=== PATIENT | female | born 1940 | race Caucasian/White ===

== ENCOUNTER → 2016-09-19 | Outpatient (CLI) | payer OTHER ==
[~2016-09-19] MED LIST: IOPAMIDOL (ISOVUE-300) 100 ML BTL IV ONE
[2016-09-19 19:02] LABS: CREATININE 0.9 mg/dL (0.6-1.0); GLOMERULAR FILTRATION RATE > 60
== END ==
LOC: FIMAGING 18:23
PROVIDERS: ATTEND Family Medicine
DX: K59.00 Constipation, unspecified (principal); K57.90 Diverticulosis of intestine, part unspecified, without perforation or abscess without bleeding; R63.0 Anorexia
CPT/HCPCS: 74177; Q9967

== ENCOUNTER 2016-09-26 05:56 | Emergency (ER) | payer OTHER ==
[2016-09-26 06:10] VITALS: TEMP 98.1
--- NOTE | 2016-09-26 06:38 | EDPHY ---
H & P Stated Complaint: abd pain Source: Patient Exam Limitations: No limitations - Personal History Current Tetanus/Diphtheria Vaccine: Yes Current Tetanus Diphtheria and Acellular Pertussis (TDAP): Yes - Medical/Surgical History Hx Asthma: No Hx Chronic Respiratory Disease: Yes Hx Diabetes: No Hx Cardiac Disease: No Hx Renal Disease: No Hx Cirrhosis: No Hx Alcoholism: No Hx HIV/AIDS: No Hx Splenectomy or Spleen Trauma: No Other PMH: Appendectomy, bilateral mastectomy, hysterectomy, 2 C-sections, HYPOTHYROIDISM, ARTHRITIS anaphylactic shock, GERD, DVT and PE, hypertension, obstructive sleep apnea, bowel obstruction - Social History Smoking Status: Former smoker Time Seen by Provider: 09/26/16 06:32 HPI/ROS: HPI The patient presents with about 1 week of abdominal pain which is intermittent, achy, throughout her abdomen, and feels like indigestion. She has been eating very little and then yesterday had a full meal. She has had constipation and describes very hard stools, the last of which was yesterday morning. She denies any dark or bloody stools. She was evaluated by her primary care doctor last week and 7 days [address] a CT scan performed which demonstrated constipation. After that she started on lactulose which did not improve her symptoms much. She awoke this morning with continued pain and has come to the emergency room for further evaluation.. REVIEW OF SYSTEMS Constitutional: No fever, no chills. Eyes: No discharge. ENT: No sore throat. Cardiovascular: No chest pain, no palpitations. Respiratory: No cough, no shortness of breath. Gastrointestinal: No abdominal pain, no vomiting. Genitourinary: No hematuria. Musculoskeletal: No back pain. Skin: No rashes. Neurological: No headache. PMHx: Status post hysterectomy, appendectomy, history of GERD Soc Hx: Lives at home with her PHYSICAL General Appearance: Alert, somewhat tearful Eyes: Pupils equal and round no pallor or injection ENT, Mouth: Mucous membranes moist Respiratory: There are no retractions, lungs are clear to auscultation Cardiovascular: Regular rate and rhythm Gastrointestinal: Abdomen is soft, bowel sounds are present, mildly tender diffusely Neurological: A&O, moves all extremities Skin: Warm and dry, no rashes Musculoskeletal: Neck is supple non tender Extremities: symmetrical, full range of motion Psychiatric: Patient is oriented X 3, there is no agitation (Riguzzi,Samantha) Constitutional: Initial Vital Signs Temperature (C) 36.7 C 09/26/16 06:07 Heart Rate 64 09/26/16 06:07 Respiratory Rate 18 09/26/16 06:07 Blood Pressure 135/75 H 09/26/16 06:07 O2 Sat (%) 93 09/26/16 06:07 O2 Delivery Mode Room Air Allergies/Adverse Reactions: fentanyl Allergy (Severe, Verified 09/26/16 06:03) JOCELYN midazolam HCl [From Versed] Allergy (Severe, Verified 09/26/16 06:03) JOCELYN erythromycin base [Erythromycin Base] Allergy (Intermediate, Verified 09/26/16 06:03) polyethylene glycol 3350 [From Miralax] Allergy (Intermediate, Verified 06:03) Sulfa (Sulfonamide Antibiotics) Allergy (Intermediate, Verified 09/26/16 06:03) amoxicillin Allergy (Verified 09/26/16 06:03) amoxicillin trihydrate [From Augmentin] Allergy (Verified 09/26/16 06:03) ciprofloxacin Allergy (Verified 09/26/16 06:03) guaifenesin [From Robitussin] Allergy (Verified 09/26/16 06:03) potassium clavulanate [From Augmentin] Allergy (Verified 09/26/16 06:03) Home Medications: Medication Instructions Recorded Levothyroxine [Synthroid 137 mcg 137 mcg PO DAILY06 09/27/11 (*)] Cholecalciferol Vit D3 [Vitamin D3 2,000 units PO DAILY 10/12/12 (*)] Fluticasone Nasal [Flonase Nasal 2 sprays EACHNARE HS 10/12/12 [place]] Herbals/Supplements -Info Only 1 each PO AD 10/12/12 Omeprazole [Prilosec 20 mg] 20 mg PO BID 10/12/12 Simvastatin [Zocor 40 mg] 40 mg PO HS 10/12/12 Cetirizine [ZyrTEC 10 mg (*)] 10 mg PO DAILY 11/10/13 diphenhydrAMINE [Benadryl 25 MG 25 mg PO HS 11/10/13 (*)] EPINEPHrine [Epipen 0.3 MG] 0.3 mg IM ONCE PRN #1 syr 06/04/14 Albuterol [Proventil Inhaler HFA 2 puffs IH Q4 PRN 02/19/15 (*)] Azelastine [Astelin] 2 sprays EACHNARE DAILY 02/19/15 Calcium/Magnesium/Vit D3 [Calcium 1 each PO TID 02/19/15 500 mg Tablet] Montelukast Sodium [Singulair 10 10 mg PO HS 02/19/15 mg (*)] Sumatriptan Succinate [Imitrex] 100 mg PO PRN PRN 02/19/15 predniSONE 15 mg PO DAILY 02/19/15 Estrace Vaginal (*) 09/26/16 Lactulose 09/26/16 Myrbetriq 09/26/16 Medical Decision Making Differential Diagnosis: This is a 76-year-old female with recent diagnosis of constipation based on CT scan, prescribe lactulose, now with continued symptoms of constipation and abdominal pain. On exam, she has normal vital signs, her abdominal exam is benign. Differential diagnosis includes constipation, bowel obstruction, GERD. Plan for basic labs, soapsuds enema and re-evaluation. If her pain continues after enema, would consider repeat CT scan. (Samantha Samayoa) Other Provider: Care assumed 700; CT 09/19/16 report reviewed, read as constipation. Plan per Danita is enema, DC if improved, re-CT if not. 755am: reexamined, abdomen soft and nontender. She had a large bowel movement and feels better except for some cramping. Likely constipation, at this point think SBO or surgical abdomen unlikely. (Ruddy Hernandez) - Data Points Laboratory Results: Laboratory Results 09/26/16 06:25 09/26/16 06:25 09/26/16 09/26/16 06:25 06:25 WBC 8.36 10^3/uL 10^3/uL (3.80-9.50) RBC 4.82 10^6/uL 10^6/uL (4.18-5.33) Hgb 13.7 g/dL g/dL (12.6-16.3) Hct 41.2 % % (38.0-47.0) MCV 85.5 fL fL (81.5-99.8) MCH 28.4 pg pg (27.9-34.1) MCHC 33.3 g/dL g/dL (32.4-36.7) RDW 16.3 % H % (11.5-15.2) Plt Count 211 10^3/uL 10^3/uL (150-400) MPV 9.8 fL fL (8.7-11.7) Neut % (Auto) 53.3 % % (39.3-74.2) Lymph % (Auto) 32.1 % % (15.0-45.0) [place] % (Auto) 10.6 % % (4.5-13.0) Eos % (Auto) 2.9 % % (0.6-7.6) Baso % (Auto) 0.7 % % (0.3-1.7) Nucleat RBC Rel Count 0.0 % % (0.0-0.2) Absolute Neuts (auto) 4.46 10^3/uL 10^3/uL (1.70-6.50) Absolute Lymphs (auto) 2.68 10^3/uL 10^3/uL (1.00-3.00) Absolute Monos (auto) 0.89 10^3/uL H 10^3/uL (0.30-0.80) Absolute Eos (auto) 0.24 10^3/uL 10^3/uL (0.03-0.40) Absolute Basos (auto) 0.06 10^3/uL 10^3/uL (0.02-0.10) Absolute Nucleated RBC 0.00 10^3/uL 10^3/uL (0-0.01) Immature Gran % 0.4 % % (0.0-1.1) Immature Gran # 0.03 10^3/uL 10^3/uL (0.00-0.10) Sodium 138 mEq/L mEq/L (134-144) Potassium 3.8 mEq/L mEq/L (3.5-5.2) Chloride 104 mEq/L mEq/L (97-110) Carbon Dioxide 25 mEq/l mEq/l (22-31) Anion Gap 9 mEq/L mEq/L (8-16) BUN 19 mg/dL mg/dL (7-23) Creatinine 1.0 mg/dL mg/dL (0.6-1.0) Estimated GFR 54 Glucose 87 mg/dL mg/dL (70-100) Calcium 9.2 mg/dL mg/dL (8.5-10.4) Total Bilirubin 0.8 mg/dL mg/dL (0.1-1.4) AST 24 IU/L IU/L (14-46) ALT 40 IU/L IU/L (9-52) Alkaline Phosphatase 71 IU/L IU/L (38-126) Total Protein 6.6 g/dL g/dL (6.3-8.2) Albumin 4.0 g/dL g/dL (3.5-5.0) Lipase 114.0 IU/L IU/L (23-300) Departure - Departure Disposition: Home, Routine, Self-Care Clinical Impression: Constipation Qualifiers: Constipation type: unspecified constipation type Qualified Code(s): K59.00 - Constipation, unspecified Condition: Good Instructions: Constipation (ED) Referrals: Nuha Bradford MD [Primary Care Provider] - As per Instructions
[2016-09-26 06:39] LABS: % IMMATURE GRANULYOCYTES 0.4 % (0.0-1.1); ABSOLUTE IMMATURE GRANULOCYTES 0.03 10^3/uL (0.00-0.10); ADD DIFF? NO; ADD MORPH? NO; ADD SCAN? NO; ATYPICAL LYMPHOCYTE FLAG 0 (0-99); FRAGMENT RBC FLAG 0 (0-99); HEMATOCRIT 41.2 % (38.0-47.0); HEMOGLOBIN 13.7 g/dL (12.6-16.3); LEFT SHIFT FLG 0 (0-99); LIPEMIA HEMOLYSIS FLAG 80 (0-99); MEAN CELL HEMOGLOBIN 28.4 pg (27.9-34.1); MEAN CELL HEMOGLOBIN CONCENTR. 33.3 g/dL (32.4-36.7); MEAN CELL VOLUME 85.5 fL (81.5-99.8); MEAN PLATELET VOLUME 9.8 fL (8.7-11.7); PLATELET CLUMPS FLAG 0 (0-99); PLATELET COUNT 211 10^3/uL (150-400); RED BLOOD CELL COUNT 4.82 10^6/uL (4.18-5.33); RED CELL DISTRIBUTION WIDTH 16.3 % (11.5-15.2)
[2016-09-26 06:52] LABS: ALANINE AMINOTRANSFERASE 40 IU/L (9-52); ALKALINE PHOSPHATASE 71 IU/L (38-126); ANION GAP 9 mEq/L (8-16); ASPARTATE AMINOTRANSFERASE 24 IU/L (14-46); BILIRUBIN,TOTAL 0.8 mg/dL (0.1-1.4); CALCIUM 9.2 mg/dL (8.5-10.4); CARBON DIOXIDE 25 mEq/l (22-31); CHLORIDE 104 mEq/L (97-110); GLOMERULAR FILTRATION RATE 54; GLUCOSE 87 mg/dL (70-100); POTASSIUM 3.8 mEq/L (3.5-5.2); SODIUM 138 mEq/L (134-144); TOTAL PROTEIN 6.6 g/dL (6.3-8.2)
[2016-09-26 08:12] VITALS: BP 98/67; PULSE 69; RESP 16; O2SAT 94
== END 2016-09-26 08:12 | disposition home or self-care (01) ==
DX: K59.00 Constipation, unspecified (principal); I10 Essential (primary) hypertension; Z87.891 Personal history of nicotine dependence

== ENCOUNTER → 2016-10-02 | Outpatient (CLI) | payer OTHER | LOC: BMCIMAGING 14:27 | PROVIDERS: ATTEND Internal Medicine Rheumatology | DX: M79.605 Pain in left leg (principal); M79.89 Other specified soft tissue disorders ==

== ENCOUNTER → 2016-11-07 | Outpatient (CLI) | payer OTHER | LOC: FIMAGING 11:47 | PROVIDERS: ATTEND Internal Medicine Rheumatology | DX: M51.36 Other intervertebral disc degeneration, lumbar region (principal); M54.9 Dorsalgia, unspecified ==

== ENCOUNTER → 2016-11-19 | Outpatient (CLI) | payer OTHER | LOC: FIMAGING 07:49 | PROVIDERS: ATTEND Physician Assistant | DX: R10.84 Generalized abdominal pain (principal); K59.00 Constipation, unspecified ==

== ENCOUNTER 2016-12-02 18:34 | Inpatient (IN) | payer OTHER ==
[2016-12-02 19:20] LABS: % IMMATURE GRANULYOCYTES 0.8 % (0.0-1.1); ABSOLUTE IMMATURE GRANULOCYTES 0.06 10^3/uL (0.00-0.10); ADD DIFF? NO; ADD MORPH? NO; ADD SCAN? NO; ATYPICAL LYMPHOCYTE FLAG 0 (0-99); FRAGMENT RBC FLAG 0 (0-99); HEMATOCRIT 42.6 % (38.0-47.0); HEMOGLOBIN 14.2 g/dL (12.6-16.3); LEFT SHIFT FLG 10 (0-99); LIPEMIA HEMOLYSIS FLAG 80 (0-99); MEAN CELL HEMOGLOBIN CONCENTR. 33.3 g/dL (32.4-36.7); MEAN CELL VOLUME 83.9 fL (81.5-99.8); PLATELET CLUMPS FLAG 10 (0-99); PLATELET COUNT 208 10^3/uL (150-400); RED BLOOD CELL COUNT 5.08 10^6/uL (4.18-5.33)
--- NOTE | 2016-12-02 19:26 | EDPHY ---
HPI/HX/ROS/PE/MDM Narrative: CHIEF COMPLAINT: Fever, Body aches HPI: The patient is a 76-year-old female who complains of fever and body aches. Patient states she has not felt well for the past week. Over the past three days her symptoms have been worsening. She has a productive cough with clear sputum. Her fever today reached 101.8. She has a diffuse headache. Patient has not been able to eat due to lesions in her mouth. She denies chest pain or shortness of breath. No abdominal pain or urinary complaints. REVIEW OF SYSTEMS: Aside from elements discussed in the HPI, a comprehensive 10-point review of systems was reviewed and is negative. PMH: Spinal stenosis, RA on chronic Prednisone, Migraines SOCIAL HISTORY: PHYSICAL EXAM: General: Patient is alert, in no acute distress. ENT: Eyes are normal to inspection. Mouth: Lesion to lower lip. Multiple aphthous. Neck: Normal inspection. Full range of motion. Respiratory: No respiratory distress. Breath sounds normal bilaterally. Cardiovascular: Regular rate and rhythm. Strong peripheral pulses. Abdomen: The abdomen is nontender to palpation. There are no peritoneal signs. There are normal bowel sounds. Back: Normal to inspection. No tenderness to palpation. Skin: Normal color. No rash. Warm and dry. Extremities: Normal appearance. Full range of motion. Neuro: Oriented x3. Normal motor function. Normal sensory function. ED Course: Patient presents with multiple complaints of cough, headache, fever, and body aches. Patient is afebrile in the ED. Plan to check lab work. Chest x-ray is negative for pneumonia. WBC is normal. Patient has elevated Lactic acid of 2.2. MDM: This patient presents with fever, cough and malaise, and is found to be hypoxic to 83% on RA. She normally wears oxygen only during sleep. As such, she requires admission to the hospital for further workup and treatment. Patient meets criteria for severe sepsis based on initial lactate >2. Thankfully this has normalized. There is no evidence of septic shock. Antibiotics are limited as patient is allergic to penicillins, macrolides and flouroquinolones, and this may represent a viral process. I will defer antibiotic selection to inpatient team. - Data Points Imaging Results: Imaging Impressions Chest X-Ray 12/02/16 19:12 Impression: 1. Probable severe acute bronchitis with a differential diagnosis of early bilateral diffuse interstitial pneumonitis or interstitial pulmonary edema. 2. No pleural effusion or pneumothorax. 3. Atherosclerotic aorta. Imaging: Discussed imaging studies w/ manager call Radiologist, I viewed and interpreted images myself Laboratory Results: Laboratory Results 12/02/16 19:05 12/02/16 19:05 12/02/16 12/02/16 12/02/16 20:15 19:30 19:30 WBC RBC Hgb Hct MCV MCH MCHC RDW Plt Count MPV Neut % (Auto) Lymph % (Auto) [place] % (Auto) Eos % (Auto) Baso % (Auto) Nucleat RBC Rel Count Absolute Neuts (auto) Absolute Lymphs (auto) Absolute Monos (auto) Absolute Eos (auto) Absolute Basos (auto) Absolute Nucleated RBC Immature Gran % Immature Gran # VBG Lactic Acid 1.2 mmol/L mmol/L (0.7-2.1) Sodium Potassium Chloride Carbon Dioxide Anion Gap BUN Creatinine Estimated GFR Glucose Calcium Troponin I < 0.012 ng/mL ng/mL (0-0.034) NT-Pro-B Natriuret Pep 391 pg/mL pg/mL (0-450) Urine Color YELLOW Urine Appearance CLEAR Urine pH 7.0 (5.0-7.5) Ur Specific [place] 1.010 (1.002-1.030) Urine Protein NEGATIVE (NEGATIVE) Urine Ketones NEGATIVE (NEGATIVE) Urine Blood NEGATIVE (NEGATIVE) Urine Nitrate NEGATIVE (NEGATIVE) Urine Bilirubin NEGATIVE (NEGATIVE) Urine Urobilinogen NEGATIVE EU EU (0.2-1.0) Ur Leukocyte Esterase NEGATIVE (NEGATIVE) Urine Glucose NEGATIVE (NEGATIVE) 12/02/16 12/02/16 12/02/16 19:05 19:05 19:05 WBC 7.70 10^3/uL 10^3/uL (3.80-9.50) RBC 5.08 10^6/uL 10^6/uL (4.18-5.33) Hgb 14.2 g/dL g/dL (12.6-16.3) Hct 42.6 % % (38.0-47.0) MCV 83.9 fL fL (81.5-99.8) MCH 28.0 pg pg (27.9-34.1) MCHC 33.3 g/dL g/dL (32.4-36.7) RDW 17.0 % H % (11.5-15.2) Plt Count 208 10^3/uL 10^3/uL (150-400) MPV 10.0 fL fL (8.7-11.7) Neut % (Auto) 64.3 % % (39.3-74.2) Lymph % (Auto) 25.2 % % (15.0-45.0) [place] % (Auto) 8.7 % % (4.5-13.0) Eos % (Auto) 0.4 % L % (0.6-7.6) Baso % (Auto) 0.6 % % (0.3-1.7) Nucleat RBC Rel Count 0.0 % % (0.0-0.2) Absolute Neuts (auto) 4.95 10^3/uL 10^3/uL (1.70-6.50) Absolute Lymphs (auto) 1.94 10^3/uL 10^3/uL (1.00-3.00) Absolute Monos (auto) 0.67 10^3/uL 10^3/uL (0.30-0.80) Absolute Eos (auto) 0.03 10^3/uL 10^3/uL (0.03-0.40) Absolute Basos (auto) 0.05 10^3/uL 10^3/uL (0.02-0.10) Absolute Nucleated RBC 0.00 10^3/uL 10^3/uL (0-0.01) Immature Gran % 0.8 % % (0.0-1.1) Immature Gran # 0.06 10^3/uL 10^3/uL (0.00-0.10) VBG Lactic Acid 2.2 mmol/L H mmol/L (0.7-2.1) Sodium 134 mEq/L mEq/L (134-144) Potassium 3.3 mEq/L L mEq/L (3.5-5.2) Chloride 100 mEq/L mEq/L (97-110) Carbon Dioxide 21 mEq/l L mEq/l (22-31) Anion Gap 13 mEq/L mEq/L (8-16) BUN 15 mg/dL mg/dL (7-23) Creatinine 0.7 mg/dL mg/dL (0.6-1.0) Estimated GFR > 60 Glucose 105 mg/dL H mg/dL (70-100) Calcium 9.3 mg/dL mg/dL (8.5-10.4) Troponin I NT-Pro-B Natriuret Pep Urine Color Urine Appearance Urine pH Ur Specific [place] Urine Protein Urine Ketones Urine Blood Urine Nitrate Urine Bilirubin Urine Urobilinogen Ur Leukocyte Esterase Urine Glucose Medications Given: Discontinued Medications Acetaminophen (Tylenol) 650 mg PO EDNOW ONE Stop: 12/02/16 19:48 Last Admin: 12/02/16 19:54 Dose: 650 mg Sodium Chloride (Ns) 1,000 mls @ 0 mls/hr IV ONCE ONE; Wide Open PRN Reason: Protocol Stop: 12/02/16 19:33 Last Admin: 12/02/16 19:33 Dose: 1,000 mls General Time Seen by Provider: 12/02/16 19:12 Initial Vital Signs: Initial Vital Signs Temperature (C) 37.8 C 12/02/16 18:38 Heart Rate 98 12/02/16 18:38 Respiratory Rate 18 12/02/16 18:38 Blood Pressure 124/74 H 12/02/16 18:38 O2 Sat (%) 90 L 12/02/16 18:38 O2 Delivery Mode Room Air O2 (L/minute) 3 Allergies/Adverse Reactions: fentanyl Allergy (Severe, Verified 12/02/16 18:37) JOCELYN midazolam HCl [From Versed] Allergy (Severe, Verified 12/02/16 18:37) JOCELYN erythromycin base [Erythromycin Base] Allergy (Intermediate, Verified 12/02/16 18:37) polyethylene glycol 3350 [From Miralax] Allergy (Intermediate, Verified 18:37) Sulfa (Sulfonamide Antibiotics) Allergy (Intermediate, Verified 12/02/16 18:37) amoxicillin Allergy (Verified 12/02/16 18:37) amoxicillin trihydrate [From Augmentin] Allergy (Verified 12/02/16 18:37) ciprofloxacin Allergy (Verified 12/02/16 18:37) guaifenesin [From Robitussin] Allergy (Verified 12/02/16 18:37) potassium clavulanate [From Augmentin] Allergy (Verified 12/02/16 18:37) Home Medications: Medication Instructions Recorded Albuterol Sulfate [Proair Hfa] 2 gm IH DAILY PRN 12/02/16 Azelastine [Astelin Nasal [place] 2 sprays EACHNARE DAILY PRN 12/02/16 (RX)] Cetirizine [ZyrTEC 10 mg (*)] 10 mg PO DAILY 12/02/16 EPINEPHrine [Epipen 0.3 MG] 0.3 mg IM AD PRN 12/02/16 Estradiol [Estrace Vaginal (*)] 1 gm VG SUTH 12/02/16 Fluticasone Nasal [Flonase Nasal 2 sprays EACHNARE DAILY PRN 12/02/16 [place] (RX)] Gabapentin 600 mg PO TID 12/02/16 Herbals/Supplements -Info Only 1 ea PO DAILY 12/02/16 Levothyroxine [Synthroid 137 mcg 137 mcg PO DAILY@12/02/16 (*)] Methotrexate Sodium [Rheumatrex] 10 mg PO QUINONES 12/02/16 Mirabegron [Myrbetriq] 25 mg PO DAILY@12/02/16 Montelukast Sodium [Singulair] 10 mg PO DAILY@12/02/16 Omeprazole 20 mg PO BID 12/02/16 Simvastatin 40 mg PO DAILY@12/02/16 Sumatriptan Succinate [Imitrex] 100 mg PO DAILY PRN 12/02/16 Sumatriptan Succinate [Zembrace 3 mg SQ AD PRN 12/02/16 [place]] Triamterene/Hydrochlorothiazid 1 each PO DAILY 12/02/16 [Triamterene-Hctz 37.5-25 mg Cp] diphenhydrAMINE [Benadryl 25 MG 25 mg PO HS 12/02/16 (*)] inFLIXimab [Remicade Inj 100 mg 300 mg IV Q49D 12/02/16 (*)] predniSONE 2.5 mg PO DAILY 12/02/16 Departure - Departure Disposition: [facility] Inpatient Acute Report Scribed for: Omar Newton Report Scribed by: Destiny Buckner Date of Report: 12/02/16 Time of Report: 19:25 Physician Review and Approval Statement: Portions of this note were transcribed by a medical technologist microbiology. I personally performed the history, physical exam, and medical decision-making; and confirmed the accuracy of the information in the transcribed note.
[2016-12-02 19:30] LABS: ANION GAP 13 mEq/L (8-16); CALCIUM 9.3 mg/dL (8.5-10.4); CARBON DIOXIDE 21 mEq/l (22-31); CHLORIDE 100 mEq/L (97-110); CREATININE 0.7 mg/dL (0.6-1.0); GLOMERULAR FILTRATION RATE > 60; GLUCOSE 105 mg/dL (70-100); POTASSIUM 3.3 mEq/L (3.5-5.2); SODIUM 134 mEq/L (134-144)
[2016-12-02] MEDS ORDERED: NS 1,000 ML IV ONE (19:32)
[2016-12-02] MEDS ORDERED: ACETAMINOPHEN 325 MG TAB PO ONE (19:47)
[2016-12-02] MEDS ORDERED: ACETAMINOPHEN 325 MG TAB ONE (19:54)
[2016-12-02 20:15] LABS: LACGHOST ORDER
[2016-12-02 20:31] LABS: COLOR YELLOW; LEUKOCYTE ESTERASE,URINE NEGATIVE (NEGATIVE); NITRITE,URINE NEGATIVE (NEGATIVE)
[2016-12-02 20:56] LABS: TROPONIN I < 0.012 ng/mL (0-0.034)
[2016-12-02] MEDS ORDERED: AZELASTINE NASAL MDI EACHNARE PRN (23:10)
[2016-12-02] MEDS ORDERED: ALBUTEROL 200 PUFFS/18 GM MDI IH PRN (23:10)
[2016-12-02] MEDS ORDERED: FLUTICASONE NASAL 120 SPRAYS/16 GM MDI EACHNARE PRN (23:10)
[2016-12-02] MEDS ORDERED: POTASSIUM CL 20 MEQ TAB PO ONE (23:12)
[2016-12-02 23:29] LABS: BACTERIA 3+ /hpf (NONE SEEN); MUCUS TRACE /lpf (NONE-1+); WBC,URINE 15-25 /hpf (0-3)
--- NOTE | 2016-12-02 23:54 | GHP ---
[f rep st] HISTORY AND PHYSICAL DATE OF ADMISSION: 12/02/2016 CHIEF COMPLAINT: Fever. HISTORY OF PRESENT ILLNESS: This is a 76-year-old female with a history of rheumatoid arthritis. S he is on multiple antidepressants as well as chronic prednisone at 2.5 mg for the last several month s. She has been having some back pain recently and had an epidural injection about 2 weeks ago. Th is has helped some of her pain. About a week and half ago she developed chills, some rigors, mouth ulcers and a cough with some mild sputum production. She is not having any chest pain. She is feel ing short of breath. No sore throat or upper respiratory tract infection symptoms. No dysuria. Sh e does have a headache which she describes as migrainous. She has not been able to eat due to the u lcers. REVIEW OF SYSTEMS: 10-point review of systems was obtained and other than stated was negative. PAST MEDICAL HISTORY: 1. Rheumatoid arthritis. 2. Spinal stenosis. 3. Migraine headaches. 4. Hypertension. 5. Hypothyroidism. 6. Multiple medication allergies including anaphylaxis to GoLYTELY. 7. History of PE and DVT, the last time several years ago. 8. Obstructive sleep apnea on CPAP. SOCIAL HISTORY: No smoking or alcohol. FAMILY HISTORY: Reviewed, noncontributory. PHYSICAL EXAM: VITAL SIGNS: Afebrile. Blood pressure is 107/68, heart rate 74, oxygen saturation 84% on room air, 95% on 4 L. GENERAL: Patient is well developed, in no apparent distress. HEENT: Nonicteric sclerae. Extraocular movements intact. Dry mucous membranes. Multiple aphthous ulcers . NECK: Supple. No thyromegaly. LUNGS: Good effort. Clear to auscultation bilaterally. CARDIO VASCULAR: Regular rate and rhythm. No murmurs, gallops. ABDOMEN: Positive bowel sounds. Soft, n ontender, nondistended. No hepatosplenomegaly. EXTREMITIES: No clubbing, cyanosis, or edema. SKI N: Without rash. Warm, dry, intact. NEUROLOGIC: Alert and oriented x3. Moving all 4 extremities equally. PSYCHIATRIC: Normal affect. LABORATORY DATA: CBC is normal. Lactate was slightly elevated at 2.2. Repeat is 1.2 with a little bit of fluid. Creatinine is normal. Troponin is negative. UA is negative. Chest x-ray personally reviewed and interpreted, shows early diffuse pneumonitis. ASSESSMENT: 76-year-old female who is immunosuppressed due to therapy for rheumatoid arthritis, pre senting with fever, chills, cough and abnormal chest x-ray. 1. Fever with abnormal chest x-ray. This does not seem to be typical bronchitis or early pneumonia . She may need a bronchoscopy with BAL. We will get a CT scan tonight to further evaluate. Talk t o Infectious Disease tomorrow and probably Pulmonology. I am going to keep her n.p.o. after midnigh t. Will hold off on any empiric antibiotic therapy since she is allergic to so many medications. 2. Rheumatoid arthritis. Will continue her on her chronic prednisone treatment. 3. Possible early sepsis. She did have fever and a mildly elevated lactic acid. Continue IV fluid s. 4. Hypothyroidism. 5. Admission. Patient will be admitted under full admission status. Case discussed with ER mendez ritchie. Old records reviewed and summarized in HPI. /[id number]/MODL
[2016-12-03] MEDS: NS 1,000 ML IV SCH ×3 (00:09→22:12)
[2016-12-03] MEDS: PANTOPRAZOLE SODIUM 40 MG TAB PO SCH ×2 (00:12→08:03)
[2016-12-03] MEDS: SUMAtriptan 6 MG/0.5 ML VIAL SC PRN ×3 (00:48→23:21)
[2016-12-03] MEDS: CETIRIZINE 10 MG TAB PO SCH (08:03)
[2016-12-03] MEDS: LEVOTHYROXINE 137 MCG TAB PO SCH (08:46)
[2016-12-03] MEDS: GABAPENTIN 300 MG CAP PO SCH ×3 (09:01→23:22)
[2016-12-03] MEDS: predniSONE 5 MG TAB PO SCH (09:10)
[2016-12-03] MEDS: Mirabegron [Myrbetriq] 25 MG PO SCH (12:15)
--- NOTE | 2016-12-03 12:25 | HOSPPROG ---
Hospitalist Progress Note Assessment/Plan: 76-year-old with a history of rheumatoid arthritis who is immunocompromised due to medications including chronic prednisone and Remicade. She comes in with increasing shortness of breath, cough and fevers over the last few days. She has a number of chronic complaints including chronic back pain chronic abdominal pain and headaches which appear unchanged at this time. Evaluation included a CT scan which was abnormal showing bilateral pulmonary pneumonitis that needs further evaluation. Patient discussed with Dr. James and Dr. Weaver. Patient new to [place] and chart review # bilatera pulmonary pneumonitis with fever, unclear etiology. Respiratory panel is negative. * Hold antibiotics for now * Patient to get bronchoscopy later today * Further recommendations will depend upon bronchoscopy and pulmonary evaluation. # rheumatoid arthritis followed by Dr. Escobar. On chronic prednisone therapy as well as Remicade. This appears to be fairly quiescent at this time although I cannot rule out rheumatoid lung, will defer to pulmonology for further evaluation after bronchoscopies done * Continue low-dose prednisone, does not seem to need stress doses at this time however will need to watch vital signs closely * Doubt sepsis her lactate is now 1 # chronic headache pain followed by Dr. Fierro as an outpatient # chronic abdominal pain, no significant change. Has been evaluated thoroughly as an outpatient with CT scans. # history of asthma, followed by Dr. Elias as an outpatient. Currently on a number of respiratory medications and will continue that while she is here. # obstructive sleep apnea, uses CPAP at home # dyslipidemia on Zocor # anaphylaxis and multiple drug intolerance. DVT prophylaxis: Medium high risk will start her on low-molecular weight heparin tomorrow Subjective: Patient new to [place] chart reviewed. No specific complaints except admits to some fevers and increasing shortness of breath and cough for the last few days. Her headache pain and abdominal pain are chronic Objective: Vital Signs Temp Pulse Resp BP Pulse Ox 36.8 C 82 16 104/59 L 91 L 12/03/16 12:01 12/03/16 12:12/03/16 12:12/03/16 12:12/03/16 12:12/02/16 12/03/16 12/04/16 05:59 05:59 05:59 Intake Total 2655 Output Total 1850 550 Balance 805 -550 - Physical Exam Constitutional: appears nourished, not in pain, obese Eyes: PERRL, anicteric sclera, EOMI Ears, Nose, Mouth, Throat: moist mucous membranes Cardiovascular: regular rate and rhythym, no murmur, rub, or gallop Respiratory: no respiratory distress, reduced air movement, No inspiratory crackles Gastrointestinal: normoactive bowel sounds, soft, non-tender abdomen, no palpable masses Genitourinary: no bladder fullness, No casey in urethra Skin: warm, normal color Musculoskeletal: No asymmetric calves, No muscular tenderness Neurologic: AAOx3 Psychiatric: interacting appropriately, not anxious, not encephalopathic ICD10 Worksheet Patient Problems: Problems Problem Status Onset Pulmonary embolism Acute
[2016-12-03] MEDS ORDERED: LIDOCAINE 2% JELLY 5 ML TUBE ONE (13:12)
[2016-12-03] MEDS ORDERED: LIDOCAINE 1% 300 MG/30 ML SDV ONE ×2 (13:12→13:18)
[2016-12-03] MEDS ORDERED: ALBUTEROL 3 ML DEYVIAL ONE (13:17)
--- NOTE | 2016-12-03 13:22 | GCON ---
[f rep st] CONSULTATION CHEST CONSULTATION REASON FOR CONSULTATION: Pneumonitis. HISTORY OF PRESENT ILLNESS: The patient is a very pleasant 76-year-old, white female with extensive past medical history including obstructive sleep apnea, history of DVT and PE, hypothyroidism, hype rtension, migraine, spinal stenosis, and rheumatoid arthritis. She has been on chronic prednisone. She presented with increasing breathlessness. It was associated with chills and rigors. She admit s to a cough productive of mild sputum but no hemoptysis. There is no chest pain. Pleuritic-type ch est pain, or angina equivalent. A CT scan of the chest was performed. PAST MEDICAL HISTORY: Significant for rheumatoid arthritis, spinal stenosis, migraines, hypertensio n, hypothyroidism, DVT, PE, and obstructive sleep apnea. SOCIAL HISTORY: No history of tobacco use. No history of alcohol use. MEDICATIONS: Include Tylenol, Ventolin, Lipitor, Astelin, Zyrtec, Benadryl, Estrace, Flonase, Neuro ntin, Synthroid, Singulair, Zofran, Protonix, prednisone, and mirabegron. PHYSICAL EXAM: VITAL SIGNS: Blood pressure is 134/67, pulse 68, respirations 16, temperature 36.7, oxygen saturation 92% on 3 L. GENERAL: She is a moderately overweight elderly white female who is resting comfortably on nasal cannula oxygen. HEENT: Eyes: JESSICA, EOMI. Throat shows no erythema or tonsillar hypertrophy. NECK: Supple. There is no cervical adenopathy. HEART: Regular rate an d rhythm without murmurs, rubs, gallops. LUNGS: Diminished breath sounds. Bibasilar crackles but no wheeze. ABDOMEN: Soft, nontender. Bowel sounds are present in all 4 quadrants. EXTREMITIES: There is no clubbing, cyanosis, or edema. LABORATORIES: White count 7.7, hemoglobin 14, hematocrit 42, platelet count 208. Sodium 134, potas sium 3.3, chloride 100, CO2 is 21, BUN 15, creatinine 0.7, glucose is 105. Urinalysis: pH 7, speci fic gravity 1.010, 15-[address] scan of the chest shows bilateral ground-glass opacifications in both lungs. IMPRESSION: 1. Rheumatoid arthritis. 2. Pneumonitis, etiology of which is unclear though, given her history of prednisone as well as eva abegron, must take into consideration something atypical, possibly Pneumocystis. 3. Spinal stenosis. 4. Hypertension. 5. Hypothyroidism. 6. Multiple drug allergies. RECOMMENDATIONS: 1. Will schedule fiberoptic bronchoscopy at soonest. 2. Given her multiple drug allergies and the fact that she had problems during an endoscopy, we gordon medina consult Anesthesia. /[id number]/MODL
[2016-12-03] MEDS ORDERED: PROPOFOL/EMULSION 500 MG/50 ML BOTTLE IV ONE ×2 (13:46→14:09)
--- NOTE | 2016-12-03 13:46 | GCON ---
[f rep st] CONSULTATION INFECTIOUS DISEASE CONSULTATION DATE OF CONSULTATION: 12/03/2016 REFERRING PHYSICIAN: Easton Mantilla MD REASON FOR CONSULTATION: Bilateral pulmonary infiltrates, for further evaluation and opinion. CHIEF COMPLAINT: Fevers, just generally not feeling well. HISTORY OF PRESENTING ILLNESS: This is a 76-year-old female, with a past medical history significant for rheumatoid arthritis, on low-dose chronic prednisone at 2.5 mg for last 3 months richard ng with Remicade injections every 7 weeks that she has had for the last 1 year. She follows with Dr Sara Escobar for that. She states that she has chronic abdominal pain issues related to constip ation, chronic joint pains related to her rheumatoid arthritis. At the end of September until about November 02 she stated she traveled to [place] to visit her mother in [place]. After her flight there and sleeping overnight she stated she started to have increasing back pain, mostly in the low er back and buttocks region. By the end of her stay there, she was having a hard time even walking. She had some increasing numbness and tingling down the legs. She returned back here, had a lumbar MRI which showed severe spinal stenosis. She states about 2 to 2-1/2 weeks ago she received an epi dural injection from [facility], where she was evaluated for this back pain. She states after that her back pain started to feel better and there was improvement in the numbness and tingling down her lower extremity. She denies loss of bowel or bladder control or inability to walk. About 4 days a fter that, she states that she started to feel poorly. She was having a hard time sort of summarizi ng her symptoms in general, but she stated that she had some intermittent fevers and shaking chills over the past 10 days. She states that her fevers have gone as high as 101. She states that she pascual s had some headaches, which are mostly on the top of her head and then slightly go to the back. She denies any neck stiffness as such, although she does occasionally feel like the muscles around her neck are sore. She does not feel any obstruction to neck movement. Over the past 3 or 4 days, she has had increasing cough with some clear sputum production and some increasing shortness of breath. She denies any recent sick contacts, contact with little children. She does not do a lot of outdoo r activities such as gardening. She is generally not outside much because she does not feel well, a nd so she stays inside. She denies any recent mosquito bites. Upon evaluation in the ER, her O2 sa ts initially were 90, did drop down to 84%. Currently it is 91% on 3 L O2 via nasal cannula. She h ad some low-grade temperatures upon admission of 37.8, which have improved. She feels a little bit better than yesterday, but overall just feels ill and wiped out. Blood cultures were drawn in the E R, which are pending, and she did have a respiratory panel PCR which did not detect any organisms. She had a CT of the chest done, which showed bilateral ground-glass opacities which were nonspecific , but raised the question of possible PCP. She was not given any empiric antibiotics in the ER or a fter admission due to multiple antibiotic allergies. Infectious Disease is now [facility] and opinion regarding the above. REVIEW OF SYSTEMS: GENERAL: Fevers and shaking chills as above. HEAD: Intermittent headaches, wi thout neck stiffness. EYES: No changes in vision. ENT: She did have some mouth sores earlier in the week, which have improved. She stated she went to a dentist yesterday, who did not find any abn ormalities in her mouth as such. Denies any ear pain or ear drainage. CARDIOVASCULAR: Denies any chest pain or rapid heartbeat. RESPIRATORY: As above. : Has usually problems with constipation . Does have chronic abdominal pain. No nausea, no vomiting, no diarrhea. : Denies any dysuria or hematuria. Denies any flank pain as such. MUSCULOSKELETAL: She has chronic joint pains all ove r. SKIN: Denies any rashes recently. ENDOCRINE: Denies any weight loss. Rest of 10-point review of systems essentially negative except for above. PAST MEDICAL HISTORY: Significant for asthma, colon polyps, diverticulosis, migraines, dyslipidemia , hypertension, hypothyroidism, nocturnal hypoxemia, obesity, DEEPAK, osteoarthritis, rheumatoid arthri tis, pulmonary embolism for which she states she was on warfarin for 18 months and is now is not on warfarin. 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 PAST SURGICAL HISTORY: Significant for appendectomy, bladder surgery, , cataract surgery, colonoscopies, hysterectomy, bilateral salpingo-oophorectomy, mammoplasty, bilateral mastectomy, Moh s surgery, reconstructive breast surgery, history of removal of breast implants in 2011, rotator cuf f surgery, tonsillectomy and adenoidectomy, uvulopalatopharyngoplasty. ALLERGIES: Amoxicillin/Augmentin with anaphylaxis or, as she says, she has throat swelling and rash ; Cipro, anaphylaxis, throat swelling, and rash; erythromycin, rash with possible throat swelling; s ulfa with a rash, she could not tell me if she had throat swelling with that one. She is also aller gic to Celebrex, fentanyl which causes her to have anaphylaxis, polyethylene glycol, Robitussin, Damien sed. FAMILY HISTORY: Significant for brain cancer, cervical cancer, colon cancer, larynx cancer, and agustina cardial infarction. SOCIAL HISTORY: She is a nonsmoker. Drinks alcohol occasionally. Lives with her . No pets . No extensive outdoor activities such as gardening or landscaping. No recent mosquito bites. Rec ent travel to [place] end of September to early October to visit her mother in [place]. PHYSICAL EXAMINATION: VITAL SIGNS: Temperature current 36.8, T-max 37.8, pulse is 82, blood pressu re 104/59, respiratory rate is 18, saturation 91% on room air on 3 L O2 via nasal cannula. GENERAL: The patient is resting in bed, in no acute respiratory distress, awake, alert, and oriented x3. H EENT: Head is normocephalic, atraumatic. Eyes: Pupils are equal, round, reactive to light. No co njunctival injection. No petechiae noted. Oropharynx: No oropharyngeal ulcers noted. Tongue is c oated, but no obvious thrush. She has a scab on her lower lip, which she said was from a cracked li p. CARDIOVASCULAR: S1, S2. Regular rate and rhythm. No obvious murmurs appreciated. RESPIRATORY : Coarse breath sounds bilaterally. ABDOMEN: Obese. Positive bowel sounds in all quadrants. Sof t, nondistended. She has some tenderness, mild, in the left lower quadrant. No rebound or guarding . LOWER EXTREMITIES: No obvious joint effusions or pain on palpation of the joints. SKIN: No obv ious rashes. LABORATORY DATA: White blood cell count is 7.7, hemoglobin 14.2, platelets are 288, neutrophil coun t is 64%. Venous lactic acid was 2.2 in the ER, which improved to 1.2. Chemistry: Sodium 134, pot assium 3.3, chloride 100, bicarb 21, BUN 15, creatinine 0.7. LFTs done a month ago are within the n ormal range. Troponin was 0.012. BNP was 391. Urinalysis: Negative nitrites, negative leuk devora ase, her urine RBCs are 5-10, urine WBCs 15-25, 2+ bacteria, trace epithelial cells. Blood cultures x2 sets are pending. Respiratory panel is no organisms tested. Imaging results have all been revi ewed by me and are stated above. ASSESSMENT: 1. Bilateral ground-glass opacities of unclear etiology, infectious versus noninfectious. 2. Fever. PLAN: New bilateral pulmonary infiltrates of uncertain etiology. Whether this is infectious or non -infectious is unclear at this time. Differential diagnosis for infectious etiologies, especially i n a patient who is immunocompromised on chronic low-dose steroids and Remicade, could be bacterial, viral, fungal, PCP, Nocardia, or atypical pathogens. Given multiple antibiotic allergies, would not start antibiotics empirically for now. Agree with bronchoscopy as this will help us get a deep res piratory specimen for further evaluation. Would send it for Pneumocystis, Nocardia stain, Legionell a PCR, fungal cultures, regular cultures and sensitivity, and AFB. Will send for mycoplasma serolog ies as well as urine histoplasma antigen. Care coordinated with Dr. Mantilla. Thank you very much for providing this opportunity to care for your patient in consultation. /[id number]/MODL
--- NOTE | 2016-12-03 15:04 | PDANEPAE ---
ANE Past Medical History - Cardiovascular History Hx Hypertension: Yes - Pulmonary History Hx Recent Upper Respiratory Infection: Yes Hx Oxygen in Use at Home: Yes O2 in Use at Home (L/minute): 3 Hx Sleep Apnea: Yes Sleep Apnea Screening Result - Last Documented: Positive - Endocrine History Hx Diabetes: No Obesity: yes - Other Health History Other Health History: rheumatoid athritis, migraines, DVTs, PE, spinal stenosis - Chronic Pain History Chronic Pain: No ANE Review of Systems - Exercise capacity Exercise capacity: limited by disability METS (RN): 2 METS - Systems Constitutional: Reports: fever EENMT: Reports: other (small chin, very limited mouth opening) Cardiac: Reports: no symptoms Respiratory: Reports: cough, shortness of breath Gastrointestinal: Reports: no symptoms ANE Patient History - Allergies Allergies/Adverse Reactions: fentanyl Allergy (Severe, Verified 12/02/16 18:37) JOCELYN midazolam HCl [From Versed] Allergy (Severe, Verified 12/02/16 18:37) JOCELYN erythromycin base [Erythromycin Base] Allergy (Intermediate, Verified 12/02/16 18:37) polyethylene glycol 3350 [From Miralax] Allergy (Intermediate, Verified 18:37) Sulfa (Sulfonamide Antibiotics) Allergy (Intermediate, Verified 12/02/16 18:37) amoxicillin Allergy (Verified 12/02/16 18:37) amoxicillin trihydrate [From Augmentin] Allergy (Verified 12/02/16 18:37) ciprofloxacin Allergy (Verified 12/02/16 18:37) guaifenesin [From Robitussin] Allergy (Verified 12/02/16 18:37) potassium clavulanate [From Augmentin] Allergy (Verified 12/02/16 18:37) - Home Medications Home Medications: Albuterol Sulfate [Proair Hfa] 2 gm IH DAILY PRN 12/02/16 [Last Taken Unknown] Azelastine [Astelin Nasal Atkinson (RX)] 2 sprays EACHNARE DAILY PRN 12/02/16 [ Last Taken Unknown] Cetirizine [ZyrTEC 10 mg (*)] 10 mg PO DAILY 12/02/16 [Last Taken 12/02/16] EPINEPHrine [Epipen 0.3 MG] 0.3 mg IM AD PRN 12/02/16 [Last Taken Unknown] Estradiol [Estrace Vaginal (*)] 1 gm VG SUTH 12/02/16 [Last Taken 12/01/16] Fluticasone Nasal [Flonase Nasal Atkinson (RX)] 2 sprays EACHNARE DAILY PRN [Last Taken Unknown] Gabapentin 600 mg PO TID 12/02/16 [Last Taken 12/02/16 1 TAB] Herbals/Supplements -Info Only 1 ea PO DAILY 12/02/16 [Last Taken Unknown] Levothyroxine [Synthroid 137 mcg (*)] 137 mcg PO DAILY@12/02/16 [Last Taken 12/02/16] Methotrexate Sodium [Rheumatrex] 10 mg PO QUINONES 12/02/16 [Last Taken 12/01/16] Mirabegron [Myrbetriq] 25 mg PO DAILY@12/02/16 [Last Taken 12/01/16] Montelukast Sodium [Singulair] 10 mg PO DAILY@12/02/16 [Last Taken 12/01/16] Omeprazole 20 mg PO BID 12/02/16 [Last Taken 12/02/16 1 cap] Simvastatin 40 mg PO DAILY@12/02/16 [Last Taken 12/01/16] Sumatriptan Succinate [Imitrex] 100 mg PO DAILY PRN 12/02/16 [Last Taken Unknown ] Sumatriptan Succinate [Zembrace Symtouch] 3 mg SQ AD PRN 12/02/16 [Last Taken Unknown] Triamterene/Hydrochlorothiazid [Triamterene-Hctz 37.5-25 mg Cp] 1 each PO DAILY 12/02/16 [Last Taken 12/02/16] diphenhydrAMINE [Benadryl 25 MG (*)] 25 mg PO HS 12/02/16 [Last Taken 12/01/16] inFLIXimab [Remicade Inj 100 mg (*)] 300 mg IV Q49D 12/02/16 [Last Taken Unknown ] predniSONE 2.5 mg PO DAILY 12/02/16 [Last Taken 12/02/16] - NPO status NPO Since - Liquids (Date): 12/03/16 NPO Since - Liquids (Time): 00:00 NPO Since - Solids (Date): 12/03/16 NPO Since - Solids (Time): 00:00 - Anes Hx Hx Anesthesia Complications (with details): h/o difficult intubation in the past , associated with dental trauma - Smoking Hx Smoking Status: Former smoker ANE Labs/Vital Signs - Labs Result Diagrams: 12/02/16 19:05 12/02/16 19:05 - Vital Signs Blood Pressure: 135/76 Heart Rate: 75 Respiratory Rate: 18 O2 Sat (%): 94 Height: 160.02 cm Weight: 89.811 kg
[2016-12-03] MEDS ORDERED: LR 500 ML IV PRN (15:07)
[2016-12-03] MEDS ORDERED: NALOXONE HCL 0.4 MG/ML INJ IVP PRN (15:07)
--- NOTE | 2016-12-03 15:07 | POSTANESTH ---
Post Anesthetic Evaluation Cardiovascular Status: Normal, Stable Respiratory Status: Similar to Pre-op Cond. Level of Consciousness/Mental Status: Can Participate in Eval Pain Control: Adequate, Prn Tx Ordered Nausea/Vomiting Control: Adequate, Prn Tx Ordered Complications Possibly Related to Anesthesia: None Noted
[2016-12-03] MEDS: ACETAMINOPHEN 325 MG TAB PO PRN (18:09)
[2016-12-03] MEDS: diphenhydrAMINE 25 MG CAP PO SCH (20:34)
[2016-12-03] MEDS: HYDROCODONE/APAP 5/325 TAB PO PRN (23:22)
[2016-12-03] MEDS: MONTELUKAST SODIUM 10 MG TAB PO SCH (23:22)
[2016-12-03] MEDS: ATORVASTATIN CALCIUM 20 MG TAB PO SCH (23:22)
[2016-12-03] MEDS: ONDANSETRON DISINTEGRATING 4 MG TAB PO PRN (23:26)
--- NOTE | 2016-12-04 00:17 | GPN ---
[f rep st] PROCEDURE NOTE PROCEDURE PERFORMED: Fiberoptic bronchoscopy. INDICATION: Pneumonitis in an immunocompromised patient. ANESTHESIA: Provided by the Anesthesia Department. PROCEDURE: Attempts were made to perform bronchoscopy orally through a bite block and then subseque nt through an LMA but was unable to proceed. Patient was then intubated with a #7 endotracheal tube . Bronchoscope was entered through a #7 endotracheal tube. Distal trachea and berenice were visualiz ed and showed no endobronchial lesion, normal-appearing mucosa. Bronchoscope in the left lung, left upper lobe, lingula, left lower lobe, including sub-segments, were subsequently visualized and show ed no endobronchial lesion, normal-appearing mucosa. Bronchoscope in the right lung. Right upper l obe, right middle lobe, right lower lobe, including sub-segments, were subsequently visualized, show ed no endobronchial lesions, normal-appearing mucosa. Bronchoalveolar lavage taken of the right low er lobe. This was sent for C and S, AFB, fungal culture, cytology, and special stains. The broncho scope was then removed. Patient tolerated the procedure well. There were no apparent complications . Portable chest x-ray has been called for. /[id number]/MODL
[2016-12-04] MEDS: SUMAtriptan 6 MG/0.5 ML VIAL SC PRN ×2 (00:43→23:34)
[2016-12-04 04:41] LABS: % IMMATURE GRANULYOCYTES 0.5 % (0.0-1.1); ABSOLUTE IMMATURE GRANULOCYTES 0.05 10^3/uL (0.00-0.10); ADD DIFF? NO; ADD MORPH? NO; ADD SCAN? NO; ATYPICAL LYMPHOCYTE FLAG 0 (0-99); FRAGMENT RBC FLAG 0 (0-99); HEMATOCRIT 34.9 % (38.0-47.0); HEMOGLOBIN 11.2 g/dL (12.6-16.3); LEFT SHIFT FLG 30 (0-99); LIPEMIA HEMOLYSIS FLAG 80 (0-99); MEAN CELL HEMOGLOBIN 27.8 pg (27.9-34.1); MEAN CELL HEMOGLOBIN CONCENTR. 32.1 g/dL (32.4-36.7); MEAN CELL VOLUME 86.6 fL (81.5-99.8); MEAN PLATELET VOLUME 9.6 fL (8.7-11.7); PLATELET CLUMPS FLAG 10 (0-99); PLATELET COUNT 156 10^3/uL (150-400); RED BLOOD CELL COUNT 4.03 10^6/uL (4.18-5.33); RED CELL DISTRIBUTION WIDTH 17.2 % (11.5-15.2)
[2016-12-04 05:10] LABS: ANION GAP 9 mEq/L (8-16); CALCIUM 8.1 mg/dL (8.5-10.4); CARBON DIOXIDE 24 mEq/l (22-31); CHLORIDE 106 mEq/L (97-110); CREATININE 0.7 mg/dL (0.6-1.0); GLOMERULAR FILTRATION RATE > 60; GLUCOSE 96 mg/dL (70-100); POTASSIUM 3.4 mEq/L (3.5-5.2); SODIUM 139 mEq/L (134-144)
[2016-12-04] MEDS: SUMAtriptan 50 MG TAB PO PRN (08:14)
[2016-12-04] MEDS: LEVOTHYROXINE 137 MCG TAB PO SCH (08:15)
[2016-12-04] MEDS: GABAPENTIN 300 MG CAP PO SCH ×3 (10:14→20:44)
[2016-12-04] MEDS: predniSONE 5 MG TAB PO SCH (10:14)
[2016-12-04] MEDS: CETIRIZINE 10 MG TAB PO SCH (10:14)
[2016-12-04] MEDS: PANTOPRAZOLE SODIUM 40 MG TAB PO SCH (10:14)
[2016-12-04] MEDS ORDERED: PROTOCOL MAGNESIUM 1 DOSE IV PRN (10:30)
[2016-12-04] MEDS ORDERED: PROTOCOL POTASSIUM 1 DOSE MISC PRN (10:30)
--- NOTE | 2016-12-04 10:36 | HOSPPROG ---
Hospitalist Progress Note Assessment/Plan: 76 yo female with hx of RA and immunosupression admitted for fever, pneumonitis , and dehydration. ID and Pulm following. #Pneumonitis, bilateral -unremarkable bronchoscopy -Neg resp panel -holding abx -consider trial of steroids -Schedule nebs -await Pulm reccs -await ID reccs #?Fever, none documented here #Immunocompromised state/RA #Dehydration, resolving -decrease IVF today #Acute on Chronic JAIMES/Migraine -cont with home meds #Chronic abd pain #DEEPAK #Hypokalemia -start electrolyte replacement protocol -Recheck electrolytes tomorrow #Multiple Drug Allergy #DVT Proph: -Lovenox First encounter with this patient Subjective: Feels better but still SOB. Has a JAIMES. Afebrile Objective: Vital Signs Temp Pulse Resp BP Pulse Ox 36.6 C 76 18 110/64 96 12/04/16 07:24 12/04/16 07:24 12/04/16 07:24 12/04/16 07:24 12/04/16 07:24 Microbiology 12/03/16 14:40 Gram Stain - Final Lung - Bronchial Washings Laboratory Results 12/04/16 04:13 12/04/16 04:13 12/03/16 12/04/16 12/05/16 05:59 05:59 05:59 Intake Total 2655 1957 Output Total 1850 1350 Balance 805 607 - Physical Exam Constitutional: no apparent distress, appears nourished, not in pain, chronically ill appearing Eyes: PERRL, EOMI Ears, Nose, Mouth, Throat: moist mucous membranes, hearing normal Cardiovascular: regular rate and rhythym, No edema Respiratory: no respiratory distress, reduced air movement Gastrointestinal: normoactive bowel sounds, soft, non-tender abdomen Skin: warm Neurologic: AAOx3 Psychiatric: interacting appropriately, not anxious ICD10 Worksheet Patient Problems: Problems Problem Status Onset Pulmonary embolism Acute
[2016-12-04] MEDS: ENOXAPARIN 40 MG/0.4 ML SYR SC SCH (11:15)
--- NOTE | 2016-12-04 12:07 | SOAPPROG ---
SOAP Progress Note Assessment/Plan: Assessment: * Rheumatoid arthritis-on mirabegron * Pneumonitis-etiology is unclear. Bronchoscopy results are currently pending * Acute respiratory failure secondary to pneumonitis * Obesity * Hypothyroidism * Obstructive sleep apnea Plan: [facility] Await bronchoscopy results Subjective: Feels better. Still with cough. Breathlessness continues but better on oxygen. Objective: Vital Signs Temp Pulse Resp BP Pulse Ox 36.6 C 76 18 110/64 96 12/04/16 07:24 12/04/16 07:24 12/04/16 07:24 12/04/16 07:24 12/04/16 07:24 Microbiology 12/03/16 14:40 Gram Stain - Final Lung - Bronchial Washings Laboratory Results 12/04/16 04:13 12/04/16 04:13 12/03/16 12/04/16 12/05/16 05:59 05:59 05:59 Intake Total 2655 1957 Output Total 1850 1350 Balance 805 607 Physical Exam - Physical Exam General Appearance: alert, no apparent distress EENT: PERRL/EOMI, normal ENT inspection, pharynx normal, TMs normal Neck: non-tender, full range of motion, supple, normal inspection Respiratory: crackles (Few), No respiratory distress, No wheezing Cardiac/Chest: normal peripheral pulses, regular rate, rhythm Peripheral Pulses: 2+: carotid (R), carotid (L), femoral (R), femoral (L), dorsalis-pedis (R), dorsalis-pedis (L) Abdomen: normal bowel sounds, non-tender, soft Pelvic Exam: deferred Rectal: deferred Neuro/Psych: no motor/sensory deficits, alert, normal mood/affect, oriented x 3 ICD10 Worksheet Patient Problems: Problems Problem Status Onset Pulmonary embolism Acute
[2016-12-04] MEDS ORDERED: POTASSIUM CL 10 MEQ TAB PO ONE ×2 (12:34→22:44)
[2016-12-04] MEDS ORDERED: MAGNESIUM SULF 1 GM/DEXTROSE 100 ML IV ONE (12:35)
[2016-12-04] MEDS: Mirabegron [Myrbetriq] 25 MG PO SCH (12:55)
[2016-12-04] MEDS: NS 1,000 ML IV SCH (12:59)
[2016-12-04] MEDS: ALBUTEROL 3 ML DEYVIAL IH SCH ×3 (14:23→21:10)
--- NOTE | 2016-12-04 15:26 | PCMIDPN ---
Assessment/Plan: # Rheumatoid arthritis-on Remicade # Fever and Hypoxia with ground glass subacute presentation of dry cough/GONZALES: broad ddx but high on list PJP, atypical pna (mycoplasma/chlamydia), pertussis; could consider fungal, nocardial etiology but pattern seem atypical; could also consider non-infectious etiologies such as COOP # Multiple allergies: seems to tolerate azithromycin. Childhood reaction to Bactrim, willing to try again under observation if needed Rec 1) awaiting additional data before starting therapy, O2 requirements stable 5-6L 2) Added resp PCR to BAL because of symptoms concerning for pertussis and concern for false neg due to sampling error from nasal swab 3) Put back on droplet precautions for now Subjective: no change in cough - paroxysmal with near vomiting, endorses GONZALES ongoing low grade fever no clear contacts Objective: Vital Signs Temp Pulse Resp BP Pulse Ox 36.6 C 76 18 110/64 96 12/04/16 07:24 12/04/16 07:24 12/04/16 07:24 12/04/16 07:24 12/04/16 07:24 Microbiology 12/03/16 14:40 Gram Stain - Final Lung - Bronchial Washings Laboratory Results 12/04/16 04:13 12/04/16 04:13 12/03/16 12/04/16 12/05/16 05:59 05:59 05:59 Intake Total 2655 1957 Output Total 1850 1350 1100 Balance 805 607 -1100 Laboratory Tests 12/02/16 12/03/16 12/03/16 16:35 10:37 14:40 Urine Histoplasma Ag Urine Legionella Ag Pending Mycoplasma pneumon IgG Pending Mycoplasma pneumon IgM Pending Nocardia Smear Pending Pneumocyst carinii Smear 12/03/16 12/03/16 14:40 16:55 Urine Histoplasma Ag Pending Urine Legionella Ag Mycoplasma pneumon IgG Mycoplasma pneumon IgM Nocardia Smear Pneumocyst carinii Smear Pending - Physical Exam General Appearance: alert, apparent distress (mild SOB with talk) EENT: dry mucous membranes, poor dentition, No thrush Respiratory: wheezing (faint), No accessory muscle use, No crackles Neck: supple Cardiac/Chest: regular rate, rhythm Extremities: No pedal edema Abdomen: non-tender, soft Skin: pallor, No rash Neuro/Psych: alert, normal mood/affect, oriented x 3 - Time Spent With Patient Time Spent with Patient: greater than 35 minutes Time Spent with Patient: Greater than 35 minutes spent on this patients care, greater than 50% of time spent counseling, educating, and coordinating care regarding the above mentioned plan. ICD10 Worksheet Patient Problems: Problems Problem Status Onset Pulmonary embolism Acute
[2016-12-04 17:26] LABS: ALBUMIN 2.9 g/dL (3.5-5.0); BILIRUBIN,TOTAL 0.8 mg/dL (0.1-1.4); BILIRUBIN-CONJUGATED 0.3 mg/dL (0.0-0.5); BILIRUBIN-UNCONJUGATED 0.5 mg/dL (0.0-1.1); TOTAL PROTEIN 5.1 g/dL (6.3-8.2)
[2016-12-04 19:58] LABS: POTASSIUM 3.2 mEq/L (3.5-5.2)
[2016-12-04] MEDS: diphenhydrAMINE 25 MG CAP PO SCH (20:44)
[2016-12-04] MEDS: MONTELUKAST SODIUM 10 MG TAB PO SCH (20:44)
[2016-12-04] MEDS: ATORVASTATIN CALCIUM 20 MG TAB PO SCH (20:45)
[2016-12-04 21:24] LABS: NOCARDIA STAIN RESULT See Comments
[2016-12-05 02:55] LABS: MISCELLANEOUS TEST See Comments
[2016-12-05] MEDS: NS 1,000 ML IV SCH (03:22)
[2016-12-05] MEDS: SUMAtriptan 6 MG/0.5 ML VIAL SC PRN (03:27)
[2016-12-05 04:44] LABS: % IMMATURE GRANULYOCYTES 0.4 % (0.0-1.1); ABSOLUTE IMMATURE GRANULOCYTES 0.02 10^3/uL (0.00-0.10); ADD DIFF? NO; ADD MORPH? NO; ADD SCAN? NO; ATYPICAL LYMPHOCYTE FLAG 0 (0-99); FRAGMENT RBC FLAG 0 (0-99); HEMATOCRIT 34.2 % (38.0-47.0); HEMOGLOBIN 11.1 g/dL (12.6-16.3); LEFT SHIFT FLG 20 (0-99); LIPEMIA HEMOLYSIS FLAG 80 (0-99); MEAN CELL HEMOGLOBIN 28.2 pg (27.9-34.1); MEAN CELL HEMOGLOBIN CONCENTR. 32.5 g/dL (32.4-36.7); MEAN PLATELET VOLUME 9.7 fL (8.7-11.7); PLATELET CLUMPS FLAG 0 (0-99); PLATELET COUNT 152 10^3/uL (150-400); RED BLOOD CELL COUNT 3.93 10^6/uL (4.18-5.33); RED CELL DISTRIBUTION WIDTH 17.3 % (11.5-15.2)
[2016-12-05 05:04] LABS: ANION GAP 8 mEq/L (8-16); CALCIUM 8.2 mg/dL (8.5-10.4); CARBON DIOXIDE 23 mEq/l (22-31); CHLORIDE 109 mEq/L (97-110); CREATININE 0.7 mg/dL (0.6-1.0); GLOMERULAR FILTRATION RATE > 60; GLUCOSE 78 mg/dL (70-100); MAGNESIUM 1.9 mg/dL (1.6-2.3); POTASSIUM 3.7 mEq/L (3.5-5.2); SODIUM 140 mEq/L (134-144)
[2016-12-05] MEDS: HYDROCODONE/APAP 5/325 TAB PO PRN ×2 (05:04→16:26)
[2016-12-05] MEDS: LEVOTHYROXINE 137 MCG TAB PO SCH (05:31)
[2016-12-05] MEDS: ALBUTEROL 3 ML DEYVIAL IH SCH ×4 (06:09→20:01)
[2016-12-05] MEDS: GABAPENTIN 300 MG CAP PO SCH ×3 (08:58→21:03)
[2016-12-05] MEDS: PANTOPRAZOLE SODIUM 40 MG TAB PO SCH (08:58)
[2016-12-05] MEDS: CETIRIZINE 10 MG TAB PO SCH (08:58)
[2016-12-05] MEDS: predniSONE 5 MG TAB PO SCH (08:58)
[2016-12-05] MEDS: ENOXAPARIN 40 MG/0.4 ML SYR SC SCH (08:59)
[2016-12-05] MEDS: ESTRADIOL 42.5 GM CRTUBE VG SCH (09:02)
[2016-12-05] MEDS: diphenhydrAMINE 25 MG CAP PO PRN (10:51)
--- NOTE | 2016-12-05 11:07 | HOSPPROG ---
Hospitalist Progress Note Assessment/Plan: 76 yo female with hx of RA and immunosupression admitted for fever, pneumonitis , and dehydration. ID and Pulm following. #Pneumonitis, bilateral -unremarkable bronchoscopy -Neg resp panel -holding abx -awaiting bronchoscopy results -Schedule nebs -await Pulm reccs -await ID reccs #?Fever, none documented here #Immunocompromised state/RA #Dehydration, resolved. Will stop IVF today. #Acute on Chronic JAIMES/Migraine -cont with home meds #Chronic abd pain #DEEPAK #Hypokalemia -start electrolyte replacement protocol -Recheck electrolytes tomorrow #Multiple Drug Allergy #DVT Proph: -Lovenox Subjective: + JAIMES. +SOB, improving. Nebs are helping. No CP. No fever. Objective: Vital Signs Temp Pulse Resp BP Pulse Ox 37.1 C 75 20 133/70 H 94 12/05/16 08:00 12/05/16 08:00 12/05/16 08:00 12/05/16 08:00 12/05/16 08:00 Microbiology 12/03/16 14:40 Gram Stain - Final Lung - Bronchial Washings Laboratory Results 12/05/16 04:11 12/05/16 04:11 12/04/16 12/05/16 12/06/16 05:59 05:59 05:59 Intake Total 1957 3600 2004 Output Total 1350 1100 Balance 607 2500 2004 - Physical Exam Constitutional: no apparent distress, appears nourished, not in pain Eyes: PERRL, anicteric sclera, EOMI Ears, Nose, Mouth, Throat: moist mucous membranes Cardiovascular: regular rate and rhythym Respiratory: no respiratory distress, reduced air movement Gastrointestinal: soft, non-tender abdomen Skin: warm Neurologic: AAOx3 Psychiatric: interacting appropriately, not anxious, not encephalopathic ICD10 Worksheet Patient Problems: Problems Problem Status Onset Pulmonary embolism Acute
[2016-12-05] MEDS ORDERED: POTASSIUM CL 10 MEQ TAB PO ONE ×2 (12:47→20:30)
[2016-12-05] MEDS: Mirabegron [Myrbetriq] 25 MG PO SCH (12:54)
--- NOTE | 2016-12-05 14:29 | SOAPPROG ---
SOAP Progress Note Assessment/Plan: Assessment: * Rheumatoid arthritis-on mirabegron * Pneumonitis-etiology is unclear. Bronchoscopy results-CONTRACT GRAPHIC DESIGNER is negative * Acute respiratory failure secondary to pneumonitis * Obesity * Hypothyroidism * Obstructive sleep apnea Plan: [facility] Await bronchoscopy results Subjective: Complains of cough. She becomes but only breathless when she coughs. Objective: Vital Signs Temp Pulse Resp BP Pulse Ox 36.9 C 81 18 128/66 H 94 12/05/16 11:43 12/05/16 11:43 12/05/16 11:43 12/05/16 11:43 12/05/16 11:43 Microbiology 12/03/16 14:40 Gram Stain - Final Lung - Bronchial Washings Bronchial Washings Culture - Final Laboratory Results 12/05/16 04:11 12/05/16 04:11 12/04/16 12/05/16 12/06/16 05:59 05:59 05:59 Intake Total 1957 3600 2004 Output Total 1350 1100 Balance 607 2500 2004 Laboratory Results 12/05/16 04:11 12/05/16 04:11 12/03/16 14:40 Gram Stain - Final Lung - Bronchial Washings Bronchial Washings Culture - Final Physical Exam - Physical Exam General Appearance: alert, mild distress EENT: PERRL/EOMI, normal ENT inspection Neck: non-tender, full range of motion, supple, normal inspection Respiratory: crackles (Few), No respiratory distress, No wheezing Cardiac/Chest: normal peripheral pulses, regular rate, rhythm Peripheral Pulses: 2+: carotid (R), carotid (L), femoral (R), femoral (L), dorsalis-pedis (R), dorsalis-pedis (L) Abdomen: normal bowel sounds, non-tender, soft Pelvic Exam: deferred Rectal: deferred Skin: normal color, warm/dry Extremities: normal range of motion, non-tender, normal inspection, normal capillary refill ICD10 Worksheet Patient Problems: Problems Problem Status Onset Pulmonary embolism Acute
[2016-12-05] MEDS: ACETAMINOPHEN 325 MG TAB PO PRN (17:06)
[2016-12-05 18:13] LABS: RESPPCR RESULT SEE COMMENTS
--- NOTE | 2016-12-05 18:43 | PCMIDPN ---
Assessment/Plan: Assessment: Hypoxia with bilateral ground-glass infiltrates in multiple lobes. Her pneumocystis stain was not positive however the controls slide was in error there for the test needs to be repeated. Patient has not had a recurrence of her fever from yesterday. Would tend to side with the likelihood of this being [place] CD[place] A DRIVER or BOOP presentation. Respiratory viral panel from the deep BAL wash was sent to [facility]. Expect results tomorrow. Meanwhile continue observing off antibiotics. Plan: 1. Continue to observe of antibiotics. 2. Follow clinical course. 3. Follow up on culture data as well as respiratory viral panel PCR. 12/05/16 19:18 12/05/16 19:19 Subjective: Patient is resting in her hospital bed she still requires 5 L of supplemental oxygen. She is pleasant and nontoxic. No fevers since yesterday. No significant cough although is coughing a little bit up from the bronch wash. She did not have a productive cough as part of her presenting history. Objective: No antibiotics Vital Signs Temp Pulse Resp BP Pulse Ox 36.8 C 95 20 137/55 H 92 12/05/16 18:36 12/05/16 16:21 12/05/16 16:21 12/05/16 16:21 12/05/16 16:21 Microbiology 12/03/16 14:40 Gram Stain - Final Lung - Bronchial Washings Bronchial Washings Culture - Final Laboratory Results 12/05/16 04:11 12/04/16 12/05/16 12/06/16 05:59 05:59 05:59 Intake Total 1957 3600 2004 Output Total 1350 1100 Balance 607 2500 2004 - Physical Exam General Appearance: WD/WN, alert, no apparent distress, non-toxic Respiratory: lungs clear, normal breath sounds, No respiratory distress, No crackles Cardiac/Chest: regular rate, rhythm, No tachycardia Extremities: non-tender, normal inspection Skin: normal color, warm/dry, No rash Neuro/Psych: alert, normal mood/affect, oriented x 3 ICD10 Worksheet Patient Problems: Problems Problem Status Onset Pulmonary embolism Acute
[2016-12-05 18:44] LABS: POTASSIUM 3.7 mEq/L (3.5-5.2)
[2016-12-05 19:59] LABS: MYCOPLASMA PNUEMONIAE IGM 0.68 index (<=0.90)
[2016-12-05] MEDS: MONTELUKAST SODIUM 10 MG TAB PO SCH (21:04)
[2016-12-05] MEDS: diphenhydrAMINE 25 MG CAP PO SCH (21:04)
[2016-12-06] MEDS: HYDROCODONE/APAP 5/325 TAB PO PRN ×4 (04:06→18:21)
[2016-12-06] MEDS: ALBUTEROL 3 ML DEYVIAL IH SCH ×4 (05:11→20:52)
[2016-12-06 05:23] LABS: MAGNESIUM 1.9 mg/dL (1.6-2.3); POTASSIUM 3.6 mEq/L (3.5-5.2)
[2016-12-06] MEDS: LEVOTHYROXINE 137 MCG TAB PO SCH (06:27)
[2016-12-06] MEDS: ENOXAPARIN 40 MG/0.4 ML SYR SC SCH (08:18)
[2016-12-06] MEDS: PANTOPRAZOLE SODIUM 40 MG TAB PO SCH (08:18)
[2016-12-06] MEDS: predniSONE 5 MG TAB PO SCH (08:18)
[2016-12-06] MEDS: CETIRIZINE 10 MG TAB PO SCH (08:18)
[2016-12-06] MEDS: GABAPENTIN 300 MG CAP PO SCH ×3 (08:18→21:43)
[2016-12-06] MEDS ORDERED: POTASSIUM CL 10 MEQ TAB PO ONE (08:33)
[2016-12-06] MEDS: ONDANSETRON 4 MG/2 ML VIAL IVP PRN (09:26)
--- NOTE | 2016-12-06 10:06 | HOSPPROG ---
Hospitalist Progress Note Assessment/Plan: 76 yo female with hx of RA and immunosupression admitted for fever, pneumonitis , and dehydration. ID and Pulm following. Has been stable from a resp standpoint on needing between 3-5 liters O2. She has a cough intermittently which she developed shortly after the bronchoscopy. Her most significant complaint is a JAIMES which she will be treated with her home medications today. She reports a fever overnight but I dont see one documented. ID and Pulm to see today. #Pneumonitis, bilateral -unremarkable bronchoscopy findings thus far, awaiting bronchoscopy studies -Neg resp panel -holding abx -Schedule nebs, seem to help -Pulm reccs -ID reccs #?Fever, none documented here #Immunocompromised state/RA #Dehydration, resolved. s/p IVF #Acute on Chronic JAIMES/Migraine -cont with home meds -She will be treated with Imitrex #Chronic abd pain, stable. no acute issues #DEEPAK #Hypokalemia, replace per electrolyte protocol #Multiple Drug Allergy #DVT Proph: -Lovenox Subjective: +JAIMES, nurse notified by the patient. No current resp sx's. On 5L Objective: Vital Signs Temp Pulse Resp BP Pulse Ox 36.7 C 75 18 132/77 H 95 12/06/16 07:40 12/06/16 07:40 12/06/16 07:40 12/06/16 07:40 12/06/16 07:40 Microbiology 12/03/16 14:40 Gram Stain - Final Lung - Bronchial Washings Bronchial Washings Culture - Final Laboratory Results 12/05/16 04:11 12/06/16 04:33 12/05/16 12/06/16 12/07/16 05:59 05:59 05:59 Intake Total 3600 2805 Output Total 1100 Balance 2500 2805 - Physical Exam Constitutional: no apparent distress, appears nourished Eyes: PERRL, EOMI Ears, Nose, Mouth, Throat: moist mucous membranes, hearing normal Cardiovascular: regular rate and rhythym, no murmur, rub, or gallop, No edema Respiratory: reduced air movement Gastrointestinal: normoactive bowel sounds, soft, non-tender abdomen, no palpable masses Skin: warm Neurologic: AAOx3 Psychiatric: interacting appropriately, not anxious, not encephalopathic ICD10 Worksheet Patient Problems: Problems Problem Status Onset Pulmonary embolism Acute
--- NOTE | 2016-12-06 10:10 | PCMIDPN ---
Assessment/Plan: 1.Diffuse ground-glass opacifications, fever and hypoxia in immunocompromised host: Etiology has thus far eluded us. Repeat pneumocystis stain is negative, And multiple other tests are negative including histoplasmosis, mycoplasma, Legionella, etc. Respiratory viral panel performed on BAL fluid at [facility] also negative. Patient was placed back in droplet precautions yesterday out of concern for pertussis; testing at our facility was negative. Will repeat at [facility] on BAL fluid. Also of note, patient reports a history of diffuse oral ulcers upon admission on the vermilion border of her lip and hard palate, highly suggestive of a viral etiology. Most of these have resolved, but she still has an ulceration on her hard palate. I swabbed this for HSV and VZV PCR. HSV or VZV pneumonitis is a possibility, but would expect her to be much sicker and this is rare. Asked lab to add on HSV PCR to BAL as well as AFB stain and culture, as I did not see this as having been done. Consider lung biopsy moving forward given lack of improvement and no diagnosis thus far. Over 35 minutes spent with this patient today, obtaining history and coordinating care and ordering tests With laboratory. Subjective: feels that she is no better. Feels that her allergies are "Acting up." No diarrhea, nausea or vomiting. Objective: No antibiotics Afebrile 95% on 5 L Vital Signs Temp Pulse Resp BP Pulse Ox 36.7 C 75 18 132/77 H 95 12/06/16 07:40 12/06/16 07:40 12/06/16 07:40 12/06/16 07:40 12/06/16 07:40 Microbiology 12/03/16 14:40 Gram Stain - Final Lung - Bronchial Washings Bronchial Washings Culture - Final Laboratory Results 12/05/16 04:11 12/06/16 04:33 12/05/16 12/06/16 12/07/16 05:59 05:59 05:59 Intake Total 3600 2805 Output Total 1100 Balance 2500 2805 repeat pneumocystis stain x2 negative Histoplasmosis urine antigen negative Legionella studies negative, mycoplasma serology is negative Nasal viral respiratory panel here negative Viral respiratory panel on BAL fluid at [facility] negative BAL culture negative so far Fungal culture on BAL negative so far No AFB sent - Physical Exam General Appearance: obese, other ( talkative, sounds congested.) EENT: other ( Small superficial ulceration noted on hard palate. I could not see any other ulcers. No thrush.), No thrush Respiratory: crackles ( Coarse breath sounds especially at lung bases no wheezing.) Cardiac/Chest: regular rate, rhythm, No systolic murmur Extremities: No pedal edema Abdomen: non-tender, soft Skin: No rash ICD10 Worksheet Patient Problems: Problems Problem Status Onset Pulmonary embolism Acute
[2016-12-06] MEDS: SUMAtriptan 6 MG/0.5 ML VIAL SC PRN (10:15)
--- NOTE | 2016-12-06 10:58 | SOAPPROG ---
SOAP Progress Note Assessment/Plan: Assessment/Plan: * Rheumatoid arthritis-on mirabegron * Pneumonitis-etiology is unclear. Bronchoscopy cultures are negative. PCP is negative -will consult surgery for VATS biopsy * Acute respiratory failure secondary to pneumonitis * Obesity * Hypothyroidism * Obstructive sleep apnea Subjective: Complains of headache. Cough is unchanged. Objective: Vital Signs Temp Pulse Resp BP Pulse Ox 36.7 C 75 18 132/77 H 95 12/06/16 07:40 12/06/16 07:40 12/06/16 07:40 12/06/16 07:40 12/06/16 07:40 Microbiology 12/03/16 14:40 Gram Stain - Final Lung - Bronchial Washings Bronchial Washings Culture - Final Laboratory Results 12/05/16 04:11 12/06/16 04:33 12/05/16 12/06/16 12/07/16 05:59 05:59 05:59 Intake Total 3600 2805 Output Total 1100 Balance 2500 2805 Laboratory Results 12/05/16 04:11 12/06/16 04:33 12/03/16 14:40 Mycobacterial Smear ([place]) - Pending Lung - Bronchial Washings Mycobacterial Culture - Pending 12/03/16 14:40 Gram Stain - Final Lung - Bronchial Washings Bronchial Washings Culture - Final Physical Exam - Physical Exam General Appearance: alert, mild distress EENT: PERRL/EOMI, normal ENT inspection Neck: non-tender, full range of motion, supple, normal inspection Respiratory: crackles (Few bases), No respiratory distress, No stridor, No wheezing Cardiac/Chest: normal peripheral pulses, regular rate, rhythm Peripheral Pulses: 2+: carotid (R), carotid (L), femoral (R), femoral (L), dorsalis-pedis (R), dorsalis-pedis (L) Abdomen: normal bowel sounds, non-tender, soft Pelvic Exam: deferred Rectal: deferred Skin: normal color, warm/dry ICD10 Worksheet Patient Problems: Problems Problem Status Onset Pulmonary embolism Acute
[2016-12-06] MEDS: Mirabegron [Myrbetriq] 25 MG PO SCH (12:18)
[2016-12-06] MEDS: ACETAMINOPHEN 325 MG TAB PO PRN (17:11)
[2016-12-06] MEDS: diphenhydrAMINE 25 MG CAP PO SCH (21:43)
[2016-12-07] MEDS: HYDROCODONE/APAP 5/325 TAB PO PRN (00:17)
[2016-12-07] MEDS: ACETAMINOPHEN 325 MG TAB PO PRN ×3 (00:18→12:06)
[2016-12-07] MEDS: diphenhydrAMINE 25 MG CAP PO PRN (00:24)
[2016-12-07] MEDS: MONTELUKAST SODIUM 10 MG TAB PO SCH ×2 (00:24→20:49)
[2016-12-07] MEDS: SUMAtriptan 6 MG/0.5 ML VIAL SC PRN ×2 (04:37→08:44)
[2016-12-07 05:02] LABS: ANION GAP 8 mEq/L (8-16); CALCIUM 8.4 mg/dL (8.5-10.4); CARBON DIOXIDE 27 mEq/l (22-31); CHLORIDE 104 mEq/L (97-110); CREATININE 0.7 mg/dL (0.6-1.0); GLOMERULAR FILTRATION RATE > 60; GLUCOSE 82 mg/dL (70-100); MAGNESIUM 1.7 mg/dL (1.6-2.3); SODIUM 139 mEq/L (134-144)
[2016-12-07 05:28] LABS: % IMMATURE GRANULYOCYTES 1.2 % (0.0-1.1); ABSOLUTE IMMATURE GRANULOCYTES 0.06 10^3/uL (0.00-0.10); ADD DIFF? NO; ADD MORPH? NO; ADD SCAN? NO; ATYPICAL LYMPHOCYTE FLAG 50 (0-99); FRAGMENT RBC FLAG 0 (0-99); HEMATOCRIT 30.3 % (38.0-47.0); HEMOGLOBIN 9.7 g/dL (12.6-16.3); LEFT SHIFT FLG 20 (0-99); LIPEMIA HEMOLYSIS FLAG 80 (0-99); MEAN CELL HEMOGLOBIN 28.2 pg (27.9-34.1); MEAN CELL VOLUME 88.1 fL (81.5-99.8); PLATELET CLUMPS FLAG 0 (0-99); PLATELET COUNT 186 10^3/uL (150-400); RED BLOOD CELL COUNT 3.44 10^6/uL (4.18-5.33); RED CELL DISTRIBUTION WIDTH 17.3 % (11.5-15.2)
[2016-12-07] MEDS: ALBUTEROL 3 ML DEYVIAL IH SCH ×4 (06:13→21:31)
[2016-12-07] MEDS: LEVOTHYROXINE 137 MCG TAB PO SCH (07:43)
[2016-12-07] MEDS: predniSONE 5 MG TAB PO SCH (08:21)
[2016-12-07] MEDS: CETIRIZINE 10 MG TAB PO SCH (08:21)
[2016-12-07] MEDS: PANTOPRAZOLE SODIUM 40 MG TAB PO SCH (08:21)
[2016-12-07] MEDS: GABAPENTIN 300 MG CAP PO SCH ×3 (08:21→20:48)
[2016-12-07] MEDS: ENOXAPARIN 40 MG/0.4 ML SYR SC SCH (08:22)
[2016-12-07] MEDS ORDERED: MAGNESIUM SULF 1 GM/DEXTROSE 100 ML IV ONE (09:21)
--- NOTE | 2016-12-07 09:56 | HOSPPROG ---
Hospitalist Progress Note Assessment/Plan: DIAGNOSES: -ACUTE HYPOXEMIC RESPIRATORY FAILURE WITH FEVER -ACUTE GROUND-GLASS PULMONARY INFILTRATES ASSOCIATED WITH FEVER, QUESTION INFECTIOUS VERSUS IS RHEUMATOID OR OTHER CAUSE -ACUTE FEBRILE ILLNESS -IMMUNE SUPPRESSION WITH RHEUMATOID ARTHRITIS AND RELATED TREATMENT -HYPOKALEMIA -ACUTE MIGRAINE HEADACHE WITH HISTORY OF CHRONIC MIGRAINES -CHRONIC OBSTRUCTIVE SLEEP APNEA, USING CPAP -DEHYDRATION At this point the patient is making very slow progress but remains quite symptomatic. We still do not have a definitive diagnosis as to the etiology of her respiratory illness. It would appear this is most likely infectious but we may need tissue sampling to determine that there is not another cause. Will review with pulmonology today as well as Infectious Disease. There is discussion yesterday of surgical consult for obtaining tissue sample for diagnosis. For now will continue empiric therapy. In addition there is some pyuria present at the time of admission, of uncertain significance. I will recheck her urine at this time. PLANS: -continue current empiric therapy for her lung illness -continue CPAP -continue respiratory isolation -await surgical consultation. SUBJECTIVE: Still with significant dyspnea, and productive cough with dark yellow phlegm Mild discomfort in the chest with coughing Chills and shivering are less than before arrival here but still present OBJECTIVE Vitals reviewed: No fever past 36 hours, otherwise stable Exam: alert oriented skin warm dry color ok resps not labored lungs very diminished but clear BSs heart regular abd soft nondistended nontender, bowel sounds present limbs warm, no edema iv site ok Laboratory data: White count remains stable Hemoglobin has drifted down to 9 from admission of 14 Culture data: All cultures remain negative at this point Objective: Vital Signs Temp Pulse Resp BP Pulse Ox 36.6 C 76 18 118/64 4 L 12/07/16 08:17 12/07/16 08:17 12/07/16 08:17 12/07/16 08:17 12/07/16 08:17 Microbiology 12/03/16 14:40 Mycobacterial Smear ([place]) - Final Lung - Bronchial Washings 12/03/16 14:40 Gram Stain - Final Lung - Bronchial Washings Bronchial Washings Culture - Final Laboratory Results 12/07/16 04:04 12/07/16 04:04 12/06/16 12/07/16 12/08/16 06:59 06:59 06:59 Intake Total 2805 4000 Output Total 6 Balance 2806 3936 - Time Spent With Patient Time Spent with Patient: greater than 35 minutes Time Spent with Patient: Greater than 35 minutes spent on this patients care, greater than 50% of time spent counseling, educating, and coordinating care regarding the above mentioned plan. ICD10 Worksheet Patient Problems: Problems Problem Status Onset Pulmonary embolism Acute
--- NOTE | 2016-12-07 11:03 | PDINTPN ---
Application Packager Progress Note Assessment/Plan: Assessment/Plan: * Rheumatoid arthritis-on mirabegron * Pneumonitis-etiology is unclear. Bronchoscopy cultures are negative. PCP is negative -surgery to see today for VATS biopsy * Acute respiratory failure secondary to pneumonitis-still coughing and hypoxemic * Obesity * Hypothyroidism * Obstructive sleep apnea Subjective: No change overall. Difficulty sleeping last night. Oxygen requirements are unchanged Objective: Vital Signs Temp Pulse Resp BP Pulse Ox 36.6 C 85 18 118/64 93 12/07/16 08:17 12/07/16 10:04 12/07/16 08:17 12/07/16 08:17 12/07/16 10:04 Microbiology 12/03/16 14:40 Mycobacterial Smear ([place]) - Final Lung - Bronchial Washings 12/03/16 14:40 Gram Stain - Final Lung - Bronchial Washings Bronchial Washings Culture - Final Laboratory Results 12/07/16 04:04 12/07/16 04:04 12/06/16 12/07/16 12/08/16 05:59 05:59 05:59 Intake Total 2805 4000 Output Total 6 Balance 2805 3994 Physical Exam - Physical Exam General Appearance: WD/WN, alert, no apparent distress EENT: PERRL/EOMI, normal ENT inspection, pharynx normal, TMs normal Neck: non-tender, full range of motion, supple, normal inspection Respiratory: crackles, No wheezing Cardiac/Chest: normal peripheral pulses, regular rate, rhythm, systolic murmur Abdomen: normal bowel sounds, non-tender, soft Pelvic Exam: deferred Rectal: deferred Skin: normal color, warm/dry Extremities: normal range of motion, non-tender, normal inspection, normal capillary refill ICD10 Worksheet Patient Problems: Problems Problem Status Onset Pulmonary embolism Acute
[2016-12-07] MEDS: Mirabegron [Myrbetriq] 25 MG PO SCH (11:51)
--- NOTE | 2016-12-07 15:20 | PCMIDPN ---
Assessment/Plan: Assessment/Plan: * Bilateral pneumonitis: No defined etiology with infectious and noninfectious considerations in the setting of ongoing immunosuppression due to Remicade as well as background rheumatoid arthritis. Cryptococcal antigen and pertussis PCR on BAL specimen pending. Recurrent fever today without change in persistent respiratory symptoms. Agree with plan for VATS given no diagnosis with bronchoscopy and serologic evaluation. Will repeat CT scan of chest tomorrow to see if any interval change in pulmonary infiltrates. Continue observation off antibiotics. * Oral ulcerations: Infectious versus immunologic. HSV/VZV PCR pending. These are resolving. 12/07/16 15:17 12/07/16 15:19 Subjective: Patient with fever earlier today. No rigors. No change in persistent cough and shortness of breath. Objective: Vital Signs Temp Pulse Resp BP Pulse Ox 37.6 C 83 24 H 125/79 H 90 L 12/07/16 13:14 12/07/16 13:14 12/07/16 13:14 12/07/16 13:14 12/07/16 13:14 Microbiology 12/03/16 14:40 Mycobacterial Smear ([place]) - Final Lung - Bronchial Washings 12/03/16 14:40 Gram Stain - Final Lung - Bronchial Washings Bronchial Washings Culture - Final Laboratory Results 12/07/16 04:04 12/07/16 04:04 12/06/16 12/07/16 12/08/16 05:59 05:59 05:59 Intake Total 2805 4000 Output Total 6 Balance 2805 3994 No antibiotic therapy. Pertussis PCR on BAL specimen pending Serum cryptococcal antigen pending HSV/VZV PCR of oral ulcerations pending - Physical Exam General Appearance: alert, no apparent distress EENT: other (Resolving ulceration on palate) Respiratory: lungs clear, other (Cough with inspiration; desaturates to 84% when oxygen removed), No respiratory distress Cardiac/Chest: regular rate, rhythm Abdomen: non-tender, No distended Skin: No embolic lesions ICD10 Worksheet Patient Problems: Problems Problem Status Onset Pulmonary embolism Acute
[2016-12-07 19:18] LABS: POTASSIUM 3.7 mEq/L (3.5-5.2)
[2016-12-07] MEDS: SUMAtriptan 50 MG TAB PO PRN (20:48)
[2016-12-07] MEDS: diphenhydrAMINE 25 MG CAP PO SCH (20:49)
[2016-12-07] MEDS ORDERED: POTASSIUM CL 10 MEQ TAB PO ONE (21:00)
[2016-12-08] MEDS: ALBUTEROL 3 ML DEYVIAL IH SCH ×4 (06:12→20:10)
[2016-12-08 06:17] LABS: MAGNESIUM 1.9 mg/dL (1.6-2.3)
[2016-12-08] MEDS: LEVOTHYROXINE 137 MCG TAB PO SCH (07:23)
[2016-12-08] MEDS: SUMAtriptan 50 MG TAB PO PRN ×2 (07:23→17:28)
[2016-12-08] MEDS: PANTOPRAZOLE SODIUM 40 MG TAB PO SCH (08:07)
[2016-12-08] MEDS: GABAPENTIN 300 MG CAP PO SCH ×3 (08:08→21:14)
[2016-12-08] MEDS: CETIRIZINE 10 MG TAB PO SCH (08:09)
[2016-12-08] MEDS: ENOXAPARIN 40 MG/0.4 ML SYR SC SCH (08:09)
[2016-12-08] MEDS: predniSONE 5 MG TAB PO SCH (08:10)
[2016-12-08] MEDS: ESTRADIOL 42.5 GM CRTUBE VG SCH (08:10)
--- NOTE | 2016-12-08 09:32 | HOSPPROG ---
Hospitalist Progress Note Assessment/Plan: # acute pneumonitis/fevers - viral/fungal w/u neg to date; unclear if infectious or inflammatory - PCP, bordatella, pertussis pending - agree with VATs for bx - no empiric abx # acute resp failure d/t above # oral ulcers - improved; HSV pending # RA on remicade and prednisone # chronic immunosuppression # anemia, normocytic - downtrending # migraine JAIMES # DEEPAK on CPAP # obesity BMI 35 Subjective: still feels SOB, has migraines (better now); coughing Objective: Vital Signs Temp Pulse Resp BP Pulse Ox 37 C 86 24 H 132/81 H 89 L 12/08/16 08:00 12/08/16 08:00 12/08/16 08:00 12/08/16 08:00 12/08/16 08:00 Laboratory Results 12/07/16 04:04 12/08/16 04:25 12/07/16 12/08/16 12/09/16 05:59 05:59 05:59 Intake Total 4000 1000 Output Total 6 Balance [address] personally reviewed - Physical Exam Constitutional: no apparent distress, appears nourished Cardiovascular: regular rate and rhythym, no murmur, rub, or gallop Respiratory: inspiratory crackles (diffuse, bilat), respiratory distress (mild) , No reduced air movement, No expiratory wheeze Gastrointestinal: normoactive bowel sounds, soft, non-tender abdomen, no palpable masses ICD10 Worksheet Patient Problems: Problems Problem Status Onset Pulmonary embolism Acute
--- NOTE | 2016-12-08 13:18 | SOAPPROG ---
SOAP Progress Note Assessment/Plan: Assessment/Plan: * Rheumatoid arthritis-on mirabegron * Pneumonitis-etiology is unclear. Bronchoscopy cultures are negative. PCP is negative -VATS biopsy tomorrow * Acute respiratory failure secondary to pneumonitis-still coughing and hypoxemic * Obesity * Hypothyroidism * Obstructive sleep apnea Subjective: Breathing easily. Cough is unchanged. Objective: Vital Signs Temp Pulse Resp BP Pulse Ox 37 C 86 24 H 132/81 H 89 L 12/08/16 08:00 12/08/16 08:00 12/08/16 08:00 12/08/16 08:00 12/08/16 08:00 Laboratory Results 12/07/16 04:04 12/08/16 04:25 12/07/16 12/08/16 12/09/16 05:59 05:59 05:59 Intake Total 4000 1000 Output Total 6 Balance 3994 1000 Physical Exam - Physical Exam General Appearance: WD/WN, alert, no apparent distress EENT: PERRL/EOMI, normal ENT inspection, pharynx normal, TMs normal Neck: non-tender, full range of motion, supple, normal inspection Respiratory: crackles (Few), No respiratory distress, No stridor, No wheezing Cardiac/Chest: normal peripheral pulses, regular rate, rhythm, systolic murmur Abdomen: normal bowel sounds, non-tender, soft Pelvic Exam: deferred Rectal: deferred Skin: normal color, warm/dry Extremities: normal range of motion, non-tender, normal inspection, normal capillary refill Neuro/Psych: no motor/sensory deficits, alert, normal mood/affect, oriented x 3 ICD10 Worksheet Patient Problems: Problems Problem Status Onset Pulmonary embolism Acute
[2016-12-08] MEDS: Mirabegron [Myrbetriq] 25 MG PO SCH (13:39)
--- NOTE | 2016-12-08 14:34 | PCMIDPN ---
Assessment/Plan: Assessment/Plan: * Bilateral pneumonitis: No defined etiology with infectious and noninfectious considerations (for example BOOP/DEALER COMPLIANCE REPRESENTATIVE) in the setting of ongoing immunosuppression due to Remicade as well as background rheumatoid arthritis. Cryptococcal antigen negative. Pertussis PCR on BAL specimen pending. Chest CT shows progression of infiltrates since initial CT scan at time of admission. Agree with plan for VATS given no diagnosis with bronchoscopy and serologic evaluation. Continue observation off antibiotics. Will use cefazolin as perioperative prophylaxis given that she has tolerated cephalexin in the past including 3 separate courses in 2016. * Oral ulcerations: Infectious versus immunologic. HSV/VZV PCR pending. Continue to resolve without intervention. 12/08/16 14:31 Subjective: Patient nervous about surgery tomorrow. Reviewed allergy history with her and she previously has tolerated cephalexin; took 3 separate courses last year without difficulty. Objective: Vital Signs Temp Pulse Resp BP Pulse Ox 37 C 86 24 H 132/81 H 89 L 12/08/16 08:00 12/08/16 08:00 12/08/16 08:00 12/08/16 08:00 12/08/16 08:00 Laboratory Results 12/07/16 04:04 12/08/16 04:25 12/07/16 12/08/16 12/09/16 05:59 05:59 05:59 Intake Total 4000 1000 Output Total 6 Balance 3994 1000 Cryptococcal antigen negative Pertussis BAL PCR pending CT chest shows progressive bilateral infiltrates and small effusion - Physical Exam General Appearance: alert, no apparent distress EENT: other (No noted oral ulcerations) Respiratory: wheezing (Bilateral expiratory) Cardiac/Chest: regular rate, rhythm ICD10 Worksheet Patient Problems: Problems Problem Status Onset Pulmonary embolism Acute
--- NOTE | 2016-12-08 14:41 | SOAPPROG ---
CHUCK Progress Note Assessment/Plan: Assessment: 76-YEAR-OLD FEMALE WITH BILATERAL PNEUMONITIS IN NEED OF DIAGNOSTIC LUNG BIOPSY/ RISKS AND OPTIONS BEEN FULLY DISCUSSED SHE IS AT SOME INCREASED RISK BECAUSE OF HISTORY OF DIFFICULT INTUBATIONS WHICH WILL PROBABLY MAKE IT HARD FOR US TO GET A DOUBLE-LUMEN ENDOTRACHEAL TUBE IN PLACE. THAT MAY THEN ASSESS ITS 8 AN OPEN LUNG BIOPSY RATHER THAN A VATS BIOPSY WITH RESULTANT INCREASE IN PAIN POSTOP Plan: VATS IN THE A.M./PROBABLY ON THE LEFT SIDE SINCE SHE IS RIGHT-HANDED/ WILL REVIEW CT SCAN FOR THE MOST INVOLVED SEGMENT 12/08/16 14:39 Objective: Vital Signs Temp Pulse Resp BP Pulse Ox 37 C 86 24 H 132/81 H 89 L 12/08/16 08:00 12/08/16 08:00 12/08/16 08:00 12/08/16 08:00 12/08/16 08:00 Laboratory Results 12/07/16 04:04 12/08/16 04:25 12/07/16 12/08/16 12/09/16 05:59 05:59 05:59 Intake Total 4000 1000 Output Total 6 Balance 3994 1000 ICD10 Worksheet Patient Problems: Problems Problem Status Onset Pulmonary embolism Acute
--- NOTE | 2016-12-08 14:55 | GCON ---
[f rep st] CONSULTATION GENERAL SURGERY CONSULTATION HISTORY OF PRESENT ILLNESS: The patient is a 76-year-old female with multiple comorbidities including sleep apnea, history of DVT and PE, and rheumatoid arthritis, also with an extensive past surgical history, who has been on chronic prednisone and presents with increasing breathlessness. She has a persistent productive cough with chills and rigors. Since admission to the hospital, she has had a CT scan that shows bilateral ground-glass opacities throughout both lungs, which appear nonspecific. She has also had a bronchoscopy without definitive findings. We have been asked to consult for surgical biopsy for diagnostic and treatment purposes. 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 PAST SURGICAL HISTORY: Includes total abdominal hysterectomy with bilateral salpingo-oophorectomy, appendectomy, section, bilateral mastectomies, breast implant reconstruction, bladder suspension, hernia repair, rotator cuff repair, cataracts. The patient reports no history of coronary or pulmonary surgery. She does report a difficult airway for intubation. MEDICATIONS: At home include Benadryl, EpiPen, Zyrtec, Astelin nasal spray, Flonase nasal spray, ProAir HFA, Singulair, vaginal Estrace, sumatriptan, mirabegron, gabapentin, prednisone, Remicade, methotrexate, omeprazole, triamterene hydrochlorothiazide, simvastatin, levothyroxine. ALLERGIES: The patient reports anaphylactic reactions to fentanyl, Versed, and MiraLAX. She also reports allergies to erythromycin, sulfa, amoxicillin, ciprofloxacin, guaifenesin. SOCIAL HISTORY: Patient is . She has lived in [place] for over 40 years. She has multiple children, grandchildren, and great-grandchildren. She does not smoke. FAMILY HISTORY: Noncontributory. REVIEW OF SYSTEMS: 10-point review of systems negative aside from that in the HPI, please see. PHYSICAL EXAMINATION: VITAL SIGNS: Temperature 37.2, oxygenation 97% on 13 L with CPAP, respiratory rate 16, blood pressure 132/80. GENERAL: Reveals a well -developed, well-nourished, pleasant, alert and oriented 76-year-old female, in no acute distress. HEENT: Normocephalic, atraumatic. Pupils equal and round. Mucous membranes moist. CHEST: Clear, aside from a few crackles. No wheezes or rhonchi. No use of accessary respiratory muscles. CARDIAC: Regular rate and rhythm. ABDOMEN: Soft, nontender, obese. EXTREMITIES: Warm and dry. IMPRESSION: This is a 76-year-old female with pulmonary disease of unknown origin. PLAN: Proceed with a video-assisted thoracoscopic surgery with wedge biopsy for diagnosis and treatment plan. She will be getting a CT scan today, at which time we should be able to decide on laterality. Risks and options including, but not limited to, bleeding, infection, injury to a nerve, damage to surrounding structures, need for thoracotomy, failure to obtain diagnosis, and other problems, were discussed. We also discussed her history of difficult intubation and multiple drug allergies, which we will be sure to share with her anesthesiologist. As of now, we will try to do the surgery tomorrow; however, it may be late in the day and potentially could get moved until Friday. I have made her n.p.o. in the morning after a clear liquid breakfast, held her Lovenox, and a consent is in the chart. I will discuss the patient with Dr. Christina, who will likely see her this afternoon. /[id number]/MODL MTDD
[2016-12-08] MEDS: ONDANSETRON DISINTEGRATING 4 MG TAB PO PRN (18:00)
[2016-12-08 18:52] LABS: POTASSIUM 3.7 mEq/L (3.5-5.2)
[2016-12-08] MEDS ORDERED: POTASSIUM CL 10 MEQ TAB PO ONE (19:25)
[2016-12-08 21:00] LABS: SPECIMEN SOURCE HARD PALATE ULCER; VARICELLA ZOSTER NEGATIVE (Negative)
[2016-12-08] MEDS: MONTELUKAST SODIUM 10 MG TAB PO SCH (21:14)
[2016-12-08] MEDS: diphenhydrAMINE 25 MG CAP PO SCH (21:14)
[2016-12-08] MEDS ORDERED: ALBUTEROL 3 ML DEYVIAL IH PRN (21:39)
[2016-12-08] MEDS: HYDROCODONE/APAP 5/325 TAB PO PRN (22:01)
[2016-12-09] MEDS: SUMAtriptan 50 MG TAB PO PRN (04:13)
[2016-12-09 04:54] LABS: % IMMATURE GRANULYOCYTES 1.5 % (0.0-1.1); ABSOLUTE IMMATURE GRANULOCYTES 0.07 10^3/uL (0.00-0.10); ADD DIFF? NO; ADD MORPH? NO; ADD SCAN? NO; ATYPICAL LYMPHOCYTE FLAG 0 (0-99); FRAGMENT RBC FLAG 0 (0-99); HEMATOCRIT 34.4 % (38.0-47.0); HEMOGLOBIN 11.2 g/dL (12.6-16.3); LEFT SHIFT FLG 20 (0-99); LIPEMIA HEMOLYSIS FLAG 80 (0-99); MEAN CELL HEMOGLOBIN 28.2 pg (27.9-34.1); MEAN CELL HEMOGLOBIN CONCENTR. 32.6 g/dL (32.4-36.7); MEAN CELL VOLUME 86.6 fL (81.5-99.8); MEAN PLATELET VOLUME 9.3 fL (8.7-11.7); PLATELET CLUMPS FLAG 10 (0-99); PLATELET COUNT 242 10^3/uL (150-400); RED BLOOD CELL COUNT 3.97 10^6/uL (4.18-5.33); RED CELL DISTRIBUTION WIDTH 17.3 % (11.5-15.2)
[2016-12-09 05:23] LABS: ANION GAP 10 mEq/L (8-16); CALCIUM 8.8 mg/dL (8.5-10.4); CARBON DIOXIDE 26 mEq/l (22-31); CHLORIDE 104 mEq/L (97-110); CREATININE 0.7 mg/dL (0.6-1.0); GLOMERULAR FILTRATION RATE > 60; GLUCOSE 77 mg/dL (70-100); MAGNESIUM 1.7 mg/dL (1.6-2.3); POTASSIUM 3.9 mEq/L (3.5-5.2); SODIUM 140 mEq/L (134-144)
[2016-12-09] MEDS ORDERED: ceFAZolin 2 GM/DEXTROSE 100 ML IV ONE (07:00)
[2016-12-09] MEDS ORDERED: ERTAPENEM 1 GM in NS 100 ML IV ONE (07:00)
[2016-12-09] MEDS ORDERED: POTASSIUM CL 10 MEQ TAB PO ONE (07:19)
[2016-12-09] MEDS ORDERED: BUPIVACAINE 0.5% 30 ML SDV ONE (07:57)
--- NOTE | 2016-12-09 08:14 | PDANEPAE ---
ANE History of Present Illness lung CA ANE Past Medical History - Cardiovascular History Hx Hypertension: Yes - Pulmonary History Hx Recent Upper Respiratory Infection: Yes Hx Oxygen in Use at Home: Yes O2 in Use at Home (L/minute): 3 Hx Sleep Apnea: No Sleep Apnea Screening Result - Last Documented: Positive - Endocrine History Hx Diabetes: No Hypothyroid: Yes Obesity: yes - Other Health History Other Health History: rheumatoid athritis, migraines, DVTs, PE, spinal stenosis - Chronic Pain History Chronic Pain: No ANE Review of Systems - Exercise capacity METS (RN): 2 METS ANE Patient History - Allergies Allergies/Adverse Reactions: fentanyl Allergy (Severe, Verified 12/02/16 18:37) JOCELYN midazolam HCl [From Versed] Allergy (Severe, Verified 12/02/16 18:37) JOCELYN erythromycin base [Erythromycin Base] Allergy (Intermediate, Verified 12/02/16 18:37) polyethylene glycol 3350 [From Miralax] Allergy (Intermediate, Verified 18:37) Sulfa (Sulfonamide Antibiotics) Allergy (Intermediate, Verified 12/02/16 18:37) amoxicillin Allergy (Verified 12/02/16 18:37) amoxicillin trihydrate [From Augmentin] Allergy (Verified 12/08/16 10:47) Anaphylaxis ciprofloxacin Allergy (Verified 12/02/16 18:37) guaifenesin [From Robitussin] Allergy (Verified 12/02/16 18:37) potassium clavulanate [From Augmentin] Allergy (Verified 12/02/16 18:37) - Home Medications Home Medications: Albuterol Sulfate [Proair Hfa] 2 gm IH DAILY PRN 12/02/16 [Last Taken Unknown] Azelastine [Astelin Nasal [place] (RX)] 2 sprays EACHNARE DAILY PRN 12/02/16 [ Last Taken Unknown] Cetirizine [ZyrTEC 10 mg (*)] 10 mg PO DAILY 12/02/16 [Last Taken 12/02/16] EPINEPHrine [Epipen 0.3 MG] 0.3 mg IM AD PRN 12/02/16 [Last Taken Unknown] Estradiol [Estrace Vaginal (*)] 1 gm VG SUTH 12/02/16 [Last Taken 12/01/16] Fluticasone Nasal [Flonase Nasal [place] (RX)] 2 sprays EACHNARE DAILY PRN [Last Taken Unknown] Gabapentin 600 mg PO TID 12/02/16 [Last Taken 12/02/16 1 TAB] Herbals/Supplements -Info Only 1 ea PO DAILY 12/02/16 [Last Taken Unknown] Levothyroxine [Synthroid 137 mcg (*)] 137 mcg PO DAILY@12/02/16 [Last Taken 12/02/16] Methotrexate Sodium [Rheumatrex] 10 mg PO QUINONES 12/02/16 [Last Taken 12/01/16] Mirabegron [Myrbetriq] 25 mg PO DAILY@12/02/16 [Last Taken 12/01/16] Montelukast Sodium [Singulair] 10 mg PO DAILY@12/02/16 [Last Taken 12/01/16] Omeprazole 20 mg PO BID 12/02/16 [Last Taken 12/02/16 1 cap] Simvastatin 40 mg PO DAILY@12/02/16 [Last Taken 12/01/16] Sumatriptan Succinate [Imitrex] 100 mg PO DAILY PRN 12/02/16 [Last Taken Unknown ] Sumatriptan Succinate [Zembrace Symtouch] 3 mg SQ AD PRN 12/02/16 [Last Taken Unknown] Triamterene/Hydrochlorothiazid [Triamterene-Hctz 37.5-25 mg Cp] 1 each PO DAILY 12/02/16 [Last Taken 12/02/16] diphenhydrAMINE [Benadryl 25 MG (*)] 25 mg PO HS 12/02/16 [Last Taken 12/01/16] inFLIXimab [Remicade Inj 100 mg (*)] 300 mg IV Q49D 12/02/16 [Last Taken Unknown ] predniSONE 2.5 mg PO DAILY 12/02/16 [Last Taken 12/02/16] - NPO status NPO Since - Liquids (Date): 12/09/16 NPO Since - Liquids (Time): 12:00 NPO Since - Solids (Date): 12/08/16 NPO Since - Solids (Time): 22:00 - Smoking Hx Smoking Status: Former smoker ANE Labs/Vital Signs - Labs Result Diagrams: 12/09/16 04:16 12/09/16 04:16 - Vital Signs Blood Pressure: 148/72 Heart Rate: 82 Respiratory Rate: 18 O2 Sat (%): 92 Height: 160.02 cm Weight: 89.811 kg ANE Anesthesia Plan Anesthesia Plan: general endotracheal anesthesia Specialized Airway: double lumen tube, video laryngoscope
[2016-12-09] MEDS ORDERED: PROPOFOL/EMULSION 500 MG/50 ML BOTTLE IV ONE (08:27)
[2016-12-09] MEDS ORDERED: DEXAMETHASONE 4 MG/ML VIAL ONE (08:28)
[2016-12-09] MEDS ORDERED: SUCCINYLCHOLINE CHLORIDE*ANESTHESIA ONLY*200 MG/10 ML SYR IVP ONE (08:28)
[2016-12-09] MEDS ORDERED: ROCURONIUM 50 MG/5 ML VIAL ONE (08:28)
[2016-12-09] MEDS ORDERED: PHENYLEPHRINE HCL 100 MCG/ML SYR ONE (08:29)
[2016-12-09] MEDS ORDERED: LIDOCAINE 2% 5 ML SDV ONE (08:29)
--- NOTE | 2016-12-09 08:33 | HOSPPROG ---
Hospitalist Progress Note Assessment/Plan: Patient is a 76-year-old female with history of rheumatoid arthritis. She is on chronic prednisone as well as Remicade. Approximately a week prior to admission she developed chills, rigors and mouth ulcers. Today is my 1st encounter with the patient. Chart reviewed. # acute bilateral pneumonitis/fevers -no definite etiology, possible infectious and noninfectious - viral/fungal w/u neg to date -chest CT shows progression of infiltrates -VATS today with biopsy/appreciate Dr Christina -patient has ongoing immunosuppression # acute resp failure d/t above -on 6 L # oral ulcers -+ HSV # RA on remicade and prednisone # chronic immunosuppression # anemia, normocytic - downtrending # migraine JAIMES # DEEPAK on CPAP # obesity BMI 35 #dvt prophylaxis: LMWH on hold today fo procedure. Subjective: Spring is feeling fine after biopsy. Objective: Vital Signs Temp Pulse Resp BP Pulse Ox 100.8 C H 82 18 148/72 H 92 12/09/16 08:00 12/09/16 08:14 12/09/16 08:14 12/09/16 08:14 12/09/16 08:14 Laboratory Results 12/09/16 04:16 12/09/16 04:16 12/08/16 12/09/16 12/10/16 05:59 05:59 05:59 Intake Total 1000 610 Balance 1000 610 - Physical Exam Constitutional: chronically ill appearing, obese Eyes: PERRL Ears, Nose, Mouth, Throat: hearing normal Cardiovascular: regular rate and rhythym, no murmur, rub, or gallop Respiratory: no respiratory distress, reduced air movement Gastrointestinal: normoactive bowel sounds Skin: warm Musculoskeletal: no muscle tenderness Neurologic: AAOx3 Psychiatric: interacting appropriately ICD10 Worksheet Patient Problems: Problems Problem Status Onset Pulmonary embolism Acute
[2016-12-09] MEDS ORDERED: HYDROmorphONE/DILAUDID 2 MG/ML INJ ONE (08:34)
[2016-12-09] MEDS ORDERED: KETOROLAC 30 MG/1 ML SDV ONE (09:44)
[2016-12-09] MEDS ORDERED: LABETALOL HCL 50 MG/10 ML SYR IVP PRN (09:51)
[2016-12-09] MEDS ORDERED: LR 500 ML IV PRN (09:51)
[2016-12-09] MEDS ORDERED: ACETAMINOPHEN 500 MG TAB PO PRN (09:51)
[2016-12-09] MEDS ORDERED: OXYCODONE/APAP 5/325 TAB PO PRN (09:51)
[2016-12-09] MEDS ORDERED: NALOXONE HCL 0.4 MG/ML INJ IVP PRN (09:51)
[2016-12-09] MEDS ORDERED: HYDROmorphONE/DILAUDID 1 MG/ML SYR IVP PRN ×2 (09:51)
[2016-12-09] MEDS ORDERED: SUGAMMADEX SODIUM 200 MG/2 ML VIAL IVP ONE (10:08)
--- NOTE | 2016-12-09 10:24 | POSTOPPROG ---
Post Op Note Date of Operation: 12/09/16 Surgeon: Romain Christina Customer Counter Associate: Julia Rodriguez Anesthesiologist: Omar Jordan Anesthesia: GET(General Endotracheal) Pre-op Diagnosis: pneumonitis Post-op Diagnosis: same Procedure: L VATS with MATILDE and LLL wedge biopsies Findings: grossly normal appearing lung Inf/Abcess present in the surg proc area at time of surgery?: No EBL: Minimal Complications: none Drains: Other (chest tube) Specimen(s): MATILDE and LLL wedge biopsies fresh to pathology for routine culture and histology and special tests per Dr. Kraig Umanzor's orders. This discussed with pathology.
[2016-12-09] MEDS ORDERED: HYDROmorphONE/DILAUDID 1 MG/ML SYR ONE (10:44)
[2016-12-09] MEDS: HYDROmorphONE/DILAUDID 1 MG/ML SYR IVP PRN ×3 (10:48→13:06)
[2016-12-09] MEDS: CETIRIZINE 10 MG TAB PO SCH (11:45)
[2016-12-09] MEDS: predniSONE 5 MG TAB PO SCH (11:45)
[2016-12-09] MEDS: PANTOPRAZOLE SODIUM 40 MG TAB PO SCH (11:45)
[2016-12-09] MEDS: LEVOTHYROXINE 137 MCG TAB PO SCH (11:45)
[2016-12-09] MEDS: GABAPENTIN 300 MG CAP PO SCH ×3 (11:45→21:10)
[2016-12-09] MEDS: Mirabegron [Myrbetriq] 25 MG PO SCH (11:52)
[2016-12-09] MEDS: HYDROCODONE/APAP 5/325 TAB PO PRN ×3 (13:05→21:10)
--- NOTE | 2016-12-09 15:50 | PDINTPN ---
Billing And Insurance Coordinator Progress Note Assessment/Plan: Assessment: * Rheumatoid arthritis-on MTX, Remicade, and low-dose prednisone. * Pneumonitis-etiology is unclear. Infectious causes possible, but evaluation negative to date. Rheumatoind lung and MTX-induced lung disease are alos possible. S/P VATS 12/09. * Acute respiratory failure secondary to pneumonitis-still coughing and hypoxemic * Obesity * Hypothyroidism * Obstructive sleep apnea: On home CPAP Plan: Await path results. If CXR worsens or O2 needs increase further, increase prednisone or try diuretic. 12/09/16 15:51 Subjective: Feels OK, pain controlled post-op. No dyspnea on FM O2. Objective: Vital Signs Temp Pulse Resp BP Pulse Ox 36.8 C 91 18 144/85 H 90 L 12/09/16 13:59 12/09/16 13:59 12/09/16 13:59 12/09/16 13:59 12/09/16 13:59 Microbiology 12/09/16 10:27 Gram Stain - Final Lung - Tissue Laboratory Results 12/09/16 04:16 12/09/16 04:16 12/08/16 12/09/16 12/10/16 05:59 05:59 05:59 Intake Total 5561 940 3967 Output Total 35 Balance 7474 327 1829 CXR: Increased diffuse interstitial markings. Images reviewed. Physical Exam - Physical Exam General Appearance: alert, no apparent distress EENT: normal ENT inspection Neck: normal inspection Respiratory: lungs clear Cardiac/Chest: regular rate, rhythm, No edema Abdomen: normal bowel sounds, non-tender Skin: normal color, warm/dry Extremities: normal inspection Neuro/Psych: alert, normal mood/affect, oriented x 3 ICD10 Worksheet Patient Problems: Problems Problem Status Onset Pulmonary embolism Acute
--- NOTE | 2016-12-09 16:26 | PCMIDPN ---
Assessment/Plan: Assessment: Hypoxia with bilateral ground-glass infiltrates in multiple lobes. Negative cultures and negative PCR from deep specimen. Patient is status post lung tissue biopsy this morning. She is clinically stable. Continuing to require significant amounts of oxygen however. Hope to confirm cause of infiltrates with pathology studies. These should be back in a couple days. Meanwhile continue observing off antibiotics. Plan: 1. Continue to observe of antibiotics. 2. Follow clinical course. 3. Follow up on culture data. Subjective: Patient is resting in her hospital bed. Family is in the room. She relates continued low-grade fevers which cycle. Continues to have need of significant supplemental oxygen. Objective: No antibiotics Vital Signs Temp Pulse Resp BP Pulse Ox 36.7 C 80 16 133/80 H 94 12/09/16 14:59 12/09/16 14:59 12/09/16 14:59 12/09/16 14:59 12/09/16 14:59 Microbiology 12/09/16 10:27 Gram Stain - Final Lung - Tissue Laboratory Results 12/09/16 04:16 12/09/16 04:16 12/08/16 12/09/16 12/10/16 05:59 05:59 05:59 Intake Total 9250 421 6613 Output Total 335 Balance 3050 368 8355 - Physical Exam General Appearance: WD/WN, alert, no apparent distress, toxic (Mildly toxic) Respiratory: normal breath sounds, respiratory distress (Mild), crackles, No lungs clear, No wheezing Cardiac/Chest: regular rate, rhythm, No tachycardia Extremities: non-tender, normal inspection Skin: normal color, warm/dry, No rash Neuro/Psych: alert, normal mood/affect, oriented x 3 ICD10 Worksheet Patient Problems: Problems Problem Status Onset Pulmonary embolism Acute
[2016-12-09 17:03] LABS: B.PARAPERTUSSIS PCR Negative; B.PERTUSSIS PCR Negative
[2016-12-09 18:06] LABS: POTASSIUM 5.2 mEq/L (3.5-5.2)
[2016-12-09] MEDS: ONDANSETRON 4 MG/2 ML VIAL IVP PRN (21:10)
[2016-12-09] MEDS: MONTELUKAST SODIUM 10 MG TAB PO SCH (21:10)
[2016-12-09] MEDS: diphenhydrAMINE 25 MG CAP PO SCH (21:10)
[2016-12-09] MEDS: DOCUSATE SODIUM 100 MG CAP PO SCH (21:10)
--- NOTE | 2016-12-09 22:02 | SOAPPROG ---
CHUCK Progress Note Assessment/Plan: Assessment: 76-YEAR-OLD FEMALE WITH BILATERAL PNEUMONITIS IN NEED OF DIAGNOSTIC LUNG BIOPSY/ RISKS AND OPTIONS BEEN FULLY DISCUSSED SHE IS AT SOME INCREASED RISK BECAUSE OF HISTORY OF DIFFICULT INTUBATIONS WHICH WILL PROBABLY MAKE IT HARD FOR US TO GET A DOUBLE-LUMEN ENDOTRACHEAL TUBE IN PLACE. THAT MAY THEN ASSESS ITS 8 AN OPEN LUNG BIOPSY RATHER THAN A VATS BIOPSY WITH RESULTANT INCREASE IN PAIN POSTOP Plan: VATS IN THE A.M./PROBABLY ON THE LEFT SIDE SINCE SHE IS RIGHT-HANDED/ WILL REVIEW CT SCAN FOR THE MOST INVOLVED SEGMENT 12/08/16 14:39 12/09/16 22:01 Postop doing well alert and oriented/minimal chest tube drainage with no significant air leak/chest x-ray reveals full expansion of the lung Objective: Vital Signs Temp Pulse Resp BP Pulse Ox 36.9 C 87 18 110/58 L 91 L 12/09/16 19:23 12/09/16 19:23 12/09/16 19:23 12/09/16 19:23 12/09/16 19:23 Microbiology 12/09/16 10:30 Mycobacterial Smear ([place]) - Final Lung Left Lobe - Tissue 12/09/16 10:27 Gram Stain - Final Lung - Tissue Laboratory Results 12/09/16 04:16 12/09/16 17:31 12/08/16 12/09/16 12/10/16 05:59 05:59 05:59 Intake Total 5976 738 5075 Output Total 445 Balance 9692 615 2276 ICD10 Worksheet Patient Problems: Problems Problem Status Onset Pulmonary embolism Acute
[2016-12-09] MEDS ORDERED: PROMETHAZINE HCL 25 MG/ML INJ IVP ONE (22:45)
--- NOTE | 2016-12-09 23:15 | GOP ---
[f rep st] OPERATIVE REPORT DATE OF OPERATION: SURGEON: Romain Christina MD PLASTICS SCIENTIST: CARISSA Kulkarni ANESTHESIOLOGIST: Dr. Jordan. PREOPERATIVE DIAGNOSIS: Bilateral pneumonitis of uncertain etiology. POSTOPERATIVE DIAGNOSIS: Bilateral pneumonitis of uncertain etiology, pathology pending. PROCEDURE PERFORMED: Video-assisted thoracic surgery, left lung biopsy. FINDINGS: The patient was found to have reasonably normal-appearing lungs. There was no purulence or marked inflammation in the chest. There was a small amount of free fluid. DESCRIPTION OF PROCEDURE: The patient was taken to the operating room, where she received a satisfa ctory general endotracheal anesthesia by Dr. Jordan. She did receive a double-lumen endotrache al tube. She was placed in the right lateral decubitus position. The area of the left lung was dec ompressed but did not appear to shrink away. A trocar was placed in the 6th intercostal space in th e midaxillary line, and a thoracoscope was introduced. Minimal visibility was present. The lung wa s pressed down with some CO2 insufflation which gave us a small amount of space to visualize but not enough space to work in. Two other trocars were placed under direct vision, and the lung was palpa mychal but not adequate room for a simple VATS procedure. A short incision was made along the trocar sites and carried through the serratus muscle which was s plit in the direction of fibers, and the intercostal space was then opened. The lung could easily b e grasped with a lung clamp and a wedge biopsy was taken from the upper lobe and the lower lobes; th dian were both sent sterilely to Pathology. A #28 chest tube was brought in through one of the troca r sites, placed in the apex of the lung and secured at the exit site with 0 silk suture. The muscul ature was approximated with a running 0 Vicryl suture, subcu with a running 2-0 Vicryl suture, the s kin with a 4-0 Monocryl subcuticular stitch. All layers infiltrated with 0.5% Marcaine. The interc ostal nerve block was done with 0.5% Marcaine. The chest tube was connected to Pleur-Evac suction. The other trocar site was closed with 4-0 Monocryl as well. She tolerated the procedure quite well. She was taken to the recovery room in good condition. Ther e were no complications. Chest x-ray postop revealed full expansion of the lung. /[id number]/MODL
[2016-12-10 04:39] LABS: HEMATOCRIT 35.8 % (38.0-47.0); HEMOGLOBIN 11.6 g/dL (12.6-16.3)
[2016-12-10 05:12] LABS: ANION GAP 5 mEq/L (8-16); CALCIUM 8.9 mg/dL (8.5-10.4); CARBON DIOXIDE 27 mEq/l (22-31); CHLORIDE 98 mEq/L (97-110); CREATININE 0.7 mg/dL (0.6-1.0); GLOMERULAR FILTRATION RATE > 60; GLUCOSE 93 mg/dL (70-100); MAGNESIUM 1.8 mg/dL (1.6-2.3); SODIUM 130 mEq/L (134-144)
[2016-12-10] MEDS: HYDROCODONE/APAP 5/325 TAB PO PRN ×3 (06:39→21:33)
[2016-12-10] MEDS: LEVOTHYROXINE 137 MCG TAB PO SCH (08:16)
--- NOTE | 2016-12-10 08:42 | HOSPPROG ---
Hospitalist Progress Note Assessment/Plan: Patient is a 76-year-old female with history of rheumatoid arthritis. She is on chronic prednisone as well as Remicade. Approximately a week prior to admission she developed chills, rigors and mouth ulcers. # acute bilateral pneumonitis/fevers -no definite etiology, possible infectious and noninfectious - viral/fungal w/u neg to date -chest CT shows progression of infiltrates -s/p VATS today with biopsy -chest x-ray today stable/ CT without air leak # acute resp failure d/t above -on 5 L -Spring feels congested and is breathing through her mouth -nasal spray started to see if this helps # oral ulcers -+ HSV # RA on remicade and prednisone # chronic immunosuppression # anemia, normocytic - downtrending # migraine JAIMES no complaints # DEEPAK on CPAP # obesity BMI 35 #dvt prophylaxis: LMWH on hold due to surgery/ will need to be resumed when ok w surgical team Subjective: Spring is overall feeling ok. No c/o pain. Objective: Vital Signs Temp Pulse Resp BP Pulse Ox 36.8 C 74 20 113/68 92 12/10/16 08:22 12/10/16 08:22 12/10/16 08:22 12/10/16 08:22 12/10/16 08:22 Microbiology 12/09/16 10:30 Mycobacterial Smear ([place]) - Final Lung Left Lobe - Tissue 12/09/16 10:27 Gram Stain - Final Lung - Tissue Laboratory Results 12/10/16 04:13 12/10/16 04:13 12/09/16 12/10/16 12/11/16 05:59 05:59 05:59 Intake Total 610 2200 Output Total 1087 Balance 610 1113 - Physical Exam Constitutional: not in pain, obese Eyes: PERRL Ears, Nose, Mouth, Throat: hearing normal Cardiovascular: regular rate and rhythym Respiratory: reduced air movement, other (CT on left side without airleak) Gastrointestinal: normoactive bowel sounds Skin: warm Musculoskeletal: full muscle strength Neurologic: AAOx3 Psychiatric: interacting appropriately, not anxious ICD10 Worksheet Patient Problems: Problems Problem Status Onset Pulmonary embolism Acute
[2016-12-10] MEDS: predniSONE 5 MG TAB PO SCH (09:20)
[2016-12-10] MEDS: GABAPENTIN 300 MG CAP PO SCH ×3 (09:20→21:34)
[2016-12-10] MEDS: CETIRIZINE 10 MG TAB PO SCH (09:21)
[2016-12-10] MEDS: PANTOPRAZOLE SODIUM 40 MG TAB PO SCH (09:21)
[2016-12-10] MEDS: DOCUSATE SODIUM 100 MG CAP PO SCH ×2 (09:21→21:33)
[2016-12-10] MEDS: Mirabegron [Myrbetriq] 25 MG PO SCH (09:23)
--- NOTE | 2016-12-10 12:01 | PCMIDPN ---
Assessment/Plan: Assessment/Plan: 1. Bilateral pulmonary infiltrates: - s/p bronch and VATS -Following studies negative: Pertussis, legionella, histoplasma, nocardia, PCP, cryptococcal, RVP, mycoplasma -BAL: mixed barrera -Tissue: no org, cultures pending. -Path pending -Continue to observe off antibiotics for now. Subjective: afebrile. o2 via nc. breathing better. still with mostly dry cough. abd pain stable near baseline. hasn't moved bowels since friday. Objective: Vital Signs Temp Pulse Resp BP Pulse Ox 36.7 C 73 18 108/60 88 L 12/10/16 11:02 12/10/16 11:02 12/10/16 11:02 12/10/16 11:02 12/10/16 11:02 Microbiology 12/09/16 10:27 Gram Stain - Final Lung - Tissue 12/09/16 10:30 Mycobacterial Smear ([place]) - Final Lung Left Lobe - Tissue Laboratory Results 12/10/16 04:13 12/10/16 04:13 12/09/16 12/10/16 12/11/16 05:59 05:59 05:59 Intake Total 610 2200 Output Total 1087 Balance 610 1113 - Physical Exam General Appearance: alert, no apparent distress Respiratory: coarse breath sounds (bilaterally) Cardiac/Chest: regular rate, rhythm Extremities: No swelling Abdomen: normal bowel sounds, non-tender, soft, No distended Skin: No erythema ICD10 Worksheet Patient Problems: Problems Problem Status Onset Pulmonary embolism Acute
[2016-12-10] MEDS: SUMAtriptan 50 MG TAB PO PRN (14:02)
[2016-12-10] MEDS: FLUTICASONE NASAL 120 SPRAYS/16 GM MDI EACHNARE SCH (14:03)
[2016-12-10] MEDS: ACETAMINOPHEN 325 MG TAB PO PRN (14:50)
[2016-12-10] MEDS ORDERED: FUROSEMIDE 20 MG/2 ML VIAL IVP ONE (14:57)
[2016-12-10] MEDS ORDERED: methylPREDNISolone SOD SUCC 125 MG/2 ML VIAL IVP ONE ×2 (16:54→19:30)
[2016-12-10 19:38] LABS: POTASSIUM 3.9 mEq/L (3.5-5.2)
[2016-12-10] MEDS ORDERED: POTASSIUM CL 10 MEQ TAB PO ONE (20:44)
[2016-12-10] MEDS: MONTELUKAST SODIUM 10 MG TAB PO SCH (21:34)
[2016-12-10] MEDS: diphenhydrAMINE 25 MG CAP PO SCH (21:34)
[2016-12-11 05:29] LABS: MAGNESIUM 1.9 mg/dL (1.6-2.3); POTASSIUM 4.8 mEq/L (3.5-5.2)
[2016-12-11] MEDS: LEVOTHYROXINE 137 MCG TAB PO SCH (08:38)
[2016-12-11] MEDS: ENOXAPARIN 40 MG/0.4 ML SYR SC SCH (08:39)
[2016-12-11] MEDS: CETIRIZINE 10 MG TAB PO SCH (08:42)
[2016-12-11] MEDS: DOCUSATE SODIUM 100 MG CAP PO SCH ×2 (08:42→21:12)
[2016-12-11] MEDS: PANTOPRAZOLE SODIUM 40 MG TAB PO SCH (08:42)
[2016-12-11] MEDS: GABAPENTIN 300 MG CAP PO SCH ×3 (08:42→21:12)
[2016-12-11] MEDS: methylPREDNISolone SOD SUCC 125 MG/2 ML VIAL IVP SCH ×3 (08:43→21:15)
[2016-12-11] MEDS: FLUTICASONE NASAL 120 SPRAYS/16 GM MDI EACHNARE SCH (10:44)
[2016-12-11] MEDS: HYDROCODONE/APAP 5/325 TAB PO PRN ×3 (10:45→21:12)
--- NOTE | 2016-12-11 10:47 | SOAPPROG ---
SOAP Progress Note Assessment/Plan: Assessment/Plan: 76 Y F s/p L VATS with wedge biopsies. POD#2. No air leak, viewed during coughing fit. Drainage 20cc overnight. Plan to d/c CT later today then repeat CXR. S: up with OT, coughing at sink, +pain with coughing O: no air leak. 12/11/16 10:44 Objective: Vital Signs Temp Pulse Resp BP Pulse Ox 36.4 C 86 17 130/86 H 91 L 12/11/16 07:53 12/11/16 07:53 12/11/16 07:53 12/11/16 07:53 12/11/16 07:53 Microbiology 12/09/16 10:30 Mycobacterial Smear ([place]) - Final Lung Left Lobe - Tissue 12/03/16 14:40 Mycobacterial Smear ([place]) - Final Lung - Bronchial Washings 12/09/16 10:27 Gram Stain - Final Lung - Tissue Laboratory Results 12/10/16 04:13 12/11/16 04:21 12/10/16 12/11/16 12/12/16 05:59 05:59 05:59 Intake Total 2200 1800 Output Total 1087 1423 Balance 1113 377 ICD10 Worksheet Patient Problems: Problems Problem Status Onset Pulmonary embolism Acute
--- NOTE | 2016-12-11 12:14 | HOSPPROG ---
Hospitalist Progress Note Assessment/Plan: Patient is a 76-year-old female with history of rheumatoid arthritis. She is on chronic prednisone as well as Remicade. Approximately a week prior to admission she developed chills, rigors and mouth ulcers. # acute bilateral pneumonitis/fevers -no definite etiology, possible infectious and noninfectious - viral/fungal w/u neg to date -chest CT shows progression of infiltrates -s/p VATS with biopsy/CT to be removed today # acute resp failure d/t above -on 6 L -started on iv steroids -had initial improvement yesterday after lasix dose but then required more O2 # oral ulcers -+ HSV #coughing bouts solumedrol should help # RA on Remicade and prednisone # chronic immunosuppression # anemia, normocytic - due to acute illness # migraine JAIMES had one yesterday # DEEPAK on CPAP # obesity BMI 35 #dvt prophylaxis: LMWH Subjective: Spring is 'worn out' from coughing. Having no significant pain. Objective: Vital Signs Temp Pulse Resp BP Pulse Ox 36.9 C 93 14 133/75 H 90 L 12/11/16 11:30 12/11/16 11:30 12/11/16 11:30 12/11/16 11:30 12/11/16 11:30 Microbiology 12/09/16 10:27 Gram Stain - Final Lung - Tissue 12/09/16 10:30 Mycobacterial Smear ([place]) - Final Lung Left Lobe - Tissue 12/03/16 14:40 Mycobacterial Smear ([place]) - Final Lung - Bronchial Washings Laboratory Results 12/10/16 04:13 12/11/16 04:21 12/10/16 12/11/16 12/12/16 05:59 05:59 05:59 Intake Total 2200 1800 Output Total 1087 1423 Balance 1113 377 - Physical Exam Constitutional: obese, uncomfortable Eyes: PERRL Ears, Nose, Mouth, Throat: hearing normal Cardiovascular: regular rate and rhythym Respiratory: no respiratory distress, reduced air movement Gastrointestinal: normoactive bowel sounds Skin: warm Musculoskeletal: no muscle tenderness, generalized weakness Neurologic: AAOx3 Psychiatric: interacting appropriately, anxious ICD10 Worksheet Patient Problems: Problems Problem Status Onset Pulmonary embolism Acute
[2016-12-11] MEDS: Mirabegron [Myrbetriq] 25 MG PO SCH (12:15)
--- NOTE | 2016-12-11 16:48 | PCMIDPN ---
Assessment/Plan: Assessment/Plan: * Bilateral pneumonitis: No defined etiology with infectious and noninfectious considerations (for example BOOP/FRONT OFFICE SPECIALIST) in the setting of ongoing immunosuppression due to Remicade as well as background rheumatoid arthritis. Pertussis PCR on BAL sample negative. Tissue biopsy results are pending. Culture and AFB negative to date. MTB PCR is pending at [facility] on lung specimen. Continue to observe off antibiotics. Patient feels clinically improved since initiation of steroids. Will discontinue droplet precautions given negative pertussis studies. * Oral ulcerations: HSV 1 PCR positive. Symptoms markedly improved without intervention. Continue to observe and await lung biopsy to ensure no evidence of HSV pneumonitis. 12/11/16 16:45 12/11/16 16:46 Subjective: Patient feels better since starting steroids. Still with episodic cough. Chest tube removed. Objective: Vital Signs Temp Pulse Resp BP Pulse Ox 36.3 C 90 14 124/73 H 91 L 12/11/16 15:13 12/11/16 15:13 12/11/16 15:13 12/11/16 15:13 12/11/16 15:13 Microbiology 12/09/16 10:27 Gram Stain - Final Lung - Tissue 12/09/16 10:30 Mycobacterial Smear ([place]) - Final Lung Left Lobe - Tissue 12/03/16 14:40 Mycobacterial Smear ([place]) - Final Lung - Bronchial Washings Laboratory Results 12/10/16 04:13 12/11/16 04:21 12/10/16 12/11/16 12/12/16 05:59 05:59 05:59 Intake Total 2200 1800 Output Total 1087 1423 Balance 1113 377 Solu-Medrol No antibiotics BAL pertussis PCR negative Lung pathology pending MTB PCR on lung biopsy pending - Physical Exam General Appearance: alert, no apparent distress Respiratory: wheezing (scattered inspiratory), other ( episodic cough) Cardiac/Chest: regular rate, rhythm ICD10 Worksheet Patient Problems: Problems Problem Status Onset Pulmonary embolism Acute
--- NOTE | 2016-12-11 17:08 | PDINTPN ---
Pupil Personnel Services Director Progress Note Assessment/Plan: Assessment: * Rheumatoid arthritis-on MTX, Remicade, and low-dose prednisone chronically. * Pneumonitis-etiology is unclear. Infectious causes possible, but evaluation negative to date. Rheumatoid lung and MTX-induced lung disease are also possible. S/P VATS 12/09. * Acute respiratory failure secondary to pneumonitis-still coughing. Hypoxemia worse yesterday, better today. * Obesity * Hypothyroidism * Obstructive sleep apnea: On home CPAP Plan: Await path results. Continue Solumedrol. 12/09/16 15:51 12/11/16 17:07 Subjective: Feeels better, with markedly reduced pain with CTs out, and is also a bit less dyspneic. Has a mild JAIMES. Feels more energetic with steroids. Objective: Vital Signs Temp Pulse Resp BP Pulse Ox 36.3 C 90 14 124/73 H 91 L 12/11/16 15:13 12/11/16 15:13 12/11/16 15:13 12/11/16 15:13 12/11/16 15:13 Microbiology 12/09/16 10:27 Gram Stain - Final Lung - Tissue 12/09/16 10:30 Mycobacterial Smear ([place]) - Final Lung Left Lobe - Tissue 12/03/16 14:40 Mycobacterial Smear ([place]) - Final Lung - Bronchial Washings Laboratory Results 12/10/16 04:13 12/11/16 04:21 12/10/16 12/11/16 12/12/16 05:59 05:59 05:59 Intake Total 2200 1800 Output Total 1087 1423 Balance 1113 377 Physical Exam - Physical Exam General Appearance: alert, no apparent distress EENT: normal ENT inspection Neck: normal inspection Respiratory: crackles (bases) Cardiac/Chest: regular rate, rhythm, No edema Abdomen: normal bowel sounds, non-tender Skin: normal color, warm/dry Extremities: non-tender Neuro/Psych: alert, normal mood/affect, oriented x 3 ICD10 Worksheet Patient Problems: Problems Problem Status Onset Pulmonary embolism Acute
[2016-12-11 20:50] LABS: POTASSIUM 4.6 mEq/L (3.5-5.2)
[2016-12-11] MEDS: diphenhydrAMINE 25 MG CAP PO SCH (21:12)
[2016-12-11] MEDS: MONTELUKAST SODIUM 10 MG TAB PO SCH (21:12)
[2016-12-12 05:23] LABS: % IMMATURE GRANULYOCYTES 1.9 % (0.0-1.1); ADD DIFF? NO; ADD MORPH? NO; ADD SCAN? NO; ATYPICAL LYMPHOCYTE FLAG 50 (0-99); FRAGMENT RBC FLAG 0 (0-99); HEMATOCRIT 34.5 % (38.0-47.0); HEMOGLOBIN 11.1 g/dL (12.6-16.3); LEFT SHIFT FLG 20 (0-99); LIPEMIA HEMOLYSIS FLAG 80 (0-99); MEAN CELL HEMOGLOBIN 27.9 pg (27.9-34.1); MEAN CELL HEMOGLOBIN CONCENTR. 32.2 g/dL (32.4-36.7); MEAN CELL VOLUME 86.7 fL (81.5-99.8); MEAN PLATELET VOLUME 9.8 fL (8.7-11.7); PLATELET CLUMPS FLAG 10 (0-99); PLATELET COUNT 401 10^3/uL (150-400); RED BLOOD CELL COUNT 3.98 10^6/uL (4.18-5.33); RED CELL DISTRIBUTION WIDTH 17.2 % (11.5-15.2)
[2016-12-12 05:45] LABS: ALANINE AMINOTRANSFERASE 45 IU/L (9-52); ALKALINE PHOSPHATASE 63 IU/L (38-126); ANION GAP 11 mEq/L (8-16); ASPARTATE AMINOTRANSFERASE 29 IU/L (14-46); BILIRUBIN,TOTAL 0.5 mg/dL (0.1-1.4); CARBON DIOXIDE 25 mEq/l (22-31); CHLORIDE 102 mEq/L (97-110); CREATININE 0.7 mg/dL (0.6-1.0); GLOMERULAR FILTRATION RATE > 60; GLUCOSE 140 mg/dL (70-100); MAGNESIUM 1.8 mg/dL (1.6-2.3); POTASSIUM 4.7 mEq/L (3.5-5.2); SODIUM 138 mEq/L (134-144); TOTAL PROTEIN 5.9 g/dL (6.3-8.2)
[2016-12-12] MEDS: HYDROCODONE/APAP 5/325 TAB PO PRN ×3 (06:20→21:48)
[2016-12-12] MEDS: LEVOTHYROXINE 137 MCG TAB PO SCH (06:20)
[2016-12-12] MEDS: ENOXAPARIN 40 MG/0.4 ML SYR SC SCH (09:20)
[2016-12-12] MEDS: methylPREDNISolone SOD SUCC 125 MG/2 ML VIAL IVP SCH ×2 (09:21→21:50)
[2016-12-12] MEDS: DOCUSATE SODIUM 100 MG CAP PO SCH ×2 (09:24→21:48)
[2016-12-12] MEDS: GABAPENTIN 300 MG CAP PO SCH ×3 (09:24→21:48)
[2016-12-12] MEDS: CETIRIZINE 10 MG TAB PO SCH (09:24)
[2016-12-12] MEDS: PANTOPRAZOLE SODIUM 40 MG TAB PO SCH (09:24)
[2016-12-12] MEDS: ESTRADIOL 42.5 GM CRTUBE VG SCH (09:25)
--- NOTE | 2016-12-12 09:46 | HOSPPROG ---
Hospitalist Progress Note Assessment/Plan: Patient is a 76-year-old female with history of rheumatoid arthritis. She is on chronic prednisone as well as Remicade. Approximately a week prior to admission she developed chills, rigors and mouth ulcers. # acute bilateral pneumonitis/fevers -no definite etiology, possible infectious and noninfectious - viral/fungal w/u neg to date -chest CT shows progression of infiltrates -s/p VATS with biopsy/CT dc on 12/11 # acute resp failure d/t above -on 5 L -iv steroids -improving # oral ulcers -+ HSV #coughing bouts solumedrol should help # RA on Remicade and prednisone # chronic immunosuppression # anemia, normocytic - due to acute illness # migraine JAIMES had one yesterday # DEEPAK on CPAP # obesity BMI 35 #dvt prophylaxis: LMWH #. Plan: spoke w CM about arranging home care/ she will likely be here for several more days Subjective: Spring is in good spirits/ oob in the chair/ appetite is improving. Objective: Vital Signs Temp Pulse Resp BP Pulse Ox 36.5 C 86 18 149/88 H 94 12/12/16 08:00 12/12/16 08:00 12/12/16 08:00 12/12/16 08:00 12/12/16 08:00 Microbiology 12/09/16 10:30 Mycobacterial Smear ([place]) - Final Lung Left Lobe - Tissue 12/09/16 10:27 Gram Stain - Final Lung - Tissue Laboratory Results 12/12/16 04:30 12/12/16 04:30 12/11/16 12/12/16 12/13/16 05:59 05:59 05:59 Intake Total 1800 50 Output Total 1423 Balance 377 50 - Physical Exam Constitutional: not in pain, obese Eyes: PERRL Ears, Nose, Mouth, Throat: hearing normal Cardiovascular: regular rate and rhythym Respiratory: reduced air movement (left base), other (increase rr and wob with talking, but improved) Gastrointestinal: normoactive bowel sounds Skin: warm Musculoskeletal: generalized weakness Neurologic: AAOx3 Psychiatric: interacting appropriately, not anxious ICD10 Worksheet Patient Problems: Problems Problem Status Onset Pulmonary embolism Acute
[2016-12-12] MEDS: FLUTICASONE NASAL 120 SPRAYS/16 GM MDI EACHNARE SCH ×3 (09:56→23:25)
[2016-12-12] MEDS ORDERED: MAGNESIUM SULF 1 GM/DEXTROSE 100 ML IV ONE (11:00)
[2016-12-12] MEDS: Mirabegron [Myrbetriq] 25 MG PO SCH (11:22)
--- NOTE | 2016-12-12 12:14 | SOAPPROG ---
SOAP Progress Note Assessment/Plan: Assessment: 76-year-old female status post left VATS, pathology demonstrated pneumonitis, cultures negative.. History of rheumatoid arthritis. Still on significant amount of oxygen the patient feels overall she is much improved compared to last week. Physical Patient in chair, appears very comfortable no use of accessory muscles for respiration Chest left-sided bandage with no active drainage, small amount of old discharge , bandage covered with Tegaderm. Mild Wheezes/crackles diffusely Heart regular rhythm rate Plan: Patient is much improved apparently after starting steroids. Explained to patient to keep left chest wall bandage on for another 48 hours, okay to shower over Tegaderm. After that time Tegaderm and gauze can be removed and cover if needed. Follow up in our office next week, information placed in discharge plan. 12/12/16 12:12 Objective: Vital Signs Temp Pulse Resp BP Pulse Ox 36.5 C 86 18 149/88 H 94 12/12/16 08:00 12/12/16 08:00 12/12/16 08:00 12/12/16 08:00 12/12/16 08:00 Microbiology 12/09/16 10:27 Gram Stain - Final Lung - Tissue 12/09/16 10:30 Mycobacterial Smear ([place]) - Final Lung Left Lobe - Tissue Laboratory Results 12/12/16 04:30 12/12/16 04:30 12/11/16 12/12/16 12/13/16 05:59 05:59 05:59 Intake Total 1800 50 Output Total 1423 Balance 377 50 ICD10 Worksheet Patient Problems: Problems Problem Status Onset Pulmonary embolism Acute
--- NOTE | 2016-12-12 16:08 | PDINTPN ---
Loading Machine Operator Helper Progress Note Assessment/Plan: Assessment: * Rheumatoid arthritis-on MTX, Remicade, and low-dose prednisone chronically. * Pneumonitis-Likely due to organizing pneumonia, although the foci on the biopsy was small. Etiology is unclear. Infectious causes could have triggered this, but evaluation for ongoing infection is negative. Rheumatoid lung and MTX- induced lung disease are also possible. S/P VATS 12/09. * Acute respiratory failure secondary to pneumonitis-still coughing. Hypoxemia stable. * Obesity * Hypothyroidism * Obstructive sleep apnea: On home CPAP Plan: Continue Solumedrol. Increase activity as tolerated. Add scheduled albuterol 12/12/16 16:08 Subjective: Feels a bit better, with decreased pain and a slight decrease in dyspnea. Objective: Vital Signs Temp Pulse Resp BP Pulse Ox 36.7 C 69 18 136/68 H 93 12/12/16 12:00 12/12/16 12:00 12/12/16 12:00 12/12/16 12:00 12/12/16 12:00 Microbiology 12/09/16 10:27 Gram Stain - Final Lung - Tissue 12/09/16 10:30 Mycobacterial Smear ([place]) - Final Lung Left Lobe - Tissue Laboratory Results 12/12/16 04:30 12/12/16 04:30 12/11/16 12/12/16 12/13/16 05:59 05:59 05:59 Intake Total 1800 50 Output Total 1423 Balance 377 50 Path: Foci of respiratory bronchiolitis and organizing pneumonia. Physical Exam - Physical Exam General Appearance: alert, no apparent distress EENT: pharynx normal Neck: normal inspection Respiratory: crackles (left), wheezing (left) Cardiac/Chest: regular rate, rhythm, No edema Abdomen: normal bowel sounds, non-tender, soft Skin: normal color, warm/dry Extremities: normal inspection Neuro/Psych: alert, normal mood/affect, oriented x 3 ICD10 Worksheet Patient Problems: Problems Problem Status Onset Pulmonary embolism Acute
[2016-12-12] MEDS ORDERED: ALBUTEROL 3 ML DEYVIAL ONE (16:37)
[2016-12-12] MEDS: ALBUTEROL 3 ML DEYVIAL IH SCH ×2 (16:41→22:22)
--- NOTE | 2016-12-12 17:15 | PCMIDPN ---
Assessment/Plan: Assessment: Hypoxia with bilateral ground-glass infiltrates in multiple lobes. Negative cultures and negative PCR from deep specimen. Continuing to clinically improve. Still requiring a moderate amount of oxygen support. Improvement due to initiation of high-dose steroids. Does not appear to be an infectious cause for this issue. Pathology reveals pneumonitis in organizing fashion consistent with medication versus autoimmune disease. Recommend to keep her off antibiotics and manage with immunosuppression as is happening currently. Will sign off at this point. Please call with further questions. Plan: 1. Observe off antibiotics. 2. Will sign off. Please call with any further questions. 12/12/16 17:38 Subjective: Patient is resting in her hospital bed. She feels much better than she did even a couple of days ago. Needing 6 L of oxygen to keep good saturations. No fevers or chills. Continues to have some productive cough. Objective: No antibiotics. Vital Signs Temp Pulse Resp BP Pulse Ox 36.6 C 75 18 153/89 H 95 12/12/16 16:00 12/12/16 16:43 12/12/16 16:43 12/12/16 16:00 12/12/16 16:43 Microbiology 12/09/16 10:27 Gram Stain - Final Lung - Tissue 12/09/16 10:30 Mycobacterial Smear ([place]) - Final Lung Left Lobe - Tissue Laboratory Results 12/12/16 04:30 12/11/16 12/12/16 12/13/16 05:59 05:59 05:59 Intake Total 1800 50 Output Total 1423 Balance 377 50 - Physical Exam General Appearance: WD/WN, alert, no apparent distress, non-toxic Respiratory: crackles, No normal breath sounds, No respiratory distress Cardiac/Chest: regular rate, rhythm, No tachycardia Skin: normal color, warm/dry, No rash Neuro/Psych: alert, normal mood/affect, oriented x 3 ICD10 Worksheet Patient Problems: Problems Problem Status Onset Pulmonary embolism Acute
[2016-12-12 17:41] LABS: POTASSIUM 4.8 mEq/L (3.5-5.2)
--- NOTE | 2016-12-12 18:05 | SOAPPROG ---
CHUCK Progress Note Assessment/Plan: Assessment: 76-YEAR-OLD FEMALE WITH BILATERAL PNEUMONITIS IN NEED OF DIAGNOSTIC LUNG BIOPSY/ RISKS AND OPTIONS BEEN FULLY DISCUSSED SHE IS AT SOME INCREASED RISK BECAUSE OF HISTORY OF DIFFICULT INTUBATIONS WHICH WILL PROBABLY MAKE IT HARD FOR US TO GET A DOUBLE-LUMEN ENDOTRACHEAL TUBE IN PLACE. THAT MAY THEN ASSESS ITS 8 AN OPEN LUNG BIOPSY RATHER THAN A VATS BIOPSY WITH RESULTANT INCREASE IN PAIN POSTOP Plan: VATS IN THE A.M./PROBABLY ON THE LEFT SIDE SINCE SHE IS RIGHT-HANDED/ WILL REVIEW CT SCAN FOR THE MOST INVOLVED SEGMENT 12/08/16 14:39 12/09/16 22:01 Postop doing well alert and oriented/minimal chest tube drainage with no significant air leak/chest x-ray reveals full expansion of the lung 12/12/16 18:04 WOUNDS GOOD/BREATH SOUNDS EQUAL AND WELL EXPANDED/CHEST X-RAY STABLE/PATH SHOWS PNEUMONITIS/PLAN PER IM Objective: Vital Signs Temp Pulse Resp BP Pulse Ox 36.6 C 75 18 153/89 H 95 12/12/16 16:00 12/12/16 16:43 12/12/16 16:43 12/12/16 16:00 12/12/16 16:43 Microbiology 12/09/16 10:27 Gram Stain - Final Lung - Tissue 12/09/16 10:30 Mycobacterial Smear ([place]) - Final Lung Left Lobe - Tissue Laboratory Results 12/12/16 04:30 12/12/16 16:55 12/11/16 12/12/16 12/13/16 05:59 05:59 05:59 Intake Total 1800 50 100 Output Total 1423 Balance 377 50 100 ICD10 Worksheet Patient Problems: Problems Problem Status Onset Pulmonary embolism Acute
[2016-12-12] MEDS: MONTELUKAST SODIUM 10 MG TAB PO SCH (21:48)
[2016-12-12] MEDS: diphenhydrAMINE 25 MG CAP PO SCH (21:48)
[2016-12-13] MEDS: HYDROCODONE/APAP 5/325 TAB PO PRN (04:12)
[2016-12-13 05:08] LABS: POTASSIUM 4.7 mEq/L (3.5-5.2)
[2016-12-13] MEDS: ALBUTEROL 3 ML DEYVIAL IH SCH ×5 (06:13→22:59)
[2016-12-13] MEDS: LEVOTHYROXINE 137 MCG TAB PO SCH (06:38)
[2016-12-13] MEDS: PANTOPRAZOLE SODIUM 40 MG TAB PO SCH (09:25)
[2016-12-13] MEDS: CETIRIZINE 10 MG TAB PO SCH (09:25)
[2016-12-13] MEDS: ENOXAPARIN 40 MG/0.4 ML SYR SC SCH (09:25)
[2016-12-13] MEDS: GABAPENTIN 300 MG CAP PO SCH ×3 (09:25→21:53)
[2016-12-13] MEDS: methylPREDNISolone SOD SUCC 125 MG/2 ML VIAL IVP SCH (09:26)
[2016-12-13] MEDS: FLUTICASONE NASAL 120 SPRAYS/16 GM MDI EACHNARE SCH (09:26)
[2016-12-13] MEDS: DOCUSATE SODIUM 100 MG CAP PO SCH ×2 (09:30→21:53)
[2016-12-13] MEDS: Mirabegron [Myrbetriq] 25 MG PO SCH (11:54)
--- NOTE | 2016-12-13 12:42 | HOSPPROG ---
Hospitalist Progress Note Assessment/Plan: Patient is a 76-year-old female with history of rheumatoid arthritis. She is on chronic prednisone as well as Remicade. Approximately a week prior to admission she developed chills, rigors and mouth ulcers. First encounter, chart reviewed. # acute bilateral pneumonitis/fevers -no definite etiology, possible infectious and noninfectious - viral/fungal w/u neg to date -chest CT shows progression of infiltrates -s/p VATS with biopsy/CT dc on 12/11 # acute resp failure d/t above -on 5 L -iv steroids -improving # oral ulcers -+ HSV #coughing bouts solumedrol should help # RA on Remicade and prednisone # chronic immunosuppression # anemia, normocytic - due to acute illness # migraine JAIMES had one yesterday # DEEPAK on CPAP # obesity BMI 35 #dvt prophylaxis: LMWH #. Plan: spoke w CM about arranging home care/ she will likely be here for several more days Subjective: Up in the chair. Feels well. Still weak and SOB. Objective: Vital Signs Temp Pulse Resp BP Pulse Ox 36.4 C 81 20 129/78 H 94 12/13/16 12:00 12/13/16 12:00 12/13/16 12:00 12/13/16 12:00 12/13/16 12:00 Microbiology 12/07/16 14:19 Blood Culture - Final Blood 12/07/16 14:19 Blood Culture - Final Blood 12/09/16 10:27 Gram Stain - Final Lung - Tissue 12/09/16 10:30 Mycobacterial Smear ([place]) - Final Lung Left Lobe - Tissue Laboratory Results 12/12/16 04:30 12/13/16 04:11 12/12/16 12/13/16 12/14/16 05:59 05:59 05:59 Intake Total 50 150 Balance 50 150 - Physical Exam Constitutional: appears nourished, chronically ill appearing, obese Eyes: PERRL, anicteric sclera, EOMI Ears, Nose, Mouth, Throat: moist mucous membranes, hearing normal, ears appear normal Cardiovascular: regular rate and rhythym, edema, No JVD Respiratory: no respiratory distress, no rales or rhonchi, reduced air movement Gastrointestinal: normoactive bowel sounds, No tenderness, No ascites Skin: warm, normal color, No erythema Musculoskeletal: normal joint ROM, no joint effusions, generalized weakness Neurologic: AAOx3 Psychiatric: interacting appropriately, not anxious, not encephalopathic ICD10 Worksheet Patient Problems: Problems Problem Status Onset Pulmonary embolism Acute
--- NOTE | 2016-12-13 15:34 | SOAPPROG ---
CHUCK Progress Note Assessment/Plan: Assessment: 76-YEAR-OLD FEMALE WITH BILATERAL PNEUMONITIS IN NEED OF DIAGNOSTIC LUNG BIOPSY/ RISKS AND OPTIONS BEEN FULLY DISCUSSED SHE IS AT SOME INCREASED RISK BECAUSE OF HISTORY OF DIFFICULT INTUBATIONS WHICH WILL PROBABLY MAKE IT HARD FOR US TO GET A DOUBLE-LUMEN ENDOTRACHEAL TUBE IN PLACE. THAT MAY THEN ASSESS ITS 8 AN OPEN LUNG BIOPSY RATHER THAN A VATS BIOPSY WITH RESULTANT INCREASE IN PAIN POSTOP Plan: VATS IN THE A.M./PROBABLY ON THE LEFT SIDE SINCE SHE IS RIGHT-HANDED/ WILL REVIEW CT SCAN FOR THE MOST INVOLVED SEGMENT 12/08/16 14:39 12/09/16 22:01 Postop doing well alert and oriented/minimal chest tube drainage with no significant air leak/chest x-ray reveals full expansion of the lung 12/12/16 18:04 WOUNDS GOOD/BREATH SOUNDS EQUAL AND WELL EXPANDED/CHEST X-RAY STABLE/PATH SHOWS PNEUMONITIS/PLAN PER IM 12/13/16 15:33 AFEBRILE AND FEELING BETTER/WOUND OKAY/BREATH SOUNDS EQUAL/PLANS PER INTERNAL MEDICINE Objective: Vital Signs Temp Pulse Resp BP Pulse Ox 36.4 C 81 20 129/78 H 94 12/13/16 12:00 12/13/16 12:00 12/13/16 12:00 12/13/16 12:00 12/13/16 12:00 Microbiology 12/09/16 10:27 Gram Stain - Final Lung - Tissue 12/07/16 14:19 Blood Culture - Final Blood 12/07/16 14:19 Blood Culture - Final Blood Laboratory Results 12/12/16 04:30 12/13/16 04:11 12/12/16 12/13/16 12/14/16 05:59 05:59 05:59 Intake Total 50 150 200 Balance 50 150 200 ICD10 Worksheet Patient Problems: Problems Problem Status Onset Pulmonary embolism Acute
--- NOTE | 2016-12-13 16:26 | PDINTPN ---
Dog Groomer Progress Note Assessment/Plan: Assessment: * Rheumatoid arthritis-on MTX, Remicade, and low-dose prednisone chronically. * Pneumonitis-Likely due to organizing pneumonia, although the foci on the biopsy was small. Etiology is unclear. Infectious causes could have triggered this, but evaluation for ongoing infection is negative. Rheumatoid lung and MTX- induced lung are less likely. S/P VATS 12/09. * Acute respiratory failure secondary to pneumonitis-still coughing, but a bit better. Hypoxemia stable. * Obesity * Hypothyroidism * Obstructive sleep apnea: On home CPAP Plan: Change Solumedrol to Prednisone. Increase activity as tolerated. CXR tomorrow 12/13/16 16:25 Subjective: Feels that chest congestion is a bit better. She attributes this in part to albuterol, which helps her expectorate. Still has GONZALES. Objective: Vital Signs Temp Pulse Resp BP Pulse Ox 36.4 C 81 20 129/78 H 94 12/13/16 12:00 12/13/16 12:00 12/13/16 12:00 12/13/16 12:00 12/13/16 12:00 Microbiology 12/09/16 10:27 Gram Stain - Final Lung - Tissue 12/07/16 14:19 Blood Culture - Final Blood 12/07/16 14:19 Blood Culture - Final Blood Laboratory Results 12/12/16 04:30 12/13/16 04:11 12/12/16 12/13/16 12/14/16 05:59 05:59 05:59 Intake Total 50 150 750 Balance 50 150 750 Physical Exam - Physical Exam General Appearance: alert, no apparent distress EENT: normal ENT inspection Neck: normal inspection Respiratory: rales (bases) Cardiac/Chest: regular rate, rhythm, No edema Abdomen: normal bowel sounds, non-tender, soft Extremities: normal inspection Neuro/Psych: alert, normal mood/affect, oriented x 3 ICD10 Worksheet Patient Problems: Problems Problem Status Onset Pulmonary embolism Acute
[2016-12-13] MEDS: predniSONE 20 MG TAB PO SCH (17:25)
[2016-12-13 18:11] LABS: POTASSIUM 4.7 mEq/L (3.5-5.2)
[2016-12-13] MEDS: MONTELUKAST SODIUM 10 MG TAB PO SCH (21:53)
[2016-12-13] MEDS: diphenhydrAMINE 25 MG CAP PO SCH (21:54)
[2016-12-14] MEDS: HYDROCODONE/APAP 5/325 TAB PO PRN ×3 (02:22→22:56)
[2016-12-14] MEDS: FLUTICASONE NASAL 120 SPRAYS/16 GM MDI EACHNARE SCH ×3 (04:11→22:56)
[2016-12-14] MEDS: ALBUTEROL 3 ML DEYVIAL IH SCH ×4 (06:15→21:34)
[2016-12-14] MEDS: LEVOTHYROXINE 137 MCG TAB PO SCH (06:21)
[2016-12-14] MEDS: ENOXAPARIN 40 MG/0.4 ML SYR SC SCH (09:13)
[2016-12-14] MEDS: predniSONE 20 MG TAB PO SCH ×2 (09:13→18:16)
[2016-12-14] MEDS: GABAPENTIN 300 MG CAP PO SCH ×3 (09:14→22:56)
[2016-12-14] MEDS: DOCUSATE SODIUM 100 MG CAP PO SCH ×2 (09:14→22:56)
[2016-12-14] MEDS: PANTOPRAZOLE SODIUM 40 MG TAB PO SCH (09:14)
[2016-12-14] MEDS: CETIRIZINE 10 MG TAB PO SCH (09:14)
--- NOTE | 2016-12-14 09:53 | HOSPPROG ---
Hospitalist Progress Note Assessment/Plan: Patient is a 76-year-old female with history of rheumatoid arthritis. She is on chronic prednisone as well as Remicade. Approximately a week prior to admission she developed chills, rigors and mouth ulcers. # acute bilateral pneumonitis/fevers -no definite etiology, possible infectious and noninfectious - viral/fungal w/u neg to date -chest CT shows progression of infiltrates -s/p VATS with biopsy/CT dc on 12/11 # acute resp failure d/t above -on 5 L -iv steroids changed to po prednisone -improving, had coughing fit last night # oral ulcers -+ HSV #coughing bouts sever last night concerned # RA on Remicade and prednisone # chronic immunosuppression # anemia, normocytic - due to acute illness # migraine JAIMES had one yesterday # DEEPAK on CPAP # obesity BMI 35 #dvt prophylaxis: LMWH #. Plan: spoke w CM about arranging home care/ she will likely be here for several more days Subjective: Up in chair. Didn't sleep well last night. Coughing fit. Objective: Vital Signs Temp Pulse Resp BP Pulse Ox 36.6 C 78 18 155/87 H 93 12/14/16 08:00 12/14/16 08:00 12/14/16 08:00 12/14/16 08:00 12/14/16 08:00 Microbiology 12/09/16 10:27 Gram Stain - Final Lung - Tissue Laboratory Results 12/12/16 04:30 12/13/16 17:43 12/13/16 12/14/16 12/15/16 05:59 05:59 05:59 Intake Total 150 750 Balance 150 750 - Physical Exam Constitutional: appears nourished, not in pain, obese Eyes: PERRL, anicteric sclera, EOMI Ears, Nose, Mouth, Throat: moist mucous membranes, hearing normal, ears appear normal Cardiovascular: regular rate and rhythym, No JVD Respiratory: no respiratory distress, reduced air movement Gastrointestinal: No tenderness, No ascites Skin: warm, normal color Musculoskeletal: no joint effusions, generalized weakness Neurologic: AAOx3 Psychiatric: interacting appropriately, not anxious, not encephalopathic ICD10 Worksheet Patient Problems: Problems Problem Status Onset Pulmonary embolism Acute
[2016-12-14] MEDS: Mirabegron [Myrbetriq] 25 MG PO SCH (13:27)
--- NOTE | 2016-12-14 13:59 | PDINTPN ---
Breakfast Cook Progress Note Assessment/Plan: Assessment: * Rheumatoid arthritis-on MTX, Remicade, and low-dose prednisone chronically. * Pneumonitis-Likely due to organizing pneumonia, although the foci on the biopsy was small. Etiology is unclear. Infectious causes could have triggered this, but evaluation for ongoing infection is negative. Rheumatoid lung and MTX- induced lung are less likely. S/P VATS 12/09. * Acute respiratory failure secondary to pneumonitis-still coughing, but a bit better. Hypoxemia stable. * Obesity * Hypothyroidism * Obstructive sleep apnea: On home CPAP Plan: Continue Prednisone. Increase activity as tolerated. Nasal rinses. Add H2O bubbler to O2. Hopefully can go home soon, wut will likely be on fairly high O2 for a while longer. 12/13/16 16:25 12/14/16 13:57 Subjective: Slept poorly due to nasal congestion last night. Chest feels a bit tighter today. Minimal cough. Has a headache, which she sometimes gets. Objective: Vital Signs Temp Pulse Resp BP Pulse Ox 36.6 C 72 18 132/73 H 93 12/14/16 08:00 12/14/16 12:00 12/14/16 12:00 12/14/16 12:00 12/14/16 12:00 Microbiology 12/09/16 10:27 Gram Stain - Final Lung - Tissue Laboratory Results 12/12/16 04:30 12/13/16 17:43 12/13/16 12/14/16 12/15/16 05:59 05:59 05:59 Intake Total 150 750 Balance 150 750 CXR: Improved basilar atelectasis. Images reviewed. Physical Exam - Physical Exam General Appearance: alert, no apparent distress EENT: normal ENT inspection Neck: normal inspection Respiratory: lungs clear, normal breath sounds Cardiac/Chest: regular rate, rhythm, No edema Abdomen: normal bowel sounds, non-tender Skin: warm/dry Extremities: normal range of motion, non-tender Neuro/Psych: alert, normal mood/affect, oriented x 3 ICD10 Worksheet Patient Problems: Problems Problem Status Onset Pulmonary embolism Acute
[2016-12-14] MEDS: MONTELUKAST SODIUM 10 MG TAB PO SCH (22:58)
[2016-12-14] MEDS: diphenhydrAMINE 25 MG CAP PO SCH (22:58)
[2016-12-15] MEDS: HYDROCODONE/APAP 5/325 TAB PO PRN ×3 (03:03→23:57)
[2016-12-15] MEDS: ALBUTEROL 3 ML DEYVIAL IH SCH ×4 (06:17→21:20)
[2016-12-15] MEDS: LEVOTHYROXINE 137 MCG TAB PO SCH (08:08)
[2016-12-15] MEDS: ACETAMINOPHEN 325 MG TAB PO PRN (08:17)
--- NOTE | 2016-12-15 09:32 | HOSPPROG ---
Hospitalist Progress Note Assessment/Plan: Patient is a 76-year-old female with history of rheumatoid arthritis. She is on chronic prednisone as well as Remicade. Approximately a week prior to admission she developed chills, rigors and mouth ulcers. # acute bilateral pneumonitis/fevers -no definite etiology, possible infectious and noninfectious - viral/fungal w/u neg to date -chest CT shows progression of infiltrates -s/p VATS with biopsy/CT dc on 12/11 # acute resp failure d/t above -on 5 L -iv steroids changed to po prednisone -improving, had coughing fit last night # oral ulcers -+ HSV #coughing bouts better # RA on Remicade and prednisone # chronic immunosuppression # anemia, normocytic - due to acute illness # migraine JAIMES stable # DEEPAK on CPAP # obesity BMI 35 #dvt prophylaxis: LMWH #. Plan: spoke w CM about arranging home care/ she will likely be here for several more days Subjective: Feeling better today. No pain. No severe coughing. Objective: Vital Signs Temp Pulse Resp BP Pulse Ox 36.7 C 76 16 129/77 H 96 12/15/16 08:00 12/15/16 08:00 12/15/16 08:00 12/15/16 08:00 12/15/16 08:00 Microbiology 12/09/16 10:27 Gram Stain - Final Lung - Tissue Laboratory Results 12/12/16 04:30 12/13/16 17:43 12/14/16 12/15/16 12/16/16 05:59 05:59 05:59 Intake Total 750 Balance 750 - Physical Exam Constitutional: appears nourished, chronically ill appearing Eyes: PERRL, anicteric sclera Ears, Nose, Mouth, Throat: moist mucous membranes, hearing normal Cardiovascular: regular rate and rhythym, No JVD Respiratory: no respiratory distress, reduced air movement Gastrointestinal: normoactive bowel sounds, No tenderness Skin: warm, normal color Musculoskeletal: no joint effusions, generalized weakness Neurologic: AAOx3 Psychiatric: interacting appropriately, not anxious, not encephalopathic ICD10 Worksheet Patient Problems: Problems Problem Status Onset Pulmonary embolism Acute
[2016-12-15] MEDS: GABAPENTIN 300 MG CAP PO SCH ×3 (11:14→22:37)
[2016-12-15] MEDS: predniSONE 20 MG TAB PO SCH ×2 (11:15→18:43)
[2016-12-15] MEDS: DOCUSATE SODIUM 100 MG CAP PO SCH ×2 (11:15→22:38)
[2016-12-15] MEDS: CETIRIZINE 10 MG TAB PO SCH (11:15)
[2016-12-15] MEDS: PANTOPRAZOLE SODIUM 40 MG TAB PO SCH (11:16)
[2016-12-15] MEDS: ENOXAPARIN 40 MG/0.4 ML SYR SC SCH (11:19)
[2016-12-15] MEDS: Mirabegron [Myrbetriq] 25 MG PO SCH (12:44)
[2016-12-15] MEDS: ESTRADIOL 42.5 GM CRTUBE VG SCH (12:44)
[2016-12-15] MEDS: FLUTICASONE NASAL 120 SPRAYS/16 GM MDI EACHNARE SCH ×2 (12:45→22:39)
--- NOTE | 2016-12-15 13:07 | PDINTPN ---
[facility]ze [facility] Progress Note Assessment/Plan: Assessment: * Rheumatoid arthritis-on MTX, Remicade, and low-dose prednisone chronically. * Pneumonitis-Likely due to organizing pneumonia, although the foci on the biopsy was small. Etiology is unclear. Infectious causes could have triggered this, but evaluation for ongoing infection is negative. Rheumatoid lung and MTX- induced lung are less likely. S/P VATS 12/09. O2 needs down a bit. * Acute respiratory failure secondary to pneumonitis-still coughing, but a bit better. Hypoxemia stable. * Obesity * Hypothyroidism * Obstructive sleep apnea: On home CPAP * Nasal congestion: Improved. Plan: Continue Prednisone, currently day #6. Probably start to taper Friday/ Friday per Dr. Elias. Increase activity as tolerated. Continue PRN rinses. 12/15/16 13:05 Subjective: feels better, slept better last night with decreased nasal congestion after Sinus Rinse. Having some pain in her sternum and left scapular area. Still has some productive cough. Dyspnea is a bit better. Was able to walk around the unit today. Objective: Vital Signs Temp Pulse Resp BP Pulse Ox 36.7 C 76 16 129/77 H 96 12/15/16 08:00 12/15/16 10:43 12/15/16 10:43 12/15/16 08:00 12/15/16 10:43 Microbiology 12/09/16 10:27 Gram Stain - Final Lung - Tissue Laboratory Results 12/12/16 04:30 12/13/16 17:43 12/14/16 12/15/16 12/16/16 05:59 05:59 05:59 Intake Total 750 Balance 750 Physical Exam - Physical Exam General Appearance: alert, no apparent distress EENT: normal ENT inspection Neck: normal inspection Respiratory: lungs clear, normal breath sounds Cardiac/Chest: regular rate, rhythm, No edema Abdomen: normal bowel sounds, non-tender, soft Skin: normal color, warm/dry Extremities: normal inspection Neuro/Psych: alert, normal mood/affect, oriented x 3 ICD10 Worksheet Patient Problems: Problems Problem Status Onset Pulmonary embolism Acute
[2016-12-15] MEDS: HYDROmorphONE/DILAUDID 1 MG/ML SYR IVP PRN (22:37)
[2016-12-15] MEDS: MONTELUKAST SODIUM 10 MG TAB PO SCH (22:38)
[2016-12-15] MEDS: diphenhydrAMINE 25 MG CAP PO SCH (22:38)
[2016-12-16] MEDS: ONDANSETRON DISINTEGRATING 4 MG TAB PO PRN (00:08)
[2016-12-16] MEDS: HYDROCODONE/APAP 5/325 TAB PO PRN ×2 (05:53→19:25)
[2016-12-16] MEDS: LEVOTHYROXINE 137 MCG TAB PO SCH (05:53)
[2016-12-16] MEDS: ALBUTEROL 3 ML DEYVIAL IH SCH ×4 (06:23→21:13)
[2016-12-16] MEDS: DOCUSATE SODIUM 100 MG CAP PO SCH ×2 (09:31→22:44)
[2016-12-16] MEDS: CETIRIZINE 10 MG TAB PO SCH (09:31)
[2016-12-16] MEDS: PANTOPRAZOLE SODIUM 40 MG TAB PO SCH (09:32)
[2016-12-16] MEDS: GABAPENTIN 300 MG CAP PO SCH ×3 (09:34→22:44)
[2016-12-16] MEDS: predniSONE 20 MG TAB PO SCH ×2 (09:34→18:27)
[2016-12-16] MEDS: ENOXAPARIN 40 MG/0.4 ML SYR SC SCH (09:36)
[2016-12-16] MEDS: FLUTICASONE NASAL 120 SPRAYS/16 GM MDI EACHNARE SCH ×2 (10:12→22:44)
[2016-12-16] MEDS: Mirabegron [Myrbetriq] 25 MG PO SCH (12:56)
--- NOTE | 2016-12-16 15:00 | HOSPPROG ---
Hospitalist Progress Note Assessment/Plan: Patient is a 76-year-old female with history of rheumatoid arthritis. She is on chronic prednisone as well as Remicade. Approximately a week prior to admission she developed chills, rigors and mouth ulcers. # acute bilateral pneumonitis/fevers -no definite etiology -chest CT shows progression of infiltrates -s/p VATS with biopsy/CT dc on 12/11 # acute resp failure d/t above -on 3 L -oral steroids -improving # oral ulcers -+ HSV #coughing bouts last one on Friday night # RA on Remicade and prednisone # chronic immunosuppression # anemia, normocytic - due to acute illness # migraine JAIMES none further # DEEPAK on CPAP # obesity BMI 35 #dvt prophylaxis: LMWH #. Plan: dc tomorrow/ she would like Dr Bradford and Dr Escobar updated/ will be sure to send copies of my dc summary to them. Spoke w Dr Elias/ he will see her today. Subjective: Spring is feeling better daily. Objective: Vital Signs Temp Pulse Resp BP Pulse Ox 36.7 C 72 16 144/73 H 91 L 12/16/16 11:45 12/16/16 11:45 12/16/16 11:45 12/16/16 11:45 12/16/16 11:45 Microbiology 12/09/16 10:27 Gram Stain - Final Lung - Tissue Anaerobic Culture - Final Laboratory Results 12/12/16 04:30 12/13/16 17:43 - Physical Exam Constitutional: no apparent distress, appears nourished, not in pain Eyes: PERRL Ears, Nose, Mouth, Throat: hearing normal Cardiovascular: regular rate and rhythym Respiratory: no respiratory distress, reduced air movement (but better than when I assessed her last week) Gastrointestinal: normoactive bowel sounds Skin: warm Musculoskeletal: generalized weakness Neurologic: AAOx3 ICD10 Worksheet Patient Problems: Problems Problem Status Onset Pulmonary embolism Acute
--- NOTE | 2016-12-16 16:18 | SOAPPROG ---
CHUCK Progress Note Assessment/Plan: Assessment: 76-YEAR-OLD FEMALE WITH BILATERAL PNEUMONITIS IN NEED OF DIAGNOSTIC LUNG BIOPSY/ RISKS AND OPTIONS BEEN FULLY DISCUSSED SHE IS AT SOME INCREASED RISK BECAUSE OF HISTORY OF DIFFICULT INTUBATIONS WHICH WILL PROBABLY MAKE IT HARD FOR US TO GET A DOUBLE-LUMEN ENDOTRACHEAL TUBE IN PLACE. THAT MAY THEN ASSESS ITS 8 AN OPEN LUNG BIOPSY RATHER THAN A VATS BIOPSY WITH RESULTANT INCREASE IN PAIN POSTOP Plan: VATS IN THE A.M./PROBABLY ON THE LEFT SIDE SINCE SHE IS RIGHT-HANDED/ WILL REVIEW CT SCAN FOR THE MOST INVOLVED SEGMENT 12/08/16 14:39 12/09/16 22:01 Postop doing well alert and oriented/minimal chest tube drainage with no significant air leak/chest x-ray reveals full expansion of the lung 12/12/16 18:04 WOUNDS GOOD/BREATH SOUNDS EQUAL AND WELL EXPANDED/CHEST X-RAY STABLE/PATH SHOWS PNEUMONITIS/PLAN PER IM 12/13/16 15:33 AFEBRILE AND FEELING BETTER/WOUND OKAY/BREATH SOUNDS EQUAL/PLANS PER INTERNAL MEDICINE 12/16/16 16:17 Slowly improving on prednisone/breath sounds equal/wound okay/no new problems Objective: Vital Signs Temp Pulse Resp BP Pulse Ox 36.7 C 78 16 142/74 H 96 12/16/16 14:58 12/16/16 15:36 12/16/16 15:36 12/16/16 14:58 12/16/16 15:36 Microbiology 12/09/16 10:27 Gram Stain - Final Lung - Tissue Anaerobic Culture - Final Laboratory Results 12/12/16 04:30 12/13/16 17:43 ICD10 Worksheet Patient Problems: Problems Problem Status Onset Pulmonary embolism Acute
--- NOTE | 2016-12-16 16:46 | SOAPPROG ---
SOAP Progress Note Assessment/Plan: Assessment: * Rheumatoid arthritis-on MTX, Remicade, and low-dose prednisone chronically. * Pneumonitis-Likely due to organizing pneumonia, although the foci on the biopsy was small. Etiology is unclear. Infectious causes could have triggered this, but evaluation for ongoing infection is negative. Rheumatoid lung possible , MTX-induced lung reaction less likely. S/P VATS 12/09. O2 needs down. * Acute respiratory failure: Resolving * Obesity * Hypothyroidism * Obstructive sleep apnea: On home CPAP and oxygen * Nasal congestion: Improved. Plan: Continue Prednisone at 60 mg twice daily today. Will start to taper slowly. Possibly home tomorrow with outpatient follow-up. Increase activity as tolerated. Will discuss with Rheumatology regarding the possibility of rheumatoid lung and overall disease activity. Subjective: Doing well. In good spirits. Denies significant shortness of breath. Oxygen requirements down to 4 L. complains of some anterior chest pain on the left with coughing Objective: Vital Signs Temp Pulse Resp BP Pulse Ox 36.7 C 78 16 142/74 H 96 12/16/16 14:58 12/16/16 15:36 12/16/16 15:36 12/16/16 14:58 12/16/16 15:36 Microbiology 12/09/16 10:27 Gram Stain - Final Lung - Tissue Anaerobic Culture - Final Laboratory Results 12/12/16 04:30 12/13/16 17:43 Physical Exam - Physical Exam General Appearance: alert, no apparent distress, obese, other (Cushion on) EENT: other (Nasal cannula at 3 L) Neck: normal inspection (Large neck) Respiratory: lungs clear (Coarse at bases, not a lot a rales), decreased breath sounds (At bases), rales (Few), No rhonchi, No wheezing, No pleural rub Cardiac/Chest: regular rate, rhythm Abdomen: normal bowel sounds, non-tender, soft (Overweight) Skin: normal color, warm/dry Extremities: pedal edema (1+) Neuro/Psych: no motor/sensory deficits, No cognition abnormalities ICD10 Worksheet Patient Problems: Problems Problem Status Onset Pulmonary embolism Acute
[2016-12-16] MEDS: MONTELUKAST SODIUM 10 MG TAB PO SCH (22:44)
[2016-12-16] MEDS: diphenhydrAMINE 25 MG CAP PO SCH (22:44)
[2016-12-17] MEDS: HYDROCODONE/APAP 5/325 TAB PO PRN (00:18)
[2016-12-17] MEDS: LEVOTHYROXINE 137 MCG TAB PO SCH (05:50)
[2016-12-17] MEDS: SUMAtriptan 50 MG TAB PO PRN (05:50)
[2016-12-17] MEDS: ALBUTEROL 3 ML DEYVIAL IH SCH ×3 (06:23→17:19)
[2016-12-17] MEDS: predniSONE 20 MG TAB PO SCH ×2 (07:54→16:58)
[2016-12-17] MEDS: GABAPENTIN 300 MG CAP PO SCH ×2 (07:55→16:20)
[2016-12-17] MEDS: DOCUSATE SODIUM 100 MG CAP PO SCH (07:55)
[2016-12-17] MEDS: PANTOPRAZOLE SODIUM 40 MG TAB PO SCH (07:55)
[2016-12-17] MEDS: CETIRIZINE 10 MG TAB PO SCH (07:55)
[2016-12-17] MEDS: ENOXAPARIN 40 MG/0.4 ML SYR SC SCH (07:55)
[2016-12-17] MEDS: FLUTICASONE NASAL 120 SPRAYS/16 GM MDI EACHNARE SCH (07:56)
--- NOTE | 2016-12-17 08:48 | HOSPPROG ---
Hospitalist Progress Note Assessment/Plan: Patient is a 76-year-old female with history of rheumatoid arthritis. She is on chronic prednisone as well as Remicade. Approximately a week prior to admission she developed chills, rigors and mouth ulcers. # acute bilateral pneumonitis/fevers -no definite etiology -chest CT shows progression of infiltrates -s/p VATS with biopsy/CT dc on 12/11 # acute resp failure d/t above -on 3-4 L -oral steroids -improving # oral ulcers + HSV #coughing bouts none further # RA on Remicade and prednisone # chronic immunosuppression # anemia, normocytic - due to acute illness # migraine JAIMES none further # DEEPAK on CPAP # obesity BMI 35 #dvt prophylaxis: LMWH #. Plan: will discuss w Dr Elias about dc today/ consider a CTA - patient has hx of PE's and DVT's Subjective: Spring is feeling better today/ no complaints. Objective: Vital Signs Temp Pulse Resp BP Pulse Ox 36.5 C 60 20 168/96 H 90 L 12/17/16 07:41 12/17/16 07:41 12/17/16 07:41 12/17/16 07:41 12/17/16 07:41 Microbiology 12/09/16 10:27 Gram Stain - Final Lung - Tissue Anaerobic Culture - Final Laboratory Results 12/12/16 04:30 12/13/16 17:43 - Physical Exam Constitutional: no apparent distress, obese Eyes: PERRL Ears, Nose, Mouth, Throat: hearing normal Cardiovascular: regular rate and rhythym Respiratory: no respiratory distress, reduced air movement Gastrointestinal: normoactive bowel sounds Skin: warm Musculoskeletal: generalized weakness Neurologic: AAOx3 Psychiatric: interacting appropriately, not anxious ICD10 Worksheet Patient Problems: Problems Problem Status Onset Pulmonary embolism Acute
[2016-12-17 12:46] VITALS: RESP 20; TEMP 98.1
[2016-12-17 15:14] VITALS: BP 121/67; PULSE 74; O2SAT 95
--- NOTE | 2016-12-17 15:20 | PDIAF ---
- Diagnosis Diagnosis: pneumonitis Code Status: Full Code - Medication Management Discharge Medications: Medications to Continue on Transfer Albuterol Sulfate [Proair Hfa] 2 gm IH DAILY PRN 12/02/16 [Last Taken Unknown] Azelastine [Astelin] 2 sprays EACHNARE DAILY PRN 12/02/16 [Last Taken Unknown] Cetirizine [ZyrTEC 10 mg (*)] 10 mg PO DAILY 12/02/16 [Last Taken 12/02/16] EPINEPHrine [Epipen 0.3 MG] 0.3 mg IM AD PRN 12/02/16 [Last Taken Unknown] Estradiol [Estrace Vaginal (*)] 1 gm VG SUTH 12/02/16 [Last Taken 12/01/16] Fluticasone Nasal [Flonase Nasal [place]] 2 sprays EACHNARE DAILY PRN 12/02/16 [ Last Taken Unknown] Gabapentin 600 mg PO TID 12/02/16 [Last Taken 12/02/16 1 TAB] Herbals/Supplements -Info Only 1 ea PO DAILY 12/02/16 [Last Taken Unknown] Levothyroxine [Synthroid 137 mcg (*)] 137 mcg PO DAILY@12/02/16 [Last Taken 12/02/16] Methotrexate Sodium [Rheumatrex] 10 mg PO QUINONES 12/02/16 [Last Taken 12/01/16] Mirabegron [Myrbetriq] 25 mg PO DAILY@12/02/16 [Last Taken 12/01/16] Montelukast Sodium [Singulair] 10 mg PO DAILY@12/02/16 [Last Taken 12/01/16] Omeprazole 20 mg PO BID 12/02/16 [Last Taken 12/02/16 1 cap] Simvastatin 40 mg PO DAILY@12/02/16 [Last Taken 12/01/16] Sumatriptan Succinate [Imitrex] 100 mg PO DAILY PRN 12/02/16 [Last Taken Unknown ] Sumatriptan Succinate [Zembrace Symtouch] 3 mg SQ AD PRN 12/02/16 [Last Taken Unknown] Triamterene/Hydrochlorothiazid [Triamterene-Hctz 37.5-25 mg Cp] 1 each PO DAILY 12/02/16 [Last Taken 12/02/16] diphenhydrAMINE [Benadryl 25 MG (*)] 25 mg PO HS 12/02/16 [Last Taken 12/01/16] inFLIXimab [Remicade Inj 100 mg (*)] 300 mg IV Q49D 12/02/16 [Last Taken Unknown ] predniSONE 2.5 mg PO DAILY 12/02/16 [Last Taken 12/02/16] Acetaminophen [Tylenol 325mg (*)] 650 mg PO Q4HRS PRN #0 tab 12/17/16 [Last Taken Unknown] Docusate Sodium [Colace 100 MG (*)] 100 mg PO BID cap 12/17/16 [Last Taken Unknown] Hydrocodone/APAP 5/325 [[place] 5/325 (*)] 1 - 2 tab PO Q4HRS PRN #20 tab [Last Taken Unknown] predniSONE 40 mg PO DAILY #40 tablet 12/17/16 [Last Taken Unknown] predniSONE 60 mg PO DAILY #60 tablet 12/17/16 [Last Taken Unknown] Discharge Medications: Refer to the Discharge Home Medication list for PRN reason. PICC Care - Routine: N/A - Orders Services needed: Home Care, Registered Nurse, Physical Therapy, Occupational Therapy Home Care Face to Face: I certify that this patient was under my care and that I had the required [id number] encounter meeting the encounter requirements on the discharge day. My findings support the fact that the patient is homebound as defined in CMS Chapter 7 Medicare Benefits Manual 30.1.1, The condition of the patient is such that there exists a normal inability to leave home and consequently, leaving home would require a considerable and taxing effort. Oxygen: 3 liters OTC Diet Recommendation: no restrictions on diet Diet Texture: Regular Texture Diet Additional: Please call Dr. Christina office at [phone] to make an appointment for next week. When calling please explain that we will need a chest x-ray prior to the appointment and that she recently had left lung surgery. In the meantime okay to remove left chest wall bandage on Friday morning and shower normally, cover incision if there is significant leakage, cover with gauze and tape. In the meantime is okay to shower over the Tegaderm. It is normal to have small amount drainage of these incisions for the 1st few days after surgery. Take prednisone 60 mg every morning and 40 mg in the afternoon x 2 weeks, then 20 mg x 2 weeks/ discuss w Dr Elias about fci plans. See him in the next 2 weeks. Take with food. Do not restart Remicade and methotrexate till Dr Smith and Dr Yohan Elias have further discussed. Resume your diuretic - Follow Up Care Current Providers and Referrals: Nuha Bradford MD [Primary Care Provider] - As per Instructions Romain Christina MD [Medical Doctor] - (1-2 weeks. if you haven't had a chest xray or chest CT since your hospital discharge then please tell the front end ui developer when you make the appointment and they will give you instructions to get one. ) Yohan Elias MD [Medical Doctor] - Taco Escobar MD [[facility] Primary Care Provider] -
[2016-12-17] MEDS: Mirabegron [Myrbetriq] 25 MG PO SCH (17:18)
--- NOTE | 2016-12-17 17:39 | SOAPPROG ---
SOAP Progress Note Assessment/Plan: Assessment: * Rheumatoid arthritis-on MTX, Remicade, and low-dose prednisone chronically. * Pneumonitis-Likely due to organizing pneumonia, although the foci on the biopsy was small. Etiology is unclear. Infectious causes could have triggered this, but evaluation for ongoing infection is negative. Rheumatoid lung possible , MTX-induced lung reaction less likely. S/P VATS 12/09. O2 needs down. * Acute respiratory failure: Resolving * Obesity * Hypothyroidism * Obstructive sleep apnea: On home CPAP and oxygen * Nasal congestion: Improved. Plan: For discharge home today. I will follow her back up in the clinic as an outpatient next week: MANASA. I would recommend prednisone 60 mg in the morning and 40 mg in the evening for 5 days, then 60/20 for 5 days, then 60 Q a.m.. I will taper slowly from there. Subjective: Doing well. Anxious to go home. On 3 L of oxygen. Objective: Vital Signs Temp Pulse Resp BP Pulse Ox 36.7 C 74 20 121/67 H 95 12/17/16 15:11 12/17/16 15:11 12/17/16 15:11 12/17/16 15:11 12/17/16 15:11 Microbiology 12/09/16 10:30 Mycobacterial Smear ([place]) - Final Lung Left Lobe - Tissue 12/03/16 14:40 Mycobacterial Smear ([place]) - Final Lung - Bronchial Washings 12/09/16 10:27 Gram Stain - Final Lung - Tissue Anaerobic Culture - Final Laboratory Results 12/12/16 04:30 12/13/16 17:43 Physical Exam - Physical Exam General Appearance: alert, no apparent distress, obese EENT: PERRL/EOMI, other (Nasal cannula at 3 L) Neck: normal inspection (Large neck) Respiratory: decreased breath sounds, rales (At right base when she is lying on her right side. None heard on the left), No lungs clear, No rhonchi, No wheezing Cardiac/Chest: regular rate, rhythm Abdomen: normal bowel sounds, non-tender, soft (Overweight) Skin: normal color, warm/dry Extremities: pedal edema Neuro/Psych: no motor/sensory deficits, No cognition abnormalities ICD10 Worksheet Patient Problems: Problems Problem Status Onset Pulmonary embolism Acute
--- NOTE | 2016-12-17 20:54 | GDS ---
[f rep st] DISCHARGE SUMMARY DISCHARGE DIAGNOSES: 1. Acute bilateral pneumonitis. 2. Acute respiratory failure due to this. 3. Oral ulcers. 4. Coughing bouts. 5. Rheumatoid arthritis on Remicade and prednisone. 6. Chronic immunosuppression. 7. Normocytic anemia. 8. Migraine headaches. 9. Obstructive sleep apnea on CPAP. 10. Obesity with a body mass index of 35. CONSULTATIONS DURING STAY: 1. Lilian James MD. 2. Trey Weaver MD. Briefly, Spring Olivo is a 76-year-old female with a past medical history of rheumatoid arthritis always on chronic prednisone at 2.5 mg with Remicade injections every 7 weeks that she has had for the past year. She sees Dr. Escobar in the outpatient setting for this. At the end of September until about November 02, she traveled to [place] to visit her mother. After her flight, she started having increasing back pain, mostly in her lower back and buttocks region. By the end of her stay, she was having a hard time even walking. At that time, she received an epidural injection from [facility]. Four days after that, she started to feel poorly and was having some fever and chills. She noted that she had fevers as high as 101, she also had some headaches at the top of her head, as well as ongoing coughing. She had a CT of her chest which showed bilateral ground-glass opacities that were nonspecific but raised the question of possible PCP. At that time, it was unclear if this was infectious or non-infectious. Subsequently she was seen by Dr. Weaver because of the CT scan showing ground-glass opacifications and concern for pneumonitis. She subsequently had a bronchoscopy on 12/03/2016 which required intubation. She continued to have high oxygen requirements. No clear-cut infectious etiology was noted in regard to her pneumonitis. It was noted that she had negative cultures and negative PCR. Her pathology revealed pneumonitis in organizing fashion consistent with [id number] disease. Subsequently, she was seen and evaluated by Dr. Christina and had a VATS procedure with a biopsy. Postop, she had a chest tube placed that has been since removed. she is currently on high-dose oral steroids. Her oxygen levels have come down from 10 to 2-[address] Elias will follow up with her and review her care with Dr. Taco Escobar. HOSPITAL COURSE BY PROBLEM: 1. Acute bilateral pneumonitis without any recent fevers. No clear-cut etiology has been noted. 2. Acute respiratory failure due to this. She is on 3 L and on oral steroids. She continues to improve. 3. Oral ulcers, noted to be positive for HSV. 4. Coughing bouts. No further. 5. Rheumatoid arthritis. She is on Remicade and prednisone. Have kept her on her maintenance dose of prednisone. Recommending she follow up with Dr. Escobar about the Remicade and the methotrexate. 6. Chronic immunosuppression from treatment for her rheumatoid arthritis. 7. Normocytic anemia, stable. 8. Migraine headaches. None recently. 9. Obstructive sleep apnea, on CPAP. 10. Obesity; she has a BMI of 35. CONDITION AT DISCHARGE: Stable. Blood pressure is 121/67, heart rate is 74, respiratory rate is 20, O2 sat's on 3 L are 95%, temperature is 36.7 celsius. MEDICATIONS AT DISCHARGE: Please see the EMR. DISCHARGE INSTRUCTIONS: 1. To follow up with Dr. Christina. 2. To take prednisone as instructed. 3. Do not restart her Remicade and methotrexate until Dr. Escobar and Dr. Yohan Elias have further discussed. 4. If she develops fever, chills, chest pain, or worsening shortness of breath , return to the ER. TIME SPENT: Greater than 30 minutes discharging and coordinating her care. /[id number]/MODL MTDD
== END 2016-12-17 17:50 | disposition home health service (06) | DRG 166 ==
LOC: F1N 21:58 → F3E 12-07 13:03
PROVIDERS: ADMIT Internal Medicine; ATTEND Internal Medicine
DX: J84.114 Acute interstitial pneumonitis (principal); J96.01 Acute respiratory failure with hypoxia; B00.2 Herpesviral gingivostomatitis and pharyngotonsillitis; M06.9 Rheumatoid arthritis, unspecified; Z79.52 Long term (current) use of systemic steroids; I10 Essential (primary) hypertension; E03.9 Hypothyroidism, unspecified; G43.909 Migraine, unspecified, not intractable, without status migrainosus; G47.33 Obstructive sleep apnea (adult) (pediatric); M48.00 Spinal stenosis, site unspecified; E66.9 Obesity, unspecified; Z68.35 Body mass index [BMI] 35.0-35.9, adult; Z86.010 Personal history of colon polyps; Z86.711 Personal history of pulmonary embolism; Z86.718 Personal history of other venous thrombosis and embolism
CPT/HCPCS: 86738-90; 87385-90; 87449-90; 87529-90; 87798-90; 97116-GP; 97161-GP; 97165-GO; 97530-GO; 97530-GP; 97535-GO; G8978-GP-CI; G8979-GP-CI; G8980-GP-CI; G8987-GO-CJ; G8988-GO-CI; J0171; J0330; J0690; J1100; J1170; J1650; J1885; J1940; J2370; J2405; J2550; J2704; J3030; J3475

== ENCOUNTER → 2016-12-23 | Outpatient (CLI) | payer OTHER | LOC: FIMAGING 11:12 | PROVIDERS: ATTEND Physician Assistant | DX: R91.8 Other nonspecific abnormal finding of lung field (principal) ==

== ENCOUNTER 2017-01-23 14:33 | Inpatient (IN) | payer OTHER ==
--- NOTE | 2017-01-23 15:10 | CPEKG ---
Heart Rate: 98 RR Interval: 612 P-R Interval: 140 QRSD Interval: 90 QT Interval: 332 QTC Interval: 424 P [place]: 52 QRS [place]: -9 T Wave [place]: 30 EKG Severity - OTHERWISE NORMAL ECG - EKG Impression: SINUS RHYTHM EKG Impression: MINIMAL ST DEPRESSION, LATERAL LEADS EKG Impression: Unchanged from previous Electronically Signed By: Srini Mcclelland 23-Jan-2017 15:40:30
--- NOTE | 2017-01-23 15:36 | EDPHY ---
H & P Stated Complaint: fever, SOB, RA exacerbation, Lung surgery November Time Seen by Provider: 01/23/17 15:13 HPI/ROS: CHIEF COMPLAINT: Fever, shortness of breath HISTORY OF PRESENT ILLNESS: Patient is a 76-year-old female who comes to the emergency department her complaining of increased oxygen requirement, shortness of breath, fevers at home as well as left-sided lower lobe rhonchi her by home health staff. She has a history of rheumatoid arthritis on chronic immunosuppression is Remicade and prednisone. She was hospitalized here last month for 2 weeks ultimately diagnosed with bilateral pneumonitis. At that time she had a CT scan, bronchoscopy, VATS procedure with biopsies. She was discharged on high-dose steroids and had significant improvement however had increased back pain due to her arthritis that improved 1 week ago with a spinal injection. Over the last 3-4 days she has had a fever up to 100.5 degrees. She has begun wearing oxygen in the daytime which she usually does not to. Today she is complaining of body aches and chills and her home health nurse told her she had left lower lobe rhonchi. No rashes. No headache. No chest pain. She does have a history of PE but has not needed Coumadin for the last year. REVIEW OF SYSTEMS: Constitutional: See HPI EENTM: denies: blurred vision, double vision, nose congestion Respiratory: See HPI Cardiac: denies: chest pain, irregular heart rate, lightheadedness, palpitations Gastrointestinal/Abdominal: denies: abdominal pain, diarrhea, nausea, vomiting, blood streaked stools Genitourinary: denies: dysuria, frequency, hematuria, pain Musculoskeletal: denies: joint pain, muscle pain Skin: denies: lesions, rash, jaundice, bruising Neurological: denies: headache, numbness, paresthesia, tingling, dizziness, weakness Hematologic/Lymphatic: denies: blood clots, easy bleeding, easy bruising Immunologic/allergic: denies: HIV/AIDS, transplant EXAM: GENERAL: Well-appearing, well-nourished and in no acute distress. HEAD: Atraumatic, normocephalic. EYES: Pupils equal round and reactive to light, extraocular movements intact, sclera anicteric, conjunctiva are normal. ENT: TMs normal, nares patent, oropharynx clear without exudates. Moist mucous membranes. NECK: Normal range of motion, supple without lymphadenopathy or JVD. LUNGS: Left lower lobe rhonchi, no wheezing HEART: Regular rate and rhythm without murmurs, rubs or gallops. ABDOMEN: Soft, nontender, normoactive bowel sounds. No guarding, no rebound. No masses appreciated. BACK: No CVA tenderness, no spinal tenderness, step-offs or deformities EXTREMITIES: Normal range of motion, no pitting or edema. No clubbing or cyanosis. NEUROLOGICAL: Cranial nerves II through XII grossly intact. Normal speech, normal gait. 5/5 strength, normal movement in all extremities, normal sensation PSYCH: Normal mood, normal affect. SKIN: Warm, dry, normal turgor, no visible rashes or lesions. Source: Patient Exam Limitations: No limitations - Medical/Surgical History Hx Asthma: No Hx Chronic Respiratory Disease: Yes Hx Diabetes: No Hx Cardiac Disease: No Hx Renal Disease: No Hx Cirrhosis: No Hx Alcoholism: No Hx HIV/AIDS: No Hx Splenectomy or Spleen Trauma: No Other PMH: Appendectomy, bilateral mastectomy, hysterectomy, 2 C-sections, HYPOTHYROIDISM, ARTHRITIS anaphylactic shock, GERD, DVT and PE, hypertension, obstructive sleep apnea, bowel obstruction - Family History Significant Family History: No pertinent family hx - Social History Smoking Status: Former smoker Alcohol Use: Sober Drug Use: None Constitutional: Initial Vital Signs Temperature (C) 37.4 C 01/23/17 14:39 Heart Rate 106 H 01/23/17 14:39 Respiratory Rate 18 01/23/17 14:39 Blood Pressure 132/80 H 01/23/17 14:39 O2 Sat (%) 93 01/23/17 14:39 O2 Delivery Mode Nasal Cannula O2 (L/minute) 3 Allergies/Adverse Reactions: fentanyl Allergy (Severe, Verified 12/02/16 18:37) JOCELYN midazolam HCl [From Versed] Allergy (Severe, Verified 12/02/16 18:37) JOCELYN atorvastatin Allergy (Intermediate, Verified 01/23/17 17:34) Itching erythromycin base [Erythromycin Base] Allergy (Intermediate, Verified 12/02/16 18:37) polyethylene glycol 3350 [From Miralax] Allergy (Intermediate, Verified 18:37) Sulfa (Sulfonamide Antibiotics) Allergy (Intermediate, Verified 12/02/16 18:37) amoxicillin Allergy (Verified 12/02/16 18:37) amoxicillin trihydrate [From Augmentin] Allergy (Verified 12/08/16 10:47) Anaphylaxis ciprofloxacin Allergy (Verified 12/02/16 18:37) guaifenesin [From Robitussin] Allergy (Verified 12/02/16 18:37) potassium clavulanate [From Augmentin] Allergy (Verified 12/02/16 18:37) Home Medications: Medication Instructions Recorded Azelastine [Astelin] 2 sprays EACHNARE DAILY PRN 12/02/16 Cetirizine [ZyrTEC 10 mg (*)] 10 mg PO DAILY 12/02/16 Fluticasone Nasal [Flonase Nasal 2 sprays EACHNARE DAILY PRN 12/02/16 [place]] Gabapentin 1,200 mg PO TID@,12/02/16 Methotrexate Sodium [Rheumatrex] 10 mg PO QUINONES 12/02/16 Montelukast Sodium [Singulair] 10 mg PO HS 12/02/16 Omeprazole 40 mg PO BID 12/02/16 Simvastatin 40 mg PO HS 12/02/16 Sumatriptan Succinate [Imitrex] 100 mg PO DAILY PRN 12/02/16 Triamterene/Hydrochlorothiazid 1 cap PO DAILY 12/02/16 [Triamterene-Hctz 37.5-25 mg Cp] diphenhydrAMINE [Benadryl 25 MG 25 mg PO HS 12/02/16 (*)] inFLIXimab [Remicade Inj 100 mg 300 mg IV Q49D 12/02/16 (*)] Hydrocodone/APAP 5/325 [Joint Base Mdl 1 - 2 tab PO Q4HRS PRN #20 tab 12/17/16 5/325 (*)] Albuterol [Proventil Inhaler HFA 2 puffs IH Q4 PRN 01/23/17 (*)] Aspirin EC [Aspirin EC 81 mg (*)] 81 mg PO HS 01/23/17 Calcium Carbonate [Oyster Shell 500 mg PO DAILY@12 01/23/17 Calcium 500 mg (*)] Cholecalciferol Vit D3 [Vitamin D3 1,000 units PO DAILY@12 01/23/17 (*)] Docusate Sodium [Colace 100 MG (*)] 100 mg PO DAILY 01/23/17 Docusate Sodium [Colace 100 MG (*)] 200 mg PO HS 01/23/17 Levothyroxine [Synthroid 125 mcg 125 mcg PO DAILY06 01/23/17 (*)] Losartan Potassium [Cozaar 50 mg 50 mg PO HS 01/23/17 (*)] predniSONE 40 mg PO BID #80 tablet 01/25/17 Medical Decision Making - Diagnostics EKG Interpretation: An EKG obtained and was read and documented in trace view. Please see trace view for full reading and report. Sinus rhythm, no acute ischemic changes ED Course/Re-evaluation: 4:15 p.m. clinically I suspect pneumonia. This is consistent with the patient' s x-ray. I will start her on Rocephin because she has tolerated cephalosporins in the past. Also give her a high dose of steroids. It appears according to medical record like her last episode was thought to be rheumatoid pneumonia. She had been tapering off her steroids at home. 420 discussed the case with Dr VALERIA Canada who will admit to medical service. She agrees with the plan thus far. Differential Diagnosis: Partial list of the Differential diagnosis considered include but were not limited to; pneumonia, allergic reaction, pneumothorax, rheumatoid pneumonia, reactive airway disease and although unlikely based on the history and physical exam, I also considered acute coronary disease, dissection. - Data Points Laboratory Results: Laboratory Results 01/23/17 15:20 01/23/17 15:20 Microbiology Results: MICROBIOLOGY 01/23/17 15:20 Blood Blood Culture - Preliminary 01/23/17 16:15 Blood Blood Culture - Preliminary Medications Given: Discontinued Medications Acetaminophen (Tylenol) 650 mg PO Q4HRS PRN PRN Reason: Pain, Mild/Fever, Can Take PO Stop: 07/22/17 17:59 Last Admin: 01/24/17 07:22 Dose: 650 mg Hydrocodone Bitart/Acetaminophen (Joint [employer] Mdl 5/325) 1 - 2 tab PO Q4HRS PRN PRN Reason: Pain, Moderate Able to Take PO Stop: 02/02/17 18:06 Last Admin: 01/25/17 02:02 Dose: 1 tab Albuterol/Ipratropium (Duoneb) 3 ml IH QID [facility] Stop: 07/22/17 20:59 Last Admin: 01/25/17 12:16 Dose: 3 ml Aspirin Buffered (Aspirin Ec) 81 mg PO [facility] Stop: 07/22/17 20:59 Last Admin: 01/24/17 20:56 Dose: 81 mg Atorvastatin Calcium (Lipitor) 20 mg PO HS [facility] Stop: 07/23/17 20:59 Last Admin: 01/24/17 22:14 Dose: Not Given Calcium Carbonate (Oyster Shell Calcium) 500 mg PO DAILY@12 [facility] Stop: 07/23/17 11:59 Last Admin: 01/25/17 11:41 Dose: 500 mg Cetirizine HCl (Zyrtec) 10 mg PO DAILY ART Stop: 07/23/17 08:59 Last Admin: 01/25/17 09:52 Dose: 10 mg Cholecalciferol (Vitamin D) 1,000 units PO DAILY@12 ART Stop: 07/23/17 11:59 Last Admin: 01/25/17 11:41 Dose: 1,000 units Diphenhydramine HCl (Benadryl) 25 mg PO HS ART Stop: 07/22/17 20:59 Last Admin: 01/24/17 20:56 Dose: 25 mg Docusate Sodium (Colace) 100 mg PO DAILY [facility] Stop: 07/23/17 08:59 Last Admin: 01/25/17 09:52 Dose: 100 mg Docusate Sodium (Colace) 200 mg PO HS [facility] Stop: 07/22/17 20:59 Last Admin: 01/24/17 20:56 Dose: 200 mg Enoxaparin Sodium (Lovenox) 40 mg SC DAILY ART Stop: 07/23/17 08:59 Last Admin: 01/25/17 09:52 Dose: 40 mg Gabapentin (Neurontin) 1,200 mg PO TID@1200,2200 ART Stop: 07/22/17 21:59 Last Admin: 01/25/17 11:41 Dose: 1,200 mg Sodium Chloride (Ns) 2,600 mls @ 5,200 mls/hr 30 ml/kg infuse over 30 min ( 2600 ml) IV EDNOW ONE PRN Reason: Protocol Stop: 01/23/17 16:26 Last Admin: 01/23/17 16:22 Dose: 2,600 mls Ceftriaxone Sodium/Dextrose (Rocephin 1 Gm (Premix)) 50 mls @ 100 mls/hr IV EDNOW ONE PRN Reason: Protocol Stop: 01/23/17 16:34 Last Admin: 01/23/17 16:21 Dose: 50 mls Ceftriaxone Sodium/Dextrose (Rocephin 1 Gm (Premix)) 50 mls @ 100 mls/hr IV DAILY ART PRN Reason: Protocol Stop: 02/23/17 08:59 Last Admin: 01/25/17 11:40 Dose: Not Given Insulin Human Lispro (Humalog Lispro) 0 unit SC TIDMEAL ART PRN Reason: Protocol Stop: 07/23/17 07:59 Last Admin: 01/25/17 12:50 Dose: Not Given Levothyroxine Sodium (Synthroid) 125 mcg PO DAILY06 ART Stop: 07/23/17 05:59 Last Admin: 01/25/17 05:50 Dose: 125 mcg Losartan Potassium (Cozaar) 50 mg PO HS [facility] Stop: 07/22/17 20:59 Last Admin: 01/24/17 20:55 Dose: 50 mg Methylprednisolone Sodium Succinate (Solu-Medrol) 125 mg IVP EDNOW ONE Stop: 01/23/17 16:09 Last Admin: 01/23/17 16:22 Dose: 125 mg Methylprednisolone Sodium Succinate (Solu-Medrol) 125 mg IVP EDNOW ONE Stop: 01/23/17 16:20 Last Admin: 01/23/17 16:22 Dose: Not Given Miscellaneous Medication (Simvastatin [Simvastatin]) 40 mg PO HS [facility] Stop: 07/22/17 20:59 Last Admin: 01/23/17 22:31 Dose: Not Given Montelukast Sodium (Singulair) 10 mg PO HS [facility] Stop: 07/22/17 20:59 Last Admin: 01/24/17 20:56 Dose: 10 mg Nystatin (Mycostatin Oral Liquid) 500,000 unit PO QID [facility] PRN Reason: Protocol Stop: 02/23/17 11:59 Last Admin: 01/25/17 11:41 Dose: 500,000 unit Pantoprazole Sodium (Protonix) 40 mg PO BID [facility] Stop: 07/22/17 20:59 Last Admin: 01/25/17 09:52 Dose: 40 mg Prednisone (Prednisone) 60 mg PO DAILY ART Stop: 07/23/17 11:44 Last Admin: 01/24/17 12:03 Dose: 60 mg Prednisone (Prednisone) 40 mg PO BID ART Stop: 07/23/17 20:59 Last Admin: 01/25/17 09:52 Dose: 40 mg Sumatriptan Succinate (Imitrex) 100 mg PO DAILY PRN PRN Reason: Headache Stop: 07/24/17 05:28 Last Admin: 01/25/17 05:50 Dose: 100 mg Triamterene/HCTZ (Dyazide) 1 each PO DAILY ART Stop: 07/23/17 08:59 Last Admin: 01/25/17 09:52 Dose: 1 each Departure - Departure Disposition: [facility] Inpatient Acute Clinical Impression: Severe sepsis Pneumonia Qualifiers: Pneumonia type: due to unspecified organism Laterality: left Lung location: lower lobe of lung Qualified Code(s): J18.1 - Lobar pneumonia, unspecified organism Condition: Fair
[2017-01-23 15:47] LABS: ANION GAP 11 mEq/L (8-16); BILIRUBIN,TOTAL 0.6 mg/dL (0.1-1.4); CALCIUM 9.4 mg/dL (8.5-10.4); CARBON DIOXIDE 20 mEq/l (22-31); CHLORIDE 97 mEq/L (97-110); CREATININE 0.7 mg/dL (0.6-1.0); GLOMERULAR FILTRATION RATE > 60; GLUCOSE 126 mg/dL (70-100); POTASSIUM 3.9 mEq/L (3.5-5.2); SODIUM 128 mEq/L (134-144)
[2017-01-23 15:57] LABS: INR 0.93 (0.83-1.16); PROTIME(PATIENT) 12.4 SEC (12.0-15.0)
[2017-01-23] MEDS ORDERED: NS 2,600 ML IV ONE (15:57)
[2017-01-23 15:58] LABS: APTT 32.6 SEC (23.0-38.0)
[2017-01-23 16:08] LABS: % IMMATURE GRANULYOCYTES 2.1 % (0.0-1.1); ABSOLUTE IMMATURE GRANULOCYTES 0.24 10^3/uL (0.00-0.10); ADD DIFF? NO; ADD MORPH? NO; ADD SCAN? NO; ATYPICAL LYMPHOCYTE FLAG 0 (0-99); FRAGMENT RBC FLAG 0 (0-99); HEMATOCRIT 43.1 % (38.0-47.0); HEMOGLOBIN 14.4 g/dL (12.6-16.3); LEFT SHIFT FLG 20 (0-99); LIPEMIA HEMOLYSIS FLAG 80 (0-99); MEAN CELL HEMOGLOBIN 28.5 pg (27.9-34.1); MEAN CELL HEMOGLOBIN CONCENTR. 33.4 g/dL (32.4-36.7); MEAN CELL VOLUME 85.2 fL (81.5-99.8); PLATELET CLUMPS FLAG 10 (0-99); PLATELET COUNT 249 10^3/uL (150-400); RED BLOOD CELL COUNT 5.06 10^6/uL (4.18-5.33); RED CELL DISTRIBUTION WIDTH 18.8 % (11.5-15.2)
[2017-01-23] MEDS ORDERED: methylPREDNISolone SOD SUCC 125 MG/2 ML VIAL IVP ONE ×2 (16:08→16:19)
[2017-01-23 16:37] LABS: LACGHOST ORDER
[2017-01-23 16:59] LABS: COLOR PALE YELLOW; LEUKOCYTE ESTERASE,URINE TRACE (NEGATIVE); NITRITE,URINE NEGATIVE (NEGATIVE)
[2017-01-23 17:09] LABS: BACTERIA 1+ /hpf (NONE SEEN)
[2017-01-23] MEDS ORDERED: ACETAMINOPHEN 325 MG TAB PO PRN (18:00)
[2017-01-23] MEDS ORDERED: ONDANSETRON DISINTEGRATING 4 MG TAB PO PRN (18:00)
[2017-01-23] MEDS ORDERED: ONDANSETRON 4 MG/2 ML VIAL IVP PRN (18:00)
[2017-01-23] MEDS ORDERED: FLUTICASONE NASAL 120 SPRAYS/16 GM MDI EACHNARE PRN (18:07)
[2017-01-23] MEDS ORDERED: ALBUTEROL 60 PUFFS/8 GM MDI IH PRN (18:07)
[2017-01-23] MEDS ORDERED: AZELASTINE NASAL MDI EACHNARE PRN (18:07)
[2017-01-23] MEDS ORDERED: HYDROCODONE/APAP 5/325 TAB PO PRN (18:07)
[2017-01-23] MEDS ORDERED: ALBUTEROL 200 PUFFS/18 GM MDI IH PRN (19:00)
[2017-01-23] MEDS ORDERED: D50W 25 GM/50 ML SYR IVP PRN (19:05)
--- NOTE | 2017-01-23 19:37 | GHP ---
[f rep st] HISTORY AND PHYSICAL DATE OF ADMISSION: 01/23/2017 CHIEF COMPLAINT: Shortness of breath. HISTORY OF PRESENT ILLNESS: A 76-year-old female with a recent hospitalization from 12/03/2016 to 0 12/17/2016, where she was worked up for acute hypoxic respiratory failure after empiric treatment for pneumonia, then aggressive diagnostic testing, including bronchoscopy and VATS with biopsy. The di agnosis of autoimmune pneumonitis was made, and the patient was discharged on high dose steroids. T he patient has slowly been titrating herself from her high dose prednisone, and is currently at 40 m g daily. She reports 2 days ago developing new fevers measured above 100 by her home health provide r, new shortness of breath, and a wet cough that is not productive of sputum. Because of the fevers and the concurrent shortness of breath with new oxygen requirement, the patient presented to the Em ergency Department for evaluation. She reports in the 3 weeks that she was home with home health, s he was able to wean herself from daytime oxygen and resume activities of daily living in her home th at included small cleanup, dressing herself, and minimal food preparation. It was not until 2 days ago that she was requiring oxygen again during the day for minimal activity. The patient denies any chest pain. Denies palpitations. Denies abdominal discomfort. Reports normal stooling. Denies d ysuria, hematuria, or lower extremity edema. The patient has resumed her Remicade and methotrexate treatments per Dr. Escobar in the outpatient setting in the last 2 weeks. PAST MEDICAL HISTORY: 1. Rheumatoid arthritis, on high dose immunosuppression in the outpatient setting with Remicade and methotrexate. 2. Recent diagnosis autoimmune pneumonitis. 3. Hypothyroidism. 4. Migraine headaches. 5. Obstructive sleep apnea, uses CPAP at night. 6. Morbid obesity. 7. Chronic immunosuppression. SOCIAL HISTORY: The patient lives at home, currently requiring home health. Denies tobacco, alcoho l, or illicit drugs. FAMILY HISTORY: The patient has 1 niece with rheumatoid arthritis. Otherwise, was unaware of the d iagnosis in her family. ADVANCED DIRECTIVES: The patient is full cor, full tube. Her would be her medical decision maker. REVIEW OF SYSTEMS: A 10-point review of systems is negative with the exception of that reported in the HPI. PHYSICAL EXAMINATION: VITAL SIGNS: Blood pressure 155/87, heart rate 87, respiratory rate 18, 94% on 4L, 36.8. GENERAL: This is an obese appearing female, in no acute distress. HEENT: Notable fo r moist mucous membranes. Eye exam is negative for any icterus. CARDIAC: The patient is regular r ate and rhythm. PULMONARY: She does have bilateral crackles, left greater than right, with clearin g in her upper lobes. GASTROINTESTINAL: Positive bowel sounds. ABDOMEN: Soft and nontender. MUS CULOSKELETAL: The patient has trace symmetric bilateral lower extremity edema. SKIN: Negative for any rashes. NEUROLOGIC: She is alert and oriented x3. PSYCHIATRIC: She is pleasant and cooperat jm on interview and examination. DATA: White count 11.4, hematocrit is 43.1, platelets of 249. Sodium is 128, recent baseline seeme d to be closer to 130. Creatinine 0.7, glucose of 126. Urinalysis shows 10-15 red blood cells, 1-3 whites. Chest x-ray, which I personally reviewed and interpreted, shows an obese female, with incr eased pulmonary markings from her chest imaging prior to disposition. ASSESSMENT AND PLAN: This is a 76-year-old female presenting with shortness of breath. 1. Acute hypoxic respiratory failure. Differential would include recurring autoimmune pneumonitis due to her tapering of her outpatient steroid doses. I am additionally worried about her immunosupp ression with Remicade, methotrexate, and high-dose prednisone, and risks for having developed pneumo myranda since her disposition. We will check a noncontrast CT to compare to the imaging early in her [facility] hospitalization, and empirically treat for community-acquired pneumonia with ceftriaxone until bl ood culture, sputum culture, and imaging data is available. We will consult with the home security professional tomorrow to ask for their evaluation and recommendations related to possible bronchoscopy. PCP jaden miller would certainly be on the potential list of pathogens that could cause an infectious process i n this patient. We want to collect data through bronch if concerned. I have discussed the case wit h Infectious Disease, who feel most strongly that the patient is developing rebound symptoms of pneu monitis due to her prednisone taper. 2. Rheumatoid arthritis. This is a severe diagnosis for this patient. As mentioned, she has recei rosaline recently Remicade and methotrexate. We will not re-dose these medications during this hospital stay, but keep the diagnosis in consideration as we work up her acute respiratory failure. 3. Hyperglycemia. Suspect this is likely steroid related, can cover the patient with sliding scale insulin. 4. Hypothyroidism. We will continue her outpatient supplementation without change. 5. Obstructive sleep apnea. I can write the patient for inpatient CPAP if she wishes or have her h usband arrange for her CPAP to be brought in. We will continue nocturnal oxygen supplementation reg ardless. 6. Hypertension. Can continue the patient's home medications. Blood pressures will tolerate witho ut complication. 7. Prophylaxis with Lovenox. 8. Diet, regular. DISPOSITION: I expect greater than 2 midnights, as the patient will questionably require additional diagnostics to effectively rule in recurrent pneumonitis or rule out an infectious etiology for her acute hypoxic respiratory failure. I have discussed the case with the emergency room physician. Nixon mendez patient will be triaged to the medical-surgical floor for care. /[id number]/MODL
[2017-01-23] MEDS ORDERED: NON-FORMULARY NEW DRUG (Omeprazole [Omeprazole] 40 MG) PO SCH (21:00)
[2017-01-23] MEDS ORDERED: SIMVASTATIN 40 MG PO SCH (21:00)
[2017-01-23] MEDS: MONTELUKAST SODIUM 10 MG TAB PO SCH (21:03)
[2017-01-23] MEDS: diphenhydrAMINE 25 MG CAP PO SCH (21:03)
[2017-01-23] MEDS: DOCUSATE SODIUM 100 MG CAP PO SCH (21:03)
[2017-01-23] MEDS: LOSARTAN POTASSIUM 50 MG TAB PO SCH (21:03)
[2017-01-23] MEDS: ASPIRIN EC 81 MG TAB PO SCH (21:03)
[2017-01-23] MEDS: PANTOPRAZOLE SODIUM 40 MG TAB PO SCH (21:04)
[2017-01-23] MEDS: GABAPENTIN 400 MG CAP PO SCH (21:04)
[2017-01-23] MEDS: IPRATROPIUM/ALBUTEROL 3 ML DEYVIAL IH SCH (21:43)
[2017-01-23] MEDS ORDERED: NON-FORMULARY NEW DRUG (Gabapentin [Gabapentin] 1,200 MG) PO SCH (22:00)
[2017-01-24 05:20] LABS: ADD DIFF? YES; ADD MORPH? NO; ADD SCAN? NO; ATYPICAL LYMPHOCYTE FLAG 0 (0-99); FRAGMENT RBC FLAG 0 (0-99); HEMATOCRIT 37.5 % (38.0-47.0); HEMOGLOBIN 12.5 g/dL (12.6-16.3); LEFT SHIFT FLG 20 (0-99); LIPEMIA HEMOLYSIS FLAG 80 (0-99); MEAN CELL HEMOGLOBIN 28.5 pg (27.9-34.1); MEAN CELL HEMOGLOBIN CONCENTR. 33.3 g/dL (32.4-36.7); MEAN CELL VOLUME 85.4 fL (81.5-99.8); MEAN PLATELET VOLUME 8.9 fL (8.7-11.7); PLATELET CLUMPS FLAG 0 (0-99); PLATELET COUNT 204 10^3/uL (150-400); RED BLOOD CELL COUNT 4.39 10^6/uL (4.18-5.33)
[2017-01-24 05:32] LABS: ANION GAP 7 mEq/L (8-16); CALCIUM 8.5 mg/dL (8.5-10.4); CARBON DIOXIDE 26 mEq/l (22-31); CHLORIDE 100 mEq/L (97-110); CREATININE 0.6 mg/dL (0.6-1.0); GLOMERULAR FILTRATION RATE > 60; GLUCOSE 98 mg/dL (70-100); POTASSIUM 3.5 mEq/L (3.5-5.2); SODIUM 133 mEq/L (134-144)
[2017-01-24] MEDS: LEVOTHYROXINE 125 MCG TAB PO SCH (05:37)
[2017-01-24 06:02] LABS: PLATELET ESTIMATE ADEQUATE (ADEQ)
[2017-01-24] MEDS: IPRATROPIUM/ALBUTEROL 3 ML DEYVIAL IH SCH ×4 (06:11→21:25)
[2017-01-24] MEDS: PANTOPRAZOLE SODIUM 40 MG TAB PO SCH ×2 (07:23→20:56)
[2017-01-24] MEDS: CETIRIZINE 10 MG TAB PO SCH (07:23)
[2017-01-24] MEDS: TRIAMTERENE/HCTZ 37.5/25 1 EACH CAP PO SCH (07:24)
[2017-01-24] MEDS: ENOXAPARIN 40 MG/0.4 ML SYR SC SCH (07:26)
--- NOTE | 2017-01-24 08:26 | HOSPPROG ---
Hospitalist Progress Note Assessment/Plan: Patient is a 76-year-old female who has a history of autoimmune pneumonitis who presented the emergency room with worsening shortness of breath. She was here recently in November when this diagnosis was made. She was discharged on high dose steroids. Today is my 1st encounter with the patient. Chart reviewed. Discussed her care with Dr. Canada who admitted her last evening * acute hypoxemic respiratory failure Possibly related to recurring autoimmune pneumonitis. Steroids have been decreased. CT scan shows no convincing evidence for pneumonia with noted possible fluid overload On ceftriaxone. Patient is immunosuppressed due to being on steroids and is also on Remicade and methotrexate Will ask pulmonology to further evaluate her she is on 5 liters/ higher than her baseline/ had been on room air *autoimmune pneumonitis resumed prednisone at 60 mg/ had been on a weaning dose at 40 mg daily patient is concerned she had worsening shortness of breath with weaning her steroids * RA Recently treated with Remicade and methotrexate * hyperglycemia due to steroids * mild hyponatremia * obstructive sleep apnea On CPAP * hypertension bp 150/87 *back pain s/p steroid injection recently *Plan : Dr Weaver to see her today Subjective: Spring is feeling better after getting antibiotics/ feels she is breathing better. Objective: Vital Signs Temp Pulse Resp BP Pulse Ox 36.6 C 87 20 150/87 H 95 01/24/17 08:00 01/24/17 08:00 01/24/17 08:00 01/24/17 08:00 01/24/17 08:00 Laboratory Results 01/24/17 04:48 01/24/17 04:48 01/23/17 01/24/17 01/25/17 05:59 05:59 05:59 Intake Total 2600 Balance 2600 PT 12.4 SEC (12.0-15.0) 01/23/17 15:20 INR 0.93 (0.83-1.16) 01/23/17 15:20 - Physical Exam Constitutional: chronically ill appearing, obese Eyes: PERRL Ears, Nose, Mouth, Throat: hearing normal Cardiovascular: regular rate and rhythym Respiratory: reduced air movement, rhonchi (right base), other (increase wob with talking) Gastrointestinal: normoactive bowel sounds Skin: warm Musculoskeletal: generalized weakness Neurologic: AAOx3 Psychiatric: interacting appropriately, not anxious ICD10 Worksheet Patient Problems: Problems Problem Status Onset Pneumonia Acute Severe sepsis Acute Pulmonary embolism Acute
[2017-01-24] MEDS: CHOLECALCIFEROL VIT D3 1,000 UNITS TAB PO SCH (11:36)
[2017-01-24] MEDS: CALCIUM CARBONATE 500 MG TAB PO SCH (11:36)
[2017-01-24] MEDS: GABAPENTIN 400 MG CAP PO SCH ×2 (11:36→21:09)
[2017-01-24] MEDS ORDERED: predniSONE 20 MG TAB PO SCH (11:45)
[2017-01-24] MEDS: NYSTATIN SUSP 500000 UNIT/5 ML UDCUP PO SCH ×3 (12:03→20:54)
[2017-01-24] MEDS: INSULIN LISPRO 100 UNIT/ML SC SCH ×3 (12:47→18:49)
[2017-01-24] MEDS: DOCUSATE SODIUM 100 MG CAP PO SCH ×2 (12:47→20:56)
--- NOTE | 2017-01-24 14:10 | GCON ---
[f rep st] CONSULTATION PULMONARY CONSULTATION REASON FOR CONSULTATION: I was asked to see the patient by Mayelin Harris NP regarding her inters titial lung disease. HISTORY OF PRESENT ILLNESS: The patient is a very pleasant 76-year-old, white female with an extens jm past medical history, including morbid obesity, obstructive sleep apnea, hypothyroidism, and rhe umatoid arthritis, for which she is on Remicade and methotrexate. She was recently diagnosed with p neumonitis. She was hospitalized at [facility] from 12/03 through 12/17, where she un derwent a VATS biopsy. A diagnosis of autoimmune pneumonitis was made, and she was started on high- dose steroids, and subsequently discharged. She followed with Dr. Yohan Elias who has been taperin g her steroids. In discussion with the patient, she states that approximately a week prior, her pre dnisone was reduced from 60 mg to 40 mg. several days thereafter, she began having increased breath lessness. She denies any cough or production of sputum. There was no chest pain, pleuritic-type ch est pain, or anginal equivalent. Her dyspnea was worse with any form of exertion. She subsequently sought medical attention, was admitted to the hospital. Currently, she is resting comfortably on n jagdish cannula oxygen. PAST MEDICAL HISTORY: Significant for rheumatoid arthritis, hypothyroidism, obstructive sleep apnea , morbid obesity, hypothyroidism autoimmune pneumonitis. ALLERGIES: Fentanyl, midazolam, atorvastatin, erythromycin. SOCIAL HISTORY: No history of tobacco use. No history of alcohol use. She is , lives at [facility], and has excellent family support. PHYSICAL EXAM: VITAL SIGNS: Blood pressure is 142/74, pulse is 77, respirations 20, temperature is 36.5, oxygen saturation is 95% on 6 L. GENERAL: She is a morbidly obese, but extremely pleasant, 76-year-old, white female who is resting comfortably on nasal cannula oxygen. HEENT: Eyes are PERR LA, EOMI. Throat shows no erythema or tonsillar hypertrophy. NECK: Supple with no cervical adenop athy. HEART: Regular rate and rhythm with a 2/6 systolic murmur at left sternal border without rad iation. LUNGS: Diminished breath sounds. Bibasilar crackles, left greater than right. There is n o wheeze. ABDOMEN: Soft, nontender. Bowel sounds are present in all 4 quadrants. EXTREMITIES: N o clubbing, cyanosis, or edema. LABORATORIES: White count is 8.1, hemoglobin 12, hematocrit 37, platelet count is 204. Sodium 133, potassium 3.5, chloride 100, CO2 is 26, BUN is 18, creatinine 0.6, glucose is 156. CT scan of the chest shows small pleural effusions, mild interstitial prominence in the bases. Scat tered alveolar opacifications have diminished since November. IMPRESSION: 1. Autoimmune pneumonitis-this has worsened after dropping her prednisone. 2. Rheumatoid arthritis. 3. Chronic immunosuppression with methotrexate and Remicade. 4. Obstructive sleep apnea. 5. Morbid obesity. RECOMMENDATIONS: 1. Will increase her steroids: From 40 mg per day, we will go to 40 mg twice a day. 2. Wean FiO2 as tolerated. 3. DVT and PE prophylaxis. 4. Stress ulcer prophylaxis. 5. Anticipate discharge to home soon. 6. She will follow up with Dr. Yohan Elias in approximately 1 week. 7. Anticipate a slow taper of prednisone from there. Thank you very much for allowing me to participate in the care of this interesting patient. Will kylah ervin along with you. /[id number]/MODL
--- NOTE | 2017-01-24 18:15 | ASMTCASEMG ---
Living Arrangements What is your living Answers: With Spouse arrangement? Who do you live with? Type Of Residence What kind of residence do Answers: House you live in? Services Used Prior to Admission Home Services Used Prior Answers: Home Health Services to Admission Home/Community Service Agency Name(s) Notes: Current with [facility] (RN/PT) Discharge Plan Comments Coordination Status Comments Notes: Pt here for increased O2 needs, is current w/[facility]. PT still recommends hc, OT eval still pending, CM w/f. Date Signed: 01/24/2017 06:14 PM Electronically Signed By:Karlie Ragsdale
[2017-01-24] MEDS: predniSONE 20 MG TAB PO SCH (19:33)
[2017-01-24] MEDS: LOSARTAN POTASSIUM 50 MG TAB PO SCH (20:55)
[2017-01-24] MEDS: MONTELUKAST SODIUM 10 MG TAB PO SCH (20:56)
[2017-01-24] MEDS: ASPIRIN EC 81 MG TAB PO SCH (20:56)
[2017-01-24] MEDS: diphenhydrAMINE 25 MG CAP PO SCH (20:56)
[2017-01-24] MEDS ORDERED: ATORVASTATIN CALCIUM 20 MG TAB PO SCH (21:00)
[2017-01-25] MEDS ORDERED: SUMAtriptan 50 MG TAB PO PRN (05:29)
[2017-01-25] MEDS: LEVOTHYROXINE 125 MCG TAB PO SCH (05:50)
[2017-01-25] MEDS: NYSTATIN SUSP 500000 UNIT/5 ML UDCUP PO SCH ×2 (05:50→11:41)
[2017-01-25] MEDS: IPRATROPIUM/ALBUTEROL 3 ML DEYVIAL IH SCH ×2 (06:10→12:16)
[2017-01-25 06:15] LABS: ANION GAP 10 mEq/L (8-16); CARBON DIOXIDE 23 mEq/l (22-31); CHLORIDE 99 mEq/L (97-110); CREATININE 0.5 mg/dL (0.6-1.0); GLOMERULAR FILTRATION RATE > 60; GLUCOSE 106 mg/dL (70-100); POTASSIUM 3.7 mEq/L (3.5-5.2); SODIUM 132 mEq/L (134-144)
[2017-01-25] MEDS: INSULIN LISPRO 100 UNIT/ML SC SCH ×2 (08:36→12:50)
[2017-01-25] MEDS: PANTOPRAZOLE SODIUM 40 MG TAB PO SCH (09:52)
[2017-01-25] MEDS: DOCUSATE SODIUM 100 MG CAP PO SCH (09:52)
[2017-01-25] MEDS: predniSONE 20 MG TAB PO SCH (09:52)
[2017-01-25] MEDS: TRIAMTERENE/HCTZ 37.5/25 1 EACH CAP PO SCH (09:52)
[2017-01-25] MEDS: ENOXAPARIN 40 MG/0.4 ML SYR SC SCH (09:52)
[2017-01-25] MEDS: CETIRIZINE 10 MG TAB PO SCH (09:52)
[2017-01-25] MEDS: GABAPENTIN 400 MG CAP PO SCH (11:41)
[2017-01-25] MEDS: CALCIUM CARBONATE 500 MG TAB PO SCH (11:41)
[2017-01-25] MEDS: CHOLECALCIFEROL VIT D3 1,000 UNITS TAB PO SCH (11:41)
[2017-01-25 11:54] VITALS: BP 135/85; RESP 18; TEMP 98
--- NOTE | 2017-01-25 12:16 | HOSPPROG ---
Hospitalist Progress Note Assessment/Plan: Patient is a 76-year-old female who has a history of autoimmune pneumonitis who presented the emergency room with worsening shortness of breath. She was here recently in November when this diagnosis was made. She was discharged on high dose steroids. * acute hypoxemic respiratory failure Possibly related to recurring autoimmune pneumonitis. Steroids had been decreased. CT scan shows no convincing evidence for pneumonia with noted possible fluid overload she is back to her baseline on oxygen *autoimmune pneumonitis appreciate Dr Weaver/ will send her home on prednisone 40 mg bid dose to be adjusted by pulmonology * RA Recently treated with Remicade and methotrexate * hyperglycemia due to steroids * mild hyponatremia * obstructive sleep apnea On CPAP * hypertension bp 135/85 *back pain s/p steroid injection recently *Plan : dc home today/ further f/u with Dr Weaver Subjective: Spring is feeling much better/anxious to go home Objective: Vital Signs Temp Pulse Resp BP Pulse Ox 36.7 C 98 18 135/85 H 93 01/25/17 11:52 01/25/17 11:52 01/25/17 11:52 01/25/17 11:52 01/25/17 11:52 Laboratory Results 01/24/17 04:48 01/25/17 05:19 01/24/17 01/25/17 01/26/17 05:59 05:59 05:59 Intake Total 900 Balance 900 PT 12.4 SEC (12.0-15.0) 01/23/17 15:20 INR 0.93 (0.83-1.16) 01/23/17 15:20 - Physical Exam Constitutional: no apparent distress, chronically ill appearing Eyes: PERRL Ears, Nose, Mouth, Throat: hearing normal Cardiovascular: regular rate and rhythym Respiratory: other (increase wob with activity, crackles at left base) Skin: warm Musculoskeletal: generalized weakness Neurologic: AAOx3 Psychiatric: interacting appropriately ICD10 Worksheet Patient Problems: Problems Problem Status Onset Pneumonia Acute Severe sepsis Acute Pulmonary embolism Acute
[2017-01-25 12:34] VITALS: PULSE 90; O2SAT 94
--- NOTE | 2017-01-25 12:36 | SOAPPROG ---
SOAP Progress Note Assessment/Plan: Assessment: * Autoimmune pneumonitis * Respiratory-stable oxygen requirements Plan: Okay for home from a pulmonary standpoint Continue patient on a prednisone 40 mg twice daily until she follows up with Dr. Yohan Elias 01/25/17 12:35 Subjective: Sitting up in chair. Feels markedly improved. Objective: Vital Signs Temp Pulse Resp BP Pulse Ox 36.7 C 90 18 135/85 H 94 01/25/17 11:52 01/25/17 12:23 01/25/17 12:23 01/25/17 11:52 01/25/17 12:23 Laboratory Results 01/24/17 04:48 01/25/17 05:19 01/24/17 01/25/17 01/26/17 05:59 05:59 05:59 Intake Total 900 Balance 900 PT 12.4 SEC (12.0-15.0) 01/23/17 15:20 INR 0.93 (0.83-1.16) 01/23/17 15:20 Physical Exam - Physical Exam General Appearance: alert, no apparent distress EENT: PERRL/EOMI, normal ENT inspection, pharynx normal, TMs normal Neck: non-tender, full range of motion, supple, normal inspection Respiratory: crackles (Bibasilar crackles), No respiratory distress, No wheezing Cardiac/Chest: normal peripheral pulses, regular rate, rhythm, systolic murmur Peripheral Pulses: 2+: carotid (R), carotid (L), femoral (R), femoral (L), dorsalis-pedis (R), dorsalis-pedis (L) Abdomen: normal bowel sounds, non-tender, soft Pelvic Exam: deferred Rectal: deferred Skin: normal color, warm/dry ICD10 Worksheet Patient Problems: Problems Problem Status Onset Pneumonia Acute Severe sepsis Acute Pulmonary embolism Acute
--- NOTE | 2017-01-25 12:39 | ASDISCHSUM ---
Discharge Information Plan Status:Home with Home Health Medically Cleared to Leave: Discharge Date: D/C Disposition:Home Health Service ADT D/C Disposition: Projected Discharge Date: Transportation at D/C:Family Discharge Delay Reason: Follow-Up Date: Discharge Slot: Final Diagnosis: Placement Information Patient Contact Information Contact Name:MICHAEL Relationship: Address:[address] City:[facility] Phone: State/Zip Code:[place] [address] Email: Financial Information Financial Class: Primary Plan Desc:MEDICARE INPATIENT Primary Plan Number:[id number] Secondary Plan Desc:LEIF GONZALEZ Secondary Plan Number:[id number] Assessment Information BC Initial CM Assessment Living Arrangements What is your living Answers: With Spouse arrangement? Who do you live with? Type Of Residence What kind of residence do Answers: House you live in? Services Used Prior to Admission Home Services Used Prior Answers: Home Health Services to Admission Home/Community Service Agency Name(s) Notes: Current with [facility] (RN/PT) Discharge Plan Comments Coordination Status Comments Notes: Pt here for increased O2 needs, is current w/[facility]. PT still recommends hc, OT star still pending, CM w/f. Date Signed: 01/24/2017 06:14 PM Electronically Signed By:Karlie Ragsdale Intervention Information Intervention Type:*JIMY-Signed Date of Service:01/24/2017 10:26 AM Patient Type:Inpatient Staff Member:Rebekah Junior Hours: Discipline: Severity: Comment:
--- NOTE | 2017-01-25 12:44 | ASMTCMCOM ---
CM Note CM Note Notes: Today Pt. ready for d/c. Consulted w/ hospitalist. Plan is to re-up existing [facility] homecare - RN, PT. Josy met w/ Pt. and family in room. Pt. and prefer [facility] to resume on Friday. Josy contacted Janee Marie w/ [facility] and left message about d/c plan. Pt. already on home O2. to transport home today. Date Signed: 01/25/2017 12:43 PM Electronically Signed By:Angella Collazo
--- NOTE | 2017-01-25 12:45 | PDIAF ---
- Diagnosis Diagnosis: autoimmune pneumonitis Code Status: Full Code - Medication Management Discharge Medications: Medications to Continue on Transfer Azelastine [Astelin] 2 sprays EACHNARE DAILY PRN 12/02/16 [Last Taken 01/23/17 06:00] Cetirizine [ZyrTEC 10 mg (*)] 10 mg PO DAILY 12/02/16 [Last Taken 01/23/17 08:00 ] Fluticasone Nasal [Flonase Nasal [place]] 2 sprays EACHNARE DAILY PRN 12/02/16 [ Last Taken 01/23/17 14:00] Gabapentin 1,200 mg PO TID@,,12/02/16 [Last Taken 01/23/17 12:00] Methotrexate Sodium [Rheumatrex] 10 mg PO QUINONES 12/02/16 [Last Taken 01/19/17] Montelukast Sodium [Singulair] 10 mg PO HS 12/02/16 [Last Taken 01/22/17 22:00] Omeprazole 40 mg PO BID 12/02/16 [Last Taken 01/23/17 08:00] Simvastatin 40 mg PO HS 12/02/16 [Last Taken 01/22/17 22:00] Sumatriptan Succinate [Imitrex] 100 mg PO DAILY PRN 12/02/16 [Last Taken 06:00] Triamterene/Hydrochlorothiazid [Triamterene-Hctz 37.5-25 mg Cp] 1 cap PO DAILY 12/02/16 [Last Taken 01/23/17 08:00] diphenhydrAMINE [Benadryl 25 MG (*)] 25 mg PO HS 12/02/16 [Last Taken 01/23/17 06:00] inFLIXimab [Remicade Inj 100 mg (*)] 300 mg IV Q49D 12/02/16 [Last Taken ] Hydrocodone/APAP 5/325 [[place] 5/325 (*)] 1 - 2 tab PO Q4HRS PRN #20 tab [Last Taken 01/23/17 06:00] Albuterol [Proventil Inhaler HFA (*)] 2 puffs IH Q4 PRN 01/23/17 [Last Taken 06:00] Aspirin EC [Aspirin EC 81 mg (*)] 81 mg PO HS 01/23/17 [Last Taken 01/22/17 22: 00] Calcium Carbonate [Oyster Shell Calcium 500 mg (*)] 500 mg PO DAILY@12 01/23/17 [Last Taken 01/23/17 12:00] Cholecalciferol Vit D3 [Vitamin D3 (*)] 1,000 units PO DAILY@12 01/23/17 [Last Taken 01/23/17 12:00] Docusate Sodium [Colace 100 MG (*)] 100 mg PO DAILY 01/23/17 [Last Taken 08:00] Docusate Sodium [Colace 100 MG (*)] 200 mg PO HS 01/23/17 [Last Taken 01/22/17 22:00] Levothyroxine [Synthroid 125 mcg (*)] 125 mcg PO DAILY06 01/23/17 [Last Taken 06:00] Losartan Potassium [Cozaar 50 mg (*)] 50 mg PO HS 01/23/17 [Last Taken 01/22/17 22:00] predniSONE 40 mg PO BID #80 tablet 01/25/17 [Last Taken Unknown] Discharge Medications: Refer to the Discharge Home Medication list for PRN reason. - Orders Services needed: Home Care, Registered Nurse Home Care Face to Face: I certify that this patient was under my care and that I had the required [id number] encounter meeting the encounter requirements on the discharge day. My findings support the fact that the patient is homebound as defined in CMS Chapter 7 Medicare Benefits Manual 30.1.1, The condition of the patient is such that there exists a normal inability to leave home and consequently, leaving home would require a considerable and taxing effort. Diet Recommendation: no restrictions on diet Diet Texture: Regular Texture Diet - Follow Up Care Current Providers and Referrals: Nuha Bradford MD [Primary Care Provider] - As per Instructions Trey Weaver MD [Medical Doctor] -
[2017-01-25] MEDS ORDERED: BACITRACIN ZINC 14.2 GM OINTTUBE TP ONE (14:07)
--- NOTE | 2017-01-25 18:23 | GDS ---
[f rep st] DISCHARGE SUMMARY DISCHARGE DIAGNOSES: 1. Acute hypoxemic respiratory failure. 2. Autoimmune pneumonitis. 3. Rheumatoid arthritis. 4. Hyperglycemia. 5. Mild hyponatremia. 6. Obstructive sleep apnea. 7. Hypertension. 8. Back pain. CONSULTATIONS: Dr. Paulie Weaver. BRIEF HISTORY: The patient is a very sweet 76-year-old female, who was recently hospitalized in November for acute hypoxic respiratory failure. After being diagnosed with pneumonitis, she was discharged home on high steroids. Over the last few days she started feeling worsening shortness of breath. She comments that her prednisone dose has been decreased. In addition, she has treated her rheumatoid arthritis with Remicade and methotrexate. She was seen and evaluated by Dr. Weaver, who thought that her hypoxemic respiratory failure was due to dropping her prednisone too quickly. She will be discharged home on 40 mg twice a day until she follows up with Dr. Yohan Elias. HOSPITAL COURSE: 1. Acute hypoxemic respiratory failure. Today, she is back at her baseline at 3 L of oxygen. Her CT scan was performed, which showed no convincing evidence for pneumonia, but possible fluid overload. 2. Autoimmune pneumonitis. She will be discharged home on prednisone 40 mg twice daily. I recommend that she do not change her dose until she sees Dr. Elias or Dr. Weaver. 3. Rheumatoid arthritis. She was recently treated with Remicade and methotrexate. 4. Hyperglycemia. This is mild. This is secondary to steroids. 5. Mild hyponatremia. 6. Obstructive sleep apnea, on CPAP. 7. Hypertension. Blood pressure is 135/85. 8. Back pain. She had a recent steroid injection to her back. CONDITION AT DISCHARGE: Stable. Blood pressure is 135/85, heart rate is 98, respiratory rate is 18, O2 sats on 3 L are 94%, temperature is 36.7 Celsius. MEDICATIONS AT DISCHARGE: Please see the EMR. DISCHARGE INSTRUCTIONS: 1. To follow up with Dr. Yohan Elias in the next 1-2 weeks. 2. If she gets worsening shortness of breath or fever, chills, to return to the ER. Greater than 30 minutes discharging and coordinating care. /[id number]/MODL MTDD
== END 2017-01-25 14:54 | disposition home health service (06) | DRG 189 ==
LOC: F3E 17:49 → OBSVTOIN 18:00
PROVIDERS: ADMIT Hospitalist; ATTEND Hospitalist
DX: J96.01 Acute respiratory failure with hypoxia (principal); E87.1 Hypo-osmolality and hyponatremia; J84.89 Other specified interstitial pulmonary diseases; R73.9 Hyperglycemia, unspecified; M06.9 Rheumatoid arthritis, unspecified; G47.33 Obstructive sleep apnea (adult) (pediatric); I10 Essential (primary) hypertension; E03.9 Hypothyroidism, unspecified; K21.9 Gastro-esophageal reflux disease without esophagitis; Z86.711 Personal history of pulmonary embolism; Z86.718 Personal history of other venous thrombosis and embolism; Z87.891 Personal history of nicotine dependence; E66.01 Morbid (severe) obesity due to excess calories
CPT/HCPCS: 96365; 97116-GP; 97161-GP; 97166-GO; G8978-GP-CJ; G8979-GP-CI; G8980-GP-CI; G8987-GO-CI; G8988-GO-CI; G8989-GO-CI; J0696; J1650; J1815

== ENCOUNTER → 2017-01-29 | Outpatient (CLI) | payer OTHER | LOC: FIMAGING 15:30 | PROVIDERS: ATTEND Family Medicine | DX: M51.36 Other intervertebral disc degeneration, lumbar region (principal); M51.26 Other intervertebral disc displacement, lumbar region; M46.96 Unspecified inflammatory spondylopathy, lumbar region; M51.27 Other intervertebral disc displacement, lumbosacral region; M46.97 Unspecified inflammatory spondylopathy, lumbosacral region ==

== ENCOUNTER → 2017-02-05 | Outpatient (CLI) | payer OTHER | LOC: BHFA 15:30 | PROVIDERS: ATTEND Internal Medicine Cardiovascular Disease | DX: R06.00 Dyspnea, unspecified (principal); R60.9 Edema, unspecified ==

== ENCOUNTER → 2017-02-07 | Day surgery (SDC) | payer OTHER ==
[~2017-02-07] MED LIST changes: +ACETAMINOPHEN 325 MG TAB PO PRN; +ASPIRIN EC 325 MG TAB PO ONE; +ATROPINE SULFATE 1 MG/10 ML SYR IVP PRN; +ATROPINE SULFATE 1 MG/10 ML SYR ONE; +FAMOTIDINE 20 MG TAB PO ONE; +HYDROCODONE/APAP 5/325 TAB PO ONE; +HYDROCODONE/APAP 5/325 TAB PO PRN; -IOPAMIDOL (ISOVUE-300) 100 ML BTL IV ONE; +IOPAMIDOL (ISOVUE-370) 150 ML BTL IV ONE; +LIDOCAINE 1% 300 MG/30 ML SDV ONE; +NITROGLYCERIN 0.4 MG BTL SL PRN; +NS 1,000 ML IV SCH; +ONDANSETRON 4 MG/2 ML VIAL IVP PRN; +diphenhydrAMINE 25 MG CAP PO ONE
--- NOTE | 2017-02-07 13:30 | CPEKG ---
Heart Rate: 76 RR Interval: 789 P-R Interval: 140 QRSD Interval: 92 QT Interval: 368 QTC Interval: 414 P Monroe: 53 QRS Monroe: -9 T Wave Monroe: 50 EKG Severity - ABNORMAL ECG - EKG Impression: SINUS RHYTHM EKG Impression: LVH WITH SECONDARY REPOLARIZATION ABNORMALITY Electronically Signed By: Dandre Muhammad 07-Feb-2017 13:33:57
[2017-02-07 13:45] LABS: ADD DIFF? YES; ADD MORPH? NO; ADD SCAN? NO; ATYPICAL LYMPHOCYTE FLAG 0 (0-99); FRAGMENT RBC FLAG 0 (0-99); HEMATOCRIT 42.6 % (38.0-47.0); HEMOGLOBIN 14.2 g/dL (12.6-16.3); LEFT SHIFT FLG 10 (0-99); LIPEMIA HEMOLYSIS FLAG 80 (0-99); MEAN CELL HEMOGLOBIN 28.5 pg (27.9-34.1); MEAN CELL HEMOGLOBIN CONCENTR. 33.3 g/dL (32.4-36.7); MEAN CELL VOLUME 85.5 fL (81.5-99.8); MEAN PLATELET VOLUME 8.9 fL (8.7-11.7); PLATELET CLUMPS FLAG 0 (0-99); PLATELET COUNT 215 10^3/uL (150-400); RED BLOOD CELL COUNT 4.98 10^6/uL (4.18-5.33); RED CELL DISTRIBUTION WIDTH 18.8 % (11.5-15.2)
[2017-02-07 13:53] LABS: APTT 29.7 SEC (23.0-38.0); INR 0.91 (0.83-1.16); PROTIME(PATIENT) 12.1 SEC (12.0-15.0)
[2017-02-07 14:04] LABS: CALCIUM 8.6 mg/dL (8.5-10.4); CARBON DIOXIDE 26 mEq/l (22-31); CHLORIDE 98 mEq/L (97-110); CHOLESTEROL 192 mg/dL (140-220); CHOLESTEROL/HDL RATIO 2.21 RATIO (1.00-4.44); CREATININE 0.7 mg/dL (0.6-1.0); GLOMERULAR FILTRATION RATE > 60; GLUCOSE 76 mg/dL (70-100); HIGH DENSITY LIPOPROTEIN 87 mg/dL (40-85); LDL/HDL RATIO 0.68 RATIO (1.00-3.22); LOW DENSITY LIPOPROTEIN 59 mg/dL (80-100); MAGNESIUM 1.9 mg/dL (1.6-2.3); NON-HIGH DENSITY LIPOPROTEIN 105 mg/dL (90-129); SODIUM 133 mEq/L (134-144); TRIGLYCERIDE 230 mg/dL (35-135); VERY LOW DENSITY LIPOPROTEINS 46 mg/dL (8-25)
[2017-02-07 14:38] LABS: ANION GAP 9 mEq/L (8-16); POTASSIUM 3.5 mEq/L (3.5-5.2)
[2017-02-07 14:47] LABS: PLATELET ESTIMATE ADEQUATE (ADEQ)
--- NOTE | 2017-02-07 15:04 | PDHPUP ---
History & Physical Update H&P update statement: This history and physical update is based on an assessment of the patient which was completed after admission or registration (within 24 hours), but prior to the surgery/procedure. H&P update: H&P reviewed & patient examined, no change in patient's condition since H&P completed
--- NOTE | 2017-02-07 15:05 | PDPROPOC ---
Sedation Plan of Care Sedation Plan of Care: vital signs stable, mental status noted, patient educated of risks, benefits, alternatives ASA Classification: ASA 2 Mallampati Score: Class 3 Mallampati Reference Image: Patient passed 3-3-2 rule?: Yes
--- NOTE | 2017-02-07 17:21 | CPIP ---
[f rep st] INVASIVE CARDIAC PROCEDURE DATE OF PROCEDURE: 02/07/2017 PROCEDURE: 1. Coronary artery angiography. 2. Left ventriculography. 3. Right heart catheterization. INDICATION: Class 2-3 dyspnea on exertion, concerning for an anginal equivalent. ACCESS: Was prepped and draped in sterile fashion. 1% lidocaine was used to anesthetize the right i nguinal region. A 6-Yemeni introducer sheath was placed selectively into the right common femoral ar shannon via modified Seldinger technique. A 7-Yemeni introducer sheath was placed selectively into the right common femoral vein via modified Seldinger technique. CORONARY ANGIOGRAPHY: A 6-Yemeni JL4 was advanced to the left main coronary artery and images obtain ed. The left main coronary artery bifurcated into an LAD and circumflex coronary arteries. The left main coronary artery appeared normal. The left anterior descending coronary artery had a single dis crete 20% stenosis in the midvessel. The left anterior descending coronary artery gave rise to 1 pro minent diagonal branch. The remainder of the left anterior descending coronary artery and its diagon al branch appeared normal. The circumflex coronary artery was a large vessel, but was nondominant. Circumflex coronary artery gave rise to 4 OM branches. The circumflex coronary artery had mild lumin al irregularities in the distal portion of the vessel, but there was no stenosis greater than 20%. A 6-Yemeni JR4 was advanced to the right coronary artery and images obtained. The right coronary rosemarie ry has a single discrete 20% stenosis in the proximal segment. The remainder of the vessel is free o f any significant disease. LEFT VENTRICULOGRAPHY: A 6-Yemeni pigtail catheter is advanced in the left ventricle and images obta ined. Left ventricle is normal size and had normal systolic function with estimated ejection fractio n of 70%. RIGHT HEART CATHETERIZATION: The right heart catheter was advanced into the right atrium and pressur e obtained. The right atrial pressure was 8 mmHg. Catheter was then advanced into the right ventric le and pressure obtained. The right ventricular pressure was 52/5 mmHg. Catheter was then advanced into the pulmonary artery and pressure obtained. The pulmonary artery pressure was 49/20 mmHg with a mean pulmonary artery pressure of 33 mmHg. The pulmonary artery saturation was 68%. Catheter was t hen advanced into wedge position and pressure obtained. Pulmonary capillary wedge pressure was 15 mm Hg. Aortic sat was 92%. Cardiac output was 3.7. Cardiac index 2.06. COMPLICATIONS: None. CONCLUSIONS: 1. Mild coronary artery disease without flow limitation. 2. Normal left ventricular systolic function. 3. Mild pulmonary hypertension with a mean pulmonary artery pressure of 33 mmHg and a transpulmonary gradient of 18 mmHg. PLAN: Medical management. /[id number]/MODL
== END | disposition home or self-care (01) ==
LOC: FCATH 12:59 → F2N 16:04 → UNDOADMOB 16:04
PROVIDERS: ATTEND Internal Medicine Cardiovascular Disease
PROC: 4A023N8 Measurement of Cardiac Sampling and Pressure, Bilateral, Percutaneous Approach (ICD-10-PCS; principal; 2017-02-07)
PROC: B2151ZZ Fluoroscopy of Left Heart using Low Osmolar Contrast (ICD-10-PCS; principal; 2017-02-07)
PROC: B2111ZZ Fluoroscopy of Multiple Coronary Arteries using Low Osmolar Contrast (ICD-10-PCS; principal; 2017-02-07)
DX: R06.02 Shortness of breath (principal); R07.9 Chest pain, unspecified; I50.33 Acute on chronic diastolic (congestive) heart failure; I25.10 Atherosclerotic heart disease of native coronary artery without angina pectoris; I27.2 Other secondary pulmonary hypertension; M48.00 Spinal stenosis, site unspecified; M06.9 Rheumatoid arthritis, unspecified; E78.5 Hyperlipidemia, unspecified; G47.33 Obstructive sleep apnea (adult) (pediatric); I10 Essential (primary) hypertension; E03.9 Hypothyroidism, unspecified; G43.909 Migraine, unspecified, not intractable, without status migrainosus; E66.9 Obesity, unspecified; Z68.33 Body mass index [BMI] 33.0-33.9, adult; Z79.52 Long term (current) use of systemic steroids; Z86.010 Personal history of colon polyps; Z86.711 Personal history of pulmonary embolism; Z87.891 Personal history of nicotine dependence
CPT/HCPCS: C1760; J0461; J1644; Q9967

== ENCOUNTER 2017-02-15 15:20 | Emergency (ER) | payer OTHER ==
[2017-02-15 15:33] VITALS: TEMP 99
--- NOTE | 2017-02-15 15:58 | EDPHY ---
H & P Stated Complaint: Cath [id number] flank pain, urinary frequency. Time Seen by Provider: 02/15/17 15:45 HPI/ROS: CHIEF COMPLAINT: The flank and suprapubic pain HISTORY OF PRESENT ILLNESS: The patient is a 76-year-old female who comes to the emergency department complaining of suprapubic pain for 3 days, dark urine and bilateral CVA pain and urinary incontinence. She is concerned about a urinary tract infection. She states that it feels similar to previous urinary tract infections. She was admitted a few weeks ago for pneumonitis and she remains on high-dose steroids 60 mg prednisone daily followed by Dr. Elias. She also had a cardiac catheterization [address] Rodriguez that revealed only mild disease but good for her age. She has not had a fever. No nausea vomiting. She has not been catheterized recently. REVIEW OF SYSTEMS: Constitutional: denies: chills, fever, recent illness, recent injury EENTM: denies: blurred vision, double vision, nose congestion Respiratory: denies: cough, shortness of breath Cardiac: denies: chest pain, irregular heart rate, lightheadedness, palpitations Gastrointestinal/Abdominal: denies: abdominal pain, diarrhea, nausea, vomiting, blood streaked stools Genitourinary: See HPI Musculoskeletal: denies: joint pain, muscle pain Skin: denies: lesions, rash, jaundice, bruising Neurological: denies: headache, numbness, paresthesia, tingling, dizziness, weakness Hematologic/Lymphatic: denies: blood clots, easy bleeding, easy bruising Immunologic/allergic: denies: HIV/AIDS, transplant EXAM: GENERAL: Well-appearing, the overweight and in no acute distress. HEAD: Atraumatic, normocephalic. EYES: Pupils equal round and reactive to light, extraocular movements intact, sclera anicteric, conjunctiva are normal. ENT: TMs normal, nares patent, oropharynx clear without exudates. Moist mucous membranes. NECK: Normal range of motion, supple without lymphadenopathy or JVD. LUNGS: Breath sounds clear to auscultation bilaterally and equal. No wheezes rales or rhonchi. HEART: Regular rate and rhythm without murmurs, rubs or gallops. ABDOMEN: Soft, nontender, normoactive bowel sounds. No guarding, no rebound. No masses appreciated. BACK: No CVA tenderness, no spinal tenderness, step-offs or deformities EXTREMITIES: Normal range of motion, no pitting or edema. No clubbing or cyanosis. NEUROLOGICAL: Cranial nerves II through XII grossly intact. Normal speech, normal gait. 5/5 strength, normal movement in all extremities, normal sensation PSYCH: Normal mood, normal affect. SKIN: Warm, dry, normal turgor, no visible rashes or lesions. Source: Patient Exam Limitations: No limitations - Personal History Current Tetanus/Diphtheria Vaccine: Unsure Current Tetanus Diphtheria and Acellular Pertussis (TDAP): Unsure - Medical/Surgical History Hx Asthma: No Hx Chronic Respiratory Disease: Yes Hx Diabetes: No Hx Cardiac Disease: No Hx Renal Disease: No Hx Cirrhosis: No Hx Alcoholism: No Hx HIV/AIDS: No Hx Splenectomy or Spleen Trauma: No Other PMH: Appendectomy, bilateral mastectomy, hysterectomy, 2 C-sections, HYPOTHYROIDISM, ARTHRITIS anaphylactic shock-miralax, versed. GERD, DVT and PE, hypertension, obstructive sleep apnea, bowel obstruction, RA-inflammatory lungs- yazmin Elias. - Family History Significant Family History: No pertinent family hx - Social History Smoking Status: Former smoker Alcohol Use: Sober Drug Use: None Constitutional: Initial Vital Signs Temperature (C) 37.2 C 02/15/17 15:25 Heart Rate 97 02/15/17 15:25 Respiratory Rate 20 02/15/17 15:25 Blood Pressure 139/74 H 02/15/17 15:25 O2 Sat (%) 90 L 02/15/17 15:25 O2 Delivery Mode Nasal Cannula O2 (L/minute) 2 Allergies/Adverse Reactions: fentanyl Allergy (Severe, Verified 02/15/17 15:32) JOCELYN midazolam HCl [From Versed] Allergy (Severe, Verified 02/15/17 15:32) JOCELYN atorvastatin Allergy (Intermediate, Verified 02/15/17 15:32) Itching erythromycin base [Erythromycin Base] Allergy (Intermediate, Verified 02/15/17 15:32) Sulfa (Sulfonamide Antibiotics) Allergy (Intermediate, Verified 02/15/17 15:32) guaifenesin Allergy (Unknown, Verified 02/15/17 15:32) polyethylene glycol 3350 Allergy (Unknown, Verified 02/15/17 15:32) amoxicillin Allergy (Verified 02/15/17 15:32) amoxicillin trihydrate [From Augmentin] Allergy (Verified 02/15/17 15:32) Anaphylaxis ciprofloxacin Allergy (Verified 02/15/17 15:32) potassium clavulanate [From Augmentin] Allergy (Verified 02/15/17 15:32) amoxicillin trihydrate Allergy (Unknown, Uncoded 02/12/17 15:36) Anaphylaxis midazolam HCl Allergy (Unknown, Uncoded 02/12/17 15:36) Anaphylaxis potassium clavulanate Allergy (Unknown, Uncoded 02/12/17 15:36) Home Medications: Medication Instructions Recorded Omeprazole 40 mg PO BID 12/02/16 Simvastatin 40 mg PO HS 12/02/16 Sumatriptan Succinate [Imitrex] 100 mg PO DAILY PRN 12/02/16 diphenhydrAMINE [Benadryl 25 MG 25 mg PO HS 12/02/16 (*)] Hydrocodone/APAP 5/325 [[place] 1 - 2 tab PO Q4HRS PRN #20 tab 12/17/16 5/325 (*)] Aspirin EC [Aspirin EC 81 mg (*)] 81 mg PO HS 01/23/17 Calcium Carbonate [Oyster Shell 500 mg PO DAILY@12 01/23/17 Calcium 500 mg (*)] Cholecalciferol Vit D3 [Vitamin D3 1,000 units PO DAILY@01/23/17 (*)] Docusate Sodium [Colace 100 MG (*)] 100 mg PO DAILY 01/23/17 Docusate Sodium [Colace 100 MG (*)] 200 mg PO HS 01/23/17 Levothyroxine [Synthroid 125 mcg 125 mcg PO DAILY@01/23/17 (*)] Losartan Potassium [Cozaar 50 mg 50 mg PO HS 01/23/17 (*)] Gabapentin [Neurontin 400 MG (*)] 1,200 mg PO TID 02/07/17 predniSONE 70 mg PO DAILY 02/07/17 Cephalexin [Keflex] 500 mg PO TID #21 cap 02/15/17 Medical Decision Making ED Course/Re-evaluation: The patient has a urinary tract infection in this consistent with her symptoms. I will start her on a dose of Rocephin and then outpatient with Keflex as recommended by the [facility] antibiotic biogram. She is afebrile. She agrees with this plan. She is allergic to ciprofloxacin. She declines further workup or testing. Differential Diagnosis: Partial list of the Differential diagnosis considered include but were not limited to; urinary tract infection, pyelonephritis and although unlikely based on the history and physical exam, I also considered kidney stone, hernia, abscess, cauda equina. I discussed these differential diagnoses and the plan with the patient as well as the usual and expected course. The patient understands that the diagnosis is provisional and that in medicine we are not always correct and that further workup is often warranted. Usual and customary warnings were given. All of the patient's questions were answered. The patient was instructed to return to the emergency department should the symptoms at all worsen or return, otherwise to followup with the physician as we discussed. - Data Points Laboratory Results: 02/15/17 15:45 Urine Color YELLOW Urine Appearance CLEAR Urine pH 6.0 (5.0-7.5) Ur Specific [place] 1.011 (1.002-1.030) Urine Protein NEGATIVE (NEGATIVE) Urine Ketones NEGATIVE (NEGATIVE) Urine Blood NEGATIVE (NEGATIVE) Urine Nitrate NEGATIVE (NEGATIVE) Urine Bilirubin NEGATIVE (NEGATIVE) Urine Urobilinogen NEGATIVE EU EU (0.2-1.0) Ur Leukocyte Esterase 1+ H (NEGATIVE) Urine RBC 1-3 /hpf /hpf (0-3) Urine WBC 10-15 /hpf H /hpf (0-3) Ur Epithelial Cells TRACE /lpf /lpf (NONE-1+) Urine Bacteria 1+ /hpf H /hpf (NONE SEEN) Urine Glucose NEGATIVE (NEGATIVE) Medications Given: Discontinued Medications Ceftriaxone Sodium/Dextrose (Rocephin 1 Gm (Premix)) 50 mls @ 100 mls/hr IV EDNOW ONE PRN Reason: Protocol Stop: 02/15/17 17:03 Last Admin: 02/15/17 16:53 Dose: 50 mls Departure - Departure Disposition: Home, Routine, Self-Care Clinical Impression: Urinary tract infection Qualifiers: Urinary tract infection type: acute cystitis Hematuria presence: without hematuria Qualified Code(s): N30.00 - Acute cystitis without hematuria Condition: Fair Instructions: Urinary Tract Infection in Women (ED) Referrals: Nuha Bradford MD [Primary Care Provider] - As per Instructions Prescriptions: Cephalexin [Keflex] 500 mg PO TID #21 cap
[2017-02-15 16:04] LABS: COLOR YELLOW; LEUKOCYTE ESTERASE,URINE 1+ (NEGATIVE); NITRITE,URINE NEGATIVE (NEGATIVE)
[2017-02-15 16:13] LABS: BACTERIA 1+ /hpf (NONE SEEN)
[2017-02-15 17:42] VITALS: BP 134/79; PULSE 86; RESP 18; O2SAT 96
== END 2017-02-15 17:53 | disposition home or self-care (01) ==
DX: N30.00 Acute cystitis without hematuria (principal); B96.1 Klebsiella pneumoniae [K. pneumoniae] as the cause of diseases classified elsewhere; I10 Essential (primary) hypertension; Z79.82 Long term (current) use of aspirin; Z87.891 Personal history of nicotine dependence; Z90.49 Acquired absence of other specified parts of digestive tract; Z90.710 Acquired absence of both cervix and uterus
CPT/HCPCS: 96365; 99284; J0696

== ENCOUNTER → 2017-03-15 | Outpatient (CLI) | payer OTHER | LOC: FIMAGING 12:34 | PROVIDERS: ATTEND Physical Medicine & Rehabilitation | DX: M51.36 Other intervertebral disc degeneration, lumbar region (principal); M51.37 Other intervertebral disc degeneration, lumbosacral region; M43.16 Spondylolisthesis, lumbar region; M43.17 Spondylolisthesis, lumbosacral region; M48.061 Spinal stenosis, lumbar region without neurogenic claudication; M12.88 Other specific arthropathies, not elsewhere classified, other specified site; M25.551 Pain in right hip; M25.552 Pain in left hip ==

== ENCOUNTER 2017-03-16 15:42 | Emergency (ER) | payer OTHER ==
[2017-03-16 15:54] VITALS: TEMP 97.9
--- NOTE | 2017-03-16 16:11 | EDPHY ---
H & P Stated Complaint: increasing edema and rash on feet/lindsay be r/t doxycycline HPI/ROS: CHIEF COMPLAINT: Bilateral foot swelling and rash HISTORY OF PRESENT ILLNESS: The patient is a 76 y/o female with RA/chronic immunosuppression complaining of bilateral foot swelling and a rash. In October 2016, 4 months ago, she was admitted and diagnosed with spinal stenosis and an autoimmune pneumonitis. She was then admitted in December 2016 with acute hypoxemic respirator failure, thought related to rapid prednisone taper. Since her initial admission in October 2016, she has developed whole body weakness, worse in her extremities as well as bilateral foot swelling. Due to these symptoms, she is currently using a walker. She was recently diagnosed with a UTI and has been on 3 different antibiotics. She was initially on Cefuroxime and Cephalexin, but her doctor switched her to Doxycycline on 03/11. She stopped taking Doxycycline last night. Her rash began on Friday, 6 days ago, but was primarily located on her back. However, it began to develop on her ankles and feet 2-3 days ago, but worsened yesterday. She is here because of this rash and because her home health nurse detected some crackles at lung base. Denies fever, chest pain, worsening shortness of breath, paresthesias or other pertinent symptoms. She is not currently having urinary symptoms. REVIEW OF SYSTEMS: A ten point review of systems was performed and is negative with the exception of the items mentioned in the HPI. She is scheduled to undergo spinal injection tomorrow for relief of back pain. 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 Vital signs reviewed. Blood pressure 132/76 Eyes: Pupils equal and round, no conjunctival injection, no discharge. Anicteric. ENT, Mouth: Mucous membranes are moist, no oropharyngeal erythema or edema. Neck: No lymphadenopathy, supple. Respiratory: Lungs are clear to auscultation with distant breath sounds; no wheezes, rales, or rhonchi. Cardiovascular: Regular rate and rhythm; no murmur, rub, or gallop. Gastrointestinal: Abdomen is obese, soft and nontender, no masses or organomegaly appreciated, bowel sounds normal. Skin: Bilateral pedal non-blanching petechia. Warm and dry, normal color. Back: Nontender to palpation over the thoracolumbar spine. No CVAT. Extremities: Bilateral pedal edema, no calf tenderness. Neurological: Alert and oriented. Moving all four extremities spontaneously. Psychiatric: Normal affect. - Personal History Current Tetanus/Diphtheria Vaccine: No - Medical/Surgical History Hx Asthma: No Hx Chronic Respiratory Disease: Yes Hx Diabetes: No Hx Cardiac Disease: No Hx Renal Disease: No Hx Cirrhosis: No Hx Alcoholism: No Hx HIV/AIDS: No Hx Splenectomy or Spleen Trauma: No Other PMH: Appendectomy, bilateral mastectomy, hysterectomy, 2 C-sections, HYPOTHYROIDISM, ARTHRITIS anaphylactic shock-miralax, versed. GERD, DVT and PE, hypertension, obstructive sleep apnea, bowel obstruction, RA-inflammatory lungs- seeconcepcion Elias. - Social History Smoking Status: Former smoker Constitutional: Initial Vital Signs Temperature (C) 36.6 C 03/16/17 15:52 Heart Rate 92 03/16/17 15:52 Respiratory Rate 16 03/16/17 15:52 Blood Pressure 132/67 H 03/16/17 15:52 O2 Sat (%) 94 03/16/17 15:52 O2 Delivery Mode Nasal Cannula O2 (L/minute) 3 Allergies/Adverse Reactions: fentanyl Allergy (Severe, Verified 03/16/17 15:51) JOCELYN midazolam HCl [From Versed] Allergy (Severe, Verified 03/16/17 15:51) JOCELYN atorvastatin Allergy (Intermediate, Verified 03/16/17 15:51) Itching erythromycin base [Erythromycin Base] Allergy (Intermediate, Verified 03/16/17 15:51) Sulfa (Sulfonamide Antibiotics) Allergy (Intermediate, Verified 03/16/17 15:51) guaifenesin Allergy (Unknown, Verified 03/16/17 15:51) polyethylene glycol 3350 Allergy (Unknown, Verified 03/16/17 15:51) amoxicillin Allergy (Verified 03/16/17 15:51) amoxicillin trihydrate [From Augmentin] Allergy (Verified 03/16/17 15:51) Anaphylaxis ciprofloxacin Allergy (Verified 03/16/17 15:51) potassium clavulanate [From Augmentin] Allergy (Verified 03/16/17 15:51) amoxicillin trihydrate Allergy (Unknown, Uncoded 02/12/17 15:36) Anaphylaxis midazolam HCl Allergy (Unknown, Uncoded 02/12/17 15:36) Anaphylaxis potassium clavulanate Allergy (Unknown, Uncoded 02/12/17 15:36) Home Medications: Medication Instructions Recorded Omeprazole 40 mg PO BID 12/02/16 Simvastatin 40 mg PO HS 12/02/16 Sumatriptan Succinate [Imitrex] 100 mg PO DAILY PRN 12/02/16 diphenhydrAMINE [Benadryl 25 MG 25 mg PO HS 12/02/16 (*)] Hydrocodone/APAP 5/325 [[place] 1 - 2 tab PO Q4HRS PRN #20 tab 12/17/16 5/325 (*)] Aspirin EC [Aspirin EC 81 mg (*)] 81 mg PO HS 01/23/17 Calcium Carbonate [Oyster Shell 500 mg PO DAILY@01/23/17 Calcium 500 mg (*)] Cholecalciferol Vit D3 [Vitamin D3 1,000 units PO DAILY@01/23/17 (*)] Docusate Sodium [Colace 100 MG (*)] 100 mg PO DAILY 01/23/17 Docusate Sodium [Colace 100 MG (*)] 200 mg PO HS 01/23/17 Levothyroxine [Synthroid 125 mcg 125 mcg PO DAILY@05 01/23/17 (*)] Losartan Potassium [Cozaar 50 mg 50 mg PO HS 01/23/17 (*)] Gabapentin [Neurontin 400 MG (*)] 1,200 mg PO TID 02/07/17 predniSONE 70 mg PO DAILY 02/07/17 Doxycycline Calcium 03/16/17 Lasix 03/16/17 Medical Decision Making - Diagnostics Imaging: Discussed imaging studies w/ call center assistant Radiologist, I viewed and interpreted images myself ED Course/Re-evaluation: The patient is a 76 y/o female presenting with bilateral pedal edema and LE petechia for the past 4 days. In October, 4 months ago, she was diagnosed with autoimmune pneumonitis. 5 days ago she changed her antibiotic for a UTI to Doxycycline. I believe that what she has been interpreting as rash is actually petechiae, present on tops of both feet. I do not see any rash. 1701: I viewed the patient's chest x-rays. There is scarring on left, no effusions or infiltrate, mild CHF. On re-exam I appreciate faint LLL rales. She is taking Lasix 80 mg daily. She is not aware of any change in her breathing. She has not had chest pain. She is closely followed by her tool and die maker/designer, peanut vendor, and PCP. I feel that this can be followed on an outpatient basis. The petechiae is suggestive of a vasculitis. No evidence of infection at this time. UA is normal and she is not having urinary symptoms. I feel that she can DC her antibiotics (which she has done). The vasculitis could be related to medication. No evidence of renal damage on bloodwork. I am not recommending a more extensive evaluation of vasculitis at this time and will leave this to her outpatient doctors. I do not have reason to suspect malignancy. No purpura or hemorrhagic bullae on exam. I do not think that there is a current life or limb threat. 1724: Reassessed patient and discussed imaging results. Return precautions provided; patient is comfortable with this plan. - Data Points Laboratory Results: Laboratory Results 03/16/17 16:37 03/16/17 16:37 Departure - Departure Disposition: Home, Routine, Self-Care Clinical Impression: Vasculitis Condition: Good Additional Instructions: Follow up with your primary care provider and tool and die maker/designer in the next 3 days for unimproved symptoms. Return to the ED if you develop worsening shortness of breath, chest pain, worsening weakness, and new UTI symptoms. Referrals: Nuha Bradford MD [Primary Care Provider] - As per Instructions Report Scribed for: Mariluz Anaya Report Scribed by: Noreen Gomez Date of Report: 03/16/17 Time of Report: 16:12 Physician Review and Approval Statement: 03/16/17 16:10 Portions of this note were transcribed by the medical appointment scheduler. I, Dr. Mariluz Anaya, personally performed the history, physical exam, and medical decision- making; and confirmed the accuracy of the information in the transcribed note.
[2017-03-16 16:46] LABS: % IMMATURE GRANULYOCYTES 1.7 % (0.0-1.1); ABSOLUTE IMMATURE GRANULOCYTES 0.21 10^3/uL (0.00-0.10); ADD DIFF? NO; ADD MORPH? NO; ADD SCAN? NO; ATYPICAL LYMPHOCYTE FLAG 0 (0-99); FRAGMENT RBC FLAG 0 (0-99); HEMATOCRIT 42.2 % (38.0-47.0); HEMOGLOBIN 14.2 g/dL (12.6-16.3); LEFT SHIFT FLG 10 (0-99); LIPEMIA HEMOLYSIS FLAG 80 (0-99); MEAN CELL HEMOGLOBIN 28.8 pg (27.9-34.1); MEAN CELL HEMOGLOBIN CONCENTR. 33.6 g/dL (32.4-36.7); MEAN CELL VOLUME 85.6 fL (81.5-99.8); MEAN PLATELET VOLUME 8.8 fL (8.7-11.7); PLATELET CLUMPS FLAG 0 (0-99); PLATELET COUNT 214 10^3/uL (150-400); RED BLOOD CELL COUNT 4.93 10^6/uL (4.18-5.33); RED CELL DISTRIBUTION WIDTH 18.6 % (11.5-15.2)
[2017-03-16 17:07] LABS: COLOR YELLOW; LEUKOCYTE ESTERASE,URINE NEGATIVE (NEGATIVE); NITRITE,URINE NEGATIVE (NEGATIVE)
[2017-03-16 17:11] LABS: APTT 31.4 SEC (23.0-38.0); INR 0.92 (0.83-1.16); PROTIME(PATIENT) 12.3 SEC (12.0-15.0)
[2017-03-16 17:14] LABS: ANION GAP 14 mEq/L (8-16); CALCIUM 9.1 mg/dL (8.5-10.4); CARBON DIOXIDE 29 mEq/l (22-31); CHLORIDE 95 mEq/L (97-110); CREATININE 0.7 mg/dL (0.6-1.0); GLOMERULAR FILTRATION RATE > 60; GLUCOSE 105 mg/dL (70-100); POTASSIUM 3.9 mEq/L (3.5-5.2); SODIUM 138 mEq/L (134-144)
[2017-03-16 17:38] VITALS: BP 141/78; PULSE 77; RESP 18; O2SAT 95
== END 2017-03-16 17:36 | disposition home or self-care (01) ==
DX: I77.6 Arteritis, unspecified (principal); I10 Essential (primary) hypertension; Z79.82 Long term (current) use of aspirin; Z87.891 Personal history of nicotine dependence

== ENCOUNTER 2017-04-01 12:57 | Observation (INO) | payer OTHER ==
[2017-04-01] MEDS ORDERED: GLUCAGON HCL 1 MG VIAL IVP PRN (14:00)
[2017-04-01] MEDS ORDERED: DEXAMETHASONE 10 MG/ML VIAL IVP ONE (14:00)
[2017-04-01] MEDS ORDERED: PROTAMINE SULFATE 50 MG/5 ML VIAL IVP PRN (14:00)
[2017-04-01] MEDS ORDERED: HEPARIN 10,000 UNIT/10 ML MDV IVP PRN (14:00)
[2017-04-01] MEDS ORDERED: ALTEPLASE 2 MG VIAL IVP PRN (14:00)
[2017-04-01] MEDS ORDERED: NS 1,000 ML IV ONE ×2 (14:00→14:05)
--- NOTE | 2017-04-01 14:57 | PDANEPAE ---
ANE History of Present Illness spinal stenosis ANE Past Medical History - Cardiovascular History Hx Hypertension: Yes Hx Arrhythmias: No Hx Chest Pain: No Hx Coronary Artery / Peripheral Vascular Disease: No Hx CHF / Valvular Disease: No Hx Palpitations: No - Pulmonary History Hx COPD: No Hx Asthma/Reactive Airway Disease: No Hx Recent Upper Respiratory Infection: Yes Hx Oxygen in Use at Home: Yes O2 in Use at Home (L/minute): 3 Hx Sleep Apnea: Yes Sleep Apnea Screening Result - Last Documented: Positive Pulmonary History Comment: 24x7 - Neurologic History Hx Cerebrovascular Accident: Yes Hx Seizures: No Hx Dementia: No Neurologic History Comment: 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 - Endocrine History Hx Diabetes: No - Renal History Hx Renal Disorders: No - Liver History Hx Hepatic Disorders: No - Neurological & Psychiatric Hx Hx Neurological and Psychiatric Disorders: No - Cancer History Hx Cancer: Yes Cancer History Comment: nose - Congenital Disorder History Hx Congenital Disorders: No - GI History Hx Gastrointestinal Disorders: No - Other Health History Other Health History: rheumatoid athritis, migraines, DVTs, PE, spinal stenosis; - Chronic Pain History Chronic Pain: Yes (lower back) - Surgical History Prior Surgeries: T & A; appy; ; Breast tumors removed; total hysterectomy; pulmary thrombosis; double mastectomy; B cataract; bladder prolapse repair; R rotator cuff; nasal obstruction removal; squamas cell removal on nose; breast implants ruptures and removal w/ replacement; colonoscopy w/ anaphalaxis of Versed and Fent; l lung bx; broncoscopy; ANE Review of Systems Review of Systems: - Exercise capacity METS (RN): 2 METS ANE Patient History - Allergies Allergies/Adverse Reactions: fentanyl Allergy (Severe, Verified 03/16/17 15:51) JOCELYN midazolam HCl [From Versed] Allergy (Severe, Verified 03/16/17 15:51) JOCELYN atorvastatin Allergy (Intermediate, Verified 03/16/17 15:51) Itching erythromycin base [Erythromycin Base] Allergy (Intermediate, Verified 03/28/17 16:51) Rash Sulfa (Sulfonamide Antibiotics) Allergy (Intermediate, Verified 03/28/17 16:51) Rash guaifenesin Allergy (Unknown, Verified 03/28/17 16:51) Rash polyethylene glycol 3350 Allergy (Unknown, Verified 03/28/17 16:51) Anaphylaxis amoxicillin Allergy (Verified 03/28/17 16:51) Rash amoxicillin trihydrate [From Augmentin] Allergy (Verified 03/16/17 15:51) Anaphylaxis ciprofloxacin Allergy (Verified 03/28/17 16:51) Rash potassium clavulanate [From Augmentin] Allergy (Verified 03/28/17 16:51) Anaphylaxis amoxicillin trihydrate Allergy (Unknown, Uncoded 02/12/17 15:36) Anaphylaxis midazolam HCl Allergy (Unknown, Uncoded 02/12/17 15:36) Anaphylaxis potassium clavulanate Allergy (Unknown, Uncoded 03/28/17 16:51) Anaphylaxis - Home Medications Home Medications: Omeprazole 40 mg PO BID 12/02/16 [Last Taken 03/31/17] Simvastatin 40 mg PO HS 12/02/16 [Last Taken 03/31/17] Sumatriptan Succinate [Imitrex] 100 mg PO DAILY PRN 12/02/16 [Last Taken ] diphenhydrAMINE [Benadryl 25 MG (*)] 25 mg PO HS 12/02/16 [Last Taken 03/31/17] Aspirin EC [Aspirin EC 81 mg (*)] 81 mg PO HS 01/23/17 [Last Taken 03/27/17] Calcium Carbonate [Oyster Shell Calcium 500 mg (*)] 500 mg PO DAILY@01/23/17 [Last Taken 03/31/17] Cholecalciferol Vit D3 [Vitamin D3 (*)] 1,000 units PO DAILY@01/23/17 [Last Taken 03/31/17] Docusate Sodium [Colace 100 MG (*)] 200 mg PO HS PRN 01/23/17 [Last Taken ] Levothyroxine [Synthroid 125 mcg (*)] 125 mcg PO DAILY@01/23/17 [Last Taken 04/01/17] Losartan Potassium [Cozaar 50 mg (*)] 50 mg PO HS 01/23/17 [Last Taken 03/31/17] Gabapentin [Neurontin 400 MG (*)] 1,200 mg PO TID 02/07/17 [Last Taken 03/31/17] predniSONE 15 mg PO BID 02/07/17 [Last Taken 03/31/17] Lasix 40 mg PO BID 03/16/17 [Last Taken 03/31/17] Potassium Chlorate 10 meq PO DAILY 03/28/17 [Last Taken 03/31/17] Cefuroxime 500 mg PO BID 03/31/17 [Last Taken 04/01/17] - Smoking Hx Smoking Status: Former smoker - Family Anes Hx Family Hx Anesthesia Complications: denies ANE Labs/Vital Signs - Vital Signs Blood Pressure: 145/90 Heart Rate: 74 Respiratory Rate: 22 O2 Sat (%): 94 Height: 160.02 cm Weight: 88.451 kg ANE Physical Exam - Airway Neck exam: FROM Mallampati Score: Class 4 Mouth exam: small mouth opening - Pulmonary Pulmonary: no respiratory distress - Cardiovascular Cardiovascular: regular rate and rhythym - ASA Status ASA Status: III ANE Anesthesia Plan Anesthesia Plan: MAC
[2017-04-01] MEDS ORDERED: CEFUROXIME IV ONE (15:00)
[2017-04-01] MEDS ORDERED: NS IV ONE (15:00)
[2017-04-01] MEDS ORDERED: PROPOFOL/EMULSION 500 MG/50 ML BOTTLE IV ONE (15:02)
[2017-04-01] MEDS ORDERED: PROPOFOL 200 MG/20 ML VIAL ONE (15:02)
[2017-04-01] MEDS ORDERED: BUPIVACAINE 0.5% 30 ML SDV ONE (15:06)
[2017-04-01] MEDS ORDERED: LIDOCAINE 1% 300 MG/30 ML SDV ONE (15:06)
[2017-04-01] MEDS ORDERED: HYDROmorphONE/DILAUDID 2 MG/ML INJ ONE (15:09)
[2017-04-01] MEDS ORDERED: PROMETHAZINE HCL 25 MG/ML INJ IVP PRN (16:22)
[2017-04-01] MEDS ORDERED: HYDROmorphONE/DILAUDID 1 MG/ML INJ IVP PRN (16:22)
[2017-04-01] MEDS ORDERED: ONDANSETRON 4 MG/2 ML VIAL IVP PRN (16:22)
[2017-04-01] MEDS ORDERED: NALOXONE HCL 0.4 MG/ML INJ IVP PRN (16:22)
--- NOTE | 2017-04-01 16:32 | POSTANESTH ---
Post Anesthetic Evaluation Cardiovascular Status: Normal, Stable Respiratory Status: Normal, Stable Level of Consciousness/Mental Status: Can Participate in Eval Pain Control: Adequate, Prn Tx Ordered Nausea/Vomiting Control: Adequate, Prn Tx Ordered Complications Possibly Related to Anesthesia: None Noted
--- NOTE | 2017-04-01 16:36 | PDRADPN ---
Radiology Procedure Note Date of Procedure: 04/01/17 Radiologist: Romain Mcgee Anesthesiologist: Tita Pérez MD Anesthesia: IV Sedation Pre-op Diagnosis: Insufficiency fractures of lumbar spine Post-op Diagnosis: Same Indication: Disabling, severe pain Procedure: 3-level lumbar kyphoplasty Finding(s): L2, L3, and L4 treated. Inf/Abcess present in the surg proc area at time of surgery?: No EBL: Minimal Complications: 0
--- NOTE | 2017-04-01 16:44 | PDGENHP ---
History & Physical Chief Complaint: Severe, unrelenting back pain History of Present Illness: 3 weeks unrelenting back pain, 10/10. Insufficiency fractures of L2 and L4 on MRI. Pertinent Past, Social, Family History: Chronic steroids for rheumatoid arthritis. Relevant Physical Exam: Difficult airway. Cardiorespiratory Assessment: Lungs: Mild inspiratory wheeze on left, clearing. Right side clear to auscultation. Heart: RRR, 76 bpm, no murmur.
[2017-04-01] MEDS: HYDROCODONE/APAP 5/325 TAB PO PRN (18:25)
[2017-04-02] MEDS: HYDROCODONE/APAP 5/325 TAB PO PRN ×3 (01:06→09:08)
[2017-04-02 08:37] VITALS: BP 135/80; PULSE 79; RESP 20; TEMP 98.2; O2SAT 93
--- NOTE | 2017-04-02 10:21 | ASMTCMCOM ---
CM Note CM Note Notes: 04/02/2017 Case Management Note Met w/pt. Pt is current with [facility] RN and PT. Notified [facility]. [facility] plans to restart services tomorrow. Pt to transport home at d/c. Case Mangement d/c poc: Home with resumption of [facility] RN and PT when medically stable. Case Management available if needs change. Date Signed: 04/02/2017 10:20 AM Electronically Signed By:Elsy Duong RN
--- NOTE | 2017-04-02 10:21 | ASMTCMCOM ---
CM Note CM Note Notes: 04/02/2017 Case Management Note Met w/pt. Pt is current with [facility] RN and PT. Notified [facility]. [facility] plans to restart services tomorrow. Pt to transport home at d/c. Case Mangement d/c poc: Home with resumption of [facility] RN and PT when medically stable. Case Management available if needs change. Date Signed: 04/02/2017 10:20 AM Electronically Signed By:Elsy Duong RN
--- NOTE | 2017-04-02 10:21 | ASMTCMCOM ---
CM Note CM Note Notes: 04/02/2017 Case Management Note Met w/pt. Pt is current with [facility] RN and PT. Notified [facility]. [facility] plans to restart services tomorrow. Pt to transport home at d/c. Case Mangement d/c poc: Home with resumption of [facility] RN and PT when medically stable. Case Management available if needs change. Date Signed: 04/02/2017 10:20 AM Electronically Signed By:Elsy Duong RN
--- NOTE | 2017-04-02 10:49 | SOAPPROG ---
SOAP Progress Note Assessment/Plan: Assessment: Stable with improved pain post multilevel kypho. Plan: D/C today. 04/02/17 10:49 Subjective: Feels better. Sitting having breakfast. Pain is much improved. Objective: Vital Signs Temp Pulse Resp BP Pulse Ox 36.8 C 79 20 135/80 H 93 04/02/17 08:00 04/02/17 08:00 04/02/17 08:00 04/02/17 08:00 04/02/17 08:00 04/01/17 04/02/17 04/03/17 05:59 05:59 05:59 Intake Total 1100 Balance 1100 No hematoma. Site looks good. ICD10 Worksheet Patient Problems: Problems Problem Status Onset Pneumonia Acute Pulmonary embolism Acute Severe sepsis Acute
--- NOTE | 2017-04-02 16:09 | ASDISCHSUM ---
Discharge Information Plan Status:Home with Home Health Medically Cleared to Leave:04/01/2017 Discharge Date:04/02/2017 11:33 AM CM D/C Disposition:Home, Routine, Self-Care ADT D/C Disposition:Home, Routine, Self-Care Projected Discharge Date:04/02/2017 11:33 AM Transportation at D/C:Family Discharge Delay Reason: Follow-Up Date:04/02/2017 11:33 AM Discharge Slot: Final Diagnosis: Placement Information Patient Contact Information Contact Name:MICHAEL Relationship: Address:[address] [place] City:[facility] Phone: State/Zip Code:[place] [address] Email: Financial Information Financial Class: Primary Plan Desc:MEDICARE OUTPATIENT Primary Plan Number:[id number] Secondary Plan Desc:[employer] Secondary Plan Number:[id number] Assessment Information BC CM Progress Note CM Note CM Note Notes: 04/02/2017 Case Management Note Met w/pt. Pt is current with [facility] RN and PT. Notified [facility]. [facility] plans to restart services tomorrow. Pt to transport home at d/c. Case Mangement d/c poc: Home with resumption of [facility] RN and PT when medically stable. Case Management available if needs change. Date Signed: 04/02/2017 10:20 AM Electronically Signed By:Elsy Duong RN Intervention Information Intervention Type:*AHN-Signed Date of Service:04/02/2017 11:03 AM Patient Type:Observation Staff Member:Rebekah Junior Hours: Discipline: Severity: Comment:
--- NOTE | 2017-04-02 16:09 | ASDISCHSUM ---
Discharge Information Plan Status:Home with Home Health Medically Cleared to Leave:04/01/2017 Discharge Date:04/02/2017 11:33 AM CM D/C Disposition:Home, Routine, Self-Care ADT D/C Disposition:Home, Routine, Self-Care Projected Discharge Date:04/02/2017 11:33 AM Transportation at D/C:Family Discharge Delay Reason: Follow-Up Date:04/02/2017 11:33 AM Discharge Slot: Final Diagnosis: Placement Information Patient Contact Information Contact Name:MICHAEL Relationship: Address:[address] [place] City:[facility] Phone: State/Zip Code:[place] [address] Email: Financial Information Financial Class: Primary Plan Desc:MEDICARE OUTPATIENT Primary Plan Number:[id number] Secondary Plan Desc:[employer] Secondary Plan Number:[id number] Assessment Information BC CM Progress Note CM Note CM Note Notes: 04/02/2017 Case Management Note Met w/pt. Pt is current with [facility] RN and PT. Notified [facility]. [facility] plans to restart services tomorrow. Pt to transport home at d/c. Case Mangement d/c poc: Home with resumption of [facility] RN and PT when medically stable. Case Management available if needs change. Date Signed: 04/02/2017 10:20 AM Electronically Signed By:Elsy Duong RN Intervention Information Intervention Type:*AHN-Signed Date of Service:04/02/2017 11:03 AM Patient Type:Observation Staff Member:Rebekah Junior Hours: Discipline: Severity: Comment:
--- NOTE | 2017-04-02 16:09 | ASDISCHSUM ---
Discharge Information Plan Status:Home with Home Health Medically Cleared to Leave:04/01/2017 Discharge Date:04/02/2017 11:33 AM CM D/C Disposition:Home, Routine, Self-Care ADT D/C Disposition:Home, Routine, Self-Care Projected Discharge Date:04/02/2017 11:33 AM Transportation at D/C:Family Discharge Delay Reason: Follow-Up Date:04/02/2017 11:33 AM Discharge Slot: Final Diagnosis: Placement Information Patient Contact Information Contact Name:MICHAEL Relationship: Address:[address] [place]:[facility] Phone: State/Zip Code:[place] [address] Email: Financial Information Financial Class: Primary Plan Desc:MEDICARE OUTPATIENT Primary Plan Number:[id number] Secondary Plan Desc:[employer] Secondary Plan Number:[id number] Assessment Information BC CM Progress Note CM Note CM Note Notes: 04/02/2017 Case Management Note Met w/pt. Pt is current with [facility] RN and PT. Notified [facility]. [facility] plans to restart services tomorrow. Pt to transport home at d/c. Case Mangement d/c poc: Home with resumption of [facility] RN and PT when medically stable. Case Management available if needs change. Date Signed: 04/02/2017 10:20 AM Electronically Signed By:Elsy Duong RN Intervention Information Intervention Type:*AHN-Signed Date of Service:04/02/2017 11:03 AM Patient Type:Observation Staff Member:Rebekah Junior Hours: Discipline: Severity: Comment:
== END 2017-04-02 11:33 | disposition home or self-care (01) ==
LOC: FIMAGING 12:57 → F2W 20:37
PROVIDERS: ADMIT Family Medicine; ATTEND Family Medicine
PROC: 0QU03JZ Supplement Lumbar Vertebra with Synthetic Substitute, Percutaneous Approach (ICD-10-PCS; principal; 2017-04-01 16:29)
DX: M48.56XA Collapsed vertebra, not elsewhere classified, lumbar region, initial encounter for fracture (principal); T38.0X5A Adverse effect of glucocorticoids and synthetic analogues, initial encounter; M06.9 Rheumatoid arthritis, unspecified
CPT/HCPCS: 22514; J0697; J1100; J1170; J2704

== ENCOUNTER → 2017-05-29 | Outpatient (CLI) | payer OTHER | LOC: FIMAGING 09:44 | PROVIDERS: ATTEND Family Medicine | DX: J18.9 Pneumonia, unspecified organism (principal) ==

== ENCOUNTER → 2017-06-04 | Outpatient (CLI) | payer OTHER | LOC: CIMAGING 09:19 | PROVIDERS: ATTEND Internal Medicine Pulmonary Disease | DX: J84.9 Interstitial pulmonary disease, unspecified (principal); I51.7 Cardiomegaly; R06.02 Shortness of breath; J18.9 Pneumonia, unspecified organism; M06.9 Rheumatoid arthritis, unspecified; I25.10 Atherosclerotic heart disease of native coronary artery without angina pectoris; Z87.891 Personal history of nicotine dependence | CPT/HCPCS: 71250-PO ==

== ENCOUNTER → 2017-10-29 | Outpatient (CLI) | payer OTHER | LOC: FIMAGING 18:02 | PROVIDERS: ATTEND Physician Assistant Medical | DX: M51.36 Other intervertebral disc degeneration, lumbar region (principal); M89.38 Hypertrophy of bone, other site; M48.061 Spinal stenosis, lumbar region without neurogenic claudication; M54.12 Radiculopathy, cervical region ==

== ENCOUNTER → 2017-11-04 | Outpatient (CLI) | payer OTHER | LOC: BHFA 11:30 | PROVIDERS: ATTEND Internal Medicine Cardiovascular Disease | DX: I50.9 Heart failure, unspecified (principal) ==

== ENCOUNTER → 2018-03-26 | Outpatient (CLI) | payer OTHER ==
[~2018-03-26] MED LIST changes: -ACETAMINOPHEN 325 MG TAB PO PRN; -ASPIRIN EC 325 MG TAB PO ONE; -ATROPINE SULFATE 1 MG/10 ML SYR IVP PRN; -ATROPINE SULFATE 1 MG/10 ML SYR ONE; -FAMOTIDINE 20 MG TAB PO ONE; -HYDROCODONE/APAP 5/325 TAB PO ONE; -HYDROCODONE/APAP 5/325 TAB PO PRN; +IOPAMIDOL (ISOVUE-300) 100 ML BTL ONE; -IOPAMIDOL (ISOVUE-370) 150 ML BTL IV ONE; -LIDOCAINE 1% 300 MG/30 ML SDV ONE; -NITROGLYCERIN 0.4 MG BTL SL PRN; -NS 1,000 ML IV SCH; -ONDANSETRON 4 MG/2 ML VIAL IVP PRN; -diphenhydrAMINE 25 MG CAP PO ONE
== END ==
LOC: CIMAGING 11:28
PROVIDERS: ATTEND Physician Assistant
DX: K76.89 Other specified diseases of liver (principal); K57.30 Diverticulosis of large intestine without perforation or abscess without bleeding; D18.03 Hemangioma of intra-abdominal structures; D73.89 Other diseases of spleen
CPT/HCPCS: 74177; Q9967

== ENCOUNTER 2018-04-08 15:16 | Emergency (ER) | payer OTHER ==
[2018-04-08 15:26] VITALS: BP 149/85
[2018-04-08] MEDS ORDERED: valACYclovir 500 MG TAB PO ONE (15:34)
--- NOTE | 2018-04-08 15:35 | EDPHY ---
H & P Stated Complaint: Painful blisters on L abdomen x 3 days and diarrhea x 3 today Time Seen by Provider: 04/08/18 15:19 HPI/ROS: Chief Complaint: Painful rash HPI: 77-year-old woman developed painful rash on her right side. Patient states she has been having worsening burning pain in the right side of her back radiating around to her right abdomen for 2 days. She states this morning she noticed blisters along the same area. It feels like a prior episode of shingles. She had 2 episodes of diarrhea this morning but thinks that might be associated with nerves. No nausea or vomiting. No blood in her diarrhea. No fevers or chills. No deep abdominal pain. ROS: 10 systems were reviewed and were negative except those elements noted in the HPI. Social History: No smoking Family History: non-contributory Physical Exam: Gen: Awake, Alert, No Distress HEENT: Nose: no rhinorrhea Eyes: PERRLA, EOMI Mouth: Moist mucosa Back: no CVA tenderness, no midline tenderness Ext: no edema, non-tender Skin: Patient has a vesicular rash in a single dermatomal pattern in the right approximately T11 distribution. It does not cross the midline. It is tender. Neuro: CN II-XII intact, Sensation grossly intact, Strength 5/5 in bilateral upper and lower extremities - Personal History Current Tetanus/Diphtheria Vaccine: No Current Tetanus Diphtheria and Acellular Pertussis (TDAP): No - Medical/Surgical History Hx Asthma: No Hx Chronic Respiratory Disease: Yes Hx Diabetes: No Hx Cardiac Disease: Yes Hx Renal Disease: No Hx Cirrhosis: No Hx Alcoholism: No Hx HIV/AIDS: No Hx Splenectomy or Spleen Trauma: No Other PMH: Appendectomy, bilateral mastectomy, hysterectomy, 2 C-sections, HYPOTHYROIDISM, rheumatoid ARTHRITIS GERD, DVT and PE, hypertension, obstructive sleep apnea, bowel obstruction, CHF - Social History Smoking Status: Former smoker Constitutional: Initial Vital Signs Temperature (C) 37 C 04/08/18 15:20 Heart Rate 95 04/08/18 15:20 Respiratory Rate 18 04/08/18 15:20 Blood Pressure 149/85 H 04/08/18 15:20 O2 Sat (%) 92 04/08/18 15:20 O2 Delivery Mode Nasal Cannula O2 (L/minute) 2 Allergies/Adverse Reactions: amoxicillin Allergy (Verified 04/08/18 15:28) Pt reports Rash amoxicillin trihydrate [From Augmentin] Allergy (Verified 04/08/18 15:28) Pt reports Anaphylaxis atorvastatin Allergy (Verified 04/08/18 15:28) Itching ciprofloxacin Allergy (Verified 04/08/18 15:28) Pt reports Rash erythromycin base [Erythromycin Base] Allergy (Verified 04/08/18 15:28) Pt reports Rash fentanyl Allergy (Verified 04/08/18 15:28) Pt reports anaphylaxis guaifenesin Allergy (Verified 04/08/18 15:28) Pt reports Rash midazolam HCl [From Versed] Allergy (Verified 04/08/18 15:28) Pt reports anaphylaxis polyethylene glycol 3350 Allergy (Verified 04/08/18 15:28) Pt reports Anaphylaxis potassium clavulanate [From Augmentin] Allergy (Verified 04/08/18 15:28) Pt reports Anaphylaxis Sulfa (Sulfonamide Antibiotics) Allergy (Verified 04/08/18 15:28) Pt reports Rash midazolam HCl Allergy (Uncoded 04/08/18 15:28) Pt reports Anaphylaxis Home Medications: Medication Instructions Recorded Azathioprine Sodium 04/08/18 Epipen 0.3 MG 04/08/18 Fluticasone Nasal 04/08/18 Gabapentin 04/08/18 Hydrocodone/Acetaminophen 1 - 2 each PO Q4-6PRN PRN #10 04/08/18 [Hydrocodon-Acetaminophen 5-325] tablet Myrbetriq 04/08/18 Omeprazole 04/08/18 Potassium Chloride 04/08/18 Prednisone 04/08/18 Rosuvastatin Calcium 04/08/18 Simponi 04/08/18 Spironolactone 04/08/18 Sumatriptan 04/08/18 Synthroid 04/08/18 Torsemide 04/08/18 Trimethoprim 04/08/18 Valacyclovir HCl [Valtrex] 1,000 mg PO TID #21 tab 04/08/18 Ventolin Hfa 04/08/18 Departure - Departure Disposition: Home, Routine, Self-Care Clinical Impression: Zoster Condition: Good Instructions: Shingles (ED) Additional Instructions: Keep the blisters covered at all times and wash her hands frequently with soap and water. Follow up with primary care physician in 3-4 days for re-evaluation. Referrals: Nuha Bradford MD [Primary Care Provider] - As per Instructions Prescriptions: Hydrocodone/Acetaminophen [Hydrocodon-Acetaminophen 5-325] 1 - 2 each PO Q4- 6PRN PRN #10 tablet PRN Reason: Pain, Severe Valacyclovir HCl [Valtrex] 1,000 mg PO TID #21 tab
== END 2018-04-08 15:43 | disposition home or self-care (01) ==
LOC: CED 15:16
DX: B02.9 Zoster without complications (principal)

== ENCOUNTER 2018-04-09 17:39 | Inpatient (IN) | payer OTHER ==
--- NOTE | 2018-04-09 18:12 | EDPHY ---
H & P Smoking Status: Former smoker Time Seen by Provider: 04/09/18 18:09 HPI/ROS: CHIEF COMPLAINT: Near syncope, shortness of breath, abdominal pain, worsening rash the HISTORY OF PRESENT ILLNESS: Patient is a 77-year-old female here with multiple complaints. She states that for the last few days she has been feeling particularly weak and thinks she is dehydrated. She has had least 2 events recently in the last 2 days where she felt like she was going to pass out. Most often they have been when she is moving from sitting to standing but she also reports the feeling of chest pain and shortness of breath associated with her near syncopal events. She states she has passed out before but does not know the etiology of passing out. She denies any vertiginous symptoms. Additionally she reports shortness of breath. She has noticed no leg swelling and has gained a significant amount of weight recently. She is taking her diuretics as prescribed. She has a history of CHF. She denies any fever or productive cough. Additionally she is complaining of abdominal pain for the last 2 weeks which is worse in the last couple days to the point where she has difficulty keeping any food or liquids down. She had diarrhea the last 2 days which has been nonbloody. She denies any pain with urination. She denies fever. She does have a history of diverticulitis. She had a CT scan done 2-3 weeks ago with her drying machine receiver which did not show a clear cause of her pain. Lastly she was seen yesterday and diagnosed with shingles and started on valacyclovir and prednisone. She has had less than 24 hr of these medications. She reports worsening of the rash. REVIEW OF SYSTEMS: Constitutional: No fever, no chills. Eyes: No discharge. ENT: No sore throat. Cardiovascular: + chest pain, no palpitations. Respiratory: No cough, + shortness of breath. Gastrointestinal: + abdominal pain, + vomiting. Genitourinary: No hematuria. Musculoskeletal: No back pain. Skin: + rashes. Neurological: + headache. (Elkin Blunt) Physical Exam: General Appearance: Alert and no distress. ENT: normal dentition. No tonsillar exudate or swelling. Eyes: Pupils equal and round no injection. Respiratory: Chest is nontender, lungs are clear to auscultation. She is non diaphoretic and has no respiratory distress Cardiac: regular rate and rhythm. No lower extremity edema Gastrointestinal: Abdomen is soft but she has periumbilical and left lower quadrant tenderness, no masses, bowel sounds normal. Musculoskeletal: Neck is supple and nontender. No JVD Extremities have full range of motion and are nontender without deformity Skin: Erythematous vesicular lesions wrapping around from the patient's right low back to the right lower abdomen. There is significant erythema surrounding the rash with no induration or fluctuance. Neuro: Cranial nerves grossly intact. No nystagmus. Ambulatory. (Elkin Blunt) Constitutional: Initial Vital Signs Temperature (C) 37 C 04/09/18 17:42 Heart Rate 90 04/09/18 17:42 Respiratory Rate 18 04/09/18 17:42 Blood Pressure 125/52 H 04/09/18 17:42 O2 Sat (%) 90 L 04/09/18 17:42 O2 Delivery Mode Nasal Cannula O2 (L/minute) 3 Allergies/Adverse Reactions: amoxicillin Allergy (Verified 04/08/18 15:28) Pt reports Rash amoxicillin trihydrate [From Augmentin] Allergy (Verified 04/08/18 15:28) Pt reports Anaphylaxis atorvastatin Allergy (Verified 04/08/18 15:28) Itching ciprofloxacin Allergy (Verified 04/08/18 15:28) Pt reports Rash erythromycin base [Erythromycin Base] Allergy (Verified 04/08/18 15:28) Pt reports Rash fentanyl Allergy (Verified 04/08/18 15:28) Pt reports anaphylaxis guaifenesin Allergy (Verified 04/08/18 15:28) Pt reports Rash midazolam HCl [From Versed] Allergy (Verified 04/08/18 15:28) Pt reports anaphylaxis polyethylene glycol 3350 Allergy (Verified 04/08/18 15:28) Pt reports Anaphylaxis potassium clavulanate [From Augmentin] Allergy (Verified 04/08/18 15:28) Pt reports Anaphylaxis Sulfa (Sulfonamide Antibiotics) Allergy (Verified 04/08/18 15:28) Pt reports Rash midazolam HCl Allergy (Uncoded 04/08/18 15:28) Pt reports Anaphylaxis Home Medications: Medication Instructions Recorded Albuterol [Proventil Inhaler HFA 1 - 2 puffs IH Q4H PRN 04/09/18 (*)] Aspirin [Aspirin 81mg (*)] 81 mg PO DAILY 04/09/18 Calcium Carb W/Vit D [Calcium Carb 1,000 mg PO HS 04/09/18 W/Vit D 500/200 (*)] Cholecalciferol Vit D3 [Vitamin D3 2,000 units PO DAILY 04/09/18 (*)] EPINEPHrine [Epipen 0.3 MG] 0.3 mg IM ONCE PRN 04/09/18 Gabapentin 1,200 mg PO TID 04/09/18 Golimumab [SIMPONI] 50 mg SQ Q56D 04/09/18 Levothyroxine [Synthroid 112 mcg 112 mcg PO DAILY06 04/09/18 (*)] Linaclotide [Linzess] 72 mcg PO DAILY 04/09/18 Omeprazole 40 mg PO BIDMEAL 04/09/18 Potassium Chloride [Klor-Con M10] 10 meq PO DAILY 04/09/18 Rosuvastatin Calcium 5 mg PO DAILY 04/09/18 Spironolactone [Spironolactone] 25 mg PO DAILY 04/09/18 Sumatriptan Succinate 100 mg PO ONCE PRN 04/09/18 Torsemide [Demadex] 80 mg PO DAILY 04/09/18 azaTHIOprine [Imuran 50 mg (*)] 50 mg PO DAILY 04/09/18 predniSONE 5 mg PO DAILY 04/09/18 Medical Decision Making ED Course/Re-evaluation: 77-year-old female here with multiple complaints. Her history of multiple near syncopal events the loss 48 hr is concerning given her experience of chest pain and shortness of breath associated with these episodes. Should be admitted for further observation overnight to ensure there is no cardiac arrhythmia. Additionally she was found to have mild diverticulitis on her CT scan. There is no abscess, appendicitis or perforation. Chest x-ray and EKG revealed stable CHF and no evidence of ACS. Troponin is negative. She did complain of a headache so was given gentle rehydration with 250 mL of IV fluid and Reglan and Zofran for nausea and headache. She did feel improved after these medications. (Elkin Blunt) Differential Diagnosis: Cardiac arrhythmia, acute CHF, pneumonia, sepsis, bowel obstruction (Elkin Blunt) - Data Points Laboratory Results: Laboratory Results 04/09/18 19:20 04/09/18 19:20 Medications Given: Acetaminophen (Tylenol) 650 mg PO Q4HRS PRN PRN Reason: Pain, Mild/Fever, Can Take PO Stop: 10/06/18 21:57 Last Admin: 04/10/18 08:27 Dose: 650 mg Aspirin (Aspirin) 81 mg PO HS ART Stop: 10/07/18 08:59 Last Admin: 04/10/18 21:52 Dose: 81 mg Calcium/Vitamin D (Calcium Carb W/Vit D) 1,000 mg PO HS ART Stop: 10/07/18 20:59 Last Admin: 04/10/18 21:52 Dose: 1,000 mg Cholecalciferol (Vitamin D) 2,000 units PO DAILY ART Stop: 10/07/18 08:59 Last Admin: 04/11/18 08:14 Dose: 2,000 units Diphenhydramine HCl (Benadryl Injection) 25 mg IVP TID PRN PRN Reason: Itching Stop: 10/06/18 21:59 Last Admin: 04/10/18 23:30 Dose: 25 mg Enoxaparin Sodium (Lovenox) 40 mg SC DAILY ART Stop: 10/07/18 08:59 Last Admin: 04/11/18 08:14 Dose: 40 mg Gabapentin (Neurontin) 1,200 mg PO TID ART Stop: 10/06/18 21:59 Last Admin: 04/11/18 08:14 Dose: 1,200 mg Acyclovir 900 mg/ Dextrose 268 mls @ 250 mls/hr IV Q8HRS ART Stop: 05/09/18 22:29 Last Admin: 04/11/18 06:26 Dose: 268 mls Levothyroxine Sodium (Synthroid) 112 mcg PO DAILY06 ART Stop: 10/07/18 05:59 Last Admin: 04/11/18 06:25 Dose: 112 mcg Pantoprazole Sodium (Protonix) 40 mg PO DAILY ART Stop: 10/07/18 08:59 Last Admin: 04/11/18 08:15 Dose: 40 mg Prednisone (Prednisone) 40 mg PO DAILY ART Stop: 10/06/18 22:14 Last Admin: 04/11/18 08:14 Dose: 40 mg Rosuvastatin Calcium (Crestor) 5 mg PO DAILY ART Stop: 10/07/18 08:59 Last Admin: 04/11/18 08:15 Dose: 5 mg Discontinued Medications Aspirin (Aspirin) 81 mg PO DAILY ART Stop: 10/07/18 08:59 Last Admin: 04/10/18 08:29 Dose: Not Given Diphenhydramine HCl (Benadryl Injection) 25 mg IVP ONCE ONE Stop: 04/09/18 22:16 Last Admin: 04/09/18 22:29 Dose: 25 mg Sodium Chloride (Ns) 250 mls @ 0 mls/hr IV ONCE ONE; Wide Open PRN Reason: Protocol Stop: 04/09/18 19:51 Last Admin: 04/09/18 19:52 Dose: 250 mls Metoclopramide HCl (Reglan Injection) 10 mg IVP ONCE ONE Stop: 04/09/18 20:04 Last Admin: 04/09/18 20:12 Dose: 10 mg Ondansetron HCl (Zofran) 4 mg IVP EDNOW ONE Stop: 04/09/18 19:51 Last Admin: 04/09/18 19:52 Dose: 4 mg Point of Care Test Results: Chemistry 04/09/18 19:25 POC Troponin I 0.00 ng/mL ng/mL (0.00-0.08) Departure - Departure Disposition: [facility] Clinical Impression: Shingles Qualifiers: Herpes zoster complications: without complications Qualified Code(s): B02.9 - Zoster without complications Condition: Fair
[2018-04-09 19:37] LABS: PLATELET COUNT 248 10^3/uL (150-400)
[2018-04-09] MEDS ORDERED: NS 250 ML IV ONE (19:50)
[2018-04-09] MEDS ORDERED: ONDANSETRON 4 MG/2 ML VIAL IVP ONE (19:50)
[2018-04-09] MEDS ORDERED: METOCLOPRAMIDE 10 MG/2 ML VIAL IVP ONE (20:03)
[2018-04-09] MEDS ORDERED: NON-FORMULARY NEW DRUG (Epinephrine [Epipen 0.3 Mg] 0.3 MG) IM PRN (21:49)
[2018-04-09] MEDS ORDERED: ALBUTEROL 60 PUFFS/8 GM MDI IH PRN (21:49)
[2018-04-09] MEDS ORDERED: ONDANSETRON DISINTEGRATING 4 MG TAB PO PRN (21:58)
[2018-04-09] MEDS ORDERED: ONDANSETRON 4 MG/2 ML VIAL IVP PRN (21:58)
--- NOTE | 2018-04-09 22:21 | PDGENHP ---
History and Physical - Chief Complaint rash - History of Present Illness Patient is a 77-year-old female here with multiple complaints. She has a hx of RA and is on immunosuppressants. She was diagnosed with shingles yesterday and started on Valcyclovir. She reports that some of the blisters are starting to crust but that there is now redness around the lesions and involving her abdomen and right flank. She has not had a fever. She does not have Leukocytosis. Her VS are stable. She reports allergies to multiple medications. She carries around an Epi pen. She reports exertional dyspnea and intermittent chest pain for several weeks. She denies cough or sputum. She had not had leg swelling. She denies palpitations. She reports near syncopal events with dizziness when getting going from a sitting to standing position. Her EKG was unremarkable. Her troponin is unremarkable. She recently had a CT Abd/Pelvis which showed w/o of chronic Diverticulitis. PMHx: CHF, RA, Diverticulitis, bowel obstruction, GERD PSHx: Appendectomy, , Hysterectomy SocHx: former smoker FmHx: non contributory History Information - Allergies/Home Medication List Allergies/Adverse Reactions: amoxicillin Allergy (Verified 04/08/18 15:28) Pt reports Rash amoxicillin trihydrate [From Augmentin] Allergy (Verified 04/08/18 15:28) Pt reports Anaphylaxis atorvastatin Allergy (Verified 04/08/18 15:28) Itching ciprofloxacin Allergy (Verified 04/08/18 15:28) Pt reports Rash erythromycin base [Erythromycin Base] Allergy (Verified 04/08/18 15:28) Pt reports Rash fentanyl Allergy (Verified 04/08/18 15:28) Pt reports anaphylaxis guaifenesin Allergy (Verified 04/08/18 15:28) Pt reports Rash midazolam HCl [From Versed] Allergy (Verified 04/08/18 15:28) Pt reports anaphylaxis polyethylene glycol 3350 Allergy (Verified 04/08/18 15:28) Pt reports Anaphylaxis potassium clavulanate [From Augmentin] Allergy (Verified 04/08/18 15:28) Pt reports Anaphylaxis Sulfa (Sulfonamide Antibiotics) Allergy (Verified 04/08/18 15:28) Pt reports Rash midazolam HCl Allergy (Uncoded 04/08/18 15:28) Pt reports Anaphylaxis Home Medications: Albuterol [Proventil Inhaler HFA (*)] 1 - 2 puffs IH Q4H PRN 04/09/18 [Last Taken Unknown] Aspirin [Aspirin 81mg (*)] 81 mg PO DAILY 04/09/18 [Last Taken Unknown] Calcium Carb W/Vit D [Calcium Carb W/Vit D 500/200 (*)] 1,000 mg PO HS 04/09/18 [Last Taken Unknown] Cholecalciferol Vit D3 [Vitamin D3 (*)] 2,000 units PO DAILY 04/09/18 [Last Taken Unknown] EPINEPHrine [Epipen 0.3 MG] 0.3 mg IM ONCE PRN 04/09/18 [Last Taken Unknown] Gabapentin 1,200 mg PO TID 04/09/18 [Last Taken Unknown] Golimumab [SIMPONI] 50 mg SQ Q56D 04/09/18 [Last Taken Unknown] Levothyroxine [Synthroid 112 mcg (*)] 112 mcg PO DAILY06 04/09/18 [Last Taken ] Linaclotide [Linzess] 72 mcg PO DAILY 04/09/18 [Last Taken Unknown] Omeprazole 40 mg PO BIDMEAL 04/09/18 [Last Taken Unknown] Potassium Chloride [Klor-Con M10] 10 meq PO DAILY 04/09/18 [Last Taken Unknown] Rosuvastatin Calcium 5 mg PO DAILY 04/09/18 [Last Taken Unknown] Spironolactone [Spironolactone] 25 mg PO DAILY 04/09/18 [Last Taken Unknown] Sumatriptan Succinate 100 mg PO ONCE PRN 04/09/18 [Last Taken Unknown] Torsemide [Demadex] 80 mg PO DAILY 04/09/18 [Last Taken Unknown] azaTHIOprine [Imuran 50 mg (*)] 50 mg PO DAILY 04/09/18 [Last Taken Unknown] predniSONE 5 mg PO DAILY 04/09/18 [Last Taken Unknown] I have personally reviewed and updated: medical history, social history - Social History Smoking Status: Former smoker Review of Systems Review of Systems: ROS: 10pt was reviewed & negative except for what was stated in HPI & below Physical Exam Physical Exam: Temp Pulse Resp BP Pulse Ox 37 C 80 20 137/90 H 95 04/09/18 17:42 04/09/18 21:58 04/09/18 21:58 04/09/18 21:58 04/09/18 21:58 O2 (L/minute) 3 Constitutional: no apparent distress Eyes: PERRL Ears, Nose, Mouth, Throat: moist mucous membranes, hearing normal, ears appear normal Cardiovascular: regular rate and rhythym, No edema Respiratory: no respiratory distress, no rales or rhonchi, reduced air movement Gastrointestinal: normoactive bowel sounds, soft, non-tender abdomen, no palpable masses Skin: warm, other (vesicular rash extending from mid to low back and wrapping around the right flank and abd. Vesicles are at different stages of healing. There is surrounding erythema extending from back to abd. The erythema does cross the midline ) Musculoskeletal: full muscle strength Neurologic: AAOx3 Psychiatric: interacting appropriately, not anxious, not encephalopathic Lymph, Heme, Immunologic: No petechiae Lab Data & Imaging Review 04/09/18 19:20 04/09/18 19:20 WBC 7.95 10^3/uL (3.80-9.50) 04/09/18 19:20 RBC 4.54 10^6/uL (4.18-5.33) 04/09/18 19:20 Hgb 12.3 g/dL (12.6-16.3) L 04/09/18 19:20 Hct 37.6 % (38.0-47.0) L 04/09/18 19:20 MCV 82.8 fL (81.5-99.8) 04/09/18 19:20 MCH 27.1 pg (27.9-34.1) L 04/09/18 19:20 MCHC 32.7 g/dL (32.4-36.7) 04/09/18 19:20 RDW 15.9 % (11.5-15.2) H 04/09/18 19:20 Plt Count 248 10^3/uL (150-400) 04/09/18 19:20 MPV 9.9 fL (8.7-11.7) 04/09/18 19:20 Neut % (Auto) 72.6 % (39.3-74.2) 04/09/18 19:20 Lymph % (Auto) 14.2 % (15.0-45.0) L 04/09/18 19:20 [place] % (Auto) 11.8 % (4.5-13.0) 04/09/18 19:20 Eos % (Auto) 0.4 % (0.6-7.6) L 04/09/18 19:20 Baso % (Auto) 0.5 % (0.3-1.7) 04/09/18 19:20 Nucleat RBC Rel Count 0.0 % (0.0-0.2) 04/09/18 19:20 Absolute Neuts (auto) 5.77 10^3/uL (1.70-6.50) 04/09/18 19:20 Absolute Lymphs (auto) 1.13 10^3/uL (1.00-3.00) 04/09/18 19:20 Absolute Monos (auto) 0.94 10^3/uL (0.30-0.80) H 04/09/18 19:20 Absolute Eos (auto) 0.03 10^3/uL (0.03-0.40) 04/09/18 19:20 Absolute Basos (auto) 0.04 10^3/uL (0.02-0.10) 04/09/18 19:20 Absolute Nucleated RBC 0.00 10^3/uL (0-0.01) 04/09/18 19:20 Immature Gran % 0.5 % (0.0-1.1) 04/09/18 19:20 Immature Gran # 0.04 10^3/uL (0.00-0.10) 04/09/18 19:20 Sodium 134 mEq/L (135-145) L 04/09/18 19:20 Potassium 3.2 mEq/L (3.3-5.0) L 04/09/18 19:20 Chloride 93 mEq/L (97-110) L 04/09/18 19:20 Carbon Dioxide 30 mEq/l (22-31) 04/09/18 19:20 Anion Gap 11 mEq/L (6-14) 04/09/18 19:20 BUN 15 mg/dL (7-23) 04/09/18 19:20 Creatinine 0.9 mg/dL (0.6-1.0) 04/09/18 19:20 Estimated GFR > 60 04/09/18 19:20 Glucose 95 mg/dL (70-100) 04/09/18 19:20 Calcium 9.4 mg/dL (8.5-10.4) 04/09/18 19:20 POC Troponin I 0.00 ng/mL (0.00-0.08) 04/09/18 19:25 NT-Pro-B Natriuret Pep 352 pg/mL (0-450) 04/09/18 19:20 Lipase 54 IU/L (23-300) 04/09/18 19:20 Assessment & Plan Assessment: #Shingles in an immunocompromised host -Will start Acyclovir IV -Holding immunomodulators for now -ID to see #Erythematous rash of unclear etiology -Drug Rash vs allergic response vs infectious -she has been afebrile. Does not have leukocytosis. VS are stable -Will increase Prednisone -no abx for now, ID to see #chronic Steroid use #Near Syncope -CHF mgmt per below -not on antihypertensive meds #CHF, unclear if systolic or diastolic. Does not appear to be in exacerbation -Looks Euvolemic on exam -Given concern for orthostatic hypotension, will hold Diuretics for now. Can restart if symptomatic -check TTE #GONZALES: TTE per above. Will likely need diuretics which are being held overnight until further clinical course. I do not see any e/o pneumonia #Hypokalemia DVT Proph: Lovenox
[2018-04-09] MEDS: predniSONE 20 MG TAB PO SCH (22:29)
[2018-04-09] MEDS: GABAPENTIN 400 MG CAP PO SCH (22:29)
[2018-04-09] MEDS ORDERED: SUMAtriptan 50 MG TAB PO PRN (22:30)
[2018-04-09] MEDS: ACYCLOVIR 900 MG in D5W 250 ML IV SCH (23:01)
[2018-04-10 05:31] LABS: PLATELET COUNT 257 10^3/uL (150-400)
[2018-04-10] MEDS: ACYCLOVIR 900 MG in D5W 250 ML IV SCH ×3 (05:33→21:52)
[2018-04-10] MEDS: LEVOTHYROXINE 112 MCG TAB PO SCH (05:36)
[2018-04-10] MEDS: ACETAMINOPHEN 325 MG TAB PO PRN (08:27)
[2018-04-10] MEDS: predniSONE 20 MG TAB PO SCH (08:27)
[2018-04-10] MEDS: CHOLECALCIFEROL VIT D3 2,000 UNITS TAB/CAP PO SCH (08:28)
[2018-04-10] MEDS: PANTOPRAZOLE SODIUM 40 MG TAB PO SCH (08:28)
[2018-04-10] MEDS: ROSUVASTATIN CALCIUM 10 MG TAB PO SCH (08:28)
[2018-04-10] MEDS: GABAPENTIN 400 MG CAP PO SCH ×3 (08:30→21:52)
[2018-04-10] MEDS: ENOXAPARIN 40 MG/0.4 ML SYR SC SCH (08:57)
[2018-04-10] MEDS ORDERED: TORSEMIDE 20 MG TAB PO SCH (09:00)
[2018-04-10] MEDS ORDERED: SPIRONOLACTONE 25 MG TAB PO SCH (09:00)
[2018-04-10] MEDS ORDERED: ASPIRIN 81 MG CHEWABLE TAB PO SCH (09:00)
--- NOTE | 2018-04-10 10:49 | ASMTCMCOM ---
CM Note CM Note Notes: Pt is a 77 y/o female admitted for shingles, cellulitis, near syncope and diverticulitis. PT has been ordered and awaiting recommendations. ID is consulting. Needs are TBD at this time. CM to follow. Plan: TBD Date Signed: 04/10/2018 10:42 AM Electronically Signed By:MADELIN Redding
--- NOTE | 2018-04-10 11:22 | GCON ---
INFECTIOUS DISEASE CONSULT DATE OF CONSULTATION: 04/10/2018 REFERRING PHYSICIAN: Suhail Martinez MD REASON FOR CONSULT: To assist in the management of this 77-year-old immunocompromised female with disseminated zoster. HISTORY OF PRESENT ILLNESS: The patient is a very pleasant 77-year-old female whose previous medical history is notable for the followin. Rheumatoid arthritis: Followed by Dr. Taco Escobar. The patient states that she has been on a monoclonal antibody for approximately 4 years now in the form of golimumab. The patient gets infusions every 8 weeks, and her last was 8 weeks ago. She is also on chronic prednisone, only 5 mg daily. The patient was previously on high-dose prednisone prior to the initiation of a monoclonal antibody. 2. History of shingles in the right hand, arm, and chest in 2005: The patient states that she presented too late and was told that she would not benefit from an antiviral. She had severe post-herpetic neuralgia from that episode. 3. History of multiple allergies to medications: Patient states she carries around an EpiPen. She has a history of an anaphylactic reaction to fentanyl and Versed from a colonoscopy 5 years ago. 4. History of pneumonitis status post prolonged hospitalization last year. 5. Diverticulitis. 6. GERD. 7. History of breast cancer status post bilateral mastectomy. 8. Hypothyroidism. 9. Migraines. PREVIOUS SURGICAL HISTORY: 1. Appendectomy. 2. History of . 3. Hysterectomy. 4. History of shoulder surgery. 5. Bilateral mastectomy. Regarding her present issues, the patient states that she was in her usual state of health until this past Friday when she noticed some "flat red spots" on her waist. She states these were isolated to the right side and were only 2 or 3. She thought that it was related to wearing tight underwear. They were not pruritic. Friday, she noticed another few spots under her right breast and mentioned to her daughter that she thought she might have shingles again. She had no tingling or numbness of the skin and no fevers. Her daughter agreed. On Friday, the patient went to [facility] where she was indeed diagnosed with varicella zoster and given a prescription for Valtrex 1 g p.o. t.i.d. for 7 days, as well as hydrocodone/acetaminophen. She states that she started taking the Valtrex, and then , noticed that in addition to the erythematous vesicular patches, she was developing some beet red erythema on the right side of her abdomen. She became concerned that she was having an allergic reaction to the Valtrex and presented to [facility] last evening. In our emergency department, the patient was afebrile. She was noted to have vesicular lesions that crossed the midline, particularly on her abdomen. She was started on intravenous acyclovir and admitted for further evaluation and treatment. She was also noted to have some blanching erythema that was surrounding the rash and confluent. This was felt to be perhaps an allergic reaction, so her baseline prednisone was increased to 40 mg. I am now asked to assist in her management. In speaking with the patient today, she tells me that she had the Zostavax back in 2008 but has not yet had Shingrix. REVIEW OF SYSTEMS: Notable for a headache but no stiff neck or confusion. No tingling in her scalp and no focal weakness or tingling or numbness elsewhere. No blurred vision, dysarthria, or other. She did have some diarrhea on Friday which has resolved and was nonbloody. She denies abdominal pain, chest pain, cough, or other. She has been slightly nauseated. She tells me that her appetite has been diminished, although today, she feels like she wants to eat. PREVIOUS MEDICAL HISTORY: As outlined above. ALLERGIES: Amoxicillin, atorvastatin, ciprofloxacin, Versed, fentanyl, erythromycin, midazolam, sulfa, all cause rash with the exception of midazolam and fentanyl caused anaphylaxis. Polyethylene glycol also caused anaphylaxis. HOME MEDICATIONS: Included albuterol, aspirin 81 mg, calcium, gabapentin, golimumab every 8 weeks with last 8 weeks ago, levothyroxine 112 mcg daily, linaclotide 72 mcg daily, omeprazole 40 mg p.o. twice daily, rosuvastatin 5 mg p.o. daily, spironolactone 25 mg p.o. daily, azathioprine 50 mg p.o. daily, prednisone 5 mg p.o. daily. MEDICATIONS/ANTIBIOTICS PRESENTLY: Include acyclovir 900 mg q.8 hours, calcium , vitamin D, Neurontin, Synthroid, prednisone 40 mg, rosuvastatin 5 mg, sumatriptan 100 mg p.r.n. SOCIAL HISTORY: The patient lives in [place] with her . She was born and raised in [place]. She has no pets. No recent travel within or outside the [place]. Previous smoker, quit 30 years ago. No exposure to water other than her shower. No undercooked foods. The patient enjoys painting as a hobby. No other unusual exposures. FAMILY HISTORY: 1. Her mother is still alive and well at 97. 2. Dad at age 52 from colon cancer. REVIEW OF SYSTEMS: As outlined above. Otherwise, 10 systems reviewed and all are negative. PHYSICAL EXAM: VITAL SIGNS: T-current and T-max 36.8, heart rate 90, blood pressure 106/59, 100% on 3 L. GENERAL: Obese female, appears slightly cushingoid. No apparent distress. HEENT: Atraumatic, normocephalic. Pupils equal, round, and reactive to light. Extraocular movements are intact. No conjunctival injection, icterus, or petechiae. No sinus process tenderness or discharge from the nares. Mucous membranes are moist. No oral lesions noted or thrush. NECK: Trachea is midline. No cervical or supraclavicular lymphadenopathy. CARDIOVASCULAR: Distant heart sounds, S1, S2. No rubs, gallops, or murmurs. LUNGS: Clear to auscultation bilaterally with no rales, rhonchi, or wheeze. Poor inspiratory effort. ABDOMEN: Hypoactive bowel sounds. No tenderness to palpation whatsoever. EXTREMITIES: No clubbing, cyanosis, or edema. No muscle belly tenderness. SKIN: The patient has dry skin throughout. The patient does have a few erythematous vesicles that cross the midline on her abdomen, as well as crops of vesicles in different stages of evolution on her right abdominal wall that wrap underneath her breast to her back. One or two of the vesicles cross the midline on her back as well. There is a demarcated pen line for the erythema that the patient presented with last night in the emergency room. This is barely visible on her anterior abdominal wall with faint pinkish erythema that blanches. Underneath her breast, there is more erythema, but on her back, this is minimal. The patient has no lesions elsewhere. NEUROLOGIC: She is alert and oriented x3. No focal deficits whatsoever. LABORATORY DATA: Microbiologic data are none. White blood cell count 7.2, hematocrit 37, platelet count of 257, 84% neutrophils. BUN and creatinine 17/ 0.8, AST 41, ALT 91, alkaline phosphatase 168. IMPRESSION: 77-year-old immunocompromised female with rheumatoid arthritis on a biologic agent, as well as low-dose prednisone and azathioprine, admitted for disseminated varicella, although the dissemination is minimal. The monoclonal antibody puts her at much higher risk for dissemination. Thankfully,she does not have evidence of a meningoencephalitis or pneumonia. Regarding the confluent erythema surrounding the vesicles, this does not look consistent with a secondary bacterial infection, per se. It looks more like generalized soft tissue inflammation. It would be unusual for a drug eruption to develop in an isolated area like this; doubt this is causative. PLAN: 1. Continue intravenous Acyclovir as you are. Need to maintain hydration in this older female to prevent azotemia from acyclovir. Monitor serum creatinine. 2. Continue airborne/contact precautions given dissemination in this immunocompromised host. 3. Would treat for approximately 10 days. She can be changed back to an oral agent once she has stabilized. Again, doubt an allergic reaction to valacyclovir. 4. Would hold monoclonal antibody as you are doing. Thank you very much for consulting Infectious Diseases. We will continue to follow this patient with you /[id number]/MODL MTDD
--- NOTE | 2018-04-10 12:13 | PDMN ---
Medical Necessity Medical necessity: Change to IP, as of 04/09/18, per & [facility] (Wound & Skin Management); los >2 mn for ongoing management of shingles w/erythematous rash of unclear etiology & near syncope; requiring further workup/monitoring, IV Acyclovir & ID consult; hx RA on immunosuppressants & CHF
--- NOTE | 2018-04-10 12:53 | HOSPPROG ---
Hospitalist Progress Note Assessment/Plan: 77y female with c/o pain. First encounter, chart reviewed. D/W Dr Toledo. #Shingles in an immunocompromised host -Acyclovir IV -Holding immunomodulators -Appreciate Dr Toledo -air borne precautions #Erythematous rash of unclear etiology -Soft tissue inflammation -less likely drug reaction or infection -she has been afebrile. Does not have leukocytosis. VS are stable -Will increase Prednisone -no abx for now #chronic Steroid use -cont #Near Syncope -CHF mgmt per below -not on antihypertensive meds #CHF, unclear if systolic or diastolic. Does not appear to be in exacerbation -Looks Euvolemic on exam -Given concern for orthostatic hypotension, will hold Diuretics for now. Can restart if symptomatic -check TTE #GONZALES: - TTE per above. -Will likely need diuretics which are being held overnight until further clinical course. - I do not see any e/o pneumonia #Hypokalemia -follow DVT Proph: -Lovenox Dispo: -unclear -cont supportive care Subjective: Up to the shower. Still having some discomfort. Feels weak and tired. Objective: Vital Signs Temp Pulse Resp BP Pulse Ox 36.9 C 79 18 102/60 94 04/10/18 11:42 04/10/18 11:42 04/10/18 11:42 04/10/18 11:42 04/10/18 11:42 Laboratory Results 04/10/18 04:34 04/10/18 04:44 04/09/18 04/10/18 04/11/18 05:59 05:59 05:59 Intake Total 550 250 Output Total 300 100 Balance 250 150 - Physical Exam Constitutional: appears nourished, chronically ill appearing, uncomfortable Eyes: PERRL, anicteric sclera, EOMI Ears, Nose, Mouth, Throat: moist mucous membranes, hearing normal, ears appear normal Cardiovascular: No JVD, No tachycardia, No edema Respiratory: no respiratory distress, no rales or rhonchi, reduced air movement Gastrointestinal: No tenderness, No ascites, No distension Skin: warm, erythema, No mottled Musculoskeletal: normal joint ROM, no joint effusions, generalized weakness Neurologic: AAOx3 Psychiatric: not anxious, not encephalopathic, thought process linear ICD10 Worksheet Patient Problems: Problems Problem Status Onset Pulmonary embolism Acute Pneumonia Acute Severe sepsis Acute
--- NOTE | 2018-04-10 15:27 | ECHO ---
[email or web address] [address] Main: [phone] Fax: Transthoracic Echocardiogram Name: MARIELA KELLER MR#: [id number] Study Date: 04/10/2018 Study Time: 08:08 AM Date of : 1940 Age: 77 year(s) Height: 152.4 cm (60 in.) Weight: 90.72 kg (200 lb.) BSA: 1.87 m2 Gender: Female Examination: Echo Indication: ?CHF Image Quality: Technically Difficult Contrast: Requested by: Suhail Martinez BP: 106 mmHg/59 mmHg Heart Rate: Rhythm: Indication: ?CHF Procedure Staff Senior Developer: Maisha Yoo [facility] Reading Physician: Aaron Gaitan MD Requesting Provider: Measurements: Chambers Valvular Assessment AV/MV Valvular Assessment TV/PV Normal Normal Normal Name Value Range Name Value Range Name Value Range Ao Rebeca (MM): 3.6 cm (2.2 cm-3.7 PV Vmax: 0.94 m/s (0.6 m/s-0.9 cm) m/s) IVSd (2D): 1.3 cm (0.6 cm-1.1 PV PGmax: 4 mmHg ( - ) cm) LVDd (2D): 4.6 cm (3.9 cm-5.3 cm) LVDs (2D): 3.0 cm (2.1 cm-4 cm) LVPWd (2D): 1.1 cm ( - ) LVEF (2D): 64 (>=54 %) Continued Measurements: Additional Vessels Name Value Ao Ascendin.5 cm Findings: Left Ventricle: Normal size left ventricle. Mild concentric LV hypertrophy. Normal global systolic LV function. EF is 64 %. Cannot rule out wall motion abnormalites due to limited acoustical windows. Right Ventricle: Right ventricle not well visualized. Left Atrium: Grossly normal LA size. Patient: MARIELA KELLER Study Date: 04/10/2018 Page 1 of 2 08:08 AM Right Atrium: The right atrium is not visualized. Mitral Valve: The mitral valve visualized from the parasternal window is normal in appearance and function. No mitral regurgitation noted from this view. Aortic Valve: Aortic valve is not well visualized. Tricuspid Valve: Tricuspid valve not well visualized. Pulmonic Valve: Pulmonary valve not well visualized. There is no pulmonic regurgitation seen. Aorta: Normal size aortic root measuring 3.6 cm. Normal size ascending aorta measuring 3.5 cm. IVC: The IVC is not well visualized. Pericardium: Trivial anterior pericardial effusion. Exam Comments: Very technically difficult and limited echocardiogram. No apical window due to body habitus and breast implants. (No Signature Object) Patient: MARIELA KELLRE Study Date: 04/10/2018 Page 2 of 2 08:08 AM [id number]
[2018-04-10] MEDS: CALCIUM CARB W/VIT D 500 MG TAB PO SCH (21:52)
[2018-04-10] MEDS: ASPIRIN 81 MG CHEWABLE TAB PO SCH (21:52)
[2018-04-11] MEDS: LEVOTHYROXINE 112 MCG TAB PO SCH (06:25)
[2018-04-11] MEDS: ACYCLOVIR 900 MG in D5W 250 ML IV SCH ×3 (06:26→21:29)
[2018-04-11] MEDS: ENOXAPARIN 40 MG/0.4 ML SYR SC SCH (08:14)
[2018-04-11] MEDS: CHOLECALCIFEROL VIT D3 2,000 UNITS TAB/CAP PO SCH (08:14)
[2018-04-11] MEDS: GABAPENTIN 400 MG CAP PO SCH ×3 (08:14→21:29)
[2018-04-11] MEDS: predniSONE 20 MG TAB PO SCH (08:14)
[2018-04-11] MEDS: ROSUVASTATIN CALCIUM 10 MG TAB PO SCH (08:15)
[2018-04-11] MEDS: PANTOPRAZOLE SODIUM 40 MG TAB PO SCH (08:15)
--- NOTE | 2018-04-11 11:57 | PCMIDPN ---
Assessment/Plan: 1. Disseminated varicella in immunocompromised host on biologic agent for rheumatoid arthritis: As per my note yesterday, dissemination is minimal, and there is significant improvement today! Continue IV acyclovir as is; renal function stable. Continue prednisone for inflammatory component. This is also improved. May be ready for discharge tomorrow or Friday. No evidence of dissemination to lungs or central nervous system. Subjective: Patient feels much better today compared with yesterday. Still has some itchiness on her body, but tells me"I just got out of a hot shower." Objective: Acyclovir 900 mg IV q.8 hours day 2 Prednisone 40 mg daily No fevers Vital Signs Temp Pulse Resp BP Pulse Ox 36.9 C 86 18 148/84 H 96 04/11/18 11:29 04/11/18 11:29 04/11/18 11:29 04/11/18 11:29 04/11/18 11:29 Laboratory Results 04/10/18 04:34 04/11/18 04:58 04/10/18 04/11/18 04/12/18 05:59 05:59 05:59 Intake Total 550 620 Output Total 300 550 Balance 250 70 - Physical Exam General Appearance: alert, no apparent distress EENT: pharynx normal, No thrush Respiratory: lungs clear Skin: other (Crops of vesicles right thorax that wraps around to her back, approximately T11 or T12 dermatomes look less inflamed today, some are starting to crust. No further dissemination or vesicular eruption. The confluent blanching erythema between the vesicles is also better, with barely perceptible pinkish discoloration. Her skin is quite dry. She also has a band of pinkish discoloration on her left side , that looks more like an allergic response to dry skin. There are no vesicles in this area. Overall, significant improvement compared to yesterday. No evidence of secondary bacterial infection.) ICD10 Worksheet Patient Problems: Problems Problem Status Onset Shingles Acute Pneumonia Acute Pulmonary embolism Acute Severe sepsis Acute
[2018-04-11] MEDS ORDERED: diphenhydrAMINE 50 MG CAP PO PRN (12:21)
--- NOTE | 2018-04-11 13:46 | HOSPPROG ---
Hospitalist Progress Note Assessment/Plan: 77y female with c/o pain. First encounter, chart reviewed. D/W Dr Toledo. #Disseminated varicella in immunocompromised host on biologic agent for rheumatoid arthritis: -significant improvement today -Continue IV acyclovir as is; -renal function stable. -Continue prednisone for inflammatory component. -Holding immunomodulators -D/W Dr Toledo -air borne precautions #Erythematous rash of unclear etiology -Soft tissue inflammation -less likely drug reaction or infection -she has been afebrile. Does not have leukocytosis. VS are stable -cont Prednisone -no abx for now #chronic Steroid use -cont #Near Syncope -CHF mgmt per below -not on antihypertensive meds #CHF, unclear if systolic or diastolic. Does not appear to be in exacerbation -Looks Euvolemic on exam -restart Diuretics as per home meds -TTE appears stable #GONZALES: - TTE per above. - restart diuretics which were being held overnight - I do not see any e/o pneumonia #Hypokalemia -follow DVT Proph: -Lovenox Dispo: -unclear, possibly in am or Friday -cont supportive care Subjective: Up in chair. Feeling well. Better then yesterday. Objective: Vital Signs Temp Pulse Resp BP Pulse Ox 36.9 C 86 18 148/84 H 96 04/11/18 11:29 04/11/18 11:29 04/11/18 11:29 18 11:29 04/11/18 11:29 Laboratory Results 04/10/18 04:34 04/11/18 04:58 04/10/18 04/11/18 04/12/18 05:59 05:59 05:59 Intake Total 550 620 Output Total 300 550 Balance 250 70 - Physical Exam Constitutional: appears nourished, chronically ill appearing, obese Eyes: PERRL, anicteric sclera, EOMI Ears, Nose, Mouth, Throat: moist mucous membranes, hearing normal, ears appear normal Cardiovascular: regular rate and rhythym, No JVD, No edema Respiratory: no respiratory distress, no rales or rhonchi, reduced air movement Gastrointestinal: No tenderness, No ascites, No distension Skin: warm, erythema, rash Musculoskeletal: normal joint ROM, no joint effusions, generalized weakness Neurologic: AAOx3 Psychiatric: interacting appropriately, not anxious, not encephalopathic ICD10 Worksheet Patient Problems: Problems Problem Status Onset Pulmonary embolism Acute Pneumonia Acute Severe sepsis Acute Shingles Acute
--- NOTE | 2018-04-11 14:34 | ASMTCMCOM ---
CM Note CM Note Notes: Reviewed chart regarding discharge plan of care, pt's progress. PT discharged pt - all goals met. No OT evals at this time. Per DOCUMENT COORDINATOR notes, pt will likely not be ready for discharge until Friday. Anticipate pt will likely discharge home independently when medically stable. Pt on IV acyclovir. CM will continue to follow for any potential needs. Discharge Plan: Home independently Date Signed: 04/11/2018 02:33 PM Electronically Signed By:Sri Encinas RN
[2018-04-11] MEDS: ASPIRIN 81 MG CHEWABLE TAB PO SCH (21:29)
[2018-04-11] MEDS: CALCIUM CARB W/VIT D 500 MG TAB PO SCH (21:29)
[2018-04-11] MEDS: diphenhydrAMINE 25 MG CAP PO PRN (21:44)
[2018-04-12] MEDS: ACYCLOVIR 900 MG in D5W 250 ML IV SCH ×3 (06:10→21:19)
[2018-04-12] MEDS: LEVOTHYROXINE 112 MCG TAB PO SCH (06:13)
[2018-04-12] MEDS: SPIRONOLACTONE 25 MG TAB PO SCH (09:16)
[2018-04-12] MEDS: CHOLECALCIFEROL VIT D3 2,000 UNITS TAB/CAP PO SCH (09:16)
[2018-04-12] MEDS: PANTOPRAZOLE SODIUM 40 MG TAB PO SCH (09:16)
[2018-04-12] MEDS: GABAPENTIN 400 MG CAP PO SCH ×3 (09:16→21:20)
[2018-04-12] MEDS: ROSUVASTATIN CALCIUM 10 MG TAB PO SCH (09:17)
[2018-04-12] MEDS: predniSONE 20 MG TAB PO SCH (09:17)
[2018-04-12] MEDS: ENOXAPARIN 40 MG/0.4 ML SYR SC SCH (09:18)
--- NOTE | 2018-04-12 10:51 | HOSPPROG ---
Hospitalist Progress Note Assessment/Plan: 77y female with c/o pain. D/W Dr Toledo. #Disseminated varicella in immunocompromised host on biologic agent for rheumatoid arthritis: -significant improvement -Continue IV acyclovir as is -renal function stable, recheck in am -Continue prednisone for inflammatory component, high dose 40mg -Holding immunomodulators -D/W Dr Toledo -air borne precautions #Erythematous rash of unclear etiology -Soft tissue inflammation, better -less likely drug reaction or infection -she has been afebrile. Does not have leukocytosis. VS are stable -cont Prednisone -no abx for now -benadryl #chronic Steroid use -cont -40mg prednisone while off immunomodulators #Near Syncope -CHF mgmt per below -not on antihypertensive meds #CHF,Does not appear to be in exacerbation -Looks Euvolemic on exam -restart Diuretics as per home meds -TTE appears stable #GONZALES: - TTE per above. - restart diuretics which were being held - I do not see any e/o pneumonia #Hypokalemia -follow -restart home therapy DVT Proph: -Lovenox Dispo: -cont IV acyclovir today -transition to PO in am -cont supportive care Subjective: Feeling better today. Had some pain last night. Objective: Vital Signs Temp Pulse Resp BP Pulse Ox 36.6 C 69 16 139/77 H 97 04/12/18 07:43 04/12/18 07:43 04/12/18 07:43 04/12/18 07:43 04/12/18 07:43 Laboratory Results 04/10/18 04:34 04/11/18 04:58 04/11/18 04/12/18 04/13/18 05:59 05:59 05:59 Intake Total 620 Output Total 550 Balance 70 - Physical Exam Constitutional: appears nourished, chronically ill appearing, obese Eyes: PERRL, anicteric sclera, EOMI Ears, Nose, Mouth, Throat: moist mucous membranes, hearing normal, ears appear normal Cardiovascular: No JVD, No tachycardia, No edema Respiratory: no respiratory distress, no rales or rhonchi, reduced air movement Gastrointestinal: normoactive bowel sounds, No tenderness, No ascites Skin: warm, erythema, rash, No mottled Musculoskeletal: normal joint ROM, no joint effusions, generalized weakness Neurologic: AAOx3 Psychiatric: interacting appropriately, not anxious, not encephalopathic, thought process linear ICD10 Worksheet Patient Problems: Problems Problem Status Onset Pulmonary embolism Acute Pneumonia Acute Severe sepsis Acute Shingles Acute
--- NOTE | 2018-04-12 11:01 | PCMIDPN ---
Assessment/Plan: 1. Disseminated varicella in immunocompromised host on biologic agent for rheumatoid arthritis: As per my notes previously, dissemination is minimal, and there has been significant improvement during her hospital stay, with improved local soft tissue swelling/erythema as well. We made a plan today to continue IV acyclovir through today, then start oral Valtrex again tomorrow morning 1 g p.o. Three times daily to complete 7 days of therapy (antiviral clock started with initiation of IV acyclovir); stop date April 16. The patient still has some Valtrex at home. The patient expressed concern about a possible allergy to Valtrex given her underlying allergic propensity to medication; reassured her that I felt that the erythema along her abdominal wall was secondary to soft tissue inflammation from the varicella, and not an allergic response, per se. She expressed understanding. Also of note, told her that her monoclonal antibody would need to be held for at least several weeks moving forward until this infection has resolved entirely. She will need follow-up in our clinic as an outpatient to help ascertain when to restart this, as the patient states her quality of life is markedly improved with this monoclonal antibody. 04/12/18 10:53 Subjective: Continues to improve. In excellent spirits and very pleasant. No nausea, vomiting, confusion or other problems associated with acyclovir. Creatinine has been stable. Urinating without issues. Objective: Acyclovir 900 mg IV q.8 hours day 3 No fevers Vital Signs Temp Pulse Resp BP Pulse Ox 36.6 C 69 16 139/77 H 97 04/12/18 07:43 04/12/18 07:43 04/12/18 07:43 04/12/18 07:43 04/12/18 07:43 Laboratory Results 04/10/18 04:34 04/11/18 04:58 04/11/18 04/12/18 04/13/18 05:59 05:59 05:59 Intake Total 620 Output Total 550 Balance 70 - Physical Exam General Appearance: no apparent distress, obese EENT: No scleral icterus, No thrush Respiratory: lungs clear Skin: other (The right side of the patient's abdominal wall is notable for several crops of vesicles, in different stages of evolution. A crop on her anterior abdominal wall appears to be starting to crust. The rest are not crusting yet, but are markedly less inflamed. The few small vesicles that crossed the midline on her back and abdomen are practically not visible. The confluent soft tissue erythema between lesions is still present, but barely perceptible. She also has a faint band of erythema beneath her left breast that is improved. Overall, significant improvement.) ICD10 Worksheet Patient Problems: Problems Problem Status Onset Shingles Acute Pneumonia Acute Pulmonary embolism Acute Severe sepsis Acute
[2018-04-12] MEDS: POTASSIUM CL 10 MEQ TAB PO SCH (11:06)
[2018-04-12] MEDS: ACETAMINOPHEN 325 MG TAB PO PRN (18:24)
[2018-04-12] MEDS: ASPIRIN 81 MG CHEWABLE TAB PO SCH (21:20)
[2018-04-12] MEDS: CALCIUM CARB W/VIT D 500 MG TAB PO SCH (21:20)
[2018-04-12] MEDS: diphenhydrAMINE 25 MG CAP PO PRN (22:39)
[2018-04-13] MEDS: ACETAMINOPHEN 325 MG TAB PO PRN (01:45)
[2018-04-13] MEDS: LEVOTHYROXINE 112 MCG TAB PO SCH (05:28)
[2018-04-13] MEDS: GABAPENTIN 400 MG CAP PO SCH (08:36)
[2018-04-13] MEDS: ROSUVASTATIN CALCIUM 10 MG TAB PO SCH (08:37)
[2018-04-13] MEDS: predniSONE 20 MG TAB PO SCH (08:37)
[2018-04-13] MEDS: SPIRONOLACTONE 25 MG TAB PO SCH (08:38)
[2018-04-13] MEDS: PANTOPRAZOLE SODIUM 40 MG TAB PO SCH (08:38)
[2018-04-13] MEDS: POTASSIUM CL 10 MEQ TAB PO SCH (08:38)
[2018-04-13] MEDS: CHOLECALCIFEROL VIT D3 2,000 UNITS TAB/CAP PO SCH (08:38)
[2018-04-13] MEDS: ENOXAPARIN 40 MG/0.4 ML SYR SC SCH (08:39)
[2018-04-13] MEDS ORDERED: valACYclovir 500 MG TAB PO SCH (09:00)
--- NOTE | 2018-04-13 12:12 | ASMTCMCOM ---
CM Note CM Note Notes: CM spoke to Eneida Porter, HISTOTECHNICIAN, Juan David, RN and Dr. Meza. Pt is being discharged today. Pt will d/c without any antibiotics. Pt has a follow up appointment w/ Dr. Umanzor for this Friday. CM inputted info into d/c section of [employer]. No other needs at this time. CM available for changes. Plan: Independent Date Signed: 04/13/2018 12:11 PM Electronically Signed By:MADELIN [place]
--- NOTE | 2018-04-13 12:13 | ASMTLACE ---
LACE Length of stay for Answers: 4-6 days current admission Acuity / Level of Answers: Yes Care: Did the patient have an inpatient admission? Comorbidities - select Answers: Congestive heart failure all that apply Opioid dependence / Chronic pain Other Notes: Diverticulitis; GERD; D VT/ PE # of Emergency department Answers: 3-4 visits in the last 6 months Score: 17 Date Signed: 04/13/2018 12:12 PM Electronically Signed By:MADELIN [place]
[2018-04-13 12:32] VITALS: BP 136/69
--- NOTE | 2018-04-13 16:09 | GDS ---
DISCHARGE DIAGNOSIS: 1. 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 2. Erythematous rash. 3. Chronic steroid use. 4. Near syncope. 5. Congestive heart failure. 6. Hypokalemia. CONSULTATIONS: Infectious Disease. STUDIES AND PROCEDURES DONE: CT of the abdomen and pelvis. PHYSICAL EXAM: GENERAL: The patient is alert. VITAL SIGNS: Afebrile at 36.4, pulse is 60, respira tory rate 16, blood pressure is 136/69. She is saturating 95% on 4 L. I have seen and evaluated the patient on the day of discharge. HOSPITAL COURSE: 1. The patient is a 77-year-old female who presents for admission to the hospital after noticing a r [place]in. She was evaluated and diagnosed with disseminated varicella and immunocompromised host. The pa ralph received IV acyclovir during this hospitalization, as well as a consultation from Infectious Radha nicole. She has responded well to the acyclovir and has been transitioned to Valtrex for continued th erapy in the outpatient setting. 2. Erythematous rash. The etiology of this is unclear. It is presumed that it is soft tissue infla mmation. This has almost completely resolved prior to disposition. 3. Chronic steroid use for rheumatoid arthritis. The patient has been discontinued from her immunom odulators and initiated on 40 mg of prednisone daily. She will continue this at the time of disposit ion until following up with Dr. Escobar, her dials supervisor, as well as Infectious Disease for furthe r recommendations regarding therapies. 4. Near syncope. This is in the setting of acute infectious process. 5. History of congestive heart failure. Her home diuretics have been re-initiated. 6. Hypokalemia. Her home medication has been re-initiated. DISPOSITION: The patient will be discharged home independently. FOLLOWUP: Followup will be with Dr. Nuha Bradford, her primary care physician, as well as Dr. Nura Escobar and Dr. Kraig Umanzor of Infectious Disease. DISCHARGE MEDICATIONS: Please refer to EMR form. I have provided prescriptions for prednisone as we ll as the patient reinitiating her previously prescribed Valtrex. I have discontinued her Imuran as well as her golimumab and her Linzess. These can be re-initiated in the outpatient setting as felt n cyndi with her primary care physician. I spent greater than 35 minutes in the care, coordination, and management of this patient's disposition. /[id number]/MODL
== END 2018-04-13 14:38 | disposition home or self-care (01) | DRG 866 ==
LOC: OBSVTOIN 22:11 → F3E 22:14
PROVIDERS: ADMIT Family Medicine; ATTEND Family Medicine
DX: B02.7 Disseminated zoster (principal); E86.9 Volume depletion, unspecified; R55 Syncope and collapse; I50.9 Heart failure, unspecified; E87.6 Hypokalemia; M06.9 Rheumatoid arthritis, unspecified; Z79.52 Long term (current) use of systemic steroids
CPT/HCPCS: 84484-PO; 96374; 97110-GP; 97116-GP; 97161-GP; G8978-GP-CI; G8979-GP-CI; G8980-GP-CI; J0133; J1200; J1650; J2765; J7512

== ENCOUNTER 2018-05-15 12:06 | Inpatient (IN) | payer OTHER ==
[2018-05-15 12:41] LABS: PLATELET COUNT 275 10^3/uL (150-400)
--- NOTE | 2018-05-15 12:50 | EDPHY ---
HPI/HX/ROS/PE/MDM Narrative: CHIEF COMPLAINT: Nausea, headache, dizziness HPI: The patient is a 77 y/o female with a history of CHF and RA arriving with her complaining of nausea, headache, and dizziness onset last Friday, 6 days ago, and worsening since then. Her symptoms improve when lying flat and are much worse when getting up and moving around. She has been able to consume a bland liquid diet without vomiting, but overall her intake has decreased as has her urination despite diuretic use. She has abdominal discomfort when eating , but otherwise no significant abdominal pain. She was diagnosed with disseminated varicella last month and treated with steroids, which her relay man has rapidly been titrating down. REVIEW OF SYSTEMS: A comprehensive 10 system review of systems is otherwise negative aside from elements mentioned in the history of present illness. Chronic constipation followed by GI - Dr. Villa. Bowel movement this morning was typical for her. PMH: CHF, RA, diverticulitis, bowel obstruction, GERD, appendectomy, , hysterectomy, recent shingles infection Mar 2018. SOCIAL HISTORY: Former smoker. at bedside. Lives in [place]. PHYSICAL EXAM: General:Patient is alert, in no acute distress. ENT:Eyes are normal to inspection. ENT inspection shows dry mucous membranes, otherwise normal. Neck: Normal inspection. Full range of motion. Respiratory:No respiratory distress. Breath sounds normal bilaterally. Cardiovascular: Regular rate and rhythm. Strong peripheral pulses. Normal cap refill. Abdomen:The abdomen is nontender to palpation. There are no peritoneal signs. Back: Normal to inspection. No tenderness to palpation. Skin: Normal color. No rash. Warm and dry. Extremities: Normal appearance. Full range of motion. Neuro: Oriented x3. Normal motor function. Normal sensory function. ED Course: This is a 77 y/o female with a history of CHF and RA with recent diagnosis of disseminated varicella on steroids who presents feeling nauseated, dizzy,a and generally weak. She reports her steroids are being rapidly weaned down and thinks this could be contributing to her symptoms. She has dry mucous membranes on exam. Plan for IV, labs, UA, EKG, abdominal x-ray, and symptom management. 4mg IV Zofran ordered. The 12 lead EKG was interpreted by myself. See hard copy and/or "tracemaster" electronic copy for interpretation. Abdominal x-ray: chronic bronchitis Slightly elevated BNP. 1505: Spoke with hospitalist service. Dr. Palomino accepts admission. - Data Points Imaging Results: Imaging Impressions Abdomen X-Ray 05/15/18 12:50 Impression: 1. Chronic bronchitis. No acute pulmonary process. 2. No pneumoperitoneum. 3. Suspect mild adynamic ileus rather than low colonic obstruction. Imaging: Discussed imaging studies w/ call center coordinator Radiologist, I viewed and interpreted images myself Laboratory Results: Laboratory Results 05/15/18 12:00 05/15/18 12:00 05/15/18 05/15/18 12:00 12:00 WBC 9.85 10^3/uL H 10^3/uL (3.80-9.50) RBC 4.95 10^6/uL 10^6/uL (4.18-5.33) Hgb 13.3 g/dL g/dL (12.6-16.3) Hct 40.8 % % (38.0-47.0) MCV 82.4 fL fL (81.5-99.8) MCH 26.9 pg L pg (27.9-34.1) MCHC 32.6 g/dL g/dL (32.4-36.7) RDW 18.1 % H % (11.5-15.2) Plt Count 275 10^3/uL 10^3/uL (150-400) MPV 8.9 fL fL (8.7-11.7) Neut % (Auto) 68.3 % % (39.3-74.2) Lymph % (Auto) 19.6 % % (15.0-45.0) [place] % (Auto) 10.3 % % (4.5-13.0) Eos % (Auto) 0.7 % % (0.6-7.6) Baso % (Auto) 0.4 % % (0.3-1.7) Nucleat RBC Rel Count 0.0 % % (0.0-0.2) Absolute Neuts (auto) 6.73 10^3/uL H 10^3/uL (1.70-6.50) Absolute Lymphs (auto) 1.93 10^3/uL 10^3/uL (1.00-3.00) Absolute Monos (auto) 1.01 10^3/uL H 10^3/uL (0.30-0.80) Absolute Eos (auto) 0.07 10^3/uL 10^3/uL (0.03-0.40) Absolute Basos (auto) 0.04 10^3/uL 10^3/uL (0.02-0.10) Absolute Nucleated RBC 0.00 10^3/uL 10^3/uL (0-0.01) Immature Gran % 0.7 % % (0.0-1.1) Immature Gran # 0.07 10^3/uL 10^3/uL (0.00-0.10) Sodium 131 mEq/L L mEq/L (135-145) Potassium 2.9 mEq/L L mEq/L (3.5-5.2) Chloride 90 mEq/L L mEq/L (97-110) Carbon Dioxide 27 mEq/l mEq/l (22-31) Anion Gap 14 mEq/L mEq/L (6-14) BUN 21 mg/dL mg/dL (7-23) Creatinine 1.0 mg/dL mg/dL (0.6-1.0) Estimated GFR 54 Glucose 113 mg/dL H mg/dL (70-100) Calcium 8.2 mg/dL L mg/dL (8.5-10.4) Total Bilirubin 0.8 mg/dL mg/dL (0.1-1.4) Conjugated Bilirubin 0.2 mg/dL mg/dL (0.0-0.5) Unconjugated Bilirubin 0.6 mg/dL mg/dL (0.0-1.1) AST 39 IU/L IU/L (14-46) ALT 42 IU/L IU/L (9-52) Alkaline Phosphatase 92 IU/L IU/L (38-126) NT-Pro-B Natriuret Pep 600 pg/mL H pg/mL (0-450) Total Protein 7.5 g/dL g/dL (6.3-8.2) Albumin 4.4 g/dL g/dL (3.5-5.0) Medications Given: Discontinued Medications Ondansetron HCl (Zofran) 4 mg IVP EDNOW ONE Stop: 05/15/18 14:00 Last Admin: 05/15/18 14:01 Dose: 4 mg General Time Seen by Provider: 05/15/18 12:20 Initial Vital Signs: Initial Vital Signs Temperature (C) 36.9 C 05/15/18 12:10 Heart Rate 76 05/15/18 12:10 Respiratory Rate 18 05/15/18 12:10 Blood Pressure 100/53 L 05/15/18 12:10 O2 Sat (%) 89 L 05/15/18 12:10 O2 Delivery Mode Nasal Cannula Allergies/Adverse Reactions: amoxicillin Allergy (Verified 05/15/18 12:16) Pt reports Rash amoxicillin trihydrate [From Augmentin] Allergy (Verified 05/15/18 12:16) Pt reports Anaphylaxis atorvastatin Allergy (Verified 05/15/18 12:16) Itching ciprofloxacin Allergy (Verified 05/15/18 12:16) Pt reports Rash erythromycin base [Erythromycin Base] Allergy (Verified 05/15/18 12:16) Pt reports Rash fentanyl Allergy (Verified 05/15/18 12:16) Pt reports anaphylaxis guaifenesin Allergy (Verified 05/15/18 12:16) Pt reports Rash midazolam HCl [From Versed] Allergy (Verified 05/15/18 12:16) Pt reports anaphylaxis polyethylene glycol 3350 Allergy (Verified 05/15/18 12:16) Pt reports Anaphylaxis potassium clavulanate [From Augmentin] Allergy (Verified 05/15/18 12:16) Pt reports Anaphylaxis Sulfa (Sulfonamide Antibiotics) Allergy (Verified 05/15/18 12:16) Pt reports Rash midazolam HCl Allergy (Uncoded 04/08/18 15:28) Pt reports Anaphylaxis Home Medications: Medication Instructions Recorded Albuterol [Proventil Inhaler HFA 1 - 2 puffs IH Q4H PRN 04/09/18 (*)] Aspirin [Aspirin 81mg (*)] 81 mg PO DAILY 04/09/18 Calcium Carb W/Vit D [Calcium Carb 1,000 mg PO HS 04/09/18 W/Vit D 500/200 (*)] Cholecalciferol Vit D3 [Vitamin D3 2,000 units PO DAILY 04/09/18 (*)] EPINEPHrine [Epipen 0.3 MG] 0.3 mg IM ONCE PRN 04/09/18 Gabapentin 1,200 mg PO TID 04/09/18 Levothyroxine [Synthroid 112 mcg 112 mcg PO DAILY06 04/09/18 (*)] Omeprazole 40 mg PO BIDMEAL 04/09/18 Potassium Chloride [Klor-Con M10] 10 meq PO DAILY 04/09/18 Rosuvastatin Calcium 5 mg PO DAILY 04/09/18 Spironolactone 25 mg PO DAILY 04/09/18 Sumatriptan Succinate 100 mg PO ONCE PRN 04/09/18 Torsemide [Demadex] 80 mg PO DAILY 04/09/18 Acetaminophen [Tylenol 325mg (*)] 650 mg PO Q4HRS PRN tab 04/13/18 diphenhydrAMINE [Benadryl 25 MG 50 mg PO HS PRN cap 04/13/18 (*)] valACYclovir [Valtrex (*)] 1,000 mg PO TID tab 04/13/18 predniSONE 5 mg PO DAILY 05/15/18 Departure - Departure Disposition: [facility] Inpatient Acute Clinical Impression: Dehydration Condition: Fair Referrals: Nuha Bradford MD [Primary Care Provider] - As per Instructions Report Scribed for: Omar Newton Report Scribed by: Meredith Escudero Date of Report: 05/15/18 Time of Report: 14:30 Physician Review and Approval Statement: Portions of this note were transcribed by an ED scribe. I personally performed the history, physical exam, and medical decision making; and confirm the accuracy of the information in the transcribed note.
[2018-05-15] MEDS ORDERED: ONDANSETRON 4 MG/2 ML VIAL ONE (13:56)
[2018-05-15] MEDS ORDERED: ONDANSETRON 4 MG/2 ML VIAL IVP ONE (13:59)
[2018-05-15] MEDS ORDERED: HYDROCODONE/APAP 5/325 TAB PO PRN (15:48)
[2018-05-15] MEDS ORDERED: ONDANSETRON DISINTEGRATING 4 MG TAB PO PRN (15:48)
[2018-05-15] MEDS ORDERED: NS 500 ML IV ONE (15:54)
[2018-05-15] MEDS ORDERED: POTASSIUM Cl (KCl) 10 MEQ/100 ML BAG IV ONE (16:01)
[2018-05-15] MEDS ORDERED: POTASSIUM CL 20 MEQ PKT ONE (16:02)
[2018-05-15] MEDS: POTASSIUM Cl (KCl) 100 ML IV SCH ×2 (16:08→17:51)
[2018-05-15] MEDS: POTASSIUM CL 10 MEQ TAB PO SCH (16:12)
[2018-05-15] MEDS: ACETAMINOPHEN 325 MG TAB PO PRN (18:22)
[2018-05-15] MEDS: NS W/ 20 KCl/L 1,000 ML IV SCH (18:25)
[2018-05-15] MEDS: ONDANSETRON 4 MG/2 ML VIAL IVP PRN (20:13)
[2018-05-15] MEDS: GABAPENTIN 400 MG CAP PO SCH (21:42)
--- NOTE | 2018-05-15 22:16 | GHP ---
DATE OF ADMISSION: 05/15/2018 CHIEF COMPLAINT: Poor appetite and nausea. HISTORY OF PRESENT ILLNESS: Ms Olivo is a 77-year-old female, with a past medical history of rheuma toid arthritis and recently hospitalized for disseminated zoster, who developed nausea and low appeti te over the past 3-4 days. There is no obvious trigger on evaluation today, though she was found to be hyponatremic and hypokalemic. She carries a history of chronic diastolic heart failure and due to this history, it was decided to admit her for IV fluids and close monitoring in light of her heart f ailure history. PAST MEDICAL HISTORY: 1. Chronic diastolic heart failure. Her most recent echocardiogram showed an ejection fraction of 6 4%. Diastolic dysfunction was noted on a 2015 echocardiogram. 2. Chronic hypoxic respiratory failure secondary to history of pneumonitis, on 2 L continuous. 3. Obstructive sleep apnea, on CPAP. 4. Hypothyroidism. 5. Rheumatoid arthritis. 6. History of bowel obstructions. 7. History of diverticulitis. 8. Esophageal reflux. 9. History of breast cancer, status post bilateral mastectomy. 10. History of migraine headaches. PAST SURGICAL HISTORY: Appendectomy, hysterectomy, , bilateral mastectomy. MEDICATIONS: Aspirin 81 mg daily. Bentyl 20 mg twice a day. Gabapentin 1200 mg twice a day. Levot hyroxine 112 mcg daily. Omeprazole 40 mg twice a day. Potassium supplementation. Prednisone 5 mg d aily. Crestor 5 mg daily. Spironolactone 25 mg daily. Torsemide 80 mg daily. Valacyclovir 1000 mg twice a day. ALLERGIES: Amoxicillin, atorvastatin, ciprofloxacin, erythromycin, fentanyl, guaifenesin, midazolam, MiraLAX, sulfa. FAMILY HISTORY: Mother is living at age 97. Dad is . He of colon cancer at the age of 52. She has 1 niece with rheumatoid arthritis. SOCIAL HISTORY: Patient is a former tobacco smoker. She is currently . Full code status. REVIEW OF SYSTEMS: Other than nausea and poor appetite noted in the HPI, the 10-point review of syst ems is otherwise negative. PHYSICAL EXAM: VITAL SIGNS: Temperature 36.9, blood pressure 100/53, heart rate 76, respirations 18 , satting 89% 2 L nasal cannula. GENERAL: Patient is awake, alert, conversant, no acute distress. HEENT: Extraocular movements intact. No scleral icterus noted. NECK: Supple. No thyroid enlargem ent noted. CHEST: Clear to auscultation with normal respiratory effort. HEART: Regular rate and r hythm. No murmurs. ABDOMEN: Nondistended, soft. Bowel sounds were present but diminished. : N o Titus catheter in place. EXTREMITIES: No significant pitting edema. NEUROLOGIC: Cranial nerves 2-12 appear intact with 5/5 strength in extremities. LABS: White blood cell count 9, hemoglobin 13, platelets 275. Sodium 131, potassium 2.9, chloride 9 0, bicarb 27, BUN 21, creatinine 1.0, glucose of 113. BNP 600. AST 39, ALT 42, alkaline phosphatase 92, bilirubin 0.8. ECG showed normal sinus rhythm. IMAGING: Abdominal x-ray showed mild ileus. ASSESSMENT/PLAN: 1. Ileus, mild, noted on x-ray, uncertain trigger. She states she has not been taking any narcotics recently for her recent zoster. I recommend repeat x-ray in the morning. If worsening, can conside r changing from regular diet to n.p.o. 2. Hyponatremia, likely hypovolemic in nature. Trend with IV fluids. 3. Hypokalemia. Patient was replaced with both oral and IV today. Recheck again in the morning wit h a magnesium level. 4. Zoster. Patient has been seen by Infectious Disease. We will continue valacyclovir as recommend ed. 5. Chronic diastolic heart failure. Monitor for edema with IV fluids. 6. Chronic hypoxic respiratory failure. This is secondary to pneumonitis, which was felt secondary to her autoimmune disorder. Continue with supplemental oxygen. 7. Obstructive sleep apnea. Patient is on CPAP therapy. 8. Rheumatoid arthritis. Patient is treated with Simponi every 8 weeks. She is currently on predni sone as well. 9. Hypothyroidism. Continue the current dosing of levothyroxine. 10. Deep venous thrombosis prophylaxis. Lovenox. 11. Disposition. Will admit under observation status at this time. /[id number]/MODL
[2018-05-16] MEDS: ONDANSETRON 4 MG/2 ML VIAL IVP PRN (00:56)
[2018-05-16] MEDS ORDERED: SUMAtriptan 50 MG TAB PO PRN (04:30)
[2018-05-16] MEDS: NS W/ 20 KCl/L 1,000 ML IV SCH (04:37)
[2018-05-16 04:56] LABS: PLATELET COUNT 234 10^3/uL (150-400)
[2018-05-16] MEDS ORDERED: PROMETHAZINE HCL 25 MG/ML INJ IVP PRN (05:49)
[2018-05-16] MEDS: LEVOTHYROXINE 112 MCG TAB PO SCH (05:58)
[2018-05-16] MEDS: GABAPENTIN 400 MG CAP PO SCH ×3 (08:32→22:25)
[2018-05-16] MEDS: predniSONE 5 MG TAB PO SCH (08:33)
[2018-05-16] MEDS: ROSUVASTATIN CALCIUM 10 MG TAB PO SCH (08:33)
[2018-05-16] MEDS: PANTOPRAZOLE SODIUM 40 MG TAB PO SCH ×2 (08:33→17:07)
[2018-05-16] MEDS: valACYclovir 500 MG TAB PO SCH ×2 (08:33→20:20)
[2018-05-16] MEDS: POTASSIUM CL 10 MEQ TAB PO SCH (08:33)
[2018-05-16] MEDS: DICYCLOMINE 20 MG TAB PO SCH ×2 (08:33→20:19)
[2018-05-16] MEDS: ENOXAPARIN 40 MG/0.4 ML SYR SC SCH (08:40)
[2018-05-16] MEDS ORDERED: BISACODYL 10 MG SUPP PR PRN (12:37)
[2018-05-16] MEDS ORDERED: LACTULOSE 20 GM/30 ML UDCUP PO PRN (12:37)
[2018-05-16] MEDS ORDERED: GLYCERIN ADULT 1 EACH SUPP PR ONE (12:39)
[2018-05-16] MEDS: DOCUSATE SODIUM 100 MG CAP PO SCH ×2 (13:10→20:20)
[2018-05-16] MEDS: MAGNESIUM HYDROXIDE 30 ML UDCUP PO SCH (13:10)
[2018-05-16] MEDS ORDERED: BISACODYL 10 MG SUPP PR ONE (13:15)
--- NOTE | 2018-05-16 13:27 | HOSPPROG ---
Hospitalist Progress Note Assessment/Plan: #Abd Pain #Ileus #Constipation #Hyponatremia #Hypokalemia #Hx of Diastolic CHF, not in exacerbation #chronic respiratory failure, 3 L 24/7, at baseline #Recent Zoster, on Valcyclovir Plan: The pt is better, but still symptomatic. change Diet to Clears. OK to stop IVF. Na/K are better. Start stool softer and suppository Abd XR reviewed, shows improvement Hold diuretics today, can restart tomorrow Lovenox for DVT proph Subjective: no cp or sob. still with mild abd discomfort, but overall improved. no resp sxs. uses 3 L of O2 chronically. Objective: Vital Signs Temp Pulse Resp BP Pulse Ox 37.2 C 88 17 117/55 L 95 05/16/18 12:00 05/16/18 12:00 05/16/18 12:00 05/16/18 12:00 05/16/18 12:00 Laboratory Results 05/16/18 04:18 05/16/18 04:18 05/15/18 05/16/18 05/17/18 05:59 05:59 05:59 Intake Total 1366 1095 Output Total 1300 600 Balance 66 495 - Physical Exam Constitutional: not in pain, chronically ill appearing Eyes: PERRL, EOMI Ears, Nose, Mouth, Throat: moist mucous membranes, hearing normal Cardiovascular: regular rate and rhythym, No edema Respiratory: no respiratory distress, no rales or rhonchi, clear to auscultation Gastrointestinal: distension, No normoactive bowel sounds, No soft, non-tender abdomen, No rebound Skin: warm Neurologic: AAOx3 Psychiatric: interacting appropriately, not anxious, not encephalopathic Lymph, Heme, Immunologic: No petechiae ICD10 Worksheet Patient Problems: Problems Problem Status Onset Dehydration Acute Pneumonia Acute Pulmonary embolism Acute Severe sepsis Acute Shingles Acute
--- NOTE | 2018-05-16 14:33 | PDMN ---
Medical Necessity Medical necessity: Pt meets INPT criteria per MD as of 05/16/18 and MCG M-200 Ileus (est. LOS >2 MN for ongoing eval/mgmt of abd pain, ileus, constipation, hyponatremia, hypokalemia; comorbid diastolic CHF, chronic respiratory failure, recent zoster).
--- NOTE | 2018-05-16 16:42 | ASMTCMCOM ---
CM Note CM Note Notes: 05/16/2018 Case Management Note Pt admitted for dehydration, hyponatremia, hypokalemia, constipation and ileus. PT eval is pending. Discharge needs are unclear at this time. Case Management d/c poc: to be determined. Case Management to follow. Date Signed: 05/16/2018 04:42 PM Electronically Signed By:Elsy Duong RN
[2018-05-16] MEDS: SUMAtriptan 50 MG TAB PO PRN (18:14)
[2018-05-16] MEDS ORDERED: ASPIRIN 81 MG CHEWABLE TAB PO SCH (21:00)
[2018-05-17] MEDS: ACETAMINOPHEN 325 MG TAB PO PRN ×3 (00:25→11:44)
[2018-05-17] MEDS: SUMAtriptan 50 MG TAB PO PRN (01:04)
[2018-05-17] MEDS: LEVOTHYROXINE 112 MCG TAB PO SCH (05:04)
[2018-05-17] MEDS: valACYclovir 500 MG TAB PO SCH (08:06)
[2018-05-17] MEDS: POTASSIUM CL 10 MEQ TAB PO SCH (08:06)
[2018-05-17] MEDS: MAGNESIUM HYDROXIDE 30 ML UDCUP PO SCH (08:06)
[2018-05-17] MEDS: DICYCLOMINE 20 MG TAB PO SCH (08:07)
[2018-05-17] MEDS: ROSUVASTATIN CALCIUM 10 MG TAB PO SCH (08:07)
[2018-05-17] MEDS: ENOXAPARIN 40 MG/0.4 ML SYR SC SCH (08:07)
[2018-05-17] MEDS: PANTOPRAZOLE SODIUM 40 MG TAB PO SCH (08:07)
[2018-05-17] MEDS: GABAPENTIN 400 MG CAP PO SCH (08:07)
[2018-05-17] MEDS: predniSONE 5 MG TAB PO SCH (08:07)
[2018-05-17] MEDS: DOCUSATE SODIUM 100 MG CAP PO SCH (08:08)
[2018-05-17 11:36] VITALS: BP 117/63
--- NOTE | 2018-05-17 15:13 | PDIAF ---
- Diagnosis Diagnosis: weakness Code Status: Full Code - Medication Management Discharge Medications: electronically signed and located in the Home Medication List. - Orders Services needed: Home Care, Physical Therapy Home Care Face to Face: I certify that this patient was under my care and that I had the required [id number] encounter meeting the encounter requirements on the discharge day. My findings support the fact that the patient is homebound as defined in Home Care Face to Face Continued: CMS Chapter 7 Medicare Benefits Manual 30.1.1 , The condition of the patient is such that there exists a normal inability to leave home and consequently, leaving home would require a considerable and taxing effort. Isolation Type: None Diet Recommendation: no restrictions on diet Diet Texture: Regular Texture Diet Additional Instructions: activity: as tolerated f/u: with PCP next week. With Cardiology in 2-4 weeks Please note: your Torsemide was decreased due to soft blood pressure. It was decreased from 80mg to 40mg daily. Please weigh yourself daily and check your blood pressure 3 times daily and document it. Bring this information to your appointment with your primary care provider next week. If your blood pressure is below 90/60, then don't take your diuretics and call your doctor. - Follow Up Care Current Providers and Referrals: Nuha Bradford MD [Primary Care Provider] - As per Instructions
--- NOTE | 2018-05-17 15:48 | ASMTLACE ---
LACE Length of stay for Answers: 1 day current admission Acuity / Level of Answers: Yes Care: Did the patient have an inpatient admission? Comorbidities - select Answers: Any tumor (including all that apply lymphoma or leukemia) Chronic pulmonary disease Congestive heart failure # of Emergency department Answers: 3-4 visits in the last 6 months Score: 13 Date Signed: 05/17/2018 03:47 PM Electronically Signed By:Phyllis Pena RN
--- NOTE | 2018-05-17 15:51 | ASMTDCNOTE ---
Case Management Discharge Discharge Order Complete? Answers: Yes Transportation Arranged Answers: Family/Friends Family Notified Answers: Yes Discharge Comments Notes: Patient medically cleared to discharge. She will have a home health care PT. Referral to [facility] as patient has had them in the past. Date Signed: 05/17/2018 03:50 PM Electronically Signed By:Phyllis Pena RN
--- NOTE | 2018-05-17 19:46 | PDDCSUM ---
Discharge Summary Discharge Summary: This is a 77 yo female with chronic constipation who was admitted with abd pain and ileus. She was admitted. Diet was adjusted. Stool softners started. She had eventual multiple BM's and resolution of her abd pain and ileus. She was restarted on a regular diet and is tolerating well. Stool softners were continued. She was noted to have soft BP. She has a hx of diastolic CHF and is on torsemide and spironolactone. Torsemide was decreased from 80mg to 40mg daily. No other changes to her diuretics were made. She did have Hypokalemia and this was replaced. Diuretic changes should help as well She had Hyponatremia, likely from dehydration. This resolved DDX #Abd Pain #Ileus #Constipation #Hyponatremia #Hypokalemia #Hx of Diastolic CHF, not in exacerbation #chronic respiratory failure, 3 L 24/7, at baseline #Recent Zoster, on Valcyclovir Exam: NAD AAOX3 RRR CTA B S/NT/ND MEDS: SEE MED REC F/U: WITH PCP IN ONE WEEK. WITH CARDS IN 2-4 WEEKS
--- NOTE | 2018-05-18 10:52 | CPEKG ---
Test Reason : OPEN Blood Pressure : / mmHG Vent. Rate : 073 BPM Atrial Rate : 073 BPM P-R Int : 158 ms QRS Dur : 109 ms QT Int : 411 ms P-R-T Axes : 038 -11 042 degrees QTc Int : 453 ms Sinus rhythm Abnormal R-wave progression, early transition Left ventricular hypertrophy Confirmed by Omar Newton ([id number] on 05/18/2018 10:52:22 AM Referred By: Confirmed By:Omar Newton
--- NOTE | 2018-05-21 09:08 | ASDISCHSUM ---
Discharge Information Plan Status: Medically Cleared to Leave: Discharge Date:05/17/2018 04:01 PM D/C Disposition: ADT D/C Disposition:Home, Routine, Self-Care Projected Discharge Date:05/17/2018 11:00 AM Transportation at D/C: Discharge Delay Reason: Follow-Up Date:05/17/2018 11:00 AM Discharge Slot: Final Diagnosis: Placement Information Referral Type:*Home Health Care Services Referral ID:[id number] Provider Name:[facility] Address 1:[address] Address 2: City:[place] Selection Factors: State:[place] Patient Contact Information Contact Name:MICHAEL Relationship: Address:[address] City:[facility] [place] Phone: State/Zip Code:[place] [address] Email: Financial Information Financial Class:Medicare Primary Plan Desc:MEDICARE INPATIENT Primary Plan Number:[id number] Secondary Plan Desc:[employer] Secondary Plan Number:[id number] Assessment Information LACE LACE Length of stay for Answers: 1 day current admission Acuity / Level of Answers: Yes Care: Did the patient have an inpatient admission? Comorbidities - select Answers: Any tumor (including all that apply lymphoma or leukemia) Chronic pulmonary disease Congestive heart failure # of Emergency department Answers: 3-4 visits in the last 6 months Score: 13 Date Signed: 05/17/2018 03:47 PM Electronically Signed By:Phyllis Pena RN [facility] CM Progress Note CM Note CM Note Notes: 05/16/2018 Case Management Note Pt admitted for dehydration, hyponatremia, hypokalemia, constipation and ileus. PT eval is pending. Discharge needs are unclear at this time. Case Management d/c poc: to be determined. Case Management to follow. Date Signed: 05/16/2018 04:42 PM Electronically Signed By:Elsy Duong RN Case Management Discharge Plan Note Case Management Discharge Discharge Order Complete? Answers: Yes Transportation Arranged Answers: Family/Friends Family Notified Answers: Yes Discharge Comments Notes: Patient medically cleared to discharge. She will have a home health care PT. Referral to [facility] as patient has had them in the past. Date Signed: 05/17/2018 03:50 PM Electronically Signed By:Phyllis Pena RN Intervention Information Intervention Type:*IM-Signed Date of Service:05/17/2018 03:48 PM Patient Type:Inpatient Staff Member:ANTONY Pena Margaret Hours: Discipline: Severity: Comment: Intervention Type:*Occurence 72 Date of Service:05/17/2018 05:48 PM Patient Type:Inpatient Staff Member:ANTONY Mc [place] Hours: Discipline: Severity: Comment:
== END 2018-05-17 16:01 | disposition home health service (06) | DRG 389 ==
LOC: F1N 17:41 → OBSVTOIN 05-16 13:23
PROVIDERS: ADMIT Internal Medicine; ATTEND Internal Medicine
DX: K56.7 Ileus, unspecified (principal); E87.1 Hypo-osmolality and hyponatremia; I50.32 Chronic diastolic (congestive) heart failure; J96.10 Chronic respiratory failure, unspecified whether with hypoxia or hypercapnia; E87.6 Hypokalemia; K59.09 Other constipation; B02.9 Zoster without complications; M06.9 Rheumatoid arthritis, unspecified; E03.9 Hypothyroidism, unspecified; G47.33 Obstructive sleep apnea (adult) (pediatric); Z85.3 Personal history of malignant neoplasm of breast; Z80.0 Family history of malignant neoplasm of digestive organs; Z87.891 Personal history of nicotine dependence
CPT/HCPCS: 96374; 97116-GP; 97161-GP; G0378; G8978-GP-CI; G8979-GP-CI; J1650; J2405; J2550; J3480; J7512

== ENCOUNTER 2018-05-18 14:46 | Inpatient (IN) | payer OTHER ==
[2018-05-18] MEDS ORDERED: NS 1,000 ML IV ONE (15:08)
[2018-05-18] MEDS ORDERED: ONDANSETRON 4 MG/2 ML VIAL IVP ONE (15:08)
--- NOTE | 2018-05-18 15:12 | EDPHY ---
H & P Stated Complaint: ABD PAIN Time Seen by Provider: 05/18/18 14:49 HPI/ROS: CHIEF COMPLAINT: Abdominal pain, diarrhea Limitations: Confusion, history is through the patient's HISTORY OF PRESENT ILLNESS: 77-year-old female presents with vomiting and diarrhea. She was discharged from the hospital yesterday, after admission for an ileus. Fairly soon after discharge, she began vomiting. Unable to tolerate oral fluids or food since then. Associated with multiple episodes of diarrhea and low-grade fever. Also has generalized abdominal pain, which started today. REVIEW OF SYSTEMS: complete 10 point ROS reviewed and is negative except for the noted elements in the HPI - Personal History Current Tetanus/Diphtheria Vaccine: Yes - Medical/Surgical History Hx Asthma: No Hx Chronic Respiratory Disease: Yes Hx Diabetes: No Hx Cardiac Disease: Yes Hx Renal Disease: No Hx Cirrhosis: No Hx Alcoholism: No Hx HIV/AIDS: No Hx Splenectomy or Spleen Trauma: No Other PMH: Appendectomy, bilateral mastectomy, hysterectomy, 2 C-sections, HYPOTHYROIDISM, rheumatoid ARTHRITIS GERD, DVT and PE, hypertension, obstructive sleep apnea, bowel obstruction, CHF - Social History Smoking Status: Former smoker Alcohol Use: Sober Drug Use: None Additional Social History: - Physical Exam Exam: General Appearance: Alert, confused Eyes: Pupils equal and round, no conjunctival pallor or injection ENT, Mouth: Mucous membranes moist Neck: Normal inspection Respiratory: Lungs are clear to auscultation Cardiovascular: Regular rate and rhythm Gastrointestinal: Abdomen is soft, diffuse tenderness, no peritoneal signs Neurological: A&O, nonfocal exam Skin: Warm and dry, no rash Extremities: Nontender, no pedal edema Psychiatric: Flat affect Constitutional: Initial Vital Signs Temperature (C) 37.1 C 05/18/18 14:53 Heart Rate 90 05/18/18 14:53 Respiratory Rate 18 05/18/18 14:53 Blood Pressure 151/79 H 05/18/18 14:53 O2 Sat (%) 92 05/18/18 14:53 O2 Delivery Mode Nasal Cannula O2 (L/minute) 6 Allergies/Adverse Reactions: amoxicillin Allergy (Verified 05/18/18 14:56) Pt reports Rash amoxicillin trihydrate [From Augmentin] Allergy (Verified 05/18/18 14:56) Pt reports Anaphylaxis atorvastatin Allergy (Verified 05/18/18 14:56) Itching ciprofloxacin Allergy (Verified 05/18/18 14:56) Pt reports Rash erythromycin base [Erythromycin Base] Allergy (Verified 05/18/18 14:56) Pt reports Rash fentanyl Allergy (Verified 05/18/18 14:56) Pt reports anaphylaxis guaifenesin Allergy (Verified 05/18/18 14:56) Pt reports Rash midazolam HCl [From Versed] Allergy (Verified 05/18/18 14:56) Pt reports anaphylaxis polyethylene glycol 3350 Allergy (Verified 05/18/18 14:56) Pt reports Anaphylaxis potassium clavulanate [From Augmentin] Allergy (Verified 05/18/18 14:56) Pt reports Anaphylaxis Sulfa (Sulfonamide Antibiotics) Allergy (Verified 05/18/18 14:56) Pt reports Rash midazolam HCl Allergy (Uncoded 05/18/18 14:56) Pt reports Anaphylaxis Home Medications: Medication Instructions Recorded Albuterol [Proventil Inhaler HFA 1 - 2 puffs IH Q4H PRN 04/09/18 (*)] Aspirin [Aspirin 81mg (*)] 81 mg PO HS 04/09/18 Calcium Carb W/Vit D [Calcium Carb 500 mg PO DAILY@04/09/18 W/Vit D 500/200 (*)] Cholecalciferol Vit D3 [Vitamin D3 1,000 units PO DAILY@12 04/09/18 (*)] EPINEPHrine [Epipen 0.3 MG] 0.3 mg IM ONCE PRN 04/09/18 Gabapentin 1,200 mg PO TID@,,04/09/18 Levothyroxine [Synthroid 112 mcg 112 mcg PO DAILY06 04/09/18 (*)] Omeprazole 40 mg PO BIDMEAL 04/09/18 Potassium Chloride [Klor-Con M10] 20 meq PO DAILY 04/09/18 Rosuvastatin Calcium 5 mg PO DAILY 04/09/18 Spironolactone 25 mg PO DAILY 04/09/18 Sumatriptan Succinate 100 mg PO DAILY PRN 04/09/18 Acetaminophen [Tylenol ES 500 mg 1,000 mg PO HS 05/15/18 (*)] Dicyclomine [Bentyl 20 MG (*)] 20 mg PO BID 05/15/18 Potassium Cl [Klor-Con 10 meq (RX)] 10 meq PO BID@05/15/18 predniSONE 5 mg PO DAILY 05/15/18 valACYclovir [Valtrex (*)] 1,000 mg PO BID 05/15/18 Docusate Sodium [Colace 100 MG (*)] 100 mg PO BID #90 cap 05/17/18 Torsemide [Demadex] 40 mg PO DAILY #30 05/17/18 Medical Decision Making - Diagnostics Imaging Results: Imaging Impressions Abdomen CT 05/18/18 15:15 Impression: 1. Mild dependent edema and dependent atelectasis at the lung bases have developed 2. Numerous cysts associated with the liver as well as hemangioma left lobe liver posteriorly. 3. Numerous hypodensities associated with the spleen probably representing hemangiomas similar to recent studies although increased in size and number since remote study from 2010. 4. Interval resolution of diverticulitis sigmoid colon. No new inflammatory process seen. Findings discussed with Meenakshi Duff M.D. at 16:31 hour, 05/18/2018. Imaging: Discussed imaging studies w/ call center analyst Radiologist ED Course/Re-evaluation: This patient presents with generalized abdominal pain, vomiting and diarrhea after recent admission for ileus. She is a very poor historian and I am unable to obtain accurate history. Prior medical record reviewed. History of chronic constipation, admitted for ileus, tolerating oral fluids and food on discharge yesterday. IV normal saline 1 L and Zofran [address] scan of the abdomen pelvis obtained and is unremarkable. Once her arrived, history obtained and is most c/w acute gastroenteritis. She is feeling less nauseated after IV fluids and Zofran. Continues to be quite weak and somewhat confused. Abdominal exam remains benign. Will admit for observation. The hospitalist service was consulted for admission. Differential Diagnosis: Differential diagnosis includes though it is not limited to appendicitis, cholecystitis, diverticulitis, pyelonephritis, bowel perforation, small bowel obstruction. - Data Points Laboratory Results: Laboratory Results 05/18/18 15:12 05/18/18 15:12 05/18/18 05/18/18 05/18/18 15:32 15:12 15:12 WBC 6.87 10^3/uL 10^3/uL (3.80-9.50) RBC 4.31 10^6/uL 10^6/uL (4.18-5.33) Hgb 11.6 g/dL L g/dL (12.6-16.3) POC Hgb 10.2 gm/dL L gm/dL (12.6-16.3) Hct 36.3 % L % (38.0-47.0) POC Hct 30 % L % (38-47) MCV 84.2 fL fL (81.5-99.8) MCH 26.9 pg L pg (27.9-34.1) MCHC 32.0 g/dL L g/dL (32.4-36.7) RDW 19.2 % H % (11.5-15.2) Plt Count 278 10^3/uL 10^3/uL (150-400) MPV 8.9 fL fL (8.7-11.7) Neut % (Auto) 63.0 % % (39.3-74.2) Lymph % (Auto) 22.0 % % (15.0-45.0) [place] % (Auto) 12.5 % % (4.5-13.0) Eos % (Auto) 0.4 % L % (0.6-7.6) Baso % (Auto) 0.6 % % (0.3-1.7) Nucleat RBC Rel Count 0.0 % % (0.0-0.2) Absolute Neuts (auto) 4.33 10^3/uL 10^3/uL (1.70-6.50) Absolute Lymphs (auto) 1.51 10^3/uL 10^3/uL (1.00-3.00) Absolute Monos (auto) 0.86 10^3/uL H 10^3/uL (0.30-0.80) Absolute Eos (auto) 0.03 10^3/uL 10^3/uL (0.03-0.40) Absolute Basos (auto) 0.04 10^3/uL 10^3/uL (0.02-0.10) Absolute Nucleated RBC 0.00 10^3/uL 10^3/uL (0-0.01) Immature Gran % 1.5 % H % (0.0-1.1) Immature Gran # 0.10 10^3/uL 10^3/uL (0.00-0.10) POC Sodium 141 mEq/L mEq/L (135-145) Sodium 137 mEq/L mEq/L (135-145) POC Potassium 3.5 mEq/L mEq/L (3.3-5.0) Potassium 3.9 mEq/L mEq/L (3.5-5.2) POC Chloride 108 mEq/L mEq/L (97-110) Chloride 108 mEq/L mEq/L (97-110) Carbon Dioxide 23 mEq/l mEq/l (22-31) Anion Gap 6 mEq/L mEq/L (6-14) POC BUN < 3 mg/dL L mg/dL (7-23) BUN 5 mg/dL L mg/dL (7-23) Creatinine 0.6 mg/dL mg/dL (0.6-1.0) POC Creatinine 0.5 mg/dL L mg/dL (0.6-1.0) Estimated GFR > 60 Glucose 91 mg/dL mg/dL (70-100) POC Glucose 89 mg/dL mg/dL (70-100) Calcium 8.2 mg/dL L mg/dL (8.5-10.4) Total Bilirubin 0.7 mg/dL mg/dL (0.1-1.4) Conjugated Bilirubin 0.3 mg/dL mg/dL (0.0-0.5) Unconjugated Bilirubin 0.4 mg/dL mg/dL (0.0-1.1) AST 30 IU/L IU/L (14-46) ALT 32 IU/L IU/L (9-52) Alkaline Phosphatase 79 IU/L IU/L (38-126) Total Protein 6.4 g/dL g/dL (6.3-8.2) Albumin 3.6 g/dL g/dL (3.5-5.0) Lipase 58 IU/L IU/L (23-300) Medications Given: Promethazine HCl (Phenergan) 6.25 - 12.5 mg IVP Q6HRS PRN PRN Reason: Nausea/Vomiting, Use 2nd Stop: 11/14/18 16:29 Last Admin: 05/18/18 17:15 Dose: 6.25 mg Discontinued Medications Sodium Chloride (Ns) 1,000 mls @ 0 mls/hr IV EDNOW ONE; Wide Open PRN Reason: Protocol Stop: 05/18/18 15:09 Last Admin: 05/18/18 15:23 Dose: 1,000 mls Ondansetron HCl (Zofran) 4 mg IVP EDNOW ONE Stop: 05/18/18 15:09 Last Admin: 05/18/18 15:23 Dose: 4 mg Point of Care Test Results: Chemistry 05/18/18 15:32 POC Sodium 141 mEq/L mEq/L (135-145) POC Potassium 3.5 mEq/L mEq/L (3.3-5.0) POC Chloride 108 mEq/L mEq/L (97-110) POC BUN < 3 mg/dL L mg/dL (7-23) POC Creatinine 0.5 mg/dL L mg/dL (0.6-1.0) POC Glucose 89 mg/dL mg/dL (70-100) ISTAT H&H 05/18/18 15:32 POC Hgb 10.2 gm/dL L gm/dL (12.6-16.3) POC Hct 30 % L % (38-47) Departure - Departure Disposition: [facility] Inpatient Acute Clinical Impression: Vomiting and diarrhea, Dehydration Condition: Fair
[2018-05-18 15:22] LABS: PLATELET COUNT 278 10^3/uL (150-400)
[2018-05-18] MEDS ORDERED: IOPAMIDOL (ISOVUE-300) 100 ML BTL ONE (15:23)
--- NOTE | 2018-05-18 16:40 | PDGENHP ---
History and Physical - Chief Complaint nausea, vomiting, diarrhea - History of Present Illness 77yo F with history of RA on chronic steroids who was just discharged from this hospital yesterday returns with ongoing nausea, vomiting, and diarrhea. Hospitalized 05/15- due to ileus. She was moving her bowels and tolerating PO yesterday so was discharged home with stool softeners. Shortly after going home she developed nausea and vomiting. Overnight she began having numerous episodes of watery diarrhea that has persisted into today prompting her to come to the ED. Her notes that she was having some loose stools while in the hospital but not to this degree. Also reports low grade temperature (99.5) and chills. Diffuse abdominal pain. She has not taken any laxatives or stool softeners since being home. Per ED physician, patient was initially quite confused on presentation to the ED. She is more oriented upon my discussion with her although not completely back to baseline per , who provided ancillary history. Case discussed with ED physician Meenakshi Duff. Of note, she did have episode of acute hypoxia when she returned from CT scanner. Per RN, this was reportedly due to oxygen tubing being kinked and she is back on her baseline oxygen. History Information - Allergies/Home Medication List Allergies/Adverse Reactions: amoxicillin Allergy (Verified 05/18/18 14:56) Pt reports Rash amoxicillin trihydrate [From Augmentin] Allergy (Verified 05/18/18 14:56) Pt reports Anaphylaxis atorvastatin Allergy (Verified 05/18/18 14:56) Itching ciprofloxacin Allergy (Verified 05/18/18 14:56) Pt reports Rash erythromycin base [Erythromycin Base] Allergy (Verified 05/18/18 14:56) Pt reports Rash fentanyl Allergy (Verified 05/18/18 14:56) Pt reports anaphylaxis guaifenesin Allergy (Verified 05/18/18 14:56) Pt reports Rash midazolam HCl [From Versed] Allergy (Verified 05/18/18 14:56) Pt reports anaphylaxis polyethylene glycol 3350 Allergy (Verified 05/18/18 14:56) Pt reports Anaphylaxis potassium clavulanate [From Augmentin] Allergy (Verified 05/18/18 14:56) Pt reports Anaphylaxis Sulfa (Sulfonamide Antibiotics) Allergy (Verified 05/18/18 14:56) Pt reports Rash midazolam HCl Allergy (Uncoded 05/18/18 14:56) Pt reports Anaphylaxis Home Medications: Albuterol [Proventil Inhaler HFA (*)] 1 - 2 puffs IH Q4H PRN 04/09/18 [Last Taken Unknown] Aspirin [Aspirin 81mg (*)] 81 mg PO HS 04/09/18 [Last Taken 05/14/18 21:00] Calcium Carb W/Vit D [Calcium Carb W/Vit D 500/200 (*)] 500 mg PO DAILY@12 04/09 [Last Taken 05/11/18] Cholecalciferol Vit D3 [Vitamin D3 (*)] 1,000 units PO DAILY@12 04/09/18 [Last Taken 05/11/18] EPINEPHrine [Epipen 0.3 MG] 0.3 mg IM ONCE PRN 04/09/18 [Last Taken Unknown] Gabapentin 1,200 mg PO TID@,04/09/18 [Last Taken 05/14/18 08:00] Levothyroxine [Synthroid 112 mcg (*)] 112 mcg PO DAILY06 04/09/18 [Last Taken 07:00] Omeprazole 40 mg PO BIDMEAL 04/09/18 [Last Taken 05/14/18 08:00] Potassium Chloride [Klor-Con M10] 20 meq PO DAILY 04/09/18 [Last Taken 05/13/18] Rosuvastatin Calcium 5 mg PO DAILY 04/09/18 [Last Taken 05/14/18] Spironolactone 25 mg PO DAILY 04/09/18 [Last Taken 05/14/18] Sumatriptan Succinate 100 mg PO DAILY PRN 04/09/18 [Last Taken 05/13/18] Acetaminophen [Tylenol ES 500 mg (*)] 1,000 mg PO HS 05/15/18 [Last Taken 21:00] Dicyclomine [Bentyl 20 MG (*)] 20 mg PO BID 05/15/18 [Last Taken 05/13/18] Potassium Cl [Klor-Con 10 meq (RX)] 10 meq PO BID@05/15/18 [Last Taken ] predniSONE 5 mg PO DAILY 05/15/18 [Last Taken 05/14/18] valACYclovir [Valtrex (*)] 1,000 mg PO BID 05/15/18 [Last Taken 05/14/18] I have personally reviewed and updated: family history, medical history, social history, surgical history - Past Medical History Additional medical history: chronic diastolic heart failure, chronic hypoxic respiratory failure 2/2 pneumonitis on 2-3L continuously, DEEPAK on CPAP, RA on chronic steroids, disseminated varicella infection, hypothyroidism, h/o breast cancer s/p bilateral mastectomy, migraine headaches, several bowel obstructions , diverticulitis, GERD - Surgical History Additional surgical history: appendectomy, hysterectomy, , bilatearl mastectomy - Family History Additional family history: mother is living at age 97, dad is decesased ( of colon cancer at 52), niece with RA - Social History Smoking Status: Former smoker Alcohol Use: Sober Drug Use: None Additional social history: , at bedside Review of Systems Review of Systems: ROS: 10pt was reviewed & negative except for what was stated in HPI & below Physical Exam Physical Exam: Temp Pulse Resp BP Pulse Ox 37.1 C 90 18 151/79 H 92 05/18/18 14:53 05/18/18 14:53 05/18/18 14:53 05/18/18 14:53 05/18/18 14:53 Constitutional: appears nourished, uncomfortable Eyes: PERRL, anicteric sclera, EOMI Ears, Nose, Mouth, Throat: no oral mucosal ulcers, dry mucous membranes Cardiovascular: regular rate and rhythym, no murmur, rub, or gallop, No edema Respiratory: no respiratory distress, no rales or rhonchi, clear to auscultation Gastrointestinal: normoactive bowel sounds, no palpable masses, tenderness ( diffusely), No hepatosplenomegally, No guarding, No distension Genitourinary: no bladder fullness, no bladder tenderness Skin: warm, normal color, no rashes or abrasions, no fluctuance, no induration, No mottled Musculoskeletal: full muscle strength, no muscle tenderness, normal joint ROM, no joint effusions Neurologic: other (alert, oriented to person/place/time but not situation completely) Psychiatric: encephalopathic Lab Data & Imaging Review 05/18/18 15:12 05/18/18 15:12 WBC 6.87 10^3/uL (3.80-9.50) 05/18/18 15:12 RBC 4.31 10^6/uL (4.18-5.33) 05/18/18 15:12 Hgb 11.6 g/dL (12.6-16.3) L 05/18/18 15:12 POC Hgb 10.2 gm/dL (12.6-16.3) L 05/18/18 15:32 Hct 36.3 % (38.0-47.0) L 05/18/18 15:12 POC Hct 30 % (38-47) L 05/18/18 15:32 MCV 84.2 fL (81.5-99.8) 05/18/18 15:12 MCH 26.9 pg (27.9-34.1) L 05/18/18 15:12 MCHC 32.0 g/dL (32.4-36.7) L 05/18/18 15:12 RDW 19.2 % (11.5-15.2) H 05/18/18 15:12 Plt Count 278 10^3/uL (150-400) 05/18/18 15:12 MPV 8.9 fL (8.7-11.7) 05/18/18 15:12 Neut % (Auto) 63.0 % (39.3-74.2) 05/18/18 15:12 Lymph % (Auto) 22.0 % (15.0-45.0) 05/18/18 15:12 [place] % (Auto) 12.5 % (4.5-13.0) 05/18/18 15:12 Eos % (Auto) 0.4 % (0.6-7.6) L 05/18/18 15:12 Baso % (Auto) 0.6 % (0.3-1.7) 05/18/18 15:12 Nucleat RBC Rel Count 0.0 % (0.0-0.2) 05/18/18 15:12 Absolute Neuts (auto) 4.33 10^3/uL (1.70-6.50) 05/18/18 15:12 Absolute Lymphs (auto) 1.51 10^3/uL (1.00-3.00) 05/18/18 15:12 Absolute Monos (auto) 0.86 10^3/uL (0.30-0.80) H 05/18/18 15:12 Absolute Eos (auto) 0.03 10^3/uL (0.03-0.40) 05/18/18 15:12 Absolute Basos (auto) 0.04 10^3/uL (0.02-0.10) 05/18/18 15:12 Absolute Nucleated RBC 0.00 10^3/uL (0-0.01) 05/18/18 15:12 Immature Gran % 1.5 % (0.0-1.1) H 05/18/18 15:12 Immature Gran # 0.10 10^3/uL (0.00-0.10) 05/18/18 15:12 POC Sodium 141 mEq/L (135-145) 05/18/18 15:32 Sodium 137 mEq/L (135-145) 05/18/18 15:12 POC Potassium 3.5 mEq/L (3.3-5.0) 05/18/18 15:32 Potassium 3.9 mEq/L (3.5-5.2) 05/18/18 15:12 POC Chloride 108 mEq/L (97-110) 05/18/18 15:32 Chloride 108 mEq/L (97-110) 05/18/18 15:12 Carbon Dioxide 23 mEq/l (22-31) 05/18/18 15:12 Anion Gap 6 mEq/L (6-14) 05/18/18 15:12 POC BUN < 3 mg/dL (7-23) L 05/18/18 15:32 BUN 5 mg/dL (7-23) L 05/18/18 15:12 Creatinine 0.6 mg/dL (0.6-1.0) 05/18/18 15:12 POC Creatinine 0.5 mg/dL (0.6-1.0) L 05/18/18 15:32 Estimated GFR > 60 05/18/18 15:12 Glucose 91 mg/dL (70-100) 05/18/18 15:12 POC Glucose 89 mg/dL (70-100) 05/18/18 15:32 Calcium 8.2 mg/dL (8.5-10.4) L 05/18/18 15:12 Total Bilirubin 0.7 mg/dL (0.1-1.4) 05/18/18 15:12 Conjugated Bilirubin 0.3 mg/dL (0.0-0.5) 05/18/18 15:12 Unconjugated Bilirubin 0.4 mg/dL (0.0-1.1) 05/18/18 15:12 AST 30 IU/L (14-46) 05/18/18 15:12 ALT 32 IU/L (9-52) 05/18/18 15:12 Alkaline Phosphatase 79 IU/L (38-126) 05/18/18 15:12 Total Protein 6.4 g/dL (6.3-8.2) 05/18/18 15:12 Albumin 3.6 g/dL (3.5-5.0) 05/18/18 15:12 Lipase 58 IU/L (23-300) 05/18/18 15:12 Visualized and Interpreted imaging results: Yes Interpretation: CT abd/pelvis w/IV contrast: no new inflammatory process, interval resolution of sigmoid diverticulitis, mild dependent edema and dependent atelectasis at lung bases, 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 Plan: 1. Acute nausea/vomiting, diarrhea: Started after leaving hospital yesterday. Could be viral gastroenteritis vs C diff vs laxative over-use (less likely). CT of her abdomen does not show any dilation of bowel/obstruction or free air. - IVF, IV anti-emetics - Send GI PCR, hold on anti-diarrheals until this returns - With her chronic steroid use, this could be something more insidious but I don't think endoscopic evaluation is warranted at this time 2. Chronic diastolic CHF: Not in acute exacerbation but she does have smaller pleural effusions. - Holding diuretics with above, monitor for edema with IVF 3. Chronic hypoxemic respiratory failure: Due to pneumonitis. At baseline 3L O2. 4. Recent disseminated zoster infection: Seen by Infectious Disease. Will continue valacyclovir. 5. DEEPAK: She is on CPAP. 6. Rheumatoid arthritis: Continue home dose of prednisone. She also gets Simponi every 8 weeks. 7. Hypothyroidism: Continue home dose of levothyroxine. VTE ppx: LMWH Code: full Diet: clears, advance as tolerates Dispo: Admit under observation
[2018-05-18] MEDS ORDERED: PROMETHAZINE HCL 25 MG/ML INJ ONE (17:13)
[2018-05-18] MEDS: PROMETHAZINE HCL 25 MG/ML INJ IVP PRN (17:15)
[2018-05-18] MEDS: GABAPENTIN 400 MG CAP PO SCH ×2 (19:48→21:37)
[2018-05-18] MEDS: NS 1,000 ML IV SCH (20:21)
[2018-05-18] MEDS: ONDANSETRON 4 MG/2 ML VIAL IVP PRN (20:21)
[2018-05-18] MEDS: valACYclovir 500 MG TAB PO SCH (21:37)
[2018-05-18] MEDS: ASPIRIN 81 MG CHEWABLE TAB PO SCH (21:37)
[2018-05-19] MEDS: ACETAMINOPHEN 325 MG TAB PO PRN (01:47)
[2018-05-19] MEDS: NS 1,000 ML IV SCH ×2 (01:49→21:50)
[2018-05-19] MEDS: LEVOTHYROXINE 112 MCG TAB PO SCH (04:36)
[2018-05-19 05:17] LABS: PLATELET COUNT 266 10^3/uL (150-400)
[2018-05-19] MEDS: SUMAtriptan 50 MG TAB PO PRN (07:17)
[2018-05-19] MEDS: GABAPENTIN 400 MG CAP PO SCH ×3 (08:27→21:22)
[2018-05-19] MEDS: ROSUVASTATIN CALCIUM 10 MG TAB PO SCH (08:29)
--- NOTE | 2018-05-19 08:29 | HOSPPROG ---
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 At baseline 3L O2. * States this is feeling somewhat worse in the last couple weeks or so, she is uncertain if it is due to her GI problems or is actually having worsening lung trouble * Chronic diastolic CHF: Not in acute exacerbation but she does have smaller pleural effusions. - Holding diuretics with above, monitor for edema with IVF * Recent disseminated zoster infection: Seen by Infectious Disease. Will continue valacyclovir. * DEEPAK: She is on CPAP. * Rheumatoid arthritis: Continue home dose of prednisone. She also gets Simponi every 8 weeks. * Hypothyroidism: Continue home dose of levothyroxine. PLANS: * Have ordered a dose of Phenergan right now for her migraine and will recheck * Continue IV hydration * Continue p.r.n. 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, says her breathing has been worse for a few weeks than previous No new symptoms otherwise OBJECTIVE Vitals reviewed: Stable without fever Exam: alert oriented skin warm dry color ok, no jaundice or rash resps not labored lungs clear BSs heart regular abd soft nondistended nontender, bowel sounds present limbs warm, no edema iv site ok Laboratory data: Hemoglobin a bit lower, white count stable Chemistry showing some hyperchloremia from IV fluids otherwise stable Microbiology: GI pathogen panel is pending Objective: Vital Signs Temp Pulse Resp BP Pulse Ox 36.8 C 72 18 113/64 93 05/19/18 07:58 05/19/18 07:58 05/19/18 07:58 05/19/18 07:58 05/19/18 07:58 Laboratory Results 05/19/18 04:30 05/19/18 04:30 05/18/18 05/19/18 05/20/18 06:59 06:59 06:59 Intake Total 1000 Output Total 300 Balance 700 ICD10 Worksheet Patient Problems: Problems Problem Status Onset Dehydration Acute Vomiting and diarrhea Acute Pneumonia Acute Pulmonary embolism Acute Severe sepsis Acute Shingles Acute
[2018-05-19] MEDS: predniSONE 5 MG TAB PO SCH (08:30)
[2018-05-19] MEDS: valACYclovir 500 MG TAB PO SCH ×2 (08:30→21:23)
[2018-05-19] MEDS: PANTOPRAZOLE SODIUM 40 MG TAB PO SCH (08:30)
[2018-05-19] MEDS: ENOXAPARIN 40 MG/0.4 ML SYR SC SCH (08:32)
--- NOTE | 2018-05-19 11:57 | ASMTCMCOM ---
CM Note CM Note Notes: Pt lives at home w/her and recently discharged. She returns with n/v/diarrhea, dc plan to be determined but she is current with [facility] (PT). DC Plan: TBD Date Signed: 05/19/2018 11:56 AM Electronically Signed By:Karlie Ragsdale RN
[2018-05-19] MEDS: PROMETHAZINE HCL 25 MG/ML INJ IVP PRN ×2 (16:01→21:30)
[2018-05-19] MEDS: ASPIRIN 81 MG CHEWABLE TAB PO SCH (21:22)
[2018-05-20] MEDS: PROMETHAZINE HCL 25 MG/ML INJ IVP PRN (02:26)
[2018-05-20] MEDS: LEVOTHYROXINE 112 MCG TAB PO SCH (04:50)
[2018-05-20] MEDS: SUMAtriptan 50 MG TAB PO PRN ×2 (06:29→18:43)
[2018-05-20] MEDS: predniSONE 5 MG TAB PO SCH (08:10)
[2018-05-20] MEDS: valACYclovir 500 MG TAB PO SCH ×2 (08:11→20:22)
[2018-05-20] MEDS: ROSUVASTATIN CALCIUM 10 MG TAB PO SCH (08:11)
[2018-05-20] MEDS: GABAPENTIN 400 MG CAP PO SCH ×3 (08:11→20:22)
[2018-05-20] MEDS: ENOXAPARIN 40 MG/0.4 ML SYR SC SCH (08:12)
[2018-05-20] MEDS: PANTOPRAZOLE SODIUM 40 MG TAB PO SCH (08:12)
--- NOTE | 2018-05-20 09:49 | PDMN ---
Medical Necessity Medical necessity: Pt meets IP criteria as of 05/19/18 per MD and MCG M-123 ( Dehydration); los > 2 mn for ongoing tx and management of dehydration in the setting of acute nausea/vomiting and diarrhea; requiring IVF, IV anti-emetics, clear liquid diet, and further workup. Comorbid advanced age, CHF and chronic hypoxic respiratory failure.
--- NOTE | 2018-05-20 11:50 | HOSPPROG ---
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 * States this is feeling somewhat worse in the last couple weeks or so, she is uncertain if it is due to her GI problems or is actually having worsening lung trouble * Chronic diastolic CHF: Not in acute exacerbation but she does have smaller pleural effusions. - Holding diuretics with above, monitor for edema with IVF * Recent disseminated zoster infection: Seen by Infectious Disease. Will continue valacyclovir. * DEEPAK: She is on CPAP. * Rheumatoid arthritis: Continue home dose of prednisone. She also gets Simponi every 8 weeks. * Hypothyroidism: Continue home dose of levothyroxine. PLANS: * Have ordered a dose of Phenergan right now for her migraine and will recheck * Continue IV hydration * Continue p.r.n. Antiemetics * Await GI pathogen panel * Continue clear liquid diet * Continue to hold diuretics at this moment, follow her volume status very closely * Continue on her prednisone for RA * Continue valacyclovir with recent episode of disseminated zoster * Follow lung exam closely; if her respiratory status does not improve or if lung exam changes will reimage SUBJECTIVE: Had one large watery stool w/o blood today; still w nausea requiring meds but able to keep some clear liquids in after medication migraine pain is gone no chills feels weak and tired, not steady on feet needing help for ambulation to commode no more sob than her usual OBJECTIVE Vitals reviewed: T max 37.6 overnight otherwise nl vitals oxygen is up to 8 L / min Exam: alert oriented looks tired but relaxed skin warm dry color ok, no jaundice or rash resps not labored but on more oxygen today lungs clear BSs heart regular abd soft notably distended but soft and nontender with normal bowel sounds limbs warm, no edema iv site ok Microbiology: GI pathogen panel is pending Objective: Vital Signs Temp Pulse Resp BP Pulse Ox 36.8 C 91 16 149/77 H 96 05/20/18 10:58 05/20/18 10:58 05/20/18 10:58 05/20/18 10:58 05/20/18 10:58 05/19/18 05/20/18 05/21/18 06:59 06:59 06:59 Intake Total 100 500 Output Total 300 Balance -200 500 ICD10 Worksheet Patient Problems: Problems Problem Status Onset Dehydration Acute Vomiting and diarrhea Acute Pneumonia Acute Pulmonary embolism Acute Severe sepsis Acute Shingles Acute
[2018-05-20] MEDS: VANCOMYCIN 125 MG/2.5 ML UDL PO SCH ×2 (14:57→20:23)
[2018-05-20] MEDS: ASPIRIN 81 MG CHEWABLE TAB PO SCH (20:23)
[2018-05-20] MEDS: NS 1,000 ML IV SCH (22:55)
[2018-05-21] MEDS: PROMETHAZINE HCL 25 MG/ML INJ IVP PRN ×2 (03:45→22:33)
[2018-05-21] MEDS: VANCOMYCIN 125 MG/2.5 ML UDL PO SCH ×4 (06:22→20:00)
[2018-05-21] MEDS: LEVOTHYROXINE 112 MCG TAB PO SCH (06:22)
[2018-05-21] MEDS: predniSONE 5 MG TAB PO SCH (08:04)
[2018-05-21] MEDS: GABAPENTIN 400 MG CAP PO SCH ×3 (08:04→22:33)
[2018-05-21] MEDS: ROSUVASTATIN CALCIUM 10 MG TAB PO SCH (08:04)
[2018-05-21] MEDS: valACYclovir 500 MG TAB PO SCH ×2 (08:04→20:01)
[2018-05-21] MEDS: ENOXAPARIN 40 MG/0.4 ML SYR SC SCH (08:06)
[2018-05-21] MEDS: PANTOPRAZOLE SODIUM 40 MG TAB PO SCH (08:06)
[2018-05-21] MEDS: ACETAMINOPHEN 325 MG TAB PO PRN ×2 (08:08→16:28)
[2018-05-21] MEDS: NS 1,000 ML IV SCH (09:00)
[2018-05-21] MEDS: SUMAtriptan 50 MG TAB PO PRN (10:02)
--- NOTE | 2018-05-21 10:23 | HOSPPROG ---
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 * Increased oxygen needs again today * Concerned that the IV fluids may be contributing to troubles * She had an echo in March without concerning findings but views were very limited by her habitus and breast implants * Chronic diastolic CHF * See above, needs reassessment * Recent disseminated zoster infection: continue valacyclovir. * DEEPAK: Chronic, stable on CPAP * Rheumatoid arthritis: Continue home dose of prednisone. She also gets Simponi every 8 weeks. * Hypothyroidism: Continue home dose of levothyroxine. PLANS: * Continue p.o. Vancomycin * Stop IV hydration * Chest x-ray ordered and I will review that; consider adding diuretic * Continue p.r.n. Antiemetics * Continue on her prednisone for RA * Continue valacyclovir with recent episode of disseminated zoster SUBJECTIVE: No bowel movement overnight, abdomen feel somewhat better today, eating little bit better Remains quite weak Breathing feels tight today without chest pain or cough and no fever symptoms OBJECTIVE Vitals reviewed: Afebrile; pulse now up to 100 and respiratory rate is normal, blood pressure is good oxygen is up to 9 L / min Exam: alert oriented looks tired but relaxed skin warm dry color ok, no jaundice or rash resps mildly labored lungs very diminished breath sounds with some coarse rales at bases heart regular abd soft slightly less distended today, still soft and nontender with normal bowel sounds limbs warm, no edema iv site ok Microbiology: GI panel showing positive C difficile Objective: Vital Signs Temp Pulse Resp BP Pulse Ox 36.6 C 101 H 19 123/64 H 86 L 05/21/18 07:40 05/21/18 07:40 05/21/18 07:40 05/21/18 07:40 05/21/18 07:40 Microbiology 05/20/18 10:55 Gastrointestinal Tract Panel (PCR) - Final Stool Clostridium Difficile Detected 05/20/18 05/21/18 05/22/18 06:59 06:59 06:59 Intake Total 100 1387 950 Output Total 300 Balance -200 1387 950 - Time Spent With Patient Time Spent with Patient: greater than 35 minutes Time Spent with Patient: Greater than 35 minutes spent on this patients care, greater than 50% of time spent counseling, educating, and coordinating care regarding the above mentioned plan. ICD10 Worksheet Patient Problems: Problems Problem Status Onset Dehydration Acute Vomiting and diarrhea Acute Pneumonia Acute Pulmonary embolism Acute Severe sepsis Acute Shingles Acute
--- NOTE | 2018-05-21 14:59 | ASMTCMCOM ---
CM Note CM Note Notes: Pt with a positive diagnosis of Cdiff, slow to recover and per RN is needing 9L O2. CM will continue to follow. DC Plan: TBD Date Signed: 05/21/2018 02:58 PM Electronically Signed By:Karlie Ragsdale RN
[2018-05-21] MEDS: ALBUTEROL 60 PUFFS/8 GM MDI IH PRN (18:31)
[2018-05-21] MEDS: ASPIRIN 81 MG CHEWABLE TAB PO SCH (20:00)
[2018-05-22] MEDS: ALBUTEROL 60 PUFFS/8 GM MDI IH PRN (02:07)
[2018-05-22] MEDS: VANCOMYCIN 125 MG/2.5 ML UDL PO SCH ×4 (06:00→20:08)
[2018-05-22] MEDS: ACETAMINOPHEN 325 MG TAB PO PRN ×2 (06:00→10:06)
[2018-05-22] MEDS: LEVOTHYROXINE 112 MCG TAB PO SCH (06:00)
[2018-05-22] MEDS ORDERED: FUROSEMIDE 20 MG/2 ML VIAL IVP ONE (06:28)
[2018-05-22] MEDS: PANTOPRAZOLE SODIUM 40 MG TAB PO SCH (09:00)
[2018-05-22] MEDS: GABAPENTIN 400 MG CAP PO SCH ×3 (09:00→21:08)
[2018-05-22] MEDS: predniSONE 5 MG TAB PO SCH (09:00)
[2018-05-22] MEDS: ENOXAPARIN 40 MG/0.4 ML SYR SC SCH (09:01)
[2018-05-22] MEDS: valACYclovir 500 MG TAB PO SCH ×2 (09:01→20:07)
[2018-05-22] MEDS: ROSUVASTATIN CALCIUM 10 MG TAB PO SCH (09:01)
[2018-05-22] MEDS: SUMAtriptan 50 MG TAB PO PRN (10:40)
[2018-05-22] MEDS ORDERED: FUROSEMIDE 40 MG/4 ML VIAL IVP ONE ×2 (13:12→19:00)
--- NOTE | 2018-05-22 13:22 | HOSPPROG ---
Hospitalist Progress Note Assessment/Plan: DIAGNOSES: * C difficile colitis with nausea vomiting diarrhea: * Continued improvement on p.o. Vanco * Given her initial presentation with the previous admission last week am not 100% certain this is C diff, however she was here for admission in March and had antibiotics at that time * Has been following with Dr. Villa for GI symptoms and should see Dr. 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 * DEEPAK: Chronic, continue on CPAP * Rheumatoid arthritis: Continue home dose of prednisone. She also gets Simponi every 8 weeks. * Hypothyroidism: Continue home dose of levothyroxine. PLANS: * Will give another dose of IV Lasix now and reassess at the end of the day, likely resume her usual oral dose at that time if doing well enough * Continue p.o. Vancomycin * Continue p.r.n. Antiemetics * Continue on her prednisone for RA * Continue valacyclovir with recent episode of disseminated zoster * Will recheck electrolytes tomorrow * Discharge to home once GI in respiratory symptoms stabilized well enough * Should have outpatient follow-up after C diff treatment with Dr. Villa in GI clinic as he has been following her for some ongoing GI symptoms Met with the at the bedside as well and he had many questions which I answered in detail for him Greater than 40 min at the bedside on my 1st visit today and will have a 2nd visit toward the end of the day SUBJECTIVE: Appetite a little better and eating some food though still having nausea day associated with the recurrent migraine headache Diarrhea slowing down with no bowel movement since last evening, no abdominal pain Did develop worsening shortness of breath through the night and P chest x-ray showed worsening pulmonary edema despite IV fluid having been stopped. She has now had a dose of Lasix this morning and responded well to that with good output and is feeling better OBJECTIVE Vitals reviewed: Had some tachypnea during the night and [employer] which is now improved after paresis, otherwise stable without fever Oxygen need had increased to 9 liters/minute but is back down to 5 L at this time (usually 3 L at home) Exam: alert oriented looks tired but relaxed skin warm dry color ok, no jaundice or rash resps mildly labored lungs very diminished breath sounds with some coarse rales at bases heart regular abd soft slightly less distended today, still soft and nontender with normal bowel sounds limbs warm, no edema iv site ok Microbiology: GI panel showing positive C difficile Imaging: I reviewed chest x-ray images from this morning which showed significant worsening pulmonary edema diffusely without pleural effusions of significance Objective: Vital Signs Temp Pulse Resp BP Pulse Ox 36.7 C 79 18 119/68 97 05/22/18 12:00 05/22/18 12:00 05/22/18 12:00 05/22/18 12:00 05/22/18 12:00 05/21/18 05/22/18 05/23/18 06:59 06:59 06:59 Intake Total 1387 3150 350 Output Total 550 2300 Balance 1387 2600 -1950 ICD10 Worksheet Patient Problems: Problems Problem Status Onset Dehydration Acute Vomiting and diarrhea Acute Pneumonia Acute Pulmonary embolism Acute Severe sepsis Acute Shingles Acute
[2018-05-22] MEDS: ASPIRIN 81 MG CHEWABLE TAB PO SCH (20:08)
[2018-05-22] MEDS: PROMETHAZINE HCL 25 MG/ML INJ IVP PRN (21:08)
[2018-05-23] MEDS: LEVOTHYROXINE 112 MCG TAB PO SCH (05:22)
[2018-05-23] MEDS: VANCOMYCIN 125 MG/2.5 ML UDL PO SCH ×4 (05:22→20:39)
[2018-05-23] MEDS: SUMAtriptan 50 MG TAB PO PRN (05:22)
[2018-05-23 06:13] LABS: PLATELET COUNT 391 10^3/uL (150-400)
[2018-05-23] MEDS: ENOXAPARIN 40 MG/0.4 ML SYR SC SCH (08:01)
[2018-05-23] MEDS: TORSEMIDE 20 MG TAB PO SCH (08:01)
[2018-05-23] MEDS: valACYclovir 500 MG TAB PO SCH ×2 (08:01→20:39)
[2018-05-23] MEDS: PANTOPRAZOLE SODIUM 40 MG TAB PO SCH (08:02)
[2018-05-23] MEDS: GABAPENTIN 400 MG CAP PO SCH ×3 (08:02→20:45)
[2018-05-23] MEDS: ROSUVASTATIN CALCIUM 10 MG TAB PO SCH (08:02)
[2018-05-23] MEDS: predniSONE 5 MG TAB PO SCH (08:02)
[2018-05-23] MEDS ORDERED: ALBUTEROL 3 ML DEYVIAL ONE (09:44)
--- NOTE | 2018-05-23 11:32 | HOSPPROG ---
Hospitalist Progress Note Assessment/Plan: * C difficile colitis with nausea vomiting diarrhea: * Continued improvement on p.o. Vanco * Given her initial presentation with the previous admission last week am not 100% certain this is C diff, however she was here for admission in March and had antibiotics at that time * Has been following with Dr. Villa for GI symptoms and should see Dr. Villa in GI clinic when she has completed treatment for C diff * acute hypoxemic respiratory failure * i think this is pna rather than pulm edema * got worse in spite of diuretics * health care associated pna * allergic to many abx * last year tolerated ceftriaxone - will start cefepime * acute migraine headaches * Recurrent episode today, has just been given Imitrex by nurse, will follow up on results* Recent disseminated zoster infection: continue valacyclovir. * DEEPAK: Chronic, continue on CPAP * Rheumatoid arthritis: Continue home dose of prednisone. She also gets Simponi every 8 weeks. * Hypothyroidism: Continue home dose of levothyroxine. Subjective: breathing worse. coughing. desat to 60 off o2. diarrhea better Objective: Vital Signs Temp Pulse Resp BP Pulse Ox 36.9 C 95 24 H 120/72 92 05/23/18 07:56 05/23/18 09:51 05/23/18 09:51 05/23/18 07:56 05/23/18 09:51 Laboratory Results 05/23/18 05:15 05/23/18 05:15 05/22/18 05/23/18 05/24/18 05:59 05:59 05:59 Intake Total 3150 3350 Output Total 550 6950 Balance 2600 -3600 - Physical Exam Constitutional: no apparent distress, appears nourished, not in pain Eyes: anicteric sclera, EOMI Ears, Nose, Mouth, Throat: moist mucous membranes Cardiovascular: regular rate and rhythym Respiratory: no respiratory distress, rhonchi Gastrointestinal: normoactive bowel sounds, soft, non-tender abdomen, no palpable masses Neurologic: AAOx3 Psychiatric: interacting appropriately, not anxious, not encephalopathic, thought process linear ICD10 Worksheet Patient Problems: Problems Problem Status Onset Dehydration Acute Vomiting and diarrhea Acute Pneumonia Acute Pulmonary embolism Acute Severe sepsis Acute Shingles Acute
[2018-05-23] MEDS ORDERED: CEFEPIME HCL 2 GM in NS 100 ML IV SCH ×2 (11:45→12:00)
[2018-05-23] MEDS: CEFEPIME HCL 2 GM in NS 100 ML IV SCH ×3 (11:59→13:24)
--- NOTE | 2018-05-23 15:44 | ASMTCMCOM ---
CM Note CM Note Notes: Plan remains the same, pt will dc home w/ [facility] (PT) when medically stable. DC Plan: Home care/ [facility] Date Signed: 05/23/2018 03:44 PM Electronically Signed By:Karlie Ragsdale RN
[2018-05-23] MEDS ORDERED: ALBUTEROL 3 ML DEYVIAL IH PRN (19:12)
[2018-05-23] MEDS: ASPIRIN 81 MG CHEWABLE TAB PO SCH (20:39)
[2018-05-23] MEDS: PROMETHAZINE HCL 25 MG/ML INJ IVP PRN (21:54)
[2018-05-24] MEDS: CEFEPIME HCL 2 GM in NS 100 ML IV SCH ×2 (01:04→11:57)
[2018-05-24 05:48] LABS: PLATELET COUNT 355 10^3/uL (150-400)
[2018-05-24] MEDS: VANCOMYCIN 125 MG/2.5 ML UDL PO SCH ×4 (05:51→20:38)
[2018-05-24] MEDS: LEVOTHYROXINE 112 MCG TAB PO SCH (05:51)
[2018-05-24] MEDS ORDERED: PROTOCOL POTASSIUM 1 DOSE MISC PRN (06:24)
[2018-05-24] MEDS ORDERED: POTASSIUM CL 10 MEQ TAB PO ONE ×2 (06:29→20:51)
[2018-05-24] MEDS: SUMAtriptan 50 MG TAB PO PRN (06:41)
[2018-05-24] MEDS: valACYclovir 500 MG TAB PO SCH ×2 (08:00→20:38)
[2018-05-24] MEDS: GABAPENTIN 400 MG CAP PO SCH ×3 (08:00→21:38)
[2018-05-24] MEDS: TORSEMIDE 20 MG TAB PO SCH (08:00)
[2018-05-24] MEDS: ENOXAPARIN 40 MG/0.4 ML SYR SC SCH (08:00)
[2018-05-24] MEDS: PANTOPRAZOLE SODIUM 40 MG TAB PO SCH (08:01)
[2018-05-24] MEDS: predniSONE 5 MG TAB PO SCH (08:01)
[2018-05-24] MEDS: ROSUVASTATIN CALCIUM 10 MG TAB PO SCH (08:01)
[2018-05-24] MEDS ORDERED: predniSONE 20 MG TAB PO ONE (09:25)
[2018-05-24] MEDS ORDERED: predniSONE 5 MG TAB PO SCH (09:26)
--- NOTE | 2018-05-24 09:32 | HOSPPROG ---
Hospitalist Progress Note Assessment/Plan: * C difficile colitis with nausea vomiting diarrhea: * Continued improvement on p.o. Vanco * Has been following with Dr. Villa for GI symptoms and should see Dr. Villa in GI clinic when she has completed treatment for C diff * acute hypoxemic respiratory failure * multifactorial - CHF, ?PNA, reactive airways * i think CHF is probably less of a component since she got worse inspite of good diuresis and lower ext edema that was present is resolved * cont home dose lasix, abx, increase prednisone * Diastolic CHF exacerbation * electrolytes low so hesitant to push diuretics higher. also increasing contraction alkalosis. but cxr is being read as edema - i think it may be pna * keep home dose of tourosemide * add back aldactone and home potassium doses *RAD exacerbation * wheezing on exam and chest feels tight * will increase prednisone dose to 40 daily * health care associated pna * allergic to many abx * cont cefepime - [facility] * check procalcitonin * acute migraine headaches * Recurrent episode today, has just been given Imitrex by nurse, will follow up on results* Recent disseminated zoster infection: continue valacyclovir. * DEEPAK: Chronic, continue on CPAP * Rheumatoid arthritis: Continue home dose of prednisone. She also gets Simponi every 8 weeks. * Hypothyroidism: Continue home dose of levothyroxine. Subjective: breathing about the same. some diarrhea. chest feels tight Objective: Vital Signs Temp Pulse Resp BP Pulse Ox 36.6 C 80 19 110/71 95 05/24/18 07:23 05/24/18 07:23 05/24/18 07:23 05/24/18 07:23 05/24/18 07:23 Laboratory Results 05/24/18 04:45 05/24/18 04:45 05/23/18 05/24/18 05/25/18 05:59 05:59 05:59 Intake Total 3350 2610 Output Total 8551 2700 Balance -3600 -90 - Physical Exam Constitutional: no apparent distress, appears nourished, not in pain Eyes: anicteric sclera, EOMI Ears, Nose, Mouth, Throat: moist mucous membranes Cardiovascular: regular rate and rhythym, No edema Respiratory: no respiratory distress, other (some fine exp wheeze, poor air movement. no rales) Gastrointestinal: normoactive bowel sounds, soft, non-tender abdomen, no palpable masses Skin: warm Neurologic: AAOx3 Psychiatric: interacting appropriately, not anxious, not encephalopathic, thought process linear ICD10 Worksheet Patient Problems: Problems Problem Status Onset Dehydration Acute Vomiting and diarrhea Acute Pneumonia Acute Pulmonary embolism Acute Severe sepsis Acute Shingles Acute
[2018-05-24] MEDS: SPIRONOLACTONE 25 MG TAB PO SCH (09:34)
[2018-05-24] MEDS: POTASSIUM CL 10 MEQ TAB PO SCH ×2 (11:57→17:07)
[2018-05-24] MEDS: ACETAMINOPHEN 325 MG TAB PO PRN (20:33)
[2018-05-24] MEDS: ASPIRIN 81 MG CHEWABLE TAB PO SCH (20:34)
[2018-05-25] MEDS: CEFEPIME HCL 2 GM in NS 100 ML IV SCH ×2 (01:36→12:31)
[2018-05-25 05:18] LABS: PLATELET COUNT 409 10^3/uL (150-400)
[2018-05-25] MEDS: VANCOMYCIN 125 MG/2.5 ML UDL PO SCH ×4 (06:06→21:09)
[2018-05-25] MEDS: LEVOTHYROXINE 112 MCG TAB PO SCH (06:06)
[2018-05-25] MEDS: ACETAMINOPHEN 325 MG TAB PO PRN (08:10)
[2018-05-25] MEDS: PANTOPRAZOLE SODIUM 40 MG TAB PO SCH (08:12)
[2018-05-25] MEDS: predniSONE 20 MG TAB PO SCH (08:12)
[2018-05-25] MEDS: TORSEMIDE 20 MG TAB PO SCH (08:12)
[2018-05-25] MEDS: POTASSIUM CL 10 MEQ TAB PO SCH ×3 (08:13→18:39)
[2018-05-25] MEDS: SPIRONOLACTONE 25 MG TAB PO SCH (08:13)
[2018-05-25] MEDS: ROSUVASTATIN CALCIUM 10 MG TAB PO SCH (08:14)
[2018-05-25] MEDS: valACYclovir 500 MG TAB PO SCH ×2 (08:14→21:09)
[2018-05-25] MEDS: GABAPENTIN 400 MG CAP PO SCH ×3 (08:15→21:09)
[2018-05-25] MEDS: ENOXAPARIN 40 MG/0.4 ML SYR SC SCH (08:15)
[2018-05-25] MEDS ORDERED: POTASSIUM CL 10 MEQ TAB PO ONE ×2 (09:35→22:15)
--- NOTE | 2018-05-25 14:40 | HOSPPROG ---
Hospitalist Progress Note Assessment/Plan: 77yo F with history of RA on chronic steroids who was recently discharged from this hospital & returns with ongoing nausea, vomiting, and diarrhea. Hospitalized 05/15- due to ileus. First encounter, chart reviewed. * C difficile colitis with nausea vomiting diarrhea: -Continued improvement on p.o. Vanco -should see Dr. Villa in GI clinic when she has completed treatment for C diff * acute hypoxemic respiratory failure -patient has chronic underlying pneumonitis, is always on O2 -procalcitonin is low, will dc iv abx in the setting of the above -suspect it is multifactorial, ?viral pna along w CHF -will do a respiratory panel to r/o influenza *RAD -prednisone -scheduled duonebs which have helped her in the past * Diastolic CHF exacerbation -resumed torsemide and Aldactone -will check a bnp -reviewed her recent echo done in March 2018 *concern for health care pna, suspect this is viral -wbc stable, procalcitonin low -stop abx at this time * acute migraine headaches -none further * DEEPAK: Chronic, continue on CPAP * Rheumatoid arthritis - Continue home dose of prednisone. She also gets Simponi every 8 weeks. * Hypothyroidism -levothyroxine. *Plan: will dc abx and see how she does, check a resp PCR, add duonebs Subjective: Spring is frustrated about all of her health issues. Objective: Vital Signs Temp Pulse Resp BP Pulse Ox 36.8 C 98 19 114/59 L 92 05/25/18 11:17 05/25/18 11:17 05/25/18 11:17 05/25/18 11:17 05/25/18 11:17 Laboratory Results 05/25/18 04:30 05/25/18 04:30 05/24/18 05/25/18 05/26/18 05:59 05:59 05:59 Intake Total 2610 600 Output Total 2700 Balance -90 600 - Physical Exam Constitutional: not in pain, chronically ill appearing, obese Eyes: PERRL Ears, Nose, Mouth, Throat: hearing normal Cardiovascular: regular rate and rhythym Respiratory: no respiratory distress, reduced air movement (mid lobes down) Gastrointestinal: normoactive bowel sounds, other (round) Skin: warm Musculoskeletal: generalized weakness Neurologic: AAOx3 Psychiatric: interacting appropriately ICD10 Worksheet Patient Problems: Problems Problem Status Onset Dehydration Acute Vomiting and diarrhea Acute Pneumonia Acute Pulmonary embolism Acute Severe sepsis Acute Shingles Acute
[2018-05-25] MEDS: IPRATROPIUM/ALBUTEROL 3 ML DEYVIAL IH SCH ×2 (15:56→23:10)
[2018-05-25] MEDS: ASPIRIN 81 MG CHEWABLE TAB PO SCH (21:09)
[2018-05-26] MEDS: LEVOTHYROXINE 112 MCG TAB PO SCH (05:41)
[2018-05-26] MEDS: VANCOMYCIN 125 MG/2.5 ML UDL PO SCH ×4 (05:41→21:20)
[2018-05-26] MEDS: IPRATROPIUM/ALBUTEROL 3 ML DEYVIAL IH SCH ×4 (05:49→23:24)
[2018-05-26] MEDS: PANTOPRAZOLE SODIUM 40 MG TAB PO SCH (07:38)
[2018-05-26] MEDS: predniSONE 20 MG TAB PO SCH (07:40)
[2018-05-26] MEDS: ROSUVASTATIN CALCIUM 10 MG TAB PO SCH (07:40)
[2018-05-26] MEDS: TORSEMIDE 20 MG TAB PO SCH (07:40)
[2018-05-26] MEDS: valACYclovir 500 MG TAB PO SCH ×2 (07:41→21:20)
[2018-05-26] MEDS: GABAPENTIN 400 MG CAP PO SCH ×3 (07:42→21:20)
[2018-05-26] MEDS: ACETAMINOPHEN 325 MG TAB PO PRN (07:42)
[2018-05-26] MEDS: ENOXAPARIN 40 MG/0.4 ML SYR SC SCH (07:43)
[2018-05-26] MEDS: SPIRONOLACTONE 25 MG TAB PO SCH (07:43)
[2018-05-26] MEDS: POTASSIUM CL 10 MEQ TAB PO SCH ×3 (07:43→18:04)
[2018-05-26] MEDS ORDERED: POTASSIUM CL 10 MEQ TAB PO ONE (07:56)
--- NOTE | 2018-05-26 14:16 | ASMTCMCOM ---
CM Note CM Note Notes: CM spoke to Dr. Gamez regarding this case. Pts respiratory rates are high. Awaiting on GI's input. Pt will dc with [facility] when medically stable. CM to follow. Plan: [facility]; PT Date Signed: 05/26/2018 02:15 PM Electronically Signed By:MADELIN Redding
--- NOTE | 2018-05-26 15:52 | HOSPPROG ---
Hospitalist Progress Note Assessment/Plan: 77yo F with history of RA on chronic steroids who was recently discharged from this hospital & returns with ongoing nausea, vomiting, and diarrhea. Hospitalized 05/15- due to ileus. First encounter, chart reviewed. * C difficile colitis with nausea vomiting diarrhea:still having watery diarrhea but somewhat improved. -Continued improvement on p.o. Vanco -should see Dr. Villa in GI clinic when she has completed treatment for C diff * acute hypoxemic respiratory failure- antibiotics were stopped yesterday and patient did not worsen overnight. Still using more oxygen than at home but improved compared to here yesterday. respiratory panel negative. -cont to monitor -duonebs *RAD -prednisone -scheduled duonebs which have helped her in the past * Diastolic CHF exacerbation -resumed torsemide and Aldactone -will check a bnp -reviewed her recent echo done in March 2018 *concern for health care pna, suspect this is viral -wbc stable, procalcitonin low -stop abx at this time * acute migraine headaches -none further * DEEPAK: Chronic, continue on CPAP * Rheumatoid arthritis - Continue home dose of prednisone. She also gets Simponi every 8 weeks. * Hypothyroidism -levothyroxine. *Plan: Monitor overnight, if still improving from respiratory status, and diarrhea resolved may dc home in next 1-2 days. Subjective: still with increased work of breathing. Still with diarrhea and abdominal distention Objective: Vital Signs Temp Pulse Resp BP Pulse Ox 36.6 C 98 26 H 106/65 94 05/26/18 11:31 05/26/18 11:31 05/26/18 11:31 05/26/18 11:31 05/26/18 11:31 Microbiology 05/25/18 16:20 Respiratory Panel (PCR) - Final Nasal, Sinus - Swab No Organism Detected By Pcr Laboratory Results 05/25/18 04:30 05/26/18 05:03 05/25/18 05/26/18 05/27/18 05:59 05:59 05:59 Intake Total 600 Balance 600 - Physical Exam Constitutional: no apparent distress, appears nourished, not in pain Eyes: PERRL, anicteric sclera, EOMI Ears, Nose, Mouth, Throat: moist mucous membranes, hearing normal, ears appear normal, no oral mucosal ulcers Cardiovascular: regular rate and rhythym, no murmur, rub, or gallop Respiratory: reduced air movement, expiratory wheeze Gastrointestinal: normoactive bowel sounds, soft, non-tender abdomen, no palpable masses Genitourinary: no bladder fullness, no bladder tenderness, no renal bruits Skin: no rashes or abrasions, no fluctuance, no induration Musculoskeletal: full muscle strength, no muscle tenderness, normal joint ROM Neurologic: AAOx3, sensation intact bilaterally Psychiatric: interacting appropriately, not anxious, not encephalopathic, thought process linear Lymph, Heme, Immunologic: no cervical LAD, no supraclavicular LAD ICD10 Worksheet Patient Problems: Problems Problem Status Onset Dehydration Acute Vomiting and diarrhea Acute Pneumonia Acute Pulmonary embolism Acute Severe sepsis Acute Shingles Acute
[2018-05-26] MEDS: ASPIRIN 81 MG CHEWABLE TAB PO SCH (21:20)
[2018-05-27] MEDS: SUMAtriptan 50 MG TAB PO PRN (03:56)
[2018-05-27] MEDS: IPRATROPIUM/ALBUTEROL 3 ML DEYVIAL IH SCH ×4 (05:07→22:03)
[2018-05-27] MEDS: LEVOTHYROXINE 112 MCG TAB PO SCH (05:26)
[2018-05-27] MEDS: VANCOMYCIN 125 MG/2.5 ML UDL PO SCH ×4 (05:26→21:03)
[2018-05-27] MEDS: ONDANSETRON 4 MG/2 ML VIAL IVP PRN (07:11)
[2018-05-27] MEDS ORDERED: POTASSIUM CL 10 MEQ TAB PO ONE (07:38)
[2018-05-27] MEDS: SPIRONOLACTONE 25 MG TAB PO SCH (10:01)
[2018-05-27] MEDS: PANTOPRAZOLE SODIUM 40 MG TAB PO SCH (10:01)
[2018-05-27] MEDS: GABAPENTIN 400 MG CAP PO SCH ×3 (10:01→21:03)
[2018-05-27] MEDS: ROSUVASTATIN CALCIUM 10 MG TAB PO SCH (10:02)
[2018-05-27] MEDS: POTASSIUM CL 10 MEQ TAB PO SCH ×3 (10:02→18:19)
[2018-05-27] MEDS: valACYclovir 500 MG TAB PO SCH ×2 (10:03→21:03)
[2018-05-27] MEDS: TORSEMIDE 20 MG TAB PO SCH (10:03)
[2018-05-27] MEDS: ENOXAPARIN 40 MG/0.4 ML SYR SC SCH (10:04)
[2018-05-27] MEDS: predniSONE 20 MG TAB PO SCH (10:04)
[2018-05-27 10:28] LABS: PLATELET COUNT 491 10^3/uL (150-400)
[2018-05-27] MEDS ORDERED: NS 1,000 ML IV SCH (13:00)
--- NOTE | 2018-05-27 14:16 | HOSPPROG ---
Hospitalist Progress Note Assessment/Plan: 77yo F with history of RA on chronic steroids who was recently discharged from this hospital & returns with ongoing nausea, vomiting, and diarrhea. Hospitalized 05/15- due to ileus. * C difficile colitis- patient saying she feels worse today. Worse diarrhea. leukocytosis up slightly. she also feels nauseated. -repeat CBC in am, if worse consult ID -restart IV saline as patient says she is not able to take much PO and is loosing fluids from at least 5 episodes of diarrhea today * acute hypoxemic respiratory failure- antibiotics were stopped two days ago and patient did not worsen overnight. Still using more oxygen than at home but improved compared to here yesterday. respiratory panel negative. -cont to monitor -duonebs *RAD -prednisone -scheduled duonebs which have helped her in the past * Diastolic CHF exacerbation -resumed torsemide and Aldactone -will check a bnp -reviewed her recent echo done in March 2018 *concern for health care pna, suspect this is viral -wbc stable, procalcitonin low -continue holding abx. * acute migraine headaches -none further * DEEPAK: Chronic, continue on CPAP * Rheumatoid arthritis - Continue home dose of prednisone. She also gets Simponi every 8 weeks. * Hypothyroidism -levothyroxine. *Plan:remain inpatient for Cdiff. if worsens in am, consult ID Subjective: diarrhea worsened today. at least 5 episodes. not taking good po. No pain however and breathing seems better. Objective: Vital Signs Temp Pulse Resp BP Pulse Ox 36.7 C 96 20 112/61 90 L 05/27/18 12:35 05/27/18 12:35 05/27/18 12:35 05/27/18 12:35 05/27/18 12:35 Laboratory Results 05/27/18 09:20 05/27/18 09:20 - Physical Exam Constitutional: no apparent distress, appears nourished, not in pain Eyes: PERRL, anicteric sclera, EOMI Ears, Nose, Mouth, Throat: moist mucous membranes, hearing normal, ears appear normal, no oral mucosal ulcers Cardiovascular: regular rate and rhythym, no murmur, rub, or gallop Respiratory: no respiratory distress, no rales or rhonchi, expiratory wheeze, bronchial breath sounds Gastrointestinal: normoactive bowel sounds, soft, non-tender abdomen, no palpable masses Genitourinary: no bladder fullness, no bladder tenderness, no renal bruits Skin: no rashes or abrasions, no fluctuance, no induration Musculoskeletal: full muscle strength, no muscle tenderness, normal joint ROM Neurologic: AAOx3, sensation intact bilaterally Psychiatric: interacting appropriately, not anxious, not encephalopathic, thought process linear Lymph, Heme, Immunologic: no cervical LAD, no supraclavicular LAD ICD10 Worksheet Patient Problems: Problems Problem Status Onset Dehydration Acute Vomiting and diarrhea Acute Pneumonia Acute Pulmonary embolism Acute Severe sepsis Acute Shingles Acute
[2018-05-27] MEDS: ASPIRIN 81 MG CHEWABLE TAB PO SCH (21:03)
[2018-05-28] MEDS: VANCOMYCIN 125 MG/2.5 ML UDL PO SCH ×4 (05:08→21:39)
[2018-05-28] MEDS: LEVOTHYROXINE 112 MCG TAB PO SCH (05:08)
[2018-05-28] MEDS: IPRATROPIUM/ALBUTEROL 3 ML DEYVIAL IH SCH ×4 (05:13→22:34)
[2018-05-28 06:03] LABS: PLATELET COUNT 433 10^3/uL (150-400)
[2018-05-28] MEDS: GABAPENTIN 400 MG CAP PO SCH ×3 (09:00→21:38)
[2018-05-28] MEDS: predniSONE 20 MG TAB PO SCH (09:00)
[2018-05-28] MEDS: TORSEMIDE 20 MG TAB PO SCH (09:00)
[2018-05-28] MEDS: PANTOPRAZOLE SODIUM 40 MG TAB PO SCH (09:00)
[2018-05-28] MEDS: SPIRONOLACTONE 25 MG TAB PO SCH (09:01)
[2018-05-28] MEDS: ROSUVASTATIN CALCIUM 10 MG TAB PO SCH (09:01)
[2018-05-28] MEDS: POTASSIUM CL 10 MEQ TAB PO SCH ×3 (09:02→17:58)
[2018-05-28] MEDS: ENOXAPARIN 40 MG/0.4 ML SYR SC SCH (09:03)
[2018-05-28] MEDS: valACYclovir 500 MG TAB PO SCH ×2 (09:07→21:38)
[2018-05-28] MEDS ORDERED: CANN-EASE 2 GM TUBE TP PRN (11:05)
--- NOTE | 2018-05-28 13:16 | HOSPPROG ---
Hospitalist Progress Note Assessment/Plan: 77yo F with history of RA on chronic steroids who was recently discharged from this hospital & returns with ongoing nausea, vomiting, and diarrhea. Hospitalized 05/15- due to ileus. * C difficile colitis- patient improving today. less diarrhea, less nausea. tolerating some PO. -repeat CBC in am, if worse consult ID If tolerating good PO will stop IVF. * acute hypoxemic respiratory failure- antibiotics were stopped three days ago and patient did not worsen overnight. Still using more oxygen than at home but improved compared to here yesterday. respiratory panel negative. -cont to monitor -duonebs *RAD -prednisone -scheduled duonebs which have helped her in the past * Diastolic CHF exacerbation -resumed torsemide and Aldactone -reviewed her recent echo done in March 2018 *concern for health care pna, suspect this is viral - recheck procalcitonin in am. -continue holding abx. * acute migraine headaches -none further * DEEPAK: Chronic, continue on CPAP * Rheumatoid arthritis - Continue home dose of prednisone. She also gets Simponi every 8 weeks. * Hypothyroidism -levothyroxine. *Plan:remain inpatient for Cdiff. if worsens in am, consult ID Subjective: somewhat improved. tolerating some po. less diarrhea. Objective: Vital Signs Temp Pulse Resp BP Pulse Ox 36.7 C 97 20 116/65 90 L 05/28/18 11:45 05/28/18 11:45 05/28/18 11:45 05/28/18 11:45 05/28/18 11:45 Laboratory Results 05/28/18 05:22 05/28/18 05:22 05/27/18 05/28/18 05/29/18 05:59 05:59 05:59 Intake Total 500 Balance 500 - Physical Exam Constitutional: no apparent distress, appears nourished, not in pain Eyes: PERRL, anicteric sclera, EOMI Ears, Nose, Mouth, Throat: moist mucous membranes, hearing normal, ears appear normal, no oral mucosal ulcers Cardiovascular: regular rate and rhythym, no murmur, rub, or gallop Respiratory: reduced air movement Gastrointestinal: normoactive bowel sounds, soft, non-tender abdomen, no palpable masses Genitourinary: no bladder fullness, no bladder tenderness, no renal bruits Skin: no rashes or abrasions, no fluctuance, no induration Musculoskeletal: full muscle strength, no muscle tenderness, normal joint ROM Neurologic: AAOx3, sensation intact bilaterally Psychiatric: interacting appropriately, not anxious, not encephalopathic, thought process linear Lymph, Heme, Immunologic: no cervical LAD, no supraclavicular LAD ICD10 Worksheet Patient Problems: Problems Problem Status Onset Dehydration Acute Vomiting and diarrhea Acute Pneumonia Acute Pulmonary embolism Acute Severe sepsis Acute Shingles Acute
[2018-05-28] MEDS: ACETAMINOPHEN 325 MG TAB PO PRN ×2 (16:03→21:38)
[2018-05-28] MEDS ORDERED: CALCIUM CARBONATE 500 MG CHEWABLE TAB PO PRN (18:33)
[2018-05-28] MEDS: ASPIRIN 81 MG CHEWABLE TAB PO SCH (21:38)
[2018-05-28] MEDS: ONDANSETRON 4 MG/2 ML VIAL IVP PRN (22:28)
[2018-05-29] MEDS: LEVOTHYROXINE 112 MCG TAB PO SCH (05:04)
[2018-05-29] MEDS: VANCOMYCIN 125 MG/2.5 ML UDL PO SCH ×4 (05:04→21:25)
[2018-05-29] MEDS: IPRATROPIUM/ALBUTEROL 3 ML DEYVIAL IH SCH ×4 (05:16→23:36)
[2018-05-29 05:40] LABS: PLATELET COUNT 382 10^3/uL (150-400)
[2018-05-29] MEDS: GABAPENTIN 400 MG CAP PO SCH ×3 (07:12→21:25)
[2018-05-29] MEDS: TORSEMIDE 20 MG TAB PO SCH (08:37)
[2018-05-29] MEDS: ROSUVASTATIN CALCIUM 10 MG TAB PO SCH (08:37)
[2018-05-29] MEDS: POTASSIUM CL 10 MEQ TAB PO SCH ×3 (08:37→17:24)
[2018-05-29] MEDS: ACETAMINOPHEN 325 MG TAB PO PRN ×2 (08:37→17:23)
[2018-05-29] MEDS: SPIRONOLACTONE 25 MG TAB PO SCH (08:38)
[2018-05-29] MEDS: valACYclovir 500 MG TAB PO SCH ×2 (08:38→21:25)
[2018-05-29] MEDS: predniSONE 20 MG TAB PO SCH (08:38)
[2018-05-29] MEDS: ENOXAPARIN 40 MG/0.4 ML SYR SC SCH (08:39)
[2018-05-29] MEDS: PANTOPRAZOLE SODIUM 40 MG TAB PO SCH (08:39)
--- NOTE | 2018-05-29 12:26 | ASMTCMCOM ---
CM Note CM Note Notes: Spoke w/MD and RN, pt slow to recover. She will have a pulmonary consult today, continues to feel weak, working with PT/OT. Pt is current with [facility], plan remains the same, pt will dc home w/homecare when medically stable, CM available for any changes. DC Plan: Homecare/ [facility] Date Signed: 05/29/2018 12:26 PM Electronically Signed By:Karlie Ragsdale RN
--- NOTE | 2018-05-29 12:27 | ASMTLACE ---
LACE Length of stay for Answers: 7-13 days current admission Acuity / Level of Answers: Yes Care: Did the patient have an inpatient admission? Comorbidities - select Answers: Congestive heart failure all that apply Other Notes: Chronic Hypoxia, RA # of Emergency department Answers: 5-8 visits in the last 6 months Score: 15 Date Signed: 05/29/2018 12:26 PM Electronically Signed By:Karlie Ragsdale RN
--- NOTE | 2018-05-29 12:47 | HOSPPROG ---
Hospitalist Progress Note Assessment/Plan: 77yo F with history of RA on chronic steroids who was recently discharged from this hospital & returns with ongoing nausea, vomiting, and diarrhea. Hospitalized 05/15- due to ileus. Found to have Cdiff. * C difficile colitis- patient improving today. less diarrhea, less nausea. tolerating some PO. -repeat CBC in am, if worse consult ID -biff cap IVF for now * acute hypoxemic respiratory failure- antibiotics were stopped three days ago and patient did not worsen overnight. Still using more oxygen than at home but improved compared to here yesterday. respiratory panel negative. -cont to monitor -duonebs -prednisone. -pulmonology consult pending. -I reviewed her CXR which to me actually looks improved. *RAD -prednisone -scheduled duonebs which have helped her in the past * Diastolic CHF exacerbation -resumed torsemide and Aldactone -reviewed her recent echo done in March 2018 *concern for health care pna, suspect this is viral - recheck procalcitonin in am. -continue holding abx. * acute migraine headaches -none further * DEEPAK: Chronic, continue on CPAP * Rheumatoid arthritis - Continue home dose of prednisone. She also gets Simponi every 8 weeks. * Hypothyroidism -levothyroxine. *Plan:If patient continues to improve possible DC in next 1-2 days Subjective: patient better this am. No NV. had 1 semi formed BM. tolerating po Objective: Vital Signs Temp Pulse Resp BP Pulse Ox 36.6 C 90 18 115/59 L 92 05/29/18 11:38 05/29/18 11:38 05/29/18 11:38 05/29/18 11:38 05/29/18 11:38 Laboratory Results 05/29/18 04:50 05/29/18 04:50 05/28/18 05/29/18 05/30/18 05:59 05:59 05:59 Intake Total 500 Balance 500 - Physical Exam Constitutional: no apparent distress, appears nourished, not in pain Eyes: PERRL, anicteric sclera, EOMI Ears, Nose, Mouth, Throat: moist mucous membranes, hearing normal, ears appear normal, no oral mucosal ulcers Cardiovascular: regular rate and rhythym, no murmur, rub, or gallop Respiratory: no respiratory distress, no rales or rhonchi, clear to auscultation Gastrointestinal: normoactive bowel sounds, soft, non-tender abdomen, no palpable masses Genitourinary: no bladder fullness, no bladder tenderness, no renal bruits Skin: no rashes or abrasions, no fluctuance, no induration Musculoskeletal: full muscle strength, no muscle tenderness, normal joint ROM Neurologic: AAOx3, sensation intact bilaterally Psychiatric: interacting appropriately, not anxious, not encephalopathic, thought process linear Lymph, Heme, Immunologic: no cervical LAD, no supraclavicular LAD ICD10 Worksheet Patient Problems: Problems Problem Status Onset Dehydration Acute Vomiting and diarrhea Acute Pneumonia Acute Pulmonary embolism Acute Severe sepsis Acute Shingles Acute
--- NOTE | 2018-05-29 15:12 | HOSPPROG ---
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 Hospitalized 05/15- due to ileus. Found to have Cdiff. * C difficile colitis- patient improving today. less diarrhea, less nausea. tolerating some PO. -repeat CBC in am, if worse consult ID -biff cap IVF for now * acute on chronic hypoxemic respiratory failure- On 3 liters at home but requiring 5 liters here consistently. chronically on steroids but they were increased and she has not really improved. Respiratory panel negative, initially started on abx but these were stopped and patient did not worsen. -cont to monitor -duonebs - cont prednisone. -pulmonology consult pending. -I reviewed her CXR which to me actually looks improved. *RAD -prednisone -scheduled duonebs which have helped her in the past * Diastolic CHF exacerbation -resumed torsemide and Aldactone -reviewed her recent echo done in March 2018 *concern for health care pna, suspect this is viral - recheck procalcitonin in am. -continue holding abx. * acute migraine headaches -none further * DEEPAK: Chronic, continue on CPAP * Rheumatoid arthritis - Continue home dose of prednisone. She also gets Simponi every 8 weeks. * Hypothyroidism -levothyroxine. *Plan:If patient continues to improve possible DC in next 1-2 days Subjective: patient feels better today, only 1 formed BM overnight so far. tolerating po. breathing about the same. Objective: Vital Signs Temp Pulse Resp BP Pulse Ox 36.6 C 90 18 115/59 L 92 05/29/18 11:38 05/29/18 11:38 05/29/18 11:38 05/29/18 11:38 05/29/18 11:38 Laboratory Results 05/29/18 04:50 05/29/18 04:50 05/28/18 05/29/18 05/30/18 05:59 05:59 05:59 Intake Total 500 Balance 500 - Physical Exam Constitutional: no apparent distress, appears nourished, not in pain Eyes: PERRL, anicteric sclera, EOMI Ears, Nose, Mouth, Throat: moist mucous membranes, hearing normal, ears appear normal, no oral mucosal ulcers Cardiovascular: regular rate and rhythym, no murmur, rub, or gallop Respiratory: no respiratory distress, no rales or rhonchi, clear to auscultation Gastrointestinal: normoactive bowel sounds, soft, non-tender abdomen, no palpable masses Genitourinary: no bladder fullness, no bladder tenderness, no renal bruits Skin: no rashes or abrasions, no fluctuance, no induration Musculoskeletal: full muscle strength, no muscle tenderness, normal joint ROM Neurologic: AAOx3, sensation intact bilaterally Psychiatric: interacting appropriately, not anxious, not encephalopathic, thought process linear Lymph, Heme, Immunologic: no cervical LAD, no supraclavicular LAD ICD10 Worksheet Patient Problems: Problems Problem Status Onset Dehydration Acute Vomiting and diarrhea Acute Pneumonia Acute Pulmonary embolism Acute Severe sepsis Acute Shingles Acute
[2018-05-29] MEDS: ASPIRIN 81 MG CHEWABLE TAB PO SCH (21:25)
[2018-05-29] MEDS: SUMAtriptan 50 MG TAB PO PRN (21:28)
[2018-05-29] MEDS: ONDANSETRON 4 MG/2 ML VIAL IVP PRN (23:11)
[2018-05-30] MEDS: LEVOTHYROXINE 112 MCG TAB PO SCH (05:31)
[2018-05-30] MEDS: IPRATROPIUM/ALBUTEROL 3 ML DEYVIAL IH SCH ×4 (05:57→21:07)
[2018-05-30] MEDS: VANCOMYCIN 125 MG/2.5 ML UDL PO SCH ×4 (06:13→20:45)
[2018-05-30] MEDS: ROSUVASTATIN CALCIUM 10 MG TAB PO SCH (08:43)
[2018-05-30] MEDS: ENOXAPARIN 40 MG/0.4 ML SYR SC SCH (08:43)
[2018-05-30] MEDS: GABAPENTIN 400 MG CAP PO SCH ×3 (08:43→20:44)
[2018-05-30] MEDS: predniSONE 20 MG TAB PO SCH (08:44)
[2018-05-30] MEDS: valACYclovir 500 MG TAB PO SCH ×2 (08:45→20:44)
[2018-05-30] MEDS: SPIRONOLACTONE 25 MG TAB PO SCH (08:45)
[2018-05-30] MEDS: TORSEMIDE 20 MG TAB PO SCH (08:45)
[2018-05-30] MEDS: PANTOPRAZOLE SODIUM 40 MG TAB PO SCH (08:45)
[2018-05-30] MEDS: POTASSIUM CL 10 MEQ TAB PO SCH ×3 (08:53→17:33)
[2018-05-30 12:44] LABS: PLATELET COUNT 454 10^3/uL (150-400)
--- NOTE | 2018-05-30 13:44 | HOSPPROG ---
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 Hospitalized 05/15- due to ileus. Found to have Cdiff, on vancomycin 250mg daily started on 05/19/18. Today is day 12 of abx. * C difficile colitis- stools loose per patient still but not diarrhea. eating okay. white count bumped but may be related to steroids. She is tolerating PO well. * acute on chronic hypoxemic respiratory failure- secondary to rheumatoid pneumonitis. Follows with Dr. Elias. On 3 liters at home but requiring 5 liters here consistently. chronically on steroids but they were increased and she has not really improved. Respiratory panel negative, initially started on abx but these were stopped and patient did not worsen. -cont to monitor -duonebs - cont prednisone. -pulmonology consult pending. -I reviewed her CXR which to me actually looks improved. *RAD -prednisone -scheduled duonebs which have helped her in the past * Diastolic CHF exacerbation -resumed torsemide and Aldactone -reviewed her recent echo done in March 2018 *concern for health care pna, suspect this is viral - recheck procalcitonin in am. -continue holding abx. * acute migraine headaches -none further * DEEPAK: Chronic, continue on CPAP * Rheumatoid arthritis - Continue home dose of prednisone. She also gets Simponi every 8 weeks. * Hypothyroidism -levothyroxine. *Plan:If patient continues to improve possible DC in next 1-2 days Objective: Vital Signs Temp Pulse Resp BP Pulse Ox 36.7 C 95 20 102/84 H 90 L 05/30/18 11:53 05/30/18 11:53 05/30/18 11:53 05/30/18 11:53 05/30/18 11:53 Laboratory Results 05/30/18 11:14 05/30/18 11:14 05/29/18 05/30/18 05/31/18 05:59 05:59 05:59 Intake Total 1000 Balance 1000 - Physical Exam Constitutional: no apparent distress, appears nourished, not in pain Eyes: PERRL, anicteric sclera, EOMI Ears, Nose, Mouth, Throat: moist mucous membranes, hearing normal, ears appear normal, no oral mucosal ulcers Cardiovascular: regular rate and rhythym, no murmur, rub, or gallop Respiratory: no respiratory distress, reduced air movement, expiratory wheeze Gastrointestinal: normoactive bowel sounds, soft, non-tender abdomen, no palpable masses Genitourinary: no bladder fullness, no bladder tenderness, no renal bruits Skin: no rashes or abrasions, no fluctuance, no induration Musculoskeletal: full muscle strength, no muscle tenderness, normal joint ROM Neurologic: AAOx3, sensation intact bilaterally Psychiatric: interacting appropriately, not anxious, not encephalopathic, thought process linear Lymph, Heme, Immunologic: no cervical LAD, no supraclavicular LAD ICD10 Worksheet Patient Problems: Problems Problem Status Onset Dehydration Acute Vomiting and diarrhea Acute Pneumonia Acute Pulmonary embolism Acute Severe sepsis Acute Shingles Acute
[2018-05-30] MEDS ORDERED: predniSONE 20 MG TAB PO SCH (16:39)
[2018-05-30] MEDS ORDERED: FUROSEMIDE 20 MG/2 ML VIAL IVP ONE (16:41)
--- NOTE | 2018-05-30 17:43 | GCON ---
PULMONARY/CRITICAL CARE CONSULTATION DATE OF CONSULTATION: 05/30/2018 REFERRING PHYSICIAN: Patrick Sharma MD REASON FOR REFERRAL: Evaluation and management of dyspnea and hypoxemia with pulmonary infiltrates. HISTORY: The patient is a 77-year-old woman followed by Dr. Elias for sleep apnea and a history of organizing pneumonia. She also has rheumatoid arthritis , and the thought is that she may have a component of rheumatoid lung. She has been doing fairly well at home, on oxygen most of the time, but sometimes not using oxygen at all. She has been weaned down to just 5 mg a day of prednisone. She was admitted on [facility] with nausea, vomiting, and diarrhea, and was found to have an ileus at that time. This occurred after a short hospitalization for an ileus. She was felt to be quite dehydrated and was fluid resuscitated. Her diuretics were then restarted. She reports that over the last few days she has had more increased dyspnea and has had increased oxygen needs as well. She now has difficulty even walking around the room. She denies any cough. She does report indigestion in the evening, and there is a known history of gastroesophageal reflux. She has not had fevers. She reports that her edema was worse earlier in the hospitalization, and is getting a bit better. PAST MEDICAL HISTORY: 1. Obstructive sleep apnea. The patient has severe obstructive sleep apnea for which she uses CPAP and oxygen and is compliant with a normal apnea- hypopnea index. 2. Pneumonitis. This was apparently diagnosed in 2016, with a lung biopsy demonstrating patchy organizing nonspecific pneumonitis, that was felt to be either postinfectious or perhaps related to rheumatoid arthritis. It was not felt to be typical for a methotrexate lung. She was started on steroids, but with a drop, she had increased dyspnea. She more recently was able to be weaned down to 5 mg daily. Pulmonary function tests done in January 2018, were essentially normal. Pulmonary embolism, small volume in 2017. 3. History of asthma. 4. Morbid obesity. 5. Congestive heart failure. This is managed by Dr. Christie. 6. Rheumatoid arthritis. 7. Diverticulitis. 8. History of bowel obstruction. MEDICATIONS: At the time of admission include: Gabapentin, levothyroxine, spironolactone 25 mg daily, aspirin, Bentyl, prednisone 5 mg daily, Valtrex, torsemide 40 mg daily. ALLERGIES: Amoxicillin, atorvastatin, ciprofloxacin, erythromycin, Fentanyl, guaifenesin, midazolam, sulfa. SOCIAL HISTORY: The patient is a former smoker. FAMILY HISTORY: Unremarkable. REVIEW OF SYSTEMS: A 10-point review of systems adds nothing to the History of Present Illness. PHYSICAL EXAM: GENERAL: Patient is awake, alert, in no acute distress, lying in bed. VITAL SIGNS: Blood pressure is 122/68, with a heart rate of 95. She is afebrile. Oxygen saturations are 93% on 5 L. HEENT: Normocephalic and atraumatic. No icterus. NECK: No adenopathy. Trachea is midline. CHEST: A few rales in the left base. CARDIAC: Regular rate and rhythm without murmur. ABDOMEN: Soft, nontender. Bowel sounds are present. EXTREMITIES: No clubbing or [id number]. She has 1+ lower extremity edema. NEURO: The patient is awake, alert. No gross motor or sensory deficits. LABORATORY: White blood count is 13.4, slightly higher than the last few days. Hemoglobin is 11.4, with an MCV of 87.2. Platelet count is 454. Chemistry group shows sodium 132. BUN and creatinine normal. Glucose is 106. BNP was 907 on 05/25. This was normal on testing earlier this year. IMAGING: A chest x-ray shows some increase in some basilar opacities superimposed on some mild interstitial lung disease. Images reviewed by me. A CT scan of the abdomen from May 18 shows some increase in basilar interstitial changes when compared to a CAT scan of the abdomen done in March. This in turn was improved from the CAT scan from May 2017. Images reviewed by me. ASSESSMENT: 1. Dyspnea, hypoxemia, and interstitial lung disease. The patient has some increase in basilar infiltrates. The differential diagnosis is broad, including an infectious causes, increased pneumonitis/organizing pneumonia ( noninfectious), pulmonary edema, and aspiration. I think that given the recent increase in BNP and significant fluid shifts, mild pulmonary edema/congestive heart failure is the most likely cause. I note that the patient has been restarted on torsemide and Aldactone, but is actually on a lower dose than she was when seen by Dr. Christie in March, when she was on 80 mg of torsemide daily. Aspiration is also a possible cause of the increased basilar pulmonary infiltrates, and she does have a history of gastroesophageal reflux disease and reports an indigestion in the evening. 2. Obstructive sleep apnea. This is effectively treated with continuous positive airway pressure, based on a recent visit with Dr. Elias. However, she has had significant hypoxemia here in the hospital, requiring up to 10 L of oxygen via her continuous positive airway pressure. 3. History of congestive heart failure, class 3 diastolic. As above, my sense is that she may need an increase in her diuretic in order to help address her dyspnea and hypoxemia, as she is currently on less diuretics that she was when last seen by Dr. Christie. RECOMMENDATIONS: I will give the patient a dose of Lasix now. Will check a BNP. Consider cardiology followup, which may be most useful on Friday if Dr. Christie is available. Otherwise, I would consider an increase in her torsemide back up to 80 mg daily if her BNP is significantly elevated. Continue the use of CPAP at night. Decrease prednisone to 20 mg daily, with an aim towards decreasing it further as tolerated. Agree with holding antibiotics. Consider further evaluation and treatment for possible reflux/aspiration if diuresis does not help. /[id number]/MODL MTDD
[2018-05-30] MEDS: ASPIRIN 81 MG CHEWABLE TAB PO SCH (20:44)
[2018-05-31] MEDS: LEVOTHYROXINE 112 MCG TAB PO SCH (05:22)
[2018-05-31] MEDS: VANCOMYCIN 125 MG/2.5 ML UDL PO SCH ×4 (05:22→21:10)
[2018-05-31 06:00] LABS: PLATELET COUNT 374 10^3/uL (150-400)
[2018-05-31] MEDS: IPRATROPIUM/ALBUTEROL 3 ML DEYVIAL IH SCH ×4 (06:14→21:25)
[2018-05-31] MEDS: SUMAtriptan 50 MG TAB PO PRN (08:26)
[2018-05-31] MEDS: TORSEMIDE 20 MG TAB PO SCH (08:28)
[2018-05-31] MEDS: ROSUVASTATIN CALCIUM 10 MG TAB PO SCH (08:28)
[2018-05-31] MEDS: POTASSIUM CL 10 MEQ TAB PO SCH ×3 (08:29→17:52)
[2018-05-31] MEDS: GABAPENTIN 400 MG CAP PO SCH ×3 (08:30→21:09)
[2018-05-31] MEDS: SPIRONOLACTONE 25 MG TAB PO SCH (08:30)
[2018-05-31] MEDS: valACYclovir 500 MG TAB PO SCH ×2 (08:30→21:09)
[2018-05-31] MEDS: PANTOPRAZOLE SODIUM 40 MG TAB PO SCH (08:31)
[2018-05-31] MEDS: ENOXAPARIN 40 MG/0.4 ML SYR SC SCH (08:31)
[2018-05-31] MEDS ORDERED: FUROSEMIDE 20 MG/2 ML VIAL IVP ONE (14:48)
--- NOTE | 2018-05-31 15:19 | HOSPPROG ---
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 Hospitalized 05/15- due to ileus. Found to have Cdiff, on vancomycin 250mg daily started on 05/19/18. Today is day 13/14 of abx. * C difficile colitis- no loose stools since yesterday. finally eating well. taking adequate po to meet needs. On PO vancomycin at 250 QID. Continue vancomycin. * acute on chronic hypoxemic respiratory failure- secondary to rheumatoid pneumonitis. Follows with Dr. Elias. On 3 liters at home but requiring 5 liters here consistently. chronically on steroids but they were increased and she has not really improved. Respiratory panel negative, initially started on abx but these were stopped and patient did not worsen. BNP checked overight and only 300. patient given one time dose of lasix overnight with good diuresis. Oxygen requirement still remains elevated. pulmonary has seen patient who feels patients symptoms may be secondary to diastolic HF. -cont to monitor -duonebs - Decrease prednisone to 2-mg QD *RAD -prednisone down to 20 -scheduled duonebs which have helped her in the past * Diastolic CHF exacerbation -resumed torsemide and Aldactone, will consult cardiology in am, hopefully patient can see Dr. Christie -reviewed her recent echo done in March 2018 *concern for health care pna, suspect this is viral - recheck procalcitonin in am. -continue holding abx. * acute migraine headaches -none further * DEEPAK: Chronic, continue on CPAP. Using up to 10 liters on CPAP at night. * Rheumatoid arthritis - Continue home dose of prednisone. She also gets Simponi every 8 weeks. * Hypothyroidism -levothyroxine. *Plan:If patient continues to improve possible DC in next 1-2 days Subjective: Much improved today in regards to GI. No longer with diarrhea. breathing about the same. Objective: Vital Signs Temp Pulse Resp BP Pulse Ox 36.8 C 86 16 118/53 L 24 L 05/31/18 12:00 05/31/18 12:00 05/31/18 12:00 05/31/18 12:00 05/31/18 12:00 Laboratory Results 05/31/18 03:15 05/31/18 03:15 05/30/18 05/31/1806/01/19 05:59 05:59 05:59 Intake Total 1000 700 Output Total 1000 1700 Balance 1000 -300 -1700 - Physical Exam Constitutional: no apparent distress, appears nourished, not in pain Eyes: PERRL, anicteric sclera, EOMI Ears, Nose, Mouth, Throat: moist mucous membranes, hearing normal, ears appear normal, no oral mucosal ulcers Cardiovascular: regular rate and rhythym, no murmur, rub, or gallop Respiratory: no respiratory distress, reduced air movement, expiratory wheeze Gastrointestinal: normoactive bowel sounds, soft, non-tender abdomen, no palpable masses Genitourinary: no bladder fullness, no bladder tenderness, no renal bruits Skin: no rashes or abrasions, no fluctuance, no induration Musculoskeletal: full muscle strength, no muscle tenderness, normal joint ROM Neurologic: AAOx3, sensation intact bilaterally Psychiatric: interacting appropriately, not anxious, not encephalopathic, thought process linear Lymph, Heme, Immunologic: no cervical LAD, no supraclavicular LAD ICD10 Worksheet Patient Problems: Problems Problem Status Onset Dehydration Acute Vomiting and diarrhea Acute Pneumonia Acute Pulmonary embolism Acute Severe sepsis Acute Shingles Acute
[2018-05-31] MEDS: ACETAMINOPHEN 325 MG TAB PO PRN (15:39)
--- NOTE | 2018-05-31 15:42 | PDINTPN ---
Title Checker Progress Note Assessment/Plan: Assessment: Dyspnea, hypoxemia, and interstitial lung disease: The patient's oxygen needs are marginally better and she feels a bit less dyspneic. This could be due to IV Lasix she got yesterday. As per my note yesterday, I do not think that this is due to progressive significant rapid progression of her interstitial lung disease. The CT shows more interstitial changes than parenchymal changes, arguing against an active pneumonitis. Her BNP is down from last week, and her BUN bumped slightly, but I still think she may benefit from trying to get her back to her prior to torsemide dose of 80 mg daily to see if that improves her symptoms. Obstructive sleep apnea. The patient is compliant with CPAP and is using oxygen here in the hospital. Plan: Repeat a dose of IV Lasix today, then increase torsemide to her outpatient dose of 80 mg daily. Follow BUN/creatinine closely. I'll decrease her prednisone again today to 10 mg daily, as that could be contributing to fluid retention and also possibly her reflux. If she does not improve with diuresis, consider a barium swallow to see the severity of her reflux to try to help determine at that could be contributing to her hypoxia and basilar interstitial infiltrates. 05/31/18 15:42 Subjective: Feels a bit better. She attributes this in part to getting better sleep last night. She feels a bit less dyspneic. Objective: Vital Signs Temp Pulse Resp BP Pulse Ox 36.8 C 86 16 118/53 L 24 L 05/31/18 12:00 05/31/18 12:00 05/31/18 12:00 05/31/18 12:00 05/31/18 12:00 Laboratory Results 05/31/18 03:15 05/31/18 03:15 05/30/18 05/31/18 06/01/18 05:59 05:59 05:59 Intake Total 1000 700 Output Total 1000 1700 Balance 1000 -300 -1700 Physical Exam - Physical Exam General Appearance: alert, no apparent distress EENT: normal ENT inspection Neck: normal inspection Respiratory: lungs clear, normal breath sounds, crackles (Bases) Cardiac/Chest: regular rate, rhythm, edema Abdomen: normal bowel sounds, non-tender, soft Skin: normal color, warm/dry Extremities: normal inspection Neuro/Psych: alert, normal mood/affect ICD10 Worksheet Patient Problems: Problems Problem Status Onset Dehydration Acute Vomiting and diarrhea Acute Pneumonia Acute Pulmonary embolism Acute Severe sepsis Acute Shingles Acute
--- NOTE | 2018-05-31 17:04 | ASMTCMCOM ---
CM Note CM Note Notes: CM discussed case with ANTONY Arauz. Patient currently requires O2 at 5L. CM to follow. D/C Plan: [facility] home care Date Signed: 05/31/2018 05:03 PM Electronically Signed By:Preeti Nicole
[2018-05-31] MEDS: ASPIRIN 81 MG CHEWABLE TAB PO SCH (21:10)
[2018-05-31] MEDS: ONDANSETRON DISINTEGRATING 4 MG TAB PO PRN (21:13)
[2018-06-01 05:43] LABS: PLATELET COUNT 383 10^3/uL (150-400)
[2018-06-01] MEDS: LEVOTHYROXINE 112 MCG TAB PO SCH (05:44)
[2018-06-01] MEDS: VANCOMYCIN 125 MG/2.5 ML UDL PO SCH ×4 (05:44→21:57)
[2018-06-01] MEDS: IPRATROPIUM/ALBUTEROL 3 ML DEYVIAL IH SCH ×4 (06:20→23:09)
[2018-06-01] MEDS: valACYclovir 500 MG TAB PO SCH ×2 (09:10→20:13)
[2018-06-01] MEDS: GABAPENTIN 400 MG CAP PO SCH ×3 (09:10→20:13)
[2018-06-01] MEDS: POTASSIUM CL 10 MEQ TAB PO SCH ×3 (09:10→18:19)
[2018-06-01] MEDS: ENOXAPARIN 40 MG/0.4 ML SYR SC SCH (09:10)
[2018-06-01] MEDS: TORSEMIDE 20 MG TAB PO SCH (09:11)
[2018-06-01] MEDS: ROSUVASTATIN CALCIUM 10 MG TAB PO SCH (09:11)
[2018-06-01] MEDS: PANTOPRAZOLE SODIUM 40 MG TAB PO SCH (09:12)
[2018-06-01] MEDS: predniSONE 20 MG TAB PO SCH (09:12)
[2018-06-01] MEDS: SPIRONOLACTONE 25 MG TAB PO SCH (09:12)
--- NOTE | 2018-06-01 13:35 | HOSPPROG ---
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 Hospitalized 05/15- due to ileus. Found to have Cdiff, on vancomycin 250mg daily started on 05/19/18. Also with increased oxygen requirement to 5 liters from baseline of 2-3. * C difficile colitis- Stools normalizing finally but had diarrhea and loose stools for almost 2 weeks. finally eating well. taking adequate po to meet needs. On PO vancomycin at 250 QID. Today is 14 days of oral vancomycin. Curbsided ID who felt that prolonging course another week would be prudent. will continue another 7 days. * acute on chronic hypoxemic respiratory failure- Has underlying RA pneumonitis. Also has underlying diastolic HF. Follows with Dr. Elias from pulm and Dr. Christie from cardiology. On 3 liters at home but requiring 5 liters here consistently. Was initially uptitrated on her prednisone to 40mg daily but really did not improve. Consulted pulmonology who thought current increase in oxygen requirement is more likely due to fluid overload and HF than pneumonitis. she has been given a few one time pushes of lasix and her torsemide has been increased back to 80mg to assess her response. so far she subjectively feels better but is still requiring 5 liters. Her prednisone has been decreased decreased now down to 10 and she has not had to go up on her oxygen which is promising. -cardiology to assess -pulm following -wean down oxygen as able -nebs -I/O, daily weights *RAD -prednisone down now to 10 -scheduled duonebs which have helped her in the past * Diastolic CHF exacerbation -resumed torsemide 80 and Aldactone, will consult cardiology in am, hopefully patient can see Dr. Christie -reviewed her recent echo done in March 2018 with diastolic dysfunction * acute migraine headaches -none further * DEEPAK: Chronic, continue on CPAP. Using up to 10 liters on CPAP at night. * Rheumatoid arthritis - Continue down titration of prednisone. She also gets Simponi every 8 weeks. * Hypothyroidism -levothyroxine. *Plan:If patient continues to improve possible DC in next 1-2 days will need another 7 days oral vanco (today is day 14) Objective: Vital Signs Temp Pulse Resp BP Pulse Ox 36.8 C 97 20 105/62 90 L 06/01/18 12:06 06/01/18 12:06 06/01/18 12:06 06/01/18 12:06 06/01/18 12:06 Laboratory Results 06/01/18 05:33 06/01/18 05:33 05/31/18 06/01/18 06/02/18 05:59 05:59 05:59 Intake Total 700 Output Total 1000 3600 Balance -300 -3600 - Physical Exam Constitutional: no apparent distress, appears nourished, not in pain Eyes: PERRL, anicteric sclera, EOMI Ears, Nose, Mouth, Throat: moist mucous membranes, hearing normal, ears appear normal, no oral mucosal ulcers Cardiovascular: regular rate and rhythym, no murmur, rub, or gallop Respiratory: reduced air movement, expiratory wheeze, bronchial breath sounds Gastrointestinal: normoactive bowel sounds, soft, non-tender abdomen, no palpable masses Genitourinary: no bladder fullness, no bladder tenderness, no renal bruits Skin: no rashes or abrasions, no fluctuance, no induration Musculoskeletal: full muscle strength, no muscle tenderness, normal joint ROM Neurologic: AAOx3, sensation intact bilaterally Psychiatric: interacting appropriately, not anxious, not encephalopathic, thought process linear Lymph, Heme, Immunologic: no cervical LAD, no supraclavicular LAD ICD10 Worksheet Patient Problems: Problems Problem Status Onset Dehydration Acute Vomiting and diarrhea Acute Pneumonia Acute Pulmonary embolism Acute Severe sepsis Acute Shingles Acute
--- NOTE | 2018-06-01 16:28 | PDCARPN ---
Cardiology Progress Note Chief Complaint: Acute on chronic hypoxic respiratory failure/DCHF Assessment/Plan: Assessment: 77 y/o F known from clinic with PMH RA x 52yrs, HTN with mild diastolic CHF, DEEPAK on CPAP with supplemental O2, obesity with BMI 36, previous PE, autoimmune pneumonitis, chronic hypoxic respiratory failure L/R cardiac cath 02/09 showed 20% non-obstructive LAD and RCA plaque with LVEF 70 %. RHC: RA 8, PA 49/20 (33), PCWP 15 and CO/CI 3.7/2.1 L/MIN. She was hospitalized 04/09-04/13/18 with diffuse varicella rash and near syncope. Echo 04/12 showed LVEF 64%, mild LVH and no significant valvular issues. She was readmitted 05/16- with ileus. She re-presented on 05/18 with N/V and diarrhea. Found to have C diff colitis. #, acute on chronic hypoxemic respiratory failure: likely related to her underlying and diastolic HF typically on 3 lpm but has been having higher O2 requirements to 5 lpm and 10 lpm with CPAP has been given IV lasix and now back on Torsemide at higher dose will watch for clinical response #. DCHF: echo stable and BNP reassuringly low does have mild bibasilar opacities continue Torsemide and watch I/O Plan: - Will follow along. 06/01/18 15:45 Subjective: Feels like she is improving. Stools now more formed. Able to walk around the room. No IVANIA and abdominal distention. Objective: Vital Signs (8 Hrs) Temp Pulse Resp BP Pulse Ox 06/01/18 12:06 98.3 F 97 20 105/62 90 L 06/01/18 11:02 88 15 90 L Intake/Output (24 Hrs) 05/31/18 06/01/18 06/02/18 05:59 05:59 05:59 Intake Total 700 Output Total 1000 3600 Balance -300 -3600 Intake: Oral (ml) 700 Output: Urine (ml) 1000 3600 Toilet 1000 3600 Other: Intake Quantity Yes Sufficient Number of Stools Toilet 1 Result Diagrams: 06/01/18 05:33 06/01/18 05:33 Cardiac Labs: Laboratory Tests 05/31/18 03:15 NT-Pro-B Natriuret Pep 300 Telemetry: reviewed/ SR - Physical Exam Constitutional: no apparent distress Eyes: anicteric sclera Ears, Nose, Mouth, Throat: dry mucous membranes Cardiovascular: regular rate and rhythm, no rubs, no gallops, No systolic murmur Respiratory: reduced air movement, inspiratory crackles (at bases) Gastrointestinal: normoactive bowel sounds, no tenderness Genitourinary: No casey in urethra Skin: no rashes, no abrasions Neurologic: AAOx3 Psychiatric: cooperative, interactive ICD10 Worksheet Patient Problems: Problems Problem Status Onset Dehydration Acute Vomiting and diarrhea Acute Pneumonia Acute Pulmonary embolism Acute Severe sepsis Acute Shingles Acute
--- NOTE | 2018-06-01 17:11 | SOAPPROG ---
SOAP Progress Note Assessment/Plan: Assessment: History of interstitial lung disease. There is no evidence that she has significant progression of her interstitial lung disease at this time. She has been quite stable on 5 mg of prednisone for over 6 months. Her current issues are secondary to volume overload from fluid resuscitation, perhaps some shunting secondary to toxic metabolic issues/SIRS related to her severe C diff, and basilar atelectasis from abdominal distension. Volume overload/congestive heart failure. Excellent diuresis with torsemide. C difficile colitis. Obstructive sleep apnea. On CPAP and oxygen. She is on more oxygen at night with her CPAP here. Improving. Secondary to issues as noted above. Rheumatoid arthritis. Plan: Continue prednisone at 10 mg per now. Continue bronchodilator therapies. Continue torsemide at current doses. Follow urine output and weights. Continue oral vancomycin. Follow laboratory. Repeat chest x-ray tomorrow. Subjective: Feels better. Diarrhea less. Remains on more oxygen than at home. Objective: Vital Signs Temp Pulse Resp BP Pulse Ox 36.8 C 91 24 H 95/70 L 92 06/01/18 16:30 06/01/18 16:30 06/01/18 16:30 06/01/18 16:30 06/01/18 16:30 Laboratory Results 06/01/18 05:33 06/01/18 05:33 05/31/18 06/01/18 06/02/18 05:59 05:59 05:59 Intake Total 700 Output Total 1000 3600 Balance -300 -3600 Physical Exam - Physical Exam General Appearance: alert, no apparent distress, obese EENT: PERRL/EOMI, other (Nasal cannula at 5 L) Neck: normal inspection (Large neck, no obvious JVD.) Respiratory: lungs clear (Anteriorly), decreased breath sounds (At bases), rales (No significant rales present. A few nonspecific rales perhaps present at bases), No wheezing Cardiac/Chest: regular rate, rhythm, No gallop Abdomen: normal bowel sounds (Decreased bowel sounds), distended, No non-tender (Mild tenderness present), No soft (Remains somewhat firm.) Pelvic Exam: other (No Titus catheter) Skin: normal color, warm/dry Extremities: pedal edema (Trace) Neuro/Psych: no motor/sensory deficits, No cognition abnormalities ICD10 Worksheet Patient Problems: Problems Problem Status Onset Dehydration Acute Vomiting and diarrhea Acute Pneumonia Acute Pulmonary embolism Acute Severe sepsis Acute Shingles Acute
[2018-06-01] MEDS: ACETAMINOPHEN 325 MG TAB PO PRN (20:12)
[2018-06-01] MEDS: ASPIRIN 81 MG CHEWABLE TAB PO SCH (20:13)
[2018-06-01] MEDS: ONDANSETRON DISINTEGRATING 4 MG TAB PO PRN (20:14)
[2018-06-01] MEDS: ONDANSETRON 4 MG/2 ML VIAL IVP PRN (21:55)
[2018-06-02] MEDS ORDERED: POTASSIUM CL 10 MEQ TAB PO ONE ×2 (00:12→20:56)
[2018-06-02] MEDS: ACETAMINOPHEN 325 MG TAB PO PRN (02:16)
[2018-06-02] MEDS ORDERED: SIMETHICONE 80 MG TAB CHEW PO PRN (02:22)
[2018-06-02] MEDS: ONDANSETRON DISINTEGRATING 4 MG TAB PO PRN ×2 (02:31→16:15)
[2018-06-02] MEDS: IPRATROPIUM/ALBUTEROL 3 ML DEYVIAL IH SCH ×4 (05:50→22:25)
[2018-06-02 05:52] LABS: PLATELET COUNT 393 10^3/uL (150-400)
[2018-06-02] MEDS: VANCOMYCIN 125 MG/2.5 ML UDL PO SCH ×4 (06:07→22:44)
[2018-06-02] MEDS: LEVOTHYROXINE 112 MCG TAB PO SCH (06:07)
[2018-06-02] MEDS: SIMETHICONE 80 MG TAB CHEW PO PRN ×2 (06:25→17:33)
[2018-06-02] MEDS: valACYclovir 500 MG TAB PO SCH ×2 (10:04→22:21)
[2018-06-02] MEDS: TORSEMIDE 20 MG TAB PO SCH (10:04)
[2018-06-02] MEDS: POTASSIUM CL 10 MEQ TAB PO SCH ×3 (10:05→17:33)
[2018-06-02] MEDS: GABAPENTIN 400 MG CAP PO SCH ×3 (10:06→22:22)
[2018-06-02] MEDS: ENOXAPARIN 40 MG/0.4 ML SYR SC SCH (10:06)
[2018-06-02] MEDS: predniSONE 20 MG TAB PO SCH (10:06)
[2018-06-02] MEDS: SPIRONOLACTONE 25 MG TAB PO SCH (10:07)
[2018-06-02] MEDS: PANTOPRAZOLE SODIUM 40 MG TAB PO SCH (10:07)
[2018-06-02] MEDS: ROSUVASTATIN CALCIUM 10 MG TAB PO SCH (10:07)
--- NOTE | 2018-06-02 11:41 | PDCARPN ---
Cardiology Progress Note Chief Complaint: DCHF/hypoxemia Assessment/Plan: Assessment: 77 y/o F known from clinic with PMH RA x 52yrs, HTN with mild diastolic CHF, DEEPAK on CPAP with supplemental O2, obesity with BMI 36, previous PE, autoimmune pneumonitis, chronic hypoxic respiratory failure L/R cardiac cath 02/09 showed 20% non-obstructive LAD and RCA plaque with LVEF 70 %. RHC: RA 8, PA 49/20 (33), PCWP 15 and CO/CI 3.7/2.1 L/MIN. She was hospitalized 04/09-04/13/18 with diffuse varicella rash and near syncope. Echo 04/12 showed LVEF 64%, mild LVH and no significant valvular issues. She was readmitted 05/16- with ileus. She re-presented on 05/18 with N/V and diarrhea. Found to have C diff colitis. #, acute on chronic hypoxemic respiratory failure: likely related to her underlying pneumonitis and diastolic HF given her history of PE and low BNP, it seems very prudent to r/o PE typically on 3 lpm but has been having higher O2 requirements to 5 lpm and 10 lpm with CPAP has been given IV lasix and now back on Torsemide at higher dose will watch for clinical response and CT results #. DCHF: echo stable and BNP reassuringly low does have mild bibasilar opacities continue Torsemide/Spironolactone and watch I/O #. mid CAD: no symptoms suggestive of angina continue Rosuvastatin and ASA Plan: - Will follow along. 06/02/18 11:38 Subjective: Difficult night to abdominal pain. O2 requirements with 10 lpm in pm. No pnd/ orthopnea. Reviewed/Discussed With: hospitalist (Dr. Cleaning) Objective: Vital Signs (8 Hrs) Temp Pulse Resp BP Pulse Ox 06/02/18 11:26 98.4 F 104 H 20 130/61 H 92 06/02/18 10:49 80 23 H 92 06/02/18 07:59 98.5 F 69 18 113/64 99 06/02/18 05:50 77 20 98 06/02/18 04:00 98.5 F 81 26 H 127/68 H 94 Intake/Output (24 Hrs) 06/01/18 06/02/18 06/03/18 05:59 05:59 05:59 Intake Total 1500 Output Total 3600 2250 Balance -3600 -750 Intake: Oral (ml) 1500 Output: Urine (ml) 3600 2250 Toilet 3600 2250 Other: Weight 87.543 kg Intake Quantity Yes Yes Sufficient Number of Voids Toilet 3 Number of Stools Toilet 1 Result Diagrams: 06/02/18 05:22 06/02/18 05:22 - Physical Exam Constitutional: no apparent distress, obese Eyes: anicteric sclera Ears, Nose, Mouth, Throat: dry mucous membranes Cardiovascular: regular rate and rhythm, No no gallops, No systolic murmur Respiratory: no crackles, reduced air movement Gastrointestinal: normoactive bowel sounds, No tenderness Genitourinary: no suprapubic tenderness, No casey in urethra Skin: no rashes, no abrasions, no edema Neurologic: AAOx3 Psychiatric: cooperative, interactive ICD10 Worksheet Patient Problems: Problems Problem Status Onset Dehydration Acute Vomiting and diarrhea Acute Pneumonia Acute Pulmonary embolism Acute Severe sepsis Acute Shingles Acute
[2018-06-02] MEDS: SUMAtriptan 50 MG TAB PO PRN (13:15)
[2018-06-02] MEDS: ONDANSETRON 4 MG/2 ML VIAL IVP PRN (17:21)
--- NOTE | 2018-06-02 18:57 | HOSPPROG ---
Hospitalist Progress Note Assessment/Plan: * Acute on chronic respiratory failure -up to 10L O2 -h/o PE x 2 - but CTA negative for PE -per cardiology - doubt CHF as BNP is normal -suspect atelectasis for abd distention + mucus plugging -increase pulmonary hygeine * Cdiff -increased abdominal distention - check abd xray -PO vanco * RA with pneumonitis -continue steroids * DEEPAK - cpap at night * Chronic diastolic CHF -home dose torsemide * Non-obstructive CAD -ASA/statin Subjective: Bad night due to abdomen Objective: Vital Signs Temp Pulse Resp BP Pulse Ox 36.6 C 90 25 H 113/72 90 L 06/02/18 16:00 06/02/18 16:57 06/02/18 16:57 06/02/18 16:00 06/02/18 16:57 Laboratory Results 06/02/18 05:22 06/01/18 06/02/18 06/03/18 05:59 05:59 05:59 Intake Total 1500 2000 Output Total 3600 2250 1000 Balance -3600 -750 1000 CTA - no PE, atelectasis and mucus plug CXR viewed, my personal interpretation is - bilateral infiltrates case d/w Marycruz Charles cardiology regarding normal BNP - Physical Exam Constitutional: no apparent distress, appears nourished, not in pain Cardiovascular: regular rate and rhythym, no murmur, rub, or gallop Respiratory: respiratory distress, No expiratory wheeze, No rhonchi Gastrointestinal: normoactive bowel sounds, soft, non-tender abdomen, no palpable masses Skin: no rashes or abrasions, no fluctuance, no induration Neurologic: AAOx3, sensation intact bilaterally Psychiatric: interacting appropriately, not anxious, not encephalopathic, thought process linear ICD10 Worksheet Patient Problems: Problems Problem Status Onset Pulmonary embolism Acute Pneumonia Acute Severe sepsis Acute Shingles Acute Dehydration Acute Vomiting and diarrhea Acute
[2018-06-02] MEDS: ASPIRIN 81 MG CHEWABLE TAB PO SCH (22:21)
[2018-06-03] MEDS: VANCOMYCIN 125 MG/2.5 ML UDL PO SCH ×4 (05:12→21:16)
[2018-06-03] MEDS: LEVOTHYROXINE 112 MCG TAB PO SCH (05:12)
[2018-06-03 05:46] LABS: PLATELET COUNT 373 10^3/uL (150-400)
[2018-06-03] MEDS: IPRATROPIUM/ALBUTEROL 3 ML DEYVIAL IH SCH ×4 (05:58→21:37)
[2018-06-03] MEDS: SIMETHICONE 80 MG TAB CHEW PO PRN ×2 (07:55→17:27)
[2018-06-03] MEDS: SUMAtriptan 50 MG TAB PO PRN (07:56)
[2018-06-03] MEDS: SPIRONOLACTONE 25 MG TAB PO SCH (09:57)
[2018-06-03] MEDS: PANTOPRAZOLE SODIUM 40 MG TAB PO SCH (09:58)
[2018-06-03] MEDS: GABAPENTIN 400 MG CAP PO SCH ×3 (09:59→21:16)
[2018-06-03] MEDS: ROSUVASTATIN CALCIUM 10 MG TAB PO SCH (09:59)
[2018-06-03] MEDS: predniSONE 20 MG TAB PO SCH (10:00)
[2018-06-03] MEDS: POTASSIUM CL 10 MEQ TAB PO SCH ×3 (10:00→17:15)
[2018-06-03] MEDS: ACETAMINOPHEN 325 MG TAB PO PRN (10:02)
[2018-06-03] MEDS: valACYclovir 500 MG TAB PO SCH ×2 (10:02→21:16)
[2018-06-03] MEDS: TORSEMIDE 20 MG TAB PO SCH (10:02)
[2018-06-03] MEDS: ENOXAPARIN 40 MG/0.4 ML SYR SC SCH (10:03)
[2018-06-03] MEDS: ONDANSETRON DISINTEGRATING 4 MG TAB PO PRN ×3 (10:04→21:16)
--- NOTE | 2018-06-03 12:28 | PDCARPN ---
Cardiology Progress Note Chief Complaint: DCHF/hypoxia Assessment/Plan: Assessment: 77 y/o F known from clinic with PMH RA x 52yrs, HTN with mild diastolic CHF, DEEPAK on CPAP with supplemental O2, obesity with BMI 36, previous PE, autoimmune pneumonitis, chronic hypoxic respiratory failure L/R cardiac cath 02/09 showed 20% non-obstructive LAD and RCA plaque with LVEF 70 %. RHC: RA 8, PA 49/20 (33), PCWP 15 and CO/CI 3.7/2.1 L/MIN. She was hospitalized 04/09-04/13/18 with diffuse varicella rash and near syncope. Echo 04/12 showed LVEF 64%, mild LVH and no significant valvular issues. She was readmitted 05/16- with ileus. She re-presented on 05/18 with N/V and diarrhea. Found to have C diff colitis. #, acute on chronic hypoxemic respiratory failure CT of chest shows atelectasis and mucous plugging d/w Dr. Christie and we recommend aggressive pulmonary hygiene as per IM she is near baseline O2 needs has been given IV lasix and now back on Torsemide at higher dose/ likely will decrease dose to previous home dose tomorrow if weight stable #. DCHF: echo stable and BNP reassuringly low continue Torsemide/Spironolactone and watch I/O #. mid CAD: no symptoms suggestive of angina continue Rosuvastatin and ASA Plan: - Cardiology OK with D/C of telemetry during daytime for increased mobility if OK with hospital med. 06/03/18 12:25 Subjective: Reports ongoing soft stools. Has been using IS. No cough, pnd/orthopnea, palps. Objective: Vital Signs (8 Hrs) Temp Pulse Resp BP Pulse Ox 06/03/18 12:00 98.2 F 79 20 109/65 93 06/03/18 11:21 79 24 H 96 06/03/18 07:41 98.3 F 77 20 103/58 L 90 L 06/03/18 05:59 74 17 97 Intake/Output (24 Hrs) 06/02/18 06/03/18 06/04/18 05:59 05:59 05:59 Intake Total 1500 2000 250 Output Total 2250 1000 Balance -750 1000 250 Intake: Oral (ml) 1500 2000 250 Output: Urine (ml) 2250 1000 Toilet 2250 1000 Other: Weight 88.1 kg Intake Quantity Yes Yes Sufficient Number of Voids Toilet 3 2 1 Number of Stools Toilet 1 1 1 Result Diagrams: 06/03/18 05:09 06/03/18 05:09 Telemetry: SR with occasional PVCs - Physical Exam Constitutional: no apparent distress Eyes: anicteric sclera Cardiovascular: regular rate and rhythm, no murmurs Respiratory: reduced air movement, other (mild basilar crackles) Gastrointestinal: normoactive bowel sounds, no tenderness Genitourinary: no suprapubic tenderness, No casey in urethra Neurologic: AAOx3 Psychiatric: cooperative, interactive ICD10 Worksheet Patient Problems: Problems Problem Status Onset Dehydration Acute Vomiting and diarrhea Acute Pneumonia Acute Pulmonary embolism Acute Severe sepsis Acute Shingles Acute
--- NOTE | 2018-06-03 13:56 | ASMTCMCOM ---
CM Note CM Note Notes: Pts case discussed w/ Dr. Cleaning. Pt is not medically stable to d/c yet. Pt is on 10L of o2 at night. Pt will d/c with [facility] RN, PT. CM to follow. Date Signed: 06/03/2018 01:55 PM Electronically Signed By:MADELIN Redding
[2018-06-03] MEDS ORDERED: POTASSIUM CL 20 MEQ TAB PO ONE (16:45)
--- NOTE | 2018-06-03 19:49 | HOSPPROG ---
Hospitalist Progress Note Assessment/Plan: * Acute on chronic respiratory failure -up to 10L O2 -h/o PE x 2 - but CTA negative for PE -per cardiology - doubt CHF as BNP is normal -suspect atelectasis for abd distention + mucus plugging -increase pulmonary hygiene * Cdiff -PO vanco - slow improvement * RA with pneumonitis -continue steroids * DEEPAK - cpap at night * Chronic diastolic CHF -home dose torsemide * Non-obstructive CAD -ASA/statin Subjective: Still lots of GI distress, soft BM this am Objective: Vital Signs Temp Pulse Resp BP Pulse Ox 36.8 C 92 20 108/56 L 93 06/03/18 17:05 06/03/18 17:05 06/03/18 17:05 06/03/18 17:05 06/03/18 17:05 Laboratory Results 06/03/18 05:09 06/03/18 05:09 06/02/18 06/03/18 06/04/18 05:59 05:59 05:59 Intake Total 1500 2000 1000 Output Total 2250 1000 1200 Balance -750 1000 -200 tele - NSR AXR viewed, my personal interpretation is - no bowel dilation, no free air, some right colon constipation - Physical Exam Constitutional: no apparent distress, appears nourished, not in pain Cardiovascular: regular rate and rhythym, no murmur, rub, or gallop Respiratory: no respiratory distress, no rales or rhonchi, clear to auscultation Gastrointestinal: normoactive bowel sounds, soft, non-tender abdomen, no palpable masses Skin: no rashes or abrasions, no fluctuance, no induration Neurologic: AAOx3, sensation intact bilaterally Psychiatric: interacting appropriately, not anxious, not encephalopathic, thought process linear ICD10 Worksheet Patient Problems: Problems Problem Status Onset Pulmonary embolism Acute Pneumonia Acute Severe sepsis Acute Shingles Acute Dehydration Acute Vomiting and diarrhea Acute
[2018-06-03] MEDS: ASPIRIN 81 MG CHEWABLE TAB PO SCH (21:16)
[2018-06-04] MEDS: LEVOTHYROXINE 112 MCG TAB PO SCH (05:04)
[2018-06-04] MEDS: VANCOMYCIN 125 MG/2.5 ML UDL PO SCH ×4 (05:04→20:32)
[2018-06-04 05:41] LABS: PLATELET COUNT 340 10^3/uL (150-400)
[2018-06-04] MEDS: IPRATROPIUM/ALBUTEROL 3 ML DEYVIAL IH SCH ×4 (06:16→21:44)
[2018-06-04] MEDS: GABAPENTIN 400 MG CAP PO SCH ×3 (08:17→20:32)
[2018-06-04] MEDS: TORSEMIDE 20 MG TAB PO SCH (08:17)
[2018-06-04] MEDS: valACYclovir 500 MG TAB PO SCH ×2 (08:17→20:31)
[2018-06-04] MEDS: predniSONE 20 MG TAB PO SCH (08:17)
[2018-06-04] MEDS: POTASSIUM CL 10 MEQ TAB PO SCH ×3 (08:18→17:44)
[2018-06-04] MEDS: ROSUVASTATIN CALCIUM 10 MG TAB PO SCH (08:18)
[2018-06-04] MEDS: SPIRONOLACTONE 25 MG TAB PO SCH (08:19)
[2018-06-04] MEDS: ACETAMINOPHEN 325 MG TAB PO PRN (08:19)
[2018-06-04] MEDS: PANTOPRAZOLE SODIUM 40 MG TAB PO SCH (08:19)
[2018-06-04] MEDS: ENOXAPARIN 40 MG/0.4 ML SYR SC SCH (08:20)
--- NOTE | 2018-06-04 12:58 | PDCARPN ---
Cardiology Progress Note Chief Complaint: DCHF/hypoxia Assessment/Plan: Assessment: 77 y/o F known from clinic with PMH RA x 52yrs, HTN with mild diastolic CHF, DEEPAK on CPAP with supplemental O2, obesity with BMI 36, previous PE, autoimmune pneumonitis, chronic hypoxic respiratory failure L/R cardiac cath 02/09 showed 20% non-obstructive LAD and RCA plaque with LVEF 70 %. RHC: RA 8, PA 49/20 (33), PCWP 15 and CO/CI 3.7/2.1 L/MIN. She was hospitalized 04/09-04/13/18 with diffuse varicella rash and near syncope. Echo 04/12 showed LVEF 64%, mild LVH and no significant valvular issues. She was readmitted 05/16- with ileus. She re-presented on 05/18 with N/V and diarrhea. Found to have C diff colitis. #, acute on chronic hypoxemic respiratory failure CT of chest shows atelectasis and mucous plugging d/w Dr. Christie and we recommend aggressive pulmonary hygiene as per IM she is near baseline O2 needs has been given IV lasix and now back on Torsemide #. DCHF: echo stable and BNP reassuringly low continue Torsemide/Spironolactone and watch I/O #. mid CAD: no symptoms suggestive of angina continue Rosuvastatin and ASA Plan: - will plan to follow in outpatient once discharged 06/04/18 12:56 Subjective: Feels better. Having soft but formed stools. Objective: Vital Signs (8 Hrs) Temp Pulse Resp BP Pulse Ox 06/04/18 11:27 90 17 94 06/04/18 08:00 98.3 F 89 22 H 114/62 90 L 06/04/18 06:16 74 17 93 Intake/Output (24 Hrs) 06/03/18 06/04/18 06/05/18 05:59 05:59 05:59 Intake Total 1999 1999 Output Total 1000 1800 350 Balance 1000 200 -350 Intake: Oral (ml) 1999 1999 Output: Urine (ml) 1000 1800 350 Toilet 1000 1800 350 Other: Weight 88.1 kg 88.2 kg Intake Quantity Yes Sufficient Number of Voids Toilet 2 2 Number of Stools Toilet 1 0 1 Result Diagrams: 06/04/18 04:53 06/04/18 04:53 - Physical Exam Constitutional: no apparent distress Eyes: anicteric sclera Ears, Nose, Mouth, Throat: moist mucous membranes Cardiovascular: regular rate and rhythm, no gallops Respiratory: clear to auscultate bilat, no wheezes, reduced air movement Gastrointestinal: normoactive bowel sounds, other (+ distentiont) Skin: no rashes, no abrasions, warm, no edema Neurologic: AAOx3 Psychiatric: cooperative, interactive ICD10 Worksheet Patient Problems: Problems Problem Status Onset Pulmonary embolism Acute Pneumonia Acute Severe sepsis Acute Shingles Acute Dehydration Acute Vomiting and diarrhea Acute
--- NOTE | 2018-06-04 16:45 | SOAPPROG ---
SOAP Progress Note Assessment/Plan: Assessment: History of interstitial lung disease. There is no evidence that she has significant progression of her interstitial lung disease at this time. CT chest 06/02 negative for significant interstitial disease. She has been quite stable on 5 mg of prednisone for over 6 months. Her current issues are secondary to volume overload from fluid resuscitation, perhaps some shunting secondary to toxic metabolic issues/SIRS related to her severe C diff initially , and basilar atelectasis from abdominal distension and body habitus. Some mild mucous plugging noted on CT scan as well. No indication for bronchoscopy.. Volume overload/congestive heart failure. Good diuresis with torsemide. Appears to be close to euvolemic now. C difficile colitis. Improving Obstructive sleep apnea. On CPAP and oxygen. She is on more oxygen at night with her CPAP here. Improving. Secondary to issues as noted above. Rheumatoid arthritis. Plan: Continue prednisone at 10 mg. Continue bronchodilator therapies. Continue torsemide. Follow urine output and weights. Continue oral vancomycin. Overnight oximetry will be ordered tonight. She will use CPAP and 6 L of oxygen. This is not to be adjusted regarding the oxygen. She has a oxygen concentrator home which goes up to 6 L and I want to see whether this is adequate. Saturations in the 80s are acceptable to me for the study. Subjective: Feels better. Abdominal distention still present. On 3-4 L of oxygen. Objective: Vital Signs Temp Pulse Resp BP Pulse Ox 36.6 C 81 16 95/77 L 91 L 06/04/18 15:52 06/04/18 15:52 06/04/18 15:52 06/04/18 15:52 06/04/18 15:52 Laboratory Results 06/04/18 04:53 06/04/18 04:53 06/03/18 06/04/18 06/05/18 05:59 05:59 05:59 Intake Total 1999 1999 Output Total 1000 1800 350 Balance 1000 200 -350 Physical Exam - Physical Exam General Appearance: alert, no apparent distress, obese, other (Cushion ovoid) EENT: PERRL/EOMI, other (Nasal cannula in place) Neck: normal inspection (No obvious JVD) Respiratory: lungs clear (Anteriorly), decreased breath sounds (At bases), rales (Few end inspiratory rales likely present at the bases?), No stridor Cardiac/Chest: regular rate, rhythm (Distant heart tones) Abdomen: normal bowel sounds, non-tender, soft, distended Skin: normal color, warm/dry Extremities: pedal edema (Trace) Neuro/Psych: no motor/sensory deficits, No cognition abnormalities ICD10 Worksheet Patient Problems: Problems Problem Status Onset Pulmonary embolism Acute Pneumonia Acute Severe sepsis Acute Shingles Acute Dehydration Acute Vomiting and diarrhea Acute
--- NOTE | 2018-06-04 19:02 | HOSPPROG ---
Hospitalist Progress Note Assessment/Plan: * Acute on chronic respiratory failure -up to 10L O2 - slowly improving -h/o PE x 2 - but CTA negative for PE -per cardiology - doubt CHF as BNP is normal -suspect atelectasis for abd distention + mucus plugging -increased pulmonary hygiene - IS, acapella, nebs * Cdiff -PO vanco - slow improvement * RA with pneumonitis -continue steroids * DEEPAK - cpap at night * Chronic diastolic CHF -home dose torsemide * Non-obstructive CAD -ASA/statin Subjective: Still very SOB with minimal activity, I am visiting her right as she finishes her shower and she is extremely SOB. Abd distress slowly improving Objective: Vital Signs Temp Pulse Resp BP Pulse Ox 36.6 C 82 14 95/77 L 93 06/04/18 15:52 06/04/18 17:31 06/04/18 17:31 06/04/18 15:52 06/04/18 17:31 Laboratory Results 06/04/18 04:53 06/04/18 04:53 06/03/18 06/04/18 06/05/18 05:59 05:59 05:59 Intake Total 1999 1999 Output Total 1000 1800 350 Balance 1000 200 -350 d/w Dr. Yohan Elias regarding possible dc home tomorrow if O2 okay overnight tele reviewed - NSR - okay to DC - Physical Exam Constitutional: no apparent distress, appears nourished, not in pain Cardiovascular: regular rate and rhythym, no murmur, rub, or gallop Respiratory: no rales or rhonchi, clear to auscultation, respiratory distress ( purse lip breathing, short/rapid) Gastrointestinal: normoactive bowel sounds, soft, non-tender abdomen, no palpable masses Skin: no rashes or abrasions, no fluctuance, no induration Neurologic: AAOx3, sensation intact bilaterally Psychiatric: interacting appropriately, not anxious, not encephalopathic, thought process linear ICD10 Worksheet Patient Problems: Problems Problem Status Onset Pulmonary embolism Acute Pneumonia Acute Severe sepsis Acute Shingles Acute Dehydration Acute Vomiting and diarrhea Acute
[2018-06-04] MEDS: ASPIRIN 81 MG CHEWABLE TAB PO SCH (20:32)
[2018-06-05] MEDS: SUMAtriptan 50 MG TAB PO PRN (02:54)
[2018-06-05] MEDS: IPRATROPIUM/ALBUTEROL 3 ML DEYVIAL IH SCH ×2 (04:53→11:42)
[2018-06-05] MEDS: LEVOTHYROXINE 112 MCG TAB PO SCH (05:57)
[2018-06-05] MEDS: VANCOMYCIN 125 MG/2.5 ML UDL PO SCH ×2 (05:57→12:53)
[2018-06-05 06:16] LABS: PLATELET COUNT 306 10^3/uL (150-400)
[2018-06-05] MEDS: GABAPENTIN 400 MG CAP PO SCH (07:44)
[2018-06-05] MEDS: TORSEMIDE 20 MG TAB PO SCH (07:44)
[2018-06-05] MEDS: valACYclovir 500 MG TAB PO SCH (07:44)
[2018-06-05] MEDS: ROSUVASTATIN CALCIUM 10 MG TAB PO SCH (07:45)
[2018-06-05] MEDS: predniSONE 20 MG TAB PO SCH (07:45)
[2018-06-05] MEDS: POTASSIUM CL 10 MEQ TAB PO SCH ×2 (07:46→12:54)
[2018-06-05] MEDS: SPIRONOLACTONE 25 MG TAB PO SCH (07:46)
[2018-06-05] MEDS: PANTOPRAZOLE SODIUM 40 MG TAB PO SCH (07:46)
[2018-06-05] MEDS: ENOXAPARIN 40 MG/0.4 ML SYR SC SCH (07:47)
[2018-06-05] MEDS: ACETAMINOPHEN 325 MG TAB PO PRN (07:47)
[2018-06-05 07:56] VITALS: BP 116/68
--- NOTE | 2018-06-05 10:30 | PDIAF ---
- Diagnosis Diagnosis: c diff Code Status: Full Code - Medication Management Discharge Medications: electronically signed and located in the Home Medication List. - Orders Services needed: Home Care, Registered Nurse, Certified Networking Technician, Physical Therapy, Occupational Therapy Home Care Face to Face: I certify that this patient was under my care and that I had the required [id number] encounter meeting the encounter requirements on the discharge day. My findings support the fact that the patient is homebound as defined in Home Care Face to Face Continued: CMS Chapter 7 Medicare Benefits Manual 30.1.1 , The condition of the patient is such that there exists a normal inability to leave home and consequently, leaving home would require a considerable and taxing effort. Isolation Type: CDIFF Isolation, Contact Isolation Diet Recommendation: no restrictions on diet - Follow Up Care Current Providers and Referrals: Patient,NotPresent [Unknown] - As per Instructions
--- NOTE | 2018-06-05 11:26 | ASMTDCNOTE ---
Case Management Discharge Discharge Order Complete? Answers: Yes Patient to Obtain Answers: Independently Medications Transportation Arranged Answers: Family/Friends Faxed Final Orders Answers: Yes Discharge Comments Notes: D/w , final orders in. [facility] at [facility] notified. RN to leave report Date Signed: 06/05/2018 11:25 AM Electronically Signed By:Karlie Ragsdale RN
--- NOTE | 2018-06-05 13:18 | SOAPPROG ---
SOAP Progress Note Assessment/Plan: Assessment: History of interstitial lung disease. There is no evidence that she has significant progression of her interstitial lung disease at this time. CT chest 06/02 negative for significant interstitial disease. She has been quite stable on 5 mg of prednisone for over 6 months. Her current issues are secondary to volume overload from fluid resuscitation, perhaps some shunting secondary to toxic metabolic issues/SIRS related to her severe C diff initially , and basilar atelectasis from abdominal distension and body habitus. Some mild mucous plugging noted on CT scan as well. No indication for bronchoscopy. Volume overload/congestive heart failure. Good diuresis with torsemide. Appears to be euvolemic now. C difficile colitis. Improving Obstructive sleep apnea. On CPAP and oxygen. She is on more oxygen at night with her CPAP here. Improving. Secondary to issues as noted above. Oxygen saturations acceptable for the most part on 6 L of oxygen and CPAP while sleeping. Will re-evaluate needs as an outpatient. Rheumatoid arthritis. Plan: Agree with discharge to home today. She will use 6 L of oxygen at night along with her CPAP. Prednisone to be tapered back down to 5 mg per day over the next approximately 4 days. Specific instructions given. Follow-up with me in the office in 1-2 weeks. Home overnight oximetry will be arranged at that time. Spirometry can be obtained as well. All the above was discussed with the patient and her , hospitalist, nursing. Subjective: Feels better, tired. For discharge today. Objective: Vital Signs Temp Pulse Resp BP Pulse Ox 36.3 C 82 17 116/68 91 L 06/05/18 07:54 06/05/18 11:42 06/05/18 11:42 06/05/18 07:54 06/05/18 11:42 Laboratory Results 06/05/18 05:31 06/05/18 05:31 06/04/18 06/05/18 06/06/18 05:59 05:59 05:59 Intake Total 2000 1000 Output Total 1800 350 Balance 200 650 Overnight oximetry: On CPAP and 6 L. Average oxygen saturations 91%. Had somewhat cyclic desaturations with 20% of the time below is a 86%. Physical Exam - Physical Exam General Appearance: alert, no apparent distress, obese EENT: other (Oxygen in place at 3-4 L) Neck: normal inspection (No obvious JVD) Respiratory: lungs clear (Anteriorly), decreased breath sounds (At the bases. Increased excursions.), rales (Few nonspecific rales end inspiration at bases bilaterally.), No rhonchi (Some mild central airway congestion with cough) Cardiac/Chest: regular rate, rhythm, other (Distant heart tones), No gallop Abdomen: normal bowel sounds, non-tender, soft (Obese), distended Extremities: pedal edema (Trace) Neuro/Psych: no motor/sensory deficits, No cognition abnormalities ICD10 Worksheet Patient Problems: Problems Problem Status Onset Pulmonary embolism Acute Pneumonia Acute Severe sepsis Acute Shingles Acute Dehydration Acute Vomiting and diarrhea Acute
--- NOTE | 2018-06-05 17:30 | GDS ---
DISCHARGE DIAGNOSES: 1. C difficile colitis. 2. Acute on chronic respiratory failure. 3. Rheumatoid arthritis with pneumonitis. 4. Obstructive sleep apnea, on CPAP. 5. Chronic diastolic congestive heart failure. 6. Nonobstructive coronary artery disease. HISTORY: This is a 77-year-old female, who presented with diarrhea and was diagnosed with C diff. S he had troubles with respiratory failure throughout her hospitalization. Her baseline is 3 L of oxyg en. Her O2 needs went up to 10 L and she was severely dyspneic through most of her stay. She had pu rsed lip breathing. She has a history of pulmonary embolus twice in the past. Her CTA was negative for PE. We suspected she has very poor pulmonary reserve and abdominal distention from the C. diffic ile was causing decreased pulmonary excursion. CT scan also showed mucous plugging. We treated her a ggressively with pulmonary hygiene with IS, Acapella and nebs. Her C. difficile was slow to improve. She has a history of rheumatoid arthritis with rheumatoid pneumonitis. For this she is on steroids. Dr. Yohan Elias saw her in consultation. It did not appear that her pneumonitis was flaring. She i nitially received pulse dose steroids but since the pneumonitis seems quiescent and we have other sanjay sons for her respiratory failure, she will taper back down to her previous steroid dose. DISCHARGE MEDICATIONS: Please see computerized record for full detailed list. New medications: Vanc omycin 125 mg p.o. q.6 hours for 20 more tablets. ADDITIONAL DISCHARGE INSTRUCTIONS: 1. Follow up with primary care, Dr. Bradford. 2. Follow up with Dr. Yohan Elias. 3. Taper back down to previous prednisone dose of 5 mg p.o. daily as outlined by Dr. Elias. 4. Greater than 30 minutes' time was spent arranging this discharge. Patient seen and examined by me on the day of discharge. /[id number]/MODL
== END 2018-06-05 14:58 | disposition home health service (06) | DRG 371 ==
LOC: EDUNIT# → F3E 18:34 → OBSVTOIN 05-19 16:29 → F3E 05-25 17:31
PROVIDERS: ADMIT Internal Medicine; ATTEND Internal Medicine
DX: A04.72 Enterocolitis due to Clostridium difficile, not specified as recurrent (principal); J96.20 Acute and chronic respiratory failure, unspecified whether with hypoxia or hypercapnia; I11.0 Hypertensive heart disease with heart failure; I50.32 Chronic diastolic (congestive) heart failure; M05.10 Rheumatoid lung disease with rheumatoid arthritis of unspecified site; G47.33 Obstructive sleep apnea (adult) (pediatric); I25.10 Atherosclerotic heart disease of native coronary artery without angina pectoris; E86.0 Dehydration; E03.9 Hypothyroidism, unspecified; K21.9 Gastro-esophageal reflux disease without esophagitis; G43.909 Migraine, unspecified, not intractable, without status migrainosus; Z86.711 Personal history of pulmonary embolism; Z86.718 Personal history of other venous thrombosis and embolism
CPT/HCPCS: 82435-PO; 82565-PO; 82947-PO; 84132-PO; 84295-PO; 84520-PO; 85014-PO; 96374; 97110-GP; 97116-GP; 97162-GP; 97166-GO; 97530-GP; 97535-GO; G0378; G8978-GP-CJ; G8979-GP-CI; J0692; J1650; J1940; J2270; J2405; J2550; J7512; J7613; Q9967

== ENCOUNTER → 2018-09-29 | Outpatient (CLI) | payer OTHER | LOC: CIMAGING 15:39 | PROVIDERS: ATTEND Family Medicine | DX: R10.829 Rebound abdominal tenderness, unspecified site (principal); R10.9 Unspecified abdominal pain; K57.30 Diverticulosis of large intestine without perforation or abscess without bleeding; K59.00 Constipation, unspecified; I70.0 Atherosclerosis of aorta; K76.89 Other specified diseases of liver; D73.4 Cyst of spleen | CPT/HCPCS: 74177; Q9967; 82565-PO ==

== ENCOUNTER → 2018-11-23 | Outpatient (CLI) | payer OTHER | LOC: CIMAGING 08:06 ==